=== PATIENT | male | born 1970 | race Caucasian/White ===

== ENCOUNTER 2019-03-17 09:30 | Outpatient (RCR) | payer MEDICAID, SELFPAY | END 2019-03-17 09:35 | disposition home or self-care (01) | LOC: PT 09:30 | PROVIDERS: Visit Provider Family Medicine | DX: M19.90 Unspecified osteoarthritis, unspecified site (principal) | CPT/HCPCS: 97010; 97014; 97110; 97163; G0283 ==

== ENCOUNTER 2020-04-21 10:53 | Emergency (ER) | payer MEDICAID, SELFPAY ==
--- NOTE | 2020-04-21 10:46 | ECG_ITS ---
APPROVED REPORT Exam: Resting ECG HR:58 bpm ECG Measurements Heart Rate 58 AXES SC 194 P 40 QRSd 100 QRS 61 QT 422 T 65 QTc 414 <Conclusion> Sinus bradycardia Otherwise normal ECG Electronically signed by : Ravinder Short, 04/22/2020 15:39:12
[2020-04-21 10:54] VITALS: BP 158/77; PULSE 60; RESP 17; TEMP 37.1; O2SAT 98; BMI 32.9
--- NOTE | 2020-04-21 10:59 | HMH.EDGENADL ---
ED Disposition Clinical Impression: Atypical chest pain Disposition: Home, Self-Care Condition on Discharge: Good Instructions: DI for Atypical Chest Pain Additional Instructions: Additional instructions for CHEST PAIN: See your physician as soon as possible for further evaluation. Return immediately if worsening chest pain, vomiting, shortness of breath, fever, coughing of blood. Referrals: PCP,No [Primary Care Provider] - - Critical Care Critical Care Time: No Attestation: On , the high probability of a clinically significant, sudden or life threatening deterioration of the following system(s) required my full and direct attention, intervention and personal management. The time I documented below is in addition to time spent performing reported procedures but includes the following listed in this critical care notation. Medical Decision Making - Medical Records Medical records reviewed: Yes: I reviewed the patient's medical records. - Leno Inquiry Pt receiving controlled substance: No Vital Signs: 04/21/20 10:54 04/21/20 11:04 04/21/20 11:52 Temperature 98.7 F Temperature Source Oral Pulse Rate Pulse Rate [Right Radial] 60 57 L 55 L Respiratory Rate 17 18 18 Blood Pressure Blood Pressure [Right Arm] 158/77 H 132/78 137/84 Blood Pressure Mean [Right Arm] 104 96 101 Blood Pressure Source [Right Arm] Automatic Cuff Blood Pressure Position [Right Arm] Sitting 02 Sat by Pulse Oximetry 98 98 94 L Oxygen Delivery Method Room Air Room Air 04/21/20 12:30 04/21/20 13:31 04/21/20 15:00 Temperature 98.2 F Temperature Source Oral Pulse Rate 51 L Pulse Rate [Right Radial] 54 L 54 L Respiratory Rate 20 18 18 Blood Pressure 128/75 Blood Pressure [Right Arm] 127/79 128/75 Blood Pressure Mean [Right Arm] 95 92 Blood Pressure Source [Right Arm] Automatic Cuff Blood Pressure Position [Right Arm] Supine 02 Sat by Pulse Oximetry 98 98 Oxygen Delivery Method Room Air Room Air Room Air - Lab Data Lab results reviewed: Yes: I reviewed the patient's lab results. Lab Results 04/21/20 10:50: Troponin I < 0.01 04/21/20 10:50: WBC 7.0, RBC 5.09, Hgb 16.9, Hct 47.0, MCV 92.3, MCH 33.1 H, MCHC 35.9 H, RDW 12.9, Plt Count 172, MPV 7.9, Neut % (Auto) 60.7, Lymph % (Auto) 22.9, Platte % (Auto) 8.0, Eos % (Auto) 8.0, Baso % (Auto) 0.4, Neut # (Auto) 4.3, Lymph # (Auto) 1.6, Platte # (Auto) 0.6, Eos # (Auto) 0.6 H, Baso # (Auto) 0.0 04/21/20 10:50: Sodium 138, Potassium 3.8, Chloride 101, Carbon Dioxide 29, Anion Gap 11.8, BUN 13, Creatinine 1.30 H, Estimated Creat Clear 102, Estimated GFR 58 L, Est GFR ( Amer) 70, Glucose 133 H, Calcium 9.6 04/21/20 10:50: Total Bilirubin 0.9, Direct Bilirubin 0.0, Conjugated Bilirubin 0.0, Indirect Bilirubin 0.9, Unconjugated Bilirubin 0.9, AST 28, ALT 20, Alkaline Phosphatase 47, Total Protein 7.2, Albumin 3.9 04/21/20 13:50: Troponin I < 0.01 Result diagrams: 04/21/20 10:50 04/21/20 10:50 Orders (Tests/Meds): ED MEDICATIONS Discontinued Medications Generic Name Dose Route Start Last Admin Trade Name Freq PRN Reason Stop Dose Admin Aspirin 324 mg 04/21/20 11:01 04/21/20 11:09 Aspirin 81mg Chewable Tablet PO 04/21/20 11:02 324 mg ONCE ONE Administration - Radiology Data #1 Image(s): Chest Image Reviewed: Yes I reviewed the patient's radiology image Preliminary Findings: Normal/NAD - ECG Data Tracing #1 EKG interpreted by Chris Villa MD: Rhythm: sinus bradycardia Rate: 58 [place]: normal Ectopy: none Conduction: normal ST Segment Changes: Minimal elevation inferiorly and laterally suggestive of early repolarization. No associated T wave changes. T Wave Changes: none Q Waves: none No prior EKGs available for comparison. Tracing #2 EKG interpreted by Chris Villa MD: Rhythm: sinus bradycardia Rate: 51 [place]: normal Ectopy: none Conduction: normal ST Segment Changes: none T Wave Ch
--- NOTE | 2020-04-21 11:00 | PC.NURSE ---
ekg given directly to dr can upon obtaining. awaiting further orders.
--- NOTE | 2020-04-21 11:01 | XR_ITS ---
PROCEDURE: XR CHEST PORTABLE CLINICAL HISTORY: cp Chest pain COMPARISON: No exams were available for comparison FINDINGS: The cardiomediastinal silhouette and pulmonary vascularity are within normal limits. The lungs are clear without infiltrates, suspicious nodules, or pleural effusions. No acute bony abnormalities. IMPRESSION: No acute findings. Dictated by: Juaquin Meehan MD 04/21/2020 11:58 Juaquin Meehan MD in [facility] 04/21/2020 11:58
--- NOTE | 2020-04-21 11:03 | PC.NURSE ---
dr can states that he wants to interview patient and decide if assessment matches ekg for stemi. at this time dr can states that he doesnt feel complaint is cardiac.
[2020-04-21 11:04] VITALS: BP 132/78; PULSE 57; RESP 18; O2SAT 98
[2020-04-21 11:13] LABS: Basophils % 0.4 % (0.1-2.0); Eosinophils # 0.6 K/mm3 (0.0-0.4); Hemoglobin 16.9 g/dL (14.1-18.0); Lymphocytes # 1.6 K/mm3 (0.7-4.5); Lymphocytes % 22.9 % (10-50); Mean Corpuscular HGB Conc 35.9 g/dL (31.8-35.4); Mean Corpuscular Hemoglobin 33.1 pg (27.0-31.2); Mean Corpuscular Volume 92.3 fl (80-94); Mean Platelet Volume 7.9 fl (7.4-10.4); Monocytes # 0.6 K/mm3 (0.1-1.0); Neutrophils # 4.3 K/mm3 (1.8-7.8); Neutrophils % 60.7 % (37.0-80.0); Platelet Count 172 K/mm3 (142-424); Red Blood Count 5.09 M/mm3 (4.60-6.20); Red Cell Distribution Width 12.9 % (11.5-17.5)
[2020-04-21 11:21] LABS: Chloride 101 mmol/L (98-107); Potassium 3.8 mmoL/L (3.5-5.1); Sodium 138 mmol/L (136-145)
[2020-04-21 11:24] LABS: Alanine Aminotransferase 20 U/L (12-78); Alkaline Phosphatase 47 U/L (38-126); Anion Gap 11.8 mEq/L (5-15); Aspartate Amino Transferase 28 U/L (17-59); Bilirubin,Indirect 0.9 mg/dL (0.0-0.9); Bilirubin,Total 0.9 mg/dl (0.2-1.3); Bilirubin,Unconjugated 0.9 mg/dL (0.0-1.1); Blood Urea Nitrogen 13 mg/dl (9-20); Calcium 9.6 mg/dl (8.4-10.2); Carbon Dioxide 29 mmol/L (22.0-30.0); Creatinine Clearance Estimated 102 mL/min (50-200); Estimated Glomerular Filt Rate 58 ml/min (>60); GFR (African American) 70 ML/MIN (>60); Glucose 133 mg/dl (74-100)
[2020-04-21 11:25] LABS: Albumin Level 3.9 g/dl (3.5-5.0); Total Protein,Serum 7.2 g/dl (6.3-8.2)
[2020-04-21 11:43] LABS: Troponin I < 0.01 ng/ml (0.00-0.034)
[2020-04-21 11:52] VITALS: BP 137/84; PULSE 55; RESP 18; O2SAT 94
[2020-04-21 12:30] VITALS: BP 127/79; PULSE 54; RESP 20; O2SAT 98
--- NOTE | 2020-04-21 13:01 | PC.NURSE ---
PT AMBULATING TO BATHROOM
[2020-04-21 13:31] VITALS: BP 128/75; PULSE 54; RESP 18; O2SAT 98
[2020-04-21 14:28] LABS: Troponin I < 0.01 ng/ml (0.00-0.034)
--- NOTE | 2020-04-21 14:54 | ECG_ITS ---
APPROVED REPORT Exam: Resting ECG HR:51 bpm ECG Measurements Heart Rate 51 AXES AZ 188 P 23 QRSd 88 QRS 41 QT 454 T 61 QTc 418 <Conclusion> Sinus bradycardia Otherwise normal ECG Electronically signed by : Ravinder Short, 04/22/2020 15:39:05
[2020-04-21 15:00] VITALS: BP 128/75; PULSE 51; RESP 18; TEMP 36.8; O2SAT 100
== END 2020-04-21 15:12 | disposition home or self-care (01) ==
PROVIDERS: Emergency Provider Emergency Medicine
DX: R07.9 Chest pain, unspecified (principal); F17.290 Nicotine dependence, other tobacco product, uncomplicated
CPT/HCPCS: 71045; 80048; 80076; 84484; 85025; 93005; 99284

== ENCOUNTER 2020-08-25 09:35 | Emergency (ER) | payer MEDICAID, SELFPAY ==
[2020-08-25 09:40] VITALS: BP 118/75; PULSE 58; RESP 20; TEMP 36.8; O2SAT 97; BMI 18.1
--- NOTE | 2020-08-25 09:59 | HMH.EDUTC ---
[facility] [place] Impression: Otitis media Qualifiers: Otitis media type: suppurative Chronicity: acute Laterality: bilateral Recurrence: non-recurrent Spontaneous tympanic membrane rupture: without spontaneous rupture Qualified Code(s): H66.003 - Acute suppurative otitis media without spontaneous rupture of ear drum, bilateral BPPV (benign paroxysmal positional vertigo) Qualifiers: Laterality: right Qualified Code(s): H81.11 - Benign paroxysmal vertigo, right ear Disposition: Home, Self-Care Condition on Discharge: Good Instructions: Middle Ear Infection, Benign Paroxysmal Positional Vertigo Additional Instructions: Drink plenty of fluids. Take tylenol or ibuprofen for pain or fever. Take the medications as directed. Follow up with your regular doctor. GO TO THE ER FOR ANY WORSENING SYMPTOMS Prescriptions: Amoxicillin [Amoxicillin 500mg Tab] 500 mg PO TID 10 Days #30 tab Transmission Status: Received by [facility] #[id number] predniSONE [Prednisone 20mg Tab] 20 mg PO BID 4 Days #8 tab Transmission Status: Received by [facility] #[id number] Referrals: Nitza Ring [Primary Care Provider] - Time of Disposition: 10:03 Medical Decision Making - Medical Records Medical records reviewed: No: I reviewed the patient's medical records. - Leno Inquiry Pt receiving controlled substance: No Vital Signs: 08/25/20 09:40 08/25/20 10:04 Temperature 98.3 F 98.3 F Temperature Source Oral Pulse Rate 58 L Pulse Rate [Left Brachial] 58 L Respiratory Rate 20 20 Blood Pressure 118/75 Blood Pressure [Left Arm] 118/75 Blood Pressure Mean [Left Arm] 89 Blood Pressure Source [Left Arm] Automatic Cuff Blood Pressure Position [Left Arm] Sitting 02 Sat by Pulse Oximetry 97 Oxygen Delivery Method Room Air [facility] [place] - General Stated complaint: dizzy Time Seen by Provider: 08/25/20 09:59 Mode of Arrival: Ambulatory Source of Information: Patient Limitations: No Limitations Description of Symptoms (Recalled from Triage Doc. by RN): PATIENT C/O DIZZINESS THIS MORNING AND DRAINAGE FROM EARS HEENT Symptoms (Recalled from RN notes): Yes Resp Symptoms (Recalled from RN notes): No Skin Symptoms (Recalled from RN notes): No MS Symptoms (Recalled from RN notes): No Functional Status (Recalled from RN notes): WNL - History of Present Illness Provider Complaint: He states that he has had bilateral ear pain for the past 2 days. He has also had dizziness at times. He states that when he looks down and then looks back up fast he gets dizzy. - Related Data Home Medications Medication Instructions Recorded Confirmed Bromocriptine Mesylate [Parlodel 2.5 mg PO DAILY 01/18/18 08/25/20 2.5mg tablet] atenoloL [Atenolol 25mg Tab] 25 mg PO DAILY 01/18/18 08/25/20 Testosterone [Androgel] 1.25 gm TD BID 08/25/20 08/25/20 Previous Rx's Medication Instructions Recorded Amoxicillin [Amoxicillin 500mg Tab] 500 mg PO TID 10 Days #30 tab 08/25/20 predniSONE [Prednisone 20mg 20 mg PO BID 4 Days #8 tab 08/25/20 Tab] Allergies Allergy/AdvReac Type Severity Reaction Status Date / Time No Known Allergies Allergy Unverified 07/13/17 15:08 - Worker's Comp Is this a Worker's Comp case?: No [facility] History - Hepatitis A Screen Drug use history?: No High risk sexual behaviors?: No History of sexually transmitted infection?: No Currently employed?: No Childcare worker?: No Do you have indoor plumbing?: Yes Do you have electricity?: Yes Attestation statement:: This patient has been screened for Hepatitis A risk factors. I have reviewed the patient's past medical history: Yes Medical History: Reports:: Cancer Denies:: Diabetes Mellitus Type 1, Diabetes Mellitus Type 2 - Social History Smoking Status: Never smoker Tobacco Type: smokeless tobacco # Packs/Day (cigarettes): 0 Alcohol Intake: never Occupational Status: other ROS Obtained: Yes All systems re
[2020-08-25 10:04] VITALS: BP 118/75; PULSE 58; RESP 20; TEMP 36.8; O2SAT 97
== END 2020-08-25 10:07 | disposition home or self-care (01) ==
PROVIDERS: Emergency Provider Nurse Practitioner Family; PCP Family Medicine
DX: H66.003 Acute suppurative otitis media without spontaneous rupture of ear drum, bilateral (principal); H81.11 Benign paroxysmal vertigo, right ear
CPT/HCPCS: 99202; G0463

== ENCOUNTER 2020-11-21 13:20 | Emergency (ER) | payer MEDICAID, SELFPAY ==
[2020-11-21 13:35] VITALS: BP 132/86; PULSE 99; RESP 16; TEMP 36.6; O2SAT 98; BMI 31.5
--- NOTE | 2020-11-21 13:48 | HMH.EDUTC ---
[facility] [place] Clinical Impression: Sinusitis Qualifiers: Sinusitis location: unspecified location Chronicity: acute Recurrence: non-recurrent Qualified Code(s): J01.90 - Acute sinusitis, unspecified Otitis media Qualifiers: Otitis media type: suppurative Chronicity: acute Laterality: bilateral Recurrence: non-recurrent Spontaneous tympanic membrane rupture: without spontaneous rupture Qualified Code(s): H66.003 - Acute suppurative otitis media without spontaneous rupture of ear drum, bilateral Disposition: Home, Self-Care Condition on Discharge: Good Instructions: DI for Sinusitis Additional Instructions: Drink plenty of fluids. Take tylenol or ibuprofen for pain or fever. Take the medications as directed. Follow up with your regular doctor. GO TO THE ER FOR ANY WORSENING SYMPTOMS Prescriptions: predniSONE [Prednisone 20mg Tab] 20 mg PO BID 4 Days #8 tab Transmission Status: Received by [facility] #[id number] Benzonatate [Tessalon Perle 100mg Cap] 100 mg PO TIDP PRN #30 cap PRN Reason: Cough Transmission Status: Received by [facility] #[id number] Azithromycin [Z-Troy 250mg Tab*] 250 mg PO UD DOSE PK #6 tab Transmission Status: Received by [facility] #[id number] Referrals: Nitza Ring [Primary Care Provider] - Forms: Work/School Release Time of Disposition: 13:52 Medical Decision Making - Medical Records Medical records reviewed: No: I reviewed the patient's medical records. - Leno Inquiry Pt receiving controlled substance: No Vital Signs: 11/21/20 13:35 11/21/20 13:54 Temperature 97.9 F 98 F Temperature Source Tympanic Pulse Rate 100 H Pulse Rate [Right] 99 H Respiratory Rate 16 18 Blood Pressure 129/82 Blood Pressure [Right Arm] 132/86 Blood Pressure Mean [Right Arm] 101 Blood Pressure Source [Right Arm] Automatic Cuff Blood Pressure Position [Right Arm] Sitting 02 Sat by Pulse Oximetry 98 [facility] [place] HPI - General Stated complaint: cough, runny nose Time Seen by Provider: 11/21/20 13:48 Mode of Arrival: Ambulatory Source of Information: Patient Limitations: No Limitations Description of Symptoms (Recalled from Triage Doc. by RN): PT C/O AN ALLERGY COLD WITH SINUS PRESSURE, RUNNY NOSE AND [place] FOR TWO DAYS. HEENT Symptoms (Recalled from RN notes): Yes (NASAL DRAINAGE, SINUS PRESSURE AND [place]) Resp Symptoms (Recalled from RN notes): No Skin Symptoms (Recalled from RN notes): No MS Symptoms (Recalled from RN notes): No Functional Status (Recalled from RN notes): NA - History of Present Illness Provider Complaint: He states that he has had sinus congestion, nasal drainage and a cough for the past 2 days. He has been vaccinated against covid. He denies any fever/chills/body aches. - Related Data Home Medications Medication Instructions Recorded Confirmed Bromocriptine Mesylate [Parlodel 2.5 mg PO DAILY 01/18/18 08/25/20 2.5mg tablet] atenoloL [Atenolol 25mg Tab] 25 mg PO DAILY 01/18/18 08/25/20 Testosterone [Androgel] 1.25 gm TD BID 08/25/20 08/25/20 Previous Rx's Medication Instructions Recorded Amoxicillin [Amoxicillin 500mg Tab] 500 mg PO TID 10 Days #30 tab 08/25/20 predniSONE [Prednisone 20mg 20 mg PO BID 4 Days #8 tab 08/25/20 Tab] Azithromycin [Z-Troy 250mg Tab*] 250 mg PO UD DOSE PK #6 tab 11/21/20 Benzonatate [Tessalon Perle 100mg 100 mg PO TIDP PRN #30 cap 11/21/20 Cap] predniSONE [Prednisone 20mg 20 mg PO BID 4 Days #8 tab 11/21/20 Tab] Allergies Allergy/AdvReac Type Severity Reaction Status Date / Time No Known Allergies Allergy Verified 11/21/20 13:41 - Worker's Comp Is this a Worker's Comp case?: No [facility] History - Hepatitis A Screen Drug use history?: No High risk sexual behaviors?: No History of sexually transmitted infection?: No Currently employed?: No Childcare worker?: No Do you have indoor plumbing?: Yes Do you have electricity?: Yes Attestation statement:: This
[2020-11-21 13:54] VITALS: BP 129/82; PULSE 100; RESP 18; TEMP 36.6
== END 2020-11-21 13:58 | disposition home or self-care (01) ==
PROVIDERS: Emergency Provider Nurse Practitioner Family; PCP Family Medicine
DX: J01.90 Acute sinusitis, unspecified (principal); H66.003 Acute suppurative otitis media without spontaneous rupture of ear drum, bilateral
CPT/HCPCS: 99202; G0463

== ENCOUNTER 2021-03-20 19:39 | Emergency (ER) | payer MEDICAID, SELFPAY ==
[2021-03-20 22:00] VITALS: BP 00/00; PULSE 0; RESP 0; TEMP -17.7; TEMP 0; O2SAT 0
--- NOTE | 2021-03-20 22:45 | PC.NURSE ---
Called for patient without answer
== END 2021-03-20 22:46 | disposition left against medical advice (07) ==
LOC: UTC 19:42
PROVIDERS: Emergency Provider Nurse Practitioner; PCP Family Medicine
DX: Z53.21 Procedure and treatment not carried out due to patient leaving prior to being seen by health care provider (principal)

== ENCOUNTER 2021-06-09 14:33 | Emergency (ER) | payer MEDICAID, SELFPAY ==
[2021-06-09 16:02] VITALS: BP 134/81; PULSE 71; RESP 16; TEMP 37.4; O2SAT 96; BMI 32.2
--- NOTE | 2021-06-09 16:07 | HMH.EDUTC ---
[facility] [place] Disposition Clinical Impression: Gastroenteritis Disposition: Home, Self-Care Condition on Discharge: Good Instructions: Viral Gastroenteritis, DI for Viral Gastroenteritis -- Adult Additional Instructions: Drink extra fluids with and between meals. If you have difficulty drinking, try very small amounts of water or suck on ice chips. ? Avoid fruit juices, as these do not replace minerals and can actually increase diarrhea. ? Children and adults can use sports drinks to replenish electrolytes. Younger children and infants should use products formulated for children, like oral rehydration solutions. ? Eat food in small amounts and let your stomach recover. ? Get lots of rest. You may feel tired or weak. ? No greasy or fried foods for the next 24-48 hours BRAT diet Bananas Rice Apples and [place] ? Make sure to drink plenty of liquids ? Return if needed ? Straight to ER if any life threatening symptoms ? Zofran as prescribed ? You was given an outpatient order for diarrhea panel, please collect specimen and bring back to outpatient lab then call back to the [facility] or follow up with family doctor for results ? Follow up with family doctor in the next 48-72 hours if no improvement or any worsening of symptoms Prescriptions: Dicyclomine HCl [Bentyl 10mg capsule] 10 mg PO TID PRN #15 cap PRN Reason: Cramping Transmission Status: Pending to [facility] # Ondansetron [Zofran 4mg ODT] 4 mg PO TIDP PRN #10 tab PRN Reason: Nausea Transmission Status: Pending to [facility] # Referrals: Nitza Ring [Primary Care Provider] - As needed Forms: Work/School Release Time of Disposition: 16:37 Medical Decision Making - Leno Inquiry Pt receiving controlled substance: No Leno was queried for this patient: No Vital Signs: 06/09/21 16:02 06/09/21 16:30 Temperature 99.4 F 99.4 F Temperature Source Oral Pulse Rate 71 Pulse Rate [Left] 71 Respiratory Rate 16 16 Blood Pressure 134/81 Blood Pressure [Right Arm] 134/81 Blood Pressure Mean [Right Arm] 98 02 Sat by Pulse Oximetry 96 Orders (Tests/Meds): ED MEDICATIONS Discontinued Medications Generic Name Dose Route Start Last Admin Trade Name Freq PRN Reason Stop Dose Admin Dicyclomine HCl 10 mg 06/09/21 16:14 06/09/21 16:24 Dicyclomine 10mg Capsule PO 06/09/21 16:15 10 mg ONCE ONE Administration Ondansetron HCl 4 mg 06/09/21 16:14 06/09/21 16:24 Ondansetron 4mg Odt SL 06/09/21 16:15 4 mg ONCE ONE Administration Medical Decision Narrative: Patient state that he is feeling much better and no longer having nausea and cramping no diarrhea since arrival [facility] [place] HPI - General Stated complaint: headache,SOA Time Seen by Provider: 06/09/21 16:08 Mode of Arrival: Ambulatory Source of Information: Patient Limitations: No Limitations Description of Symptoms (Recalled from Triage Doc. by RN): pt c/o having diarrhea and lethargy. HEENT Symptoms (Recalled from RN notes): No Resp Symptoms (Recalled from RN notes): No Skin Symptoms (Recalled from RN notes): No MS Symptoms (Recalled from RN notes): No Functional Status (Recalled from RN notes): na - History of Present Illness Provider Complaint: Patient states that his family has had a stomach bug and he thinks he may have it now too States that yesterday he started with cramping and diarrhea and had diarhea all day yesterday and last night States that today he has not had any diarrhea but has had some cramping and nausea but hasnt had any vomiting States that this evening he was still having some cramping so he came in to get medication for the nausea - Related Data Home Medications Medication Instructions Recorded Confirmed Bromocriptine Mesylate [Parlodel 2.5 mg PO DAILY 01/18/18 08/25/20 2.5mg tablet] atenoloL [Atenolol 25mg Tab] 25 mg PO DAILY 01/18/18 08/25/20 Testosterone [Androgel] 1.25 gm TD BID 08/25/20 08/25/20 Previous Rx's
[2021-06-09 16:30] VITALS: BP 134/81; PULSE 71; RESP 16; TEMP 37.4
== END 2021-06-09 16:56 | disposition home or self-care (01) ==
PROVIDERS: Emergency Provider Nurse Practitioner; PCP Family Medicine
DX: K52.9 Noninfective gastroenteritis and colitis, unspecified (principal)
CPT/HCPCS: 99202; G0463

== ENCOUNTER → 2021-06-12 04:55 | Outpatient (CLI) | payer MEDICAID, SELFPAY ==
[2021-06-12 05:34] LABS: Coronavirus 19, PCR Not Detected (NotDetected); Influenza A, PCR Not Detected (NotDetected); Influenza B, PCR Not Detected (NotDetected)
== END ==
PROVIDERS: PCP Family Medicine; Visit Provider Emergency Medicine
DX: Z20.822 Contact with and (suspected) exposure to COVID-19 (principal)
CPT/HCPCS: C9803; U0003; U0005

== ENCOUNTER → 2021-07-02 10:07 | Outpatient (CLI) | payer MEDICAID, SELFPAY | PROVIDERS: Visit Provider Nurse Practitioner | DX: Z20.822 Contact with and (suspected) exposure to COVID-19 (principal) | CPT/HCPCS: C9803; U0003; U0005 ==

== ENCOUNTER → 2021-07-11 13:46 | Outpatient (CLI) | payer MEDICAID, SELFPAY | PROVIDERS: Visit Provider Nurse Practitioner | DX: Z20.822 Contact with and (suspected) exposure to COVID-19 (principal) | CPT/HCPCS: C9803; U0003; U0005 ==

== ENCOUNTER 2021-09-07 09:54 | Emergency (ER) | payer MEDICAID, SELFPAY ==
[2021-09-07 09:55] VITALS: BP 123/77; PULSE 63; RESP 16; TEMP 37; O2SAT 98; BMI 33.5
--- NOTE | 2021-09-07 10:17 | XR_ITS ---
PROCEDURE INFORMATION: Exam: XR Chest Exam date and time: 09/07/2021 10:17 AM Age: 51 years old Clinical indication: Dyspnea; Additional info: Dyspnea, rhinorrhe a TECHNIQUE: Imaging protocol: XR of the chest. Views: 1 view. COMPARISON: CR XR CHEST PORTABLE 04/21/2020 11:46 AM FINDINGS: Lungs: Hyperinflation and mild prominence, without focal infiltrate. Pleural spaces: No pleural effusion. Heart/Mediastinum: Cardiac silhouette accentuated by epicardial fat. Bones/joints: Degenerative change. IMPRESSION: No acute airspace or pleural disease.
--- NOTE | 2021-09-07 10:33 | HMH.EDGENADL ---
ED Disposition Clinical Impression: Viral respiratory illness Disposition: Home, Self-Care Condition on Discharge: Good Instructions: DI for Viral Upper Respiratory Infection -- Adult Additional Instructions: Please follow up with your primary care physician in 2-3 days for further management. Please continue to eat 3 balanced meals and drink plenty of water. Please return for any concerning symptoms such as difficulty breathing, chest pain, symptoms that don't improve. Please follow up with COVID results tomorrow, if positive please self quarantine for 5 days or until asymptomatic. Referrals: Nitza Ring [Primary Care Provider] - Time of Disposition: 11:55 - Critical Care Critical Care Time: No Attestation: On 09/07/21, the high probability of a clinically significant, sudden or life threatening deterioration of the following system(s) required my full and direct attention, intervention and personal management. The time I documented below is in addition to time spent performing reported procedures but includes the following listed in this critical care notation. Medical Decision Making - Medical Records Medical records reviewed: Yes: I reviewed the patient's medical records. - Leno Inquiry Pt receiving controlled substance: No Vital Signs: 09/07/21 09:55 09/07/21 11:54 Temperature 98.6 F 98 F Temperature Source Oral Oral Pulse Rate 78 Pulse Rate [Radial] 63 Respiratory Rate 16 16 Blood Pressure 135/74 Blood Pressure [Right Arm] 123/77 Blood Pressure Mean [Right Arm] 92 Blood Pressure Position Sitting Blood Pressure Position [Right Arm] Sitting 02 Sat by Pulse Oximetry 98 Oxygen Delivery Method Room Air Room Air - Lab Data Lab results reviewed: Yes: I reviewed the patient's lab results. Orders (Tests/Meds): ORDERS Category Date Time Status Covid-19 Nasal PCR ([facility]) Routine Lab 09/07/21 09:58 Received Medical Decision Narrative: Mr. Cerrato is a 51 yo male diagnosed w/ COVID 19 07/2021 who presents to the ED for cough, congestion, dyspnea and fever 5d. Fully vaccinated. Patient is afebrile and hemodynamically stable,non toxic appearing. Physical exam patient has equal breath sounds bilterally w/ no wheezing, rhales or rhonchi. Patient breathing comfortably satting 98% on RA. Differentials to consider include: viral mediated illness including covid 19, pneumonia given duration of symptoms. Low suspicoin for pe given current clinical picture. CXR shows no evidence of pneumonia no consolidations. Patient is swabbed for covid 19 and instructed to fu w/ results in 24 hours. Patient is discharged in stable condition and informed to return if difficulty breathing, chest pain, symptoms that don't improve or any other ocncerns. Will fu w/ pcp in 2-3 d. General Adult HPI - General Chief complaint: Fever Stated complaint: fever Time Seen by Provider: 09/07/21 09:55 Mode of Arrival: Ambulatory Source of Information: Patient Limitations: No Limitations Description of Symptoms (Recalled from ER Triage Doc. by RN): TO ED PER PVT CAR WITH C/O FEVER X 2 DAYS, YEE EAR PAIN STATES HE HAD COVID 1 1/2 MONTHS AGO. [employer]Y DIRECTOR - History of Present Illness HPI narrative: Mr. gomez is a 51 yo male w/ COVID 07/2021 who presents to the ED for sore throat, congestion, dyspnea and cough for the last week. Patient is vaccinated. He reports a non productive cough, congestion and dyspnea. He also endorses fever and 2-3 episodes of non bloody diarrhea for the last 24 hours. He denies any LE swelling/hemoptysis or chest pain. No recent trauma to the chest. No abdominal pain, N/V, urinary or bowel changes. No sick contacts. No oropharyngeal changes. No ear pain (recently diagnosed w/ auricular infection since resolved). MD complaint: fever, congestion/cough - Related Data Home Medications Medication Instructions Recorded Confirmed Bromocriptine Mesylate [Parlodel 2.5 mg PO DAILY 01/18/18 08/25/20 2.5mg t
[2021-09-07 11:54] VITALS: BP 135/74; PULSE 78; RESP 16; TEMP 36.6; O2SAT 98
== END 2021-09-07 11:55 | disposition home or self-care (01) ==
PROVIDERS: Emergency Provider Student in an Organized Health Care Education/Training Program; PCP Family Medicine
DX: J98.8 Other specified respiratory disorders (principal); Z20.822 Contact with and (suspected) exposure to COVID-19; Z86.16 Personal history of COVID-19
CPT/HCPCS: 71045; 99282; C9803; U0003; U0005

== ENCOUNTER → 2021-09-19 14:03 | Outpatient (CLI) | payer MEDICAID, SELFPAY | PROVIDERS: Visit Provider Nurse Practitioner | DX: Z20.822 Contact with and (suspected) exposure to COVID-19 (principal) | CPT/HCPCS: C9803; U0003; U0005 ==

== ENCOUNTER 2021-10-08 10:39 | Emergency (ER) | payer MEDICAID, SELFPAY ==
[2021-10-08 11:19] VITALS: BP 159/99; PULSE 64; RESP 16; TEMP 37; O2SAT 97; BMI 34.1
--- NOTE | 2021-10-08 11:28 | HMH.EDUTC ---
[facility] [place] Clinical Impression: Vertigo Otitis media Qualifiers: Otitis media type: unspecified Laterality: right Qualified Code(s): H66.91 - Otitis media, unspecified, right ear Disposition: Home, Self-Care Condition on Discharge: Good Instructions: Vertigo (Alternative Therapy), Vertigo, Middle Ear Infection Additional Instructions: *Monitor Temp, Over the counter Motrin or Tylenol as directed/as needed Tylenol every 4 hours and Motrin every 6 hours (as long as your family doctor has told you that you can take it) for fever or pain. and straight to ER if unable to lower temp less than 101.0 after medication given *Warm salt water gargles may help to soothe the throat *Throat Lozenges *Warm fluids like tea with honey may help to soothe the throat *Sleep elevated *Humidifier/Vaporizer Take medications as prescribed Follow up with your Family Doctor if no improvement and immediately if any worsening of symptoms Follow up IMMEDIATELY for new or worsening symptoms or no Noticeable improvement over the next 48-72 hours. 911 for difficulty breathing or swallowing Prescriptions: Meclizine HCl [Meclizine 25mg Tab] 25 mg PO Q8HP PRN #15 tab PRN Reason: Vertigo Transmission Status: Received by [facility] # Amoxicillin [Amoxicillin 500mg Cap] 500 mg PO TID #30 cap Transmission Status: Received by [facility] # predniSONE [Deltasone 10mg tablet] 10 mg PO BID #10 tab Transmission Status: Received by [facility] # Referrals: Nitza Ring [Primary Care Provider] - As needed Forms: Work/School Release Time of Disposition: 11:59 Medical Decision Making - Leno Inquiry Pt receiving controlled substance: No Leno was queried for this patient: No Vital Signs: 10/08/21 11:19 Temperature 98.6 F Temperature Source Oral Pulse Rate [Left] 64 Respiratory Rate 16 Blood Pressure [Right Arm] 159/99 H Blood Pressure Mean [Right Arm] 119 02 Sat by Pulse Oximetry 97 Orders (Tests/Meds): ED MEDICATIONS Discontinued Medications Generic Name Dose Route Start Last Admin Trade Name Freq PRN Reason Stop Dose Admin Meclizine HCl 25 mg 10/08/21 11:34 10/08/21 11:36 Meclizine 25mg Tablet PO 10/08/21 11:35 25 mg ONCE ONE Administration Medical Decision Narrative: Patient states that vertigo is much better after medication [facility] [place] - General Stated complaint: dizzy Time Seen by Provider: 10/08/21 11:28 Mode of Arrival: Ambulatory Source of Information: Patient Limitations: No Limitations Description of Symptoms (Recalled from Triage Doc. by RN): pt c/o dizziness since this am. pt believes he has an ear infection. 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 and he started feeling dizzy like the world was spinning States that he went home tried to lay down and the spinning was worse so he came in to get checked out States that dizziness is worse with movement - Related Data Home Medications Medication Instructions Recorded Confirmed Bromocriptine Mesylate [Parlodel 2.5 mg PO DAILY 01/18/18 08/25/20 2.5mg tablet] atenoloL [Atenolol 25mg Tab] 25 mg PO DAILY 01/18/18 08/25/20 Testosterone [Androgel] 1.25 gm TD BID 08/25/20 08/25/20 Previous Rx's Medication Instructions Recorded Amoxicillin [Amoxicillin 500mg Tab] 500 mg PO TID 10 Days #30 tab 08/25/20 predniSONE [Prednisone 20mg 20 mg PO BID 4 Days #8 tab 08/25/20 Tab] Azithromycin [Z-Troy 250mg Tab*] 250 mg PO UD DOSE PK #6 tab 11/21/20 Benzonatate [T
[2021-10-08 12:11] VITALS: BP 159/99; PULSE 64; RESP 16; TEMP 37
== END 2021-10-08 12:11 | disposition home or self-care (01) ==
PROVIDERS: Emergency Provider Nurse Practitioner; PCP Family Medicine
DX: R42 Dizziness and giddiness (principal); H66.91 Otitis media, unspecified, right ear
CPT/HCPCS: 99212; G0463

== ENCOUNTER 2022-01-20 10:15 | Emergency (ER) | payer MEDICAID, SELFPAY ==
[2022-01-20 10:27] VITALS: BP 150/82; PULSE 50; RESP 17; TEMP 36.5; O2SAT 98; BMI 32.1
--- NOTE | 2022-01-20 11:06 | HMH.EDUTC ---
[facility] [place] Clinical Impression: Gastroenteritis Diarrhea Qualifiers: Diarrhea type: unspecified type Qualified Code(s): R19.7 - Diarrhea, unspecified Disposition: Home, Self-Care Condition on Discharge: Good Instructions: Diarrhea, Viral Gastroenteritis, Gastroenteritis Diet Additional Instructions: Drink plenty of fluids. Take tylenol or ibuprofen for pain or fever. Take the medications as directed if you have nausea/vomiting. Follow up with your regular doctor. GO TO THE ER FOR ANY WORSENING SYMPTOMS Prescriptions: Ondansetron [Zofran 4mg ODT] 4 mg PO Q8HP PRN #20 tab PRN Reason: Nausea Transmission Status: Received by [facility] #[id number] Referrals: Nitza Ring [Primary Care Provider] - Time of Disposition: 11:11 Medical Decision Making - Medical Records Medical records reviewed: No: I reviewed the patient's medical records. - Leno Inquiry Pt receiving controlled substance: No Vital Signs: 01/20/22 10:27 01/20/22 11:21 Temperature 97.7 F 97.7 F Temperature Source Oral Pulse Rate 50 L Pulse Rate [Left] 50 L Respiratory Rate 17 17 Blood Pressure 150/82 H Blood Pressure [Right Arm] 150/82 H Blood Pressure Mean [Right Arm] 104 02 Sat by Pulse Oximetry 98 Orders (Tests/Meds): ORDERS Category Date Time Status Diarrhea 23 Panel, PCR Routine Lab 01/20/22 12:50 Received [facility] [place] H[place] - General Stated complaint: diarrhea Time Seen by Provider: 01/20/22 10:30 Description of Symptoms (Recalled from Triage Doc. by RN): patient comes in today with complaints of diarrhea that began wednesday. patient states he is having abdominal cramping. HEENT Symptoms (Recalled from RN notes): No Resp Symptoms (Recalled from RN notes): No Skin Symptoms (Recalled from RN notes): No MS Symptoms (Recalled from RN notes): No Functional Status (Recalled from RN notes): wnl - Related Data Home Medications Medication Instructions Recorded Confirmed Bromocriptine Mesylate [Parlodel 2.5 mg PO DAILY 01/18/18 08/25/20 2.5mg tablet] atenoloL [Atenolol 25mg Tab] 25 mg PO DAILY 01/18/18 08/25/20 Testosterone [Androgel] 1.25 gm TD BID 08/25/20 08/25/20 Previous Rx's Medication Instructions Recorded Amoxicillin [Amoxicillin 500mg Tab] 500 mg PO TID 10 Days #30 tab 08/25/20 predniSONE [Prednisone 20mg 20 mg PO BID 4 Days #8 tab 08/25/20 Tab] Azithromycin [Z-Troy 250mg Tab*] 250 mg PO UD DOSE PK #6 tab 11/21/20 Benzonatate [Tessalon Perle 100mg 100 mg PO TIDP PRN #30 cap 11/21/20 Cap] predniSONE [Prednisone 20mg 20 mg PO BID 4 Days #8 tab 11/21/20 Tab] Dicyclomine HCl [Bentyl 10mg 10 mg PO TID PRN #15 cap 06/09/21 capsule] Ondansetron [Zofran 4mg ODT] 4 mg PO TIDP PRN #10 tab 06/09/21 Amoxicillin [Amoxicillin 500mg 500 mg PO TID #30 cap 10/08/21 Cap] Meclizine HCl [Meclizine 25mg Tab] 25 mg PO Q8HP PRN #15 tab 10/08/21 predniSONE [Deltasone 10mg tablet] 10 mg PO BID #10 tab 10/08/21 Ondansetron [Zofran 4mg ODT] 4 mg PO Q8HP PRN #20 tab 01/20/22 Allergies Allergy/AdvReac Type Severity Reaction Status Date / Time No Known Allergies Allergy Verified 01/20/22 10:32 - Worker's Comp Is this a Worker's Comp case?: No [facility] History - Hepatitis A Screen Attestation statement:: This patient has been screened for Hepatitis A risk factors. I have reviewed the patient's past medical history: Yes Medical History: Reports:: Cancer Denies:: Diabetes Mellitus Type 1, Diabetes Mellitus Type 2 - Social History Smoking Status: Never smoker Tobacco Type: smokeless tobacco # Packs/Day (cigarettes): 0 Alcohol Intake: never Occupational Status: employed ROS Obtained: Yes All systems reviewed & no additional complaints - Constitutional Constitutional: Reports as per HPI - Eyes Eyes: Denies eye discharge - ENT Ears, Nose, Mouth, and Throat: Reports as per HPI - Cardiovascular Cardiovascular: Denies ches
[2022-01-20 11:21] VITALS: BP 150/82; PULSE 50; RESP 17; TEMP 36.5
[2022-01-20 13:13] LABS: Adenovirus F 40/41, stool Not Detected (NotDetected); Astrovirus Not Detected (NotDetected); Campylobacter Not Detected (NotDetected); Clostridium Difficile A/B, PCR Not Detected (NotDetected); Cryptosporidium Not Detected (NotDetected); Cyclospora Cayetanesis Not Detected (NotDetected); Entamoeba histolytica Not Detected (NotDetected); Enteroaggregative E coli Not Detected (NotDetected); Enterotoxigenic E coli Not Detected (NotDetected); Giardia lamblia Not Detected (NotDetected); Norovirus Not Detected (NotDetected); Plesimonas Shigalloides, PCR Not Detected (NotDetected); Rotavirus A Not Detected (NotDetected); Salmonella, PCR Not Detected (NotDetected); Sapovirus Not Detected (NotDetected); Shiga-like toxin E coli Not Detected (NotDetected); Shigella Enterovasive E coli Not Detected (NotDetected); Vibrio Cholerae Not Detected (NotDetected); Vibrio, PCR Not Detected (NotDetected); Yersinia Entercolitica, PCR Not Detected (NotDetected)
[2022-01-20 20:36] LABS: Enteropathogenic E coli Detected (NotDetected)
== END 2022-01-20 11:21 | disposition home or self-care (01) ==
PROVIDERS: Emergency Provider Nurse Practitioner Family; PCP Family Medicine
DX: K52.9 Noninfective gastroenteritis and colitis, unspecified (principal)
CPT/HCPCS: 87507; 96374; 99212; G0463

== ENCOUNTER → 2022-02-19 12:25 | Outpatient (CLI) | payer MEDICAID, SELFPAY ==
[2022-02-19 13:29] LABS: Chloride 103 mmol/L (98-107)
[2022-02-19 13:30] LABS: Potassium 4.3 mmoL/L (3.5-5.1); Sodium 138 mmol/L (136-145)
[2022-02-19 13:32] LABS: Blood Urea Nitrogen 13 mg/dl (9-20); Estimated Glomerular Filt Rate 58 ml/min (>60); GFR (African American) 70 ML/MIN (>60)
[2022-02-19 13:33] LABS: Anion Gap 11.3 mEq/L (5-15); Calcium 9.6 mg/dl (8.4-10.2); Carbon Dioxide 28 mmol/L (22.0-30.0); Glucose 143 mg/dl (74-100)
== END ==
PROVIDERS: Visit Provider Dietitian, Registered
DX: R93.5 Abnormal findings on diagnostic imaging of other abdominal regions, including retroperitoneum (principal); R19.7 Diarrhea, unspecified
CPT/HCPCS: 36415; 80048

== ENCOUNTER → 2022-02-20 11:12 | Outpatient (CLI) | payer MEDICAID, SELFPAY ==
[2022-02-20 11:30] LABS: Adenovirus F 40/41, stool Not Detected (NotDetected); Astrovirus Not Detected (NotDetected); Campylobacter Not Detected (NotDetected); Clostridium Difficile A/B, PCR Not Detected (NotDetected); Cryptosporidium Not Detected (NotDetected); Cyclospora Cayetanesis Not Detected (NotDetected); Entamoeba histolytica Not Detected (NotDetected); Enteroaggregative E coli Not Detected (NotDetected); Enteropathogenic E coli Not Detected (NotDetected); Enterotoxigenic E coli Not Detected (NotDetected); Giardia lamblia Not Detected (NotDetected); Norovirus Not Detected (NotDetected); Plesimonas Shigalloides, PCR Not Detected (NotDetected); Rotavirus A Not Detected (NotDetected); Salmonella, PCR Not Detected (NotDetected); Sapovirus Not Detected (NotDetected); Shiga-like toxin E coli Not Detected (NotDetected); Shigella Enterovasive E coli Not Detected (NotDetected); Vibrio Cholerae Not Detected (NotDetected); Vibrio, PCR Not Detected (NotDetected); Yersinia Entercolitica, PCR Not Detected (NotDetected)
[2022-02-23 22:07] LABS: Calprotectin, Fecal 79 ug/g (0-120)
== END ==
PROVIDERS: Visit Provider Dietitian, Registered
DX: R19.7 Diarrhea, unspecified (principal); R93.5 Abnormal findings on diagnostic imaging of other abdominal regions, including retroperitoneum
CPT/HCPCS: 83993; 87507

== ENCOUNTER → 2022-02-27 09:43 | Outpatient (CLI) | payer MEDICAID, SELFPAY | PROVIDERS: Visit Provider Dietitian, Registered | DX: R19.7 Diarrhea, unspecified (principal); R93.5 Abnormal findings on diagnostic imaging of other abdominal regions, including retroperitoneum | CPT/HCPCS: 87177 ==

== ENCOUNTER → 2022-07-02 07:42 | Outpatient (CLI) | payer MEDICAID, SELFPAY ==
[2022-07-02 08:32] LABS: Chloride 102 mmol/L (98-107); Potassium 4.2 mmoL/L (3.5-5.1); Sodium 139 mmol/L (136-145)
[2022-07-02 08:35] LABS: Anion Gap 10.2 mEq/L (5-15); Blood Urea Nitrogen 14 mg/dl (9-20); Calcium 9.6 mg/dl (8.4-10.2); Carbon Dioxide 31 mmol/L (22.0-30.0); Estimated Glomerular Filt Rate 53 ml/min (>60); GFR (African American) 64 ML/MIN (>60); Glucose 127 mg/dl (74-100)
[2022-07-03 12:03] LABS: Immunoglobulin A, Qn 261 mg/dL (90-386)
[2022-07-03 15:03] LABS: Tissue Transglutaminase IgA Ab <2 U/mL (0-3)
[2022-07-04 18:08] LABS: Strongyloides IgG Antibody Negative (Negative)
== END ==
PROVIDERS: PCP Family Medicine; Visit Provider Dietitian, Registered
DX: R19.7 Diarrhea, unspecified (principal)
CPT/HCPCS: 36415; 80048; 82784; 83516; 86682; 87177

== ENCOUNTER 2023-04-21 08:00 | Outpatient (RCR) | payer MEDICAID, SELFPAY | END 2023-04-21 09:10 | disposition home or self-care (01) | LOC: PT 08:00 | PROVIDERS: PCP Family Medicine; Visit Provider Family Medicine | DX: S76.319D Strain of muscle, fascia and tendon of the posterior muscle group at thigh level, unspecified thigh, subsequent encounter (principal) | CPT/HCPCS: 20560; 97010; 97014; 97035; 97110; 97140; 97163; 97164; G0283 ==

== ENCOUNTER 2023-07-03 09:40 | Emergency (ER) | payer MEDICAID, SELFPAY ==
[2023-07-03 09:45] VITALS: BP 140/88; PULSE 73; RESP 18; TEMP 36.8; O2SAT 98; BMI 36.0
--- NOTE | 2023-07-03 10:12 | EXP.UTC ---
Discharge Plan Disposition Patient Disposition: Home, Self-Care Condition: Good Prescriptions Prescriptions: New cyclobenzaprine 7.5 mg tablet 7.5 mg PO TID PRN (Reason: muscle spasm) Qty: 30 0RF No Action atenolol 25 MG tablet 25 mg PO DAILY bromocriptine 2.5 MG tablet 2.5 mg PO DAILY cetirizine 10 mg tablet 10 mg PO DAILY Patient Comments: TAKE 1 TABLET BY MOUTH EVERY NIGHT dicyclomine 10 mg capsule 10 mg PO Q8HP PRN (Reason: Diarrhea) Patient Comments: TAKE 1 CAPSULE BY MOUTH EVERY 8 HOURS NEEDED FOR DIARRHEA/FECAL URGENCY cholecalciferol (vitamin D3) 25 mcg (1,000 unit) capsule 25 mcg PO DAILY testosterone 20.25 mg/1.25 gram (1.62 %) gel in metered-dose pump 6 pump topical DAILY Patient Comments: PLACE 6 PUMPS ONTO THE SKIN EVERY DAY Referrals Follow up/Referrals: Nitza Ring [Primary Care Provider] - See instructions Clinical Impressions Clinical Impression: Muscle spasms of neck Instructions Patient Instructions: DI for Muscle Spasm, DI for Neck Pain Discharge ED Provider: Claudia Villeda [facility] General Stated complaint: neck pain, no accident Mode of Arrival: Ambulatory Source of Information: Patient Limitations: No Limitations Time Seen by Provider: 07/03/23 10:11 Description of Symptoms (Recalled from Triage Doc. by RN): PATIENT C/O PAIN IN NECK AFTER SLEEPING ON IT WRONG X 2 DAYS HEENT Symptoms (Recalled from RN notes): No Resp Symptoms (Recalled from RN notes): No Skin Symptoms (Recalled from RN notes): No MS Symptoms (Recalled from RN notes): Yes Functional Status (Recalled from RN notes): WNL History of Present Illness Provider Complaint: Pt relates that he slept wrong a couple nights ago and now has a lot of pain on the left side of his neck. Related Data Home Medications Medication Instructions Recorded Confirmed atenolol 25 mg tablet 25 mg PO DAILY Hypertension 01/18/18 07/03/23 bromocriptine 2.5 mg tablet 2.5 mg PO DAILY brain tumor 01/18/18 07/03/23 cetirizine 10 mg tablet 10 mg PO DAILY 07/03/23 07/03/23 cholecalciferol (vitamin D3) 25 25 mcg PO DAILY 07/03/23 07/03/23 mcg (1,000 unit) capsule dicyclomine 10 mg capsule 10 mg PO Q8HP PRN Diarrhea 07/03/23 07/03/23 testosterone 6 pump topical DAILY 07/03/23 07/03/23 Previous Rx's Medication Instructions Recorded cyclobenzaprine 7.5 mg tablet 7.5 mg PO TID PRN muscle spasm #30 07/03/23 tabs Allergies Allergy/AdvReac Type Severity Reaction Status Date / Time No Known Allergies Allergy Verified 01/20/22 10:32 Worker's Comp Is this a Worker's Comp case?: No [facility] Disclaimer: The information contained in this section may have been updated after the patient was seen, as this information can be updated by other users. Medical History (Updated 07/03/23 @ 10:28 by Claudia Villeda APRN) Cancer Hypertension Social History Smoking Status: Never smoker alcohol intake: never current occupational status: employed Travel in the last 8 weeks: None ROS Obtained: Yes All systems reviewed & no additional complaints except as documented Constitutional Constitutional: Reports system reviewed and no additional complaints, except as documented Eyes Eyes: Reports system reviewed and no additional complaints, except as documented ENT Ears, Nose, Mouth, and Throat: Reports system reviewed and no additional complaints, except as documented and Reports neck pain Cardiovascular Cardiovascular: Reports system reviewed and no additional complaints, except as documented Respiratory Respiratory: Reports system reviewed and no additional complaints, except as documented Gastrointestinal Gastrointestingal: Reports system reviewed and no additional complaints, except as documented Genitourinary Male Genitourinary: Reports system reviewed and no additional complaints, except as documented Musculoskeletal Musculoskeletal: Reports system r
[2023-07-03 10:31] VITALS: BP 140/88; PULSE 73; RESP 18; TEMP 36.8; O2SAT 98
== END 2023-07-03 10:38 | disposition home or self-care (01) ==
PROVIDERS: Emergency Provider Nurse Practitioner Family; PCP Family Medicine
DX: M54.2 Cervicalgia (principal); M62.838 Other muscle spasm; I10 Essential (primary) hypertension
CPT/HCPCS: 96372; 99212; 99214; G0463

== ENCOUNTER 2023-08-02 08:00 | Outpatient (RCR) | payer MEDICAID, SELFPAY | END 2023-08-02 09:00 | disposition home or self-care (01) | LOC: OT 08:00 | PROVIDERS: PCP Family Medicine; Visit Provider Nurse Practitioner Family | DX: M25.512 Pain in left shoulder (principal); S46.812D Strain of other muscles, fascia and tendons at shoulder and upper arm level, left arm, subsequent encounter | CPT/HCPCS: 97010; 97014; 97110; 97140; 97165; G0283 ==

== ENCOUNTER 2023-12-08 10:00 | Outpatient (RCR) | payer MEDICAID, SELFPAY | END 2023-12-08 10:05 | disposition home or self-care (01) | LOC: OT 10:00 | PROVIDERS: Visit Provider Orthopaedic Surgery Adult Reconstructive Orthopaedic Surgery | DX: M25.512 Pain in left shoulder (principal); M75.42 Impingement syndrome of left shoulder | CPT/HCPCS: 97010; 97014; 97110; 97140; 97164; 97165; 97530; G0283 ==

== ENCOUNTER 2023-12-09 12:49 | Emergency (ER) | payer MEDICAID, SELFPAY ==
[2023-12-09 13:00] VITALS: BP 120/73; PULSE 65; RESP 19; TEMP 36.6; O2SAT 97; BMI 32.5
--- NOTE | 2023-12-09 13:16 | EXP.UTC ---
Discharge Plan Disposition Patient Disposition: Home, Self-Care Condition: Good Prescriptions Prescriptions: No Action atenolol 25 MG tablet 50 mg PO DAILY bromocriptine 2.5 MG tablet 2.5 mg PO DAILY metformin 500 mg tablet extended release 24 hr 500 mg PO DAILY rosuvastatin 20 mg tablet 20 mg PO DAILY cetirizine 10 mg tablet 10 mg PO DAILY Patient Comments: TAKE 1 TABLET BY MOUTH EVERY NIGHT testosterone 20.25 mg/1.25 gram (1.62 %) gel in metered-dose pump 6 pump topical DAILY Patient Comments: PLACE 6 PUMPS ONTO THE SKIN EVERY DAY Referrals Follow up/Referrals: Nitza Ring [Primary Care Provider] - See instructions Activity Restrictions/Add. Instructions Additional Instructions/Restrictions: Watch area for worsening of redness and bulls eye rash as discussed if seen follow up with your Family Doctor immediately You was given a Prophylactic does of Doxycycline in the [facility] Do not scratch or pick at area Straight to ER if any life threatening symptoms Clinical Impressions Clinical Impression: Tick bite Qualifiers: Encounter type: initial encounter Site of tick bite: unspecified site Qualified Code(s): W57.XXXA - Bitten or stung by nonvenomous insect and other nonvenomous arthropods, initial encounter Instructions Patient Instructions: How to Remove a Tick, Protect Yourself from Tickborne Illnesses Discharge ED Provider: Bella Rose [facility] [place] General Stated complaint: tick bit upper L groin area Mode of Arrival: Ambulatory Source of Information: Patient Limitations: No Limitations Time Seen by Provider: 12/09/23 13:24 Description of Symptoms (Recalled from Triage Doc. by RN): PATIENT C/O TICK BITE TO GROIN AREA YESTERDAY MORNING HEENT Symptoms (Recalled from RN notes): No Resp Symptoms (Recalled from RN notes): No Skin Symptoms (Recalled from RN notes): Yes MS Symptoms (Recalled from RN notes): No Functional Status (Recalled from RN notes): WNL History of Present Illness Provider Complaint: Patient states that he had a tick attached in his groin area not sure how long it had been there and he removed it last night and is sure the head was still attached States this morning he noticed it looked red and puffy around it and has continued throughout the day so he came in to get it looked at Related Data Home Medications Medication Instructions Recorded Confirmed atenolol 25 mg tablet 50 mg PO DAILY Hypertension 01/18/18 12/09/23 bromocriptine 2.5 mg tablet 2.5 mg PO DAILY brain tumor 01/18/18 12/09/23 cetirizine 10 mg tablet 10 mg PO DAILY 07/03/23 12/09/23 testosterone 6 pump topical DAILY 07/03/23 12/09/23 metformin 500 mg tablet,extended 500 mg PO DAILY 12/09/23 12/09/23 release 24 hr rosuvastatin 20 mg tablet 20 mg PO DAILY 12/09/23 12/09/23 Allergies Allergy/AdvReac Type Severity Reaction Status Date / Time No Known Allergies Allergy Verified 01/20/22 10:32 Worker's Comp Is this a Worker's Comp case?: [facility] Disclaimer: The information contained in this section may have been updated after the patient was seen, as this information can be updated by other users. Medical History (Updated 12/09/23 @ 13:32 by Bella Rose APRN) Asthma Cancer Hypertension Social History Smoking Status: Never smoker alcohol intake: never current occupational status: employed Travel in the last 8 weeks: None ROS Obtained: Yes All systems reviewed & no additional complaints except as documented and Yes Systems reviewed as appropriate & no additional complaints except as documented Constitutional Constitutional: Reports system reviewed and no additional complaints, except as documented and Reports as per HPI ENT Ears, Nose, Mouth, and Throat: Reports system reviewed and no additional complaints, except as documented and Reports as per HPI Cardiovascular Cardiovascular: Reports system reviewed and no additional complaints, except as documented and Reports as per HPI Respiratory Respiratory: Reports system reviewed and no additional complaints, except as documented and Reports as per HPI Integumentary/Breasts Skin/Breast: Reports system reviewed and no additional complaints, except as documented, Reports as per HPI and Reports other (redness and irritation around tick bite on groin) Physical Exam General General appearance: alert and in no apparent distress Respiratory Respiratory exam: Present normal lung sounds bilaterally; Absent respiratory distress or wheezes Cardiovascular Cardiovascular exam: Present regular rate, normal rhythm and normal heart sounds Neurological Exam Neurological exam: Present alert, oriented X3 and normal gait Skin Skin exam: Present other (red area noted in groin area where patient removed tick ) Medical Decision Making Leno Inquiry Pt receiving controlled substance: No Leno was queried for this patient: No Vital Signs: 12/09/23 13:00 Temperature 97.9 F Temperature Source Oral Pulse Rate [Left Brachial] 65 Respiratory Rate 19 Blood Pressure [Left Arm] 120/73 Blood Pressure Mean [Left Arm] 88 Blood Pressure Source [Left Arm] Automatic Cuff Blood Pressure Position [Left Arm] Sitting 02 Sat by Pulse Oximetry 97 Oxygen Delivery Method Room Air Medical Decision Narrative: Patient has red area noted where he removed tick concerned with tick born illness will treat prophalacticly with doxy 200mg po x 1 where tick was attached unknown time and removed less than 72hrs ago
[2023-12-09 13:37] VITALS: BP 120/73; PULSE 65; RESP 19; TEMP 36.6; O2SAT 97
[2023-12-09] MEDS: DOXYCYCLINE HYCL 100 MG TABLET 200 MG PO (13:41)
== END 2023-12-09 13:43 | disposition home or self-care (01) ==
PROVIDERS: Emergency Provider Nurse Practitioner; PCP Family Medicine
DX: S30.865A Insect bite (nonvenomous) of unspecified external genital organs, male, initial encounter (principal); W57.XXXA Bitten or stung by nonvenomous insect and other nonvenomous arthropods, initial encounter
CPT/HCPCS: 99212; 99214; G0463

== ENCOUNTER 2024-12-10 18:45 | Emergency (ER) | payer MEDICAID, SELFPAY ==
[2024-12-10 19:12] VITALS: BP 138/87; PULSE 64; RESP 18; TEMP 37.2; O2SAT 97; BMI 30.9
--- NOTE | 2024-12-10 19:27 | ED_ITS ---
Discharge Plan Disposition Patient Disposition: Home, Self-Care Prescriptions Prescriptions: New amoxicillin-pot clavulanate 875-125 mg tablet 1 tab PO BID 5 Days Qty: 10 0RF No Action atenolol 25 MG tablet 50 mg PO DAILY bromocriptine 2.5 MG tablet 2.5 mg PO DAILY metformin 500 mg tablet extended release 24 hr 500 mg PO DAILY rosuvastatin 20 mg tablet 20 mg PO DAILY cetirizine 10 mg tablet 10 mg PO DAILY Patient Comments: TAKE 1 TABLET BY MOUTH EVERY NIGHT testosterone 20.25 mg/1.25 gram (1.62 %) gel in metered-dose pump 6 pump topical DAILY Patient Comments: PLACE 6 PUMPS ONTO THE SKIN EVERY DAY Referrals Follow up/Referrals: Nitza Ivory MD [Primary Care Provider] - See instructions Activity Restrictions/Add. Instructions Additional Instructions/Restrictions: Antibiotic twice daily for 5 days. Call your family doctor to establish care for this visit to the emergency department and schedule follow-up within 48 hours to ensure improvement. If you have any worsening of your condition or any other concerning signs or symptoms, return to the emergency department or your primary care doctor for further evaluation. Clinical Impressions Clinical Impression: Dog bite of left hand Instructions Patient Instructions: Animal Bites Print Language Print Language: Citizen Of [place] Discharge ED Provider: Rene Austin General Adult HPI General Chief complaint: Animal Bite Stated complaint: dog bite on left palm Time Seen by Provider: 12/10/24 18:50 Mode of Arrival: Ambulatory Source of Information: Patient Description of Symptoms (Recalled from ER Triage Doc. by RN): pt to ED with c/o dog bite to left hand 1.5 hr ago. dog is utd on vaccines. History of Present Illness HPI narrative: Please note that above description of symptoms, in this electronic medical record under categorization of recalled from ER triage doctor by RN are reflective of an initial nursing assessment, however, is not reflective of my full history and physical exam that was personally taken and clarified. Consequentially, this preceding description of symptoms, which may include the patient's categorized chief complaint in the EMR, do not reflect my personal clinical impression, and the ultimate description of history of present illness and patient stated complaints should be deferred to this section of the note. Unless stated otherwise or congruent with this section of the note, additional signs, symptoms, or incongruence should be interpreted as inaccurate with my clinical impression. Related Data Home Medications ?Medication ?Instructions ?Recorded ?Confirmed atenolol 25 mg tablet 50 mg PO DAILY Hypertension 01/18/18 12/09/23 bromocriptine 2.5 mg tablet 2.5 mg PO DAILY brain tumor 01/18/18 12/09/23 cetirizine 10 mg tablet 10 mg PO DAILY 07/03/23 12/09/23 testosterone 6 pump topical DAILY 07/03/23 12/09/23 metformin 500 mg tablet,extended 500 mg PO DAILY 12/09/23 12/09/23 release 24 hr rosuvastatin 20 mg tablet 20 mg PO DAILY 12/09/23 12/09/23 Previous Rx's ?Medication ?Instructions ?Recorded amoxicillin 875 mg-potassium 1 tab PO BID 5 days #10 tabs 12/10/24 clavulanate 125 mg tablet Allergies Allergy/AdvReac Type Severity Reaction Status Date / Time No Known Allergies Allergy Verified 01/20/22 10:32 [facility] Disclaimer: The information contained in this section may have been updated after the patient was seen, as this information can be updated by other users. Medical History (Updated 12/10/24 @ 19:30 by Rene Austin MD) Asthma Cancer Hypertension Social History Smoking Status: Never smoker alcohol intake: never current occupational status: employed Travel in the last 8 weeks?: None Have you lived/traveled outside [place] in past 30 days?: No Contact w/someone who lives/traveled outside [place] past 30 days?: No Exposure to someone with infectious disease in past 14 days?: No Do you have a fever (greater than 100.4 F or 38 C)?: No Have you tested positive for COVID-19?: No Exposed to someone with COVID-19 in past 14 days?: No Do you have a sore throat?: No Do you have a cough?: No Do you have any weakness?: No Do you have any diarrhea?: No Are you experiencing any unusual bleeding?: Yes Do you have any muscle aches/pain?: No Do you have any abdominal pain?: No Are you experiencing loss of taste or smell?: No Other Medical History Have you received the Flu Vaccine for this season: Yes Have you received the Pneumonia Vaccine: Yes ROS Obtained: Yes All systems reviewed & no additional complaints except as documented Physical Exam General General appearance: alert Head Head exam: atraumatic and normocephalic Eye Eye exam: Present normal appearance, PERRL and EOMI Neck Neck exam: Present normal inspection, full ROM and trachea midline Respiratory Respiratory exam: Absent respiratory distress, wheezes, stridor, accessory muscle use or prolonged expiratory phase Cardiovascular Cardiovascular exam: Present other (Pulses equal symmetric in upper and lower extremities) Abdominal Exam Abdominal exam: Present soft; Absent distention, tenderness or pulsatile mass Extremities Exam Extremities exam: Present edema (With associated dog bite thenar eminence and dorsal soft tissues between 1st and 2nd metacarpal left hand) Neurological Exam Neurological exam: Present alert, oriented X3 and CN II-XII intact; Absent motor sensory deficit Skin Skin exam: Present warm and dry; Absent diaphoresis or erythema Medical Decision Making Medical Records Medical records reviewed: Yes I reviewed the patient's medical records. Screening: Per USPSTF and CDC recommendations, given the prevalence of disease in our region, it is our hospital?s policy to screen for HIV and viral Hepatitis for all patients aged 18 and over and those with ongoing risk factors. Leno Inquiry Pt receiving controlled substance: No Leno was queried for this patient: No Vital Signs: 12/10/24 19:12 Temperature 98.9 F Temperature Source Oral Pulse Rate [Left Radial] 64 Respiratory Rate 18 Blood Pressure [Right Arm] 138/87 Blood Pressure Mean [Right Arm] 104 Blood Pressure Source [Right Arm] Automatic Cuff Blood Pressure Position [Right Arm] Sitting 02 Sat by Pulse Oximetry 97 Oxygen Delivery Method Room Air Orders (Tests/Meds): ED MEDICATIONS Discontinued Medications Generic Name Dose Route Start Last Admin Trade Name Freq PRN Reason Stop Dose Admin Amoxicillin/Clavulanate Potassium 1 each 12/10/24 19:05 Amoxicillin/Clavulanate Potassium 875/125mg Tablet PO 12/10/24 19:06 ONCE ONE Tetanus/Reduced Diphtheria/Acell Pertussis 0.5 ml 12/10/24 19:05 Tet/Diphth/Pert-Adult 0.5ml Syringe IM 12/10/24 19:06 .ONCE ONE Medical Decision Narrative: 54-year-old male presenting with dog bite. It was his dog, dog is up-to-date on vaccinations. He states that he was trying to break up dogs and a fight and his dog bit him on the hand. Patient sustained no other trauma. Does not room when his last tetanus was. Does not have any antibiotic allergies. History obtained the patient. On arrival, very clinically well. He has dog bite to the thenar eminence and the dorsal aspect of the left hand in the soft tissues between the 1st and 2nd metacarpal. Neurovascular intact, range of motion intact, well- appearing overall. Small puncture wounds, not amenable to drainage. Patient was irrigated extensively for 3 to 5 minutes under direct pressure. Patient was given Augmentin, Tdap, wound was dressed with petroleum impregnated gauze. Because patient at baseline without signs or symptoms of clinical decompensation, deemed appropriate for discharge. Results were relayed to patient who voiced understanding and were agreeable to outpatient management and follow up. I discussed my clinical impression with patient and answered all questions. At this time, the evidence for any other entities in the differential is insufficient to warrant any further testing or ED observation. This was explained as well. Advisory was given that persistent or worsening symptoms require further evaluation. I confirmed the understanding of this discussion. [employer] H[employer]amer disclaimer Much of this encounter note is an electronic two way radio technician spoken language to printed text. Electronic two way radio technician of the spoken language may permit errors. Although I have reviewed the note, some errors may still exist. Critical Care Critical Care Time Critical Care Time: No
[2024-12-10 19:31] VITALS: BP 132/87; PULSE 87; RESP 20; TEMP 36.8; O2SAT 98
[2024-12-10] MEDS: AMOXICILLIN/CLAVULANATE POTASSIUM 875/125MG TABLET 1 EACH PO (19:33)
[2024-12-10] MEDS: TET/DIPHTH/PERT-ADULT 0.5ML SYRINGE 0.5 ML IM (19:33)
== END 2024-12-10 19:37 | disposition home or self-care (01) ==
PROVIDERS: Emergency Provider Emergency Medicine; PCP Family Medicine
DX: S61.452A Open bite of left hand, initial encounter (principal); W54.0XXA Bitten by dog, initial encounter; Z23 Encounter for immunization
CPT/HCPCS: 90471; 90715; 99283

== ENCOUNTER 2025-02-16 11:24 | Emergency (ER) | payer MEDICAID, SELFPAY ==
[2025-02-16] VITALS (10 sets, daily range): BP systolic 126–159; BP diastolic 76–89; PULSE 54–63; RESP 10–19; TEMP 36.9–37.4; O2SAT 96–99; BMI 31.4
--- OUTSIDE RECORDS SUMMARY | 2025-02-16 08:40 | XMS_ITS | Encounter Summary ---
Author Organization [facility] Address [address] [place] [address] Care Team Providers Care Harvester Operator Name Role Phone Nitza Ivory MD Primary Care Provider [phone] Encounter Details Date Type Department Care Team (Late st Contact Info) Description 02/16/2025 8:40 AM EDT Office Visit [facility] [address] [place] [address] Nitza Ivory MD [address] [place] [address] Type 2 diabetes mellitus with [...] place to sleep or slept in a snf (including now)? No 08/25/2023 PHQ-9 Answer Date [...] any time in the past 12 m [facility], were you homeless or living in a snf (including now)? No 10/17/2024 Humiliation, Afraid, Rape, [...] any time in the past 12 m [facility], were you homeless or living in a snf (including now)? No 02/16/2025 Safety and Environment [...] Month) No 025 8:39 AM EDT Katarzyna Reyna 2. Non-Specific Active Suici mario Thoughts (Past 1 Month) No 02/16/2025 8:39 AM EDT Katarzyna eRyna 6. Suicidal Behavior (Lifetime) No 8:39 AM [...] hyperglycemia, without long-term current use of insulin ([facility]) - Basic Metabolic Panel, Plasma - Hemoglobin A1c - Lipid Profile, Plasma - metFORMIN XR (Glucophage-XR) 500 MG 24 hr tablet; Take 1 tablet by mouth 2 times a day. Other hyperlipidemia - Lipid Profile, Plasma CKD (chronic kidney disease) stage 2, GFR 60-89 ml/min - Basic Metabolic Panel, Plasma Benign essential hypertension - Basic Metabolic Panel, Plasma Hypogonadism in male Pituitary macroadenoma ([facility]) - bromocriptine (Parlodel) 2.5 MG tablet; Take [...] Description 04/13/2025 11:00 AM EDT Office Visit [facility] [address] [place] [address] Myranda Rain, PA [address] [place] [address] 06/19/2025 8:20 AM EST Office Visit [facility] [address] [place] [address] Nitza Ivory MD [address] [place] [address] 10/23/2025 8:00 AM EDT Office [facility] [address] [facility] [place] [address] Annie Myers S, OD [address] [facility] [address] [place] [address] Pending Results Name Type Priority Associated Diagnoses Date /Time Basic Metabolic Panel, Plasma Lab Routine Type 2 diabetes mellitus with hyperglycemia, without long-term current use of insulin ([facility]) CKD (chronic kidney disease) stage 2, GFR 60-89 ml/min Benign essential hypertension 02/16/2025 9:12 AM EDT Hemoglobin A1c Lab Routine Type 2 diabetes mellitus with hyperglycemia, without long-term current use of insulin ([facility]) 02/16/2025 9:12 AM EDT Lipid Profile, Plasma Lab Routine Type 2 diabetes mellitus with hyperglycemia, without long-term current use of insulin ([facility]) Other hyperlipidemia 02/16/2025 9:12 AM EDT documented as of this encounter Visit Diagnoses Diagnosis Type 2 diabetes mellitus with hyperglycemia, without long-term current use of insulin (CMS/HCC)- Primary Other hyperlipidemia CKD (chronic kidney disease) [...] Time PHQ-9 Depression Total Score: 0 10/12/19 25 11:15 AM EDT A fall risk assessment has been complete d for the patient 10/11/2024 11:16 AM EDT A Body Mass Index follow-up plan has been documented for the patient 11/29/2024 10:12 AM EDT documented as of this encounter Care Teams Harvester Operator Relationship Specialty Start Date End Date Nitza Ivory MD [address] [place] [address] PCP - General 12/06/20 documented as of this encounter
--- NOTE | 2025-02-16 11:26 | ECG_ITS ---
APPROVED REPORT Exam: Resting ECG HR:64 bpm ECG Measurements Heart Rate 64 AXES AR 193 P 53 QRSd 92 QRS 73 QT 392 T 74 QTc [address] ELEVATION, PROBABLY EARLY REPOLARIZATION [ST ELEVATION WITH NORMALLY INFLECTED T-WAVE] BORDERLINE ECG UNCONFIRMED REPORT Electronically signed by : Kendall Summers, 02/16/2025 16:46:25
--- NOTE | 2025-02-16 11:45 | ED_ITS ---
Discharge Plan Disposition Patient Disposition: Home, Self-Care Prescriptions Prescriptions: No Action atenolol 25 MG tablet 50 mg PO DAILY bromocriptine 2.5 MG tablet 2.5 mg PO DAILY metformin 500 mg tablet extended release 24 hr 500 mg PO DAILY rosuvastatin 20 mg tablet 20 mg PO DAILY amoxicillin-pot clavulanate 875-125 mg tablet 1 tab PO BID 5 Days Qty: 10 0RF cetirizine 10 mg tablet 10 mg PO DAILY Patient Comments: TAKE 1 TABLET BY MOUTH EVERY NIGHT testosterone 20.25 mg/1.25 gram (1.62 %) gel in metered-dose pump 6 pump topical DAILY Patient Comments: PLACE 6 PUMPS ONTO THE SKIN EVERY DAY Referrals Follow up/Referrals: Provider,Referral, MD [Referring, Medical] - See instructions Activity Restrictions/Add. Instructions Additional Instructions/Restrictions: You were found to have a small aneurysm in the beginning part of your aorta. I encourage you to follow-up with your primary care physician as this will need to be monitored over time to ensure that it does not grow or need surgery in the future. If you develop any new or worsening symptoms, such as worsening chest pain, tearing pain down your back, shortness of breath, or if you become concerned for your health for any reason, return to the emergency department for evaluation. Clinical Impressions Clinical Impression: Chest pain, Aneurysm of ascending aorta Print Language Print Language: Vietnamese Discharge ED Provider: Kendall Summers Adult [facility] General Chief complaint: Chest Pain Stated complaint: chest pain Time Seen by Provider: 02/16/25 11:45 Mode of Arrival: Ambulatory Source of Information: Patient Description of Symptoms (Recalled from ER Triage Doc. by RN): Patient states he was outside working when approx 15 minutes prior to arrival in the ED he had a sharp pain in the center of his chest. Patient state pain subsided, then came back, and has since subsided, not currently hurting. History of Present Illness HPI narrative: Patient is a 55-year-old male with history of pituitary adenoma, testicular cancer, hypertension hyperlipidemia, diabetes. Patient presents today for chest pain, at his left anterior in nature, was rating to the left shoulder. 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 It lasted for about 15 minutes, and then began to subside. Then he came back for another 10 minutes and then subsided. On arrival here, he reports his chest pain has resolved. He denies any shortness of breath. He denies any fevers cough congestion runny nose vomiting or diarrhea. Denies any trauma to the area. Denies any lower extremity edema denies any history of blood clots. Related Data Home Medications ?Medication ?Instructions ?Recorded ?Confirmed atenolol 25 mg tablet 50 mg PO DAILY Hypertension 01/18/18 12/09/23 bromocriptine 2.5 mg tablet 2.5 mg PO DAILY brain tumo r 01/18/18 12/09/23 cetirizine 10 mg tablet 10 mg PO DAILY 07/03/2311/23 testosterone 6 pump topical DAILY 3 12/09/23 metformin 500 mg tablet,extended 500 mg PO DAILY 12/0812/09/23 release 24 hr rosuvastatin 20 mg tablet 20 mg PO DAILY 12/09/2311/23 Previous Rx's ?Medication ?Instructions ?Recorded amoxicillin 875 mg-potassium 1 tab PO BID 5 days #10 t abs 12/10/24 clavulanate 125 mg tablet Allergies Allergy/AdvReac Type Severity Reaction Status Date / Time No Known Allergies Allergy Verified 02/16/25 11:33 [facility] Disclaimer: The information contained in this section may have been updated after the patient was seen, as this information can be updated by other users. Medical History (Updated 02/16/25 @ 15:51 by Tong Alvarado MD) Asthma Cancer Hypertension Social History Smoking Status: Never smoker alcohol intake: never current occupational status: employed Travel in the last 8 weeks?: None Have you lived/traveled outside US in past 30 days?: No Contact w/someone who lives/traveled outside US past 30 days?: No Exposure to someone with infectious disease in past 14 days?: No Do you have a fever (greater than 100.4 F or 38 C)?: No Have you tested positive for COVID-19?: No Exposed to someone with COVID-19 in past 14 days?: No Do you have a sore throat?: No Do you have a cough?: No Do you have any weakness?: No Do you have any diarrhea?: No Are you experiencing any unusual bleeding?: No Do you have any muscle aches/pain?: No Do you have any abdominal pain?: No Are you experiencing loss of taste or smell?: No Other Medical History Have you received the Flu Vaccine for this season: Yes Have you received the Pneumonia Vaccine: Yes ROS Obtained: Yes All systems reviewed & no additional complaints except as documented Physical Exam General General appearance: alert and in no apparent distress Head Head exam: atraumatic and normocephalic Eye Eye exam: Present PERRL and EOMI ENT ENT exam: Present normal oropharynx Neck Neck exam: Present full ROM and trachea midline Chest Chest inspection: Present symmetric chest wall rise Respiratory Respiratory exam: Present normal lung sounds bilaterally; Absent stridor Cardiovascular Cardiovascular exam: Present regular rate and normal rhythm Abdominal Exam Abdominal exam: Present soft; Absent distention or tenderness Extremities Exam Extremities exam: Present full ROM Neurological Exam Neurological exam: Present alert and oriented X3 Psychiatric Psychiatric exam: Present normal mood Skin Skin exam: Present warm and dry Medical Decision Making Medical Records Screening: Per USPSTF and CDC recommendations, given the prevalence of disease in our region, it is our hospital?s policy to screen for HIV and viral Hepatitis for all patients aged 18 and over and those with ongoing risk factors. [place]eno Inquiry Pt receiving controlled substance: No Vital Signs: 02/16/25 11:30 02/16/25 11:30 02/16/25 11:39 Temperature 99.3 F Temperature Source Oral Pulse Rate 62 63 Pulse Rate [Right Brachial] 61 Respiratory Rate 16 19 Blood Pressure 159/89 H Blood Pressure [Right Arm] 152/84 H Blood Pressure Mean 106 Blood Pressure Mean [Right Arm] 106 Blood Pressure Source Blood Pressure Source [Right Arm] Automatic Cuff Blood Pressure Position Blood Pressure Position [Right Arm] Supine 02 Sat by Pulse Oximetry 98 98 Oxygen Delivery Method Room Air Room Air 02/16/25 12:00 02/16/25 12:30 02/16/25 13:00 Temperature Temperature Source Pulse Rate 59 L 59 L 55 L Pulse Rate [Right Brachial] Respiratory Rate 15 14 14 Blood Pressure 139/84 134/78 126/83 Blood Pressure [Right Arm] Blood Pressure Mean Blood Pressure Mean [Right Arm] Blood Pressure Source Blood Pressure Source [Right Arm] Blood Pressure Position Blood Pressure Position [Right Arm] 02 Sat by Pulse Oximetry 96 97 98 Oxygen Delivery Method Room Air 02/16/25 13:30 02/16/25 14:00 02/16/25 14:30 Temperature Temperature Source Pulse Rate 59 L 58 L 54 L Pulse Rate [Right Brachial] Respiratory Rate 15 16 10 L Blood Pressure 129/76 147/84 H 144/89 H Blood Pressure [Right Arm] Blood Pressure Mean Blood Pressure Mean [Right Arm] Blood Pressure Source Blood Pressure Source [Right Arm] Blood Pressure Position Blood Pressure Position [Right Arm] 02 Sat by Pulse Oximetry 98 98 99 Oxygen Delivery Method Room Air 02/16/25 15:00 02/16/25 16:07 Temperature 98.4 F Temperature Source Oral Pulse Rate 62 62 Pulse Rate [Right Brachial] Respiratory Rate 13 16 Blood Pressure 150/85 H 150/85 H Blood Pressure [Right Arm] Blood Pressure Mean Blood Pressure Mean [Right Arm] Blood Pressure Source Automatic Cuff Blood Pressure Source [Right Arm] Blood Pressure Position Sitting Blood Pressure Position [Right Arm] 02 Sat by Pulse Oximetry 99 Oxygen Delivery Method Room Air Room Air Lab Data Lab Results 02/16/25 11:30: WBC 7.5, RBC 4.58 L, Hgb 14.2, Hct 43.0, MCV 93.9, MCH 31.0, MCHC 33.0, RDW 11.9, Plt Count 171, MPV 10.6 H, Neut % (Auto) 56.8, Lymph % (Auto) 27.1, [place] % (Auto) 8.6, Eos % (Auto) 6.6, Baso % (Auto) 0.5, Neut # (Auto) 4.3, Lymph # (Auto) 2.0, [place] # (Auto) 0.7, Eos # (Auto) 0.5 H, Baso # (Auto) 0.0, Sodium 133 L, Potassium 3.9, Chloride 100, Carbon Dioxide 29, Anion Gap 7.9, BUN 15, Creatinine 1.10, Estimated Creat Clear 108, Estimated GFR 69, Est GFR ( Amer) 84, Glucose 127 H, Calcium 9.1, Magnesium 1.8, Total Bilirubin 0.6, AST 29, ALT 23, Alkaline Phosphatase 51, Troponin I < 0.01, NT-Pro-B Natriuret Pep 22.7, Total Protein 7.2, Albumin 3.5, Globulin 3.7 H, A lbumin/Globulin Ratio 0.9 L, HCV Ab AASHISH w/Rflx PCR Qn Negative, HIV Ag/Ab Combo Qual Negative 02/16/25 12:29: Urine Color Yellow, Urine Appearance Clear, Urine pH 6.0, Ur Specific [place] <= 1.005, Urine Protein Negative, Urine Glucose (UA) Negative, Urine Ketones Negative, Urine Blood Negative, Urine Nitrate Negative, Urine Bilirubin Negative, Urine Urobilinogen 0.2, Ur Leukocyte Esterase Negative, Urine RBC None, Urine WBC None, Ur Squamous Epith Cells Occasional, Urine Bacteria Trace 02/16/25 15:10: Troponin I < 0.01 02/16/25 11:30 02/16/25 11:30 Orders (Tests/Meds): ED MEDICATIONS Discontinued Medications Generic Name Dose Route Start Last Admin Trade Name Miltonq PRN Reason Stop Dose Admin Aspirin 324 mg 02/16/25 11:56 02/16/25 12:06 Aspirin 81mg Chewable Tablet PO 02/16/25 11:57 324 mg ONCE ONE Administration Iopamidol 85 ml 02/16/25 12:31 02/16/25 12:32 Iopamidol-370 (76%);100ml Bottle IV 02/16/25 12:32 85 ml ONCE ONE Administration Sodium Chloride 50 ml 02/16/25 12:31 02/16/25 12:31 0.9 % Sodium Chloride 50 Ml Vial IV 02/16/25 12:32 50 ml ONCE ONE Administration Sodium Chloride 10 ml 02/16/25 12:31 02/16/25 12:32 Sodium Chloride 0.9% 10ml Syr (Rad Only) IV 02/16/25 12:32 10 ml ONCE ONE Administration ORDERS Category Date Time Status CTA Chest [CT angio chest PE protocol] Stat Cat Scan 02/16/25 11:57 Completed XR chest portable Stat Exams 02/16/25 11:56 Completed BNP [NT Pro Brain Natriuretic Pep.] Stat Lab 02/16/25 11:30 Completed CBC w/Auto Diff [Complete Blood Count Auto Diff] Stat Lab 02/16/25 11:30 Completed CMP [Comprehensive Metabolic Panel] Stat Lab 02/16/25 11:30 Completed HIV Combo Stat Lab 02/16/25 11:30 Completed Hepatitis C Ab Qual. W/ RFX Stat Lab 02/16/25 11:30 Completed MAG [Magnesium] Stat Lab 02/16/25 11:30 Completed Trop I [Troponin I] Stat Lab 02/16/25 11:30 Completed Troponin I Q3H Lab 02/16/25 15:10 Completed Urinalysis and Microscopic Stat Lab 02/16/25 12:29 Completed ECG Data Tracing #1: Independently interpreted by myself demonstrate normal sinus rhythm with no obvious acute ischemic ST change. There are ST elevations in 2 3 aVF with inversion aVR and aVL, but there is also borderline elevations in the lateral precordial leads. This is most likely benign early repolarization. Second EKG tracing independently interpreted by myself demonstrate no significant dynamic changes. Again, suspicion for benign early repolarization with some J-point elevation, no STEMI HEART Score History (anamnesis): Moderately suspicious ECG: Significant ST-deviation Age: 45-65 years Risk factors: 3 or more risk factors Medical Decision Narrative: Patient is a 55-year-old male with a history of pituitary adenoma, testicular cancer s/p resection, hypertension hyperlipidemia. He is not a smoker. He presents today for chest pain left anterior in nature. However, his chest pain has completely resolved. On exam, afebrile hemodynamically stable and in no acute distress. On exam, heart is regular and lung sounds are clear/bilaterally with no reproducible chest wall tenderness. He feels completely at baseline. He does have some risk factors including hypertension hyperlipidemia and diabetes, in addition was brought on by exertion, will screen for ACS, and also PE study for CT PE given high risk given history of cancer. It is also possible that this was just a musculoskeletal strain. I dependently interpreted the PE study demonstrate no evidence of pulmonary embolism ask for mother at his final read. Troponins flat, low suspicion for ACS. Patient has been chest pain-free completely while here. Regarding his a ascending aortic thoracic aneurysm, he is made aware of the CT finding and he will follow-up with his PCP and a vascular surgeon at . He has been ambulatory by the emergency department tolerating oral intake. Strict return precautions discussed all questions answered amenable to plan and discharge Critical Care Critical Care Time Critical Care Time: No
--- OUTSIDE RECORDS SUMMARY | 2025-02-16 11:50 | XMS_ITS | Data Portability ---
Author Organization [place] - [place] [facility] ADMIN Address [address] [place] [id number] Care Team Providers Care Medicaid Analyst Name Role Phone RAMAKRISHNA HINKLE Primary Care Provider [phone] Assessment Encounter Date Assessment Date Assessment LastModified by Organization Details LastModified Time 08/19/2024 08/19/2024 I ordered an oral antibiotic, oral steroid and cough medication based on patient's symptoms and physical assessment indicating a possible lower respiratory infections secondary to an upper respiratory infection with persistent cough and purulent sputum production. Instructed patient to use medications as directed and to follow up with primary care if symptoms worsen or not improved in 1 week. Instructed patient to follow up with ER immediately for any severe shortness of breath, severe chest pains or persistent fevers. Patient verbalized understanding and agreement with plan of care. [email or web address] Not available 08/19/2024 12:10:12 Plan of Treatment Reminders Order Date Submit Date Provider Last Modified By Organization Details Last Modified Time Details Appointments FOLLOW UP 15 2024 09:45A Marybeth José MD Not available Not available Not available Lab CBC w/ auto diff 2024 025 [facility], [address] [facility], [place], [address], 02/15/2025 12:14:57 CMP, serum or plasma 2024 025 [facility], [address] [facility], [place], [address], 02/15/2025 12:33:35 iron + TIBC + ferritin, serum [email or web address] [facility], [address] [place], [address], 02/15/2025 09:27:49 iron saturatio n, serum [address] [facility], [address] [place], [address], 02/15/2025 09:27:49 CBC w/ auto diff 2023 025 [facility], [address] [place], [address], 08/08/2024 13:09:07 CMP, serum or plasma 2023 025 [facility], [address] [place], [address], 08/08/2024 13:30:00 iron + TIBC + ferritin, serum [address] [facility], [address] [place], [address], 08/15/2024 08:42:17 iron saturatio n, serum [address] [facility], [address] [place], [address], 08/15/2024 08:42:17 CBC w/ auto diff 2023 024 [facility], [address] [place], [address], 04/04/2024 09:26:55 CMP, serum or plasma 2023 024 [facility], [address] [place], [address], 04/04/2024 10:07:14 iron + TIBC + ferritin, serum [address] [facility], [address] [facility], [place], [address], 04/11/2024 09:02:00 CBC w/ auto diff 2023 024 [facility], [address] [facility], [place], [address], 12/07/2023 10:04:19 CMP, serum or plasma 2023 024 [facility], [address] [facility], [place], [address], 12/07/2023 11:02:51 iron + TIBC + ferritin, serum 2023 024 [email or web address], [address] [facility], [place], [address], 12/14/2023 08:28:36 Referral None recorded. Procedures None recorded. Surgeries None recorded. Imaging None recorded. Medication Orders doxycycli ne hyclate 100 mg tablet 2024 025 [facility] [id number], [address] [place], [address], 02/15/2025 08:35:35 prednison e 10 mg tablets in a dose pack 2024 025 [facility] [id number], [address] [place], [address], 02/15/2025 08:35:43 promethaz ine-DM 6.25 mg-15 mg/5 mL oral syrup 2024 025 [facility] [id number], [address] [place], [address], 02/15/2025 08:35:48 benzonata te 200 mg capsule 2024 025 [facility] [id number], [address] [place], [address], 08/19/2024 11:08:31 Patient TargetsNo targets recorded. Patient InstructionsNo instructions recorded. Reason for Referral None Reported. Results Created Date Observation Date Name Description Value Unit Range Abnormal Flag Note LastModifiedBy Organization Detail LastModifiedTime 12/07/19 24 12/07/2023 CBC AUTO W DIFF WBC 6.7 K/uL 4.0-10 .5 Not Available [facility] ([facility]) [address] , [place], [address], 12/07/2023 10:04:19 12/07/19 24 12/07/2023 CBC AUTO W DIFF RBC 4.3 M/mm3 4.7-6. 1 low Not Available [facility] ([facility]) [address], [place], [address], 12/07/2023 10:04:19 12/07/19 24 12/07/2023 CBC AUTO W DIFF HGB 14.4 gm/dL 13.5-1 8.0 Not Available [facility] ([facility]) [address] , [place], [address], 12/07/2023 10:04:19 12/07/19 24 12/07/2023 CBC AUTO W DIFF HCT 41.9 % 42.0-5 2.0 low Not Available [facility] ([facility]) [address] , [place], [address], 12/07/2023 10:04:19 12/07/19 24 12/07/2023 CBC AUTO W DIFF MCV 96.8 fL 78-100 Not Available [facility] ([facility]) [address] [place], [address], 12/07/2023 10:04:19 12/07/19 24 12/07/2023 CBC AUTO W DIFF MCH 33.3 pg 27-31 high Not Available [facility] ([facility]) [address] [place], [address], 12/07/2023 10:04:19 12/07/19 24 12/07/2023 CBC AUTO W DIFF MCHC 34.4 g/dL 32-36 Not Available [facility] ([facility]) [address] , [place], [address], 12/07/2023 10:04:19 12/07/19 24 12/07/2023 CBC AUTO W DIFF RDW 11.9 % 11.5-1 4.0 Not Available [facility] ([facility]) [address], [place], [address], 12/07/2023 10:04:19 12/07/19 24 12/07/2023 CBC AUTO W DIFF platelet count 158 K/uL 150-45 0 Not Available [facility] ([facility]) [address], [place], [address], 12/07/2023 10:04:19 12/07/19 24 12/07/2023 CBC AUTO W DIFF MPV 10.6 fL 6-9.5 high Not Available [facility] ([facility]) [address] [facility], [place], [address], 12/07/2023 10:04:19 12/07/19 24 12/07/2023 CBC AUTO W DIFF neutrophil% 55.0 % 43-65 Not Available [facility] ([facility]) [address] [place], [address], 12/07/2023 10:04:19 12/07/19 24 12/07/2023 CBC AUTO W DIFF lymphocyte% 28.7 % 20.5-4 5.5 Not Available [facility] ([facility]) [address] [place], [address], 12/07/2023 10:04:19 12/07/19 24 12/07/2023 CBC AUTO W DIFF monocyte% 9.6 % 5.5-11 .7 Not Available [facility] ([facility]) [address] [facility] [place], [address], 12/07/2023 10:04:19 12/07/19 24 12/07/2023 CBC AUTO W DIFF eosinophil% 6.3 % 0.9-2. 9 high Not Available [facility] ([facility]) [address] [facility], [place], [address], 12/07/2023 10:04:19 12/07/19 24 12/07/2023 CBC AUTO W DIFF basophil% 0.3 % 0.2-1. 0 Not Available [facility] ([facility]) [address] [facility], [place], [address], 12/07/2023 10:04:19 12/07/19 24 12/07/2023 CBC AUTO W DIFF immature granulocytes % 0.1 % 0.0-0. 8 Not Available [facility] ([facility]) [address] [place], [address], 12/07/2023 10:04:19 12/07/19 24 12/07/2023 CBC AUTO W DIFF nucleated red blood cells % 0.0 % Not Available [facility] ([facility]) [address] [facility], [place], [address], 12/07/2023 10:04:19 12/07/19 24 12/07/2023 CBC AUTO W DIFF neutrophil# 3.7 K/uL 2.2-4. 8 Not Available [facility] ([facility]) [address] [place], [address], 12/07/2023 10:04:19 12/07/19 24 12/07/2023 CBC AUTO W DIFF lymphocyte# 1.9 cell/ mcL 1.3-2. 9 Not Available [facility] ([facility]) [address] [place], [address], 12/07/2023 10:04:19 12/07/19 24 12/07/2023 CBC AUTO W DIFF monocyte# 0.6 cell/ mcL 0.3-0. 8 Not Available [facility] ([facility]) [address], [place], [address], 12/07/2023 10:04:19 12/07/19 24 12/07/2023 CBC AUTO W DIFF eosinophil# 0.4 cell/ mcL 0-0.2 high Not Available [facility] ([facility]) [address], [place], [address], 12/07/2023 10:04:19 12/07/19 24 12/07/2023 CBC AUTO W DIFF basophil# 0.0 cell/ mcL 0.0-1. 0 Not Available [facility] ([facility]) [address], [place], [address], 12/07/2023 10:04:19 12/07/19 24 12/07/2023 CBC AUTO W DIFF immature gramulocytes # 0.01 K/uL Not Available [facility] ([facility]) [address] [facility], [place], [address], 12/07/2023 10:04:19 12/07/19 24 12/07/2023 CBC AUTO W DIFF nucleated red blood cells # 0.00 K/uL Not Available [facility] ([facility]) [address] [facility], [place], [address], 12/07/2023 10:04:19 12/07/19 24 12/07/2023 CBC AUTO W DIFF manual differential NO Not Available [facility] ([facility]) [address] [place], [address], 12/07/2023 10:04:19 12/07/19 24 12/07/2023 COMP METAB OLIC PANEL sodium 137 mmol/ L 136-14 5 Not Available [facility] ([facility]) [address] [place], [address], 12/07/2023 11:02:51 05/14/20 24 12/07/2023 COMP METAB OLIC PANEL potassium 3.8 mmol/ L 3.6-5. 0 Not Available [facility] ([facility]) [address] , [place], [address], 12/07/2023 11:02:51 12/07/19 24 12/07/2023 COMP METAB OLIC PANEL chloride 101 mmol/ L 98-107 Not Available [facility] ([facility]) [address] , [place], [address], 12/07/2023 11:02:51 12/07/19 24 12/07/2023 COMP METAB OLIC PANEL carbon dioxide 26.6 mmol/ L 21.0-3 2.0 Not Available [facility] ([facility]) [address] , [place], [address], 12/07/2023 11:02:51 12/07/19 24 12/07/2023 COMP METAB OLIC PANEL anion gap 13.2 Not Available [facility] ([facility]) [address], [place], [address], 12/07/2023 11:02:51 12/07/19 24 12/07/2023 COMP METAB OLIC PANEL glucose 119 mg/dL 70-120 Not Available [facility] ([facility]) [address] , [place], [address], 12/07/2023 11:02:51 12/07/19 24 12/07/2023 COMP METAB OLIC PANEL BUN 10 mg/dL 7-18 Not Available [facility] ([facility]) [address] [place], [address], 12/07/2023 11:02:51 12/07/19 24 12/07/2023 COMP METAB OLIC PANEL creatinine 1.3 mg/dL 0.6-1. 3 Not Available [facility] ([facility]) [address] [place], [address], 12/07/2023 11:02:51 12/07/19 24 12/07/2023 COMP METAB OLIC PANEL glomerular filtration rate >60 mlper min 60- Not Available [facility] ([facility]) [address] , [place], [address], 12/07/2023 11:02:51 12/07/19 24 12/07/2023 COMP METAB OLIC PANEL total protein 6.7 g/dL 6.4-8. 2 Not Available [facility] ([facility]) [address] , [place], [address], 12/07/2023 11:02:51 12/07/19 24 12/07/2023 COMP METAB OLIC PANEL albumin 3.6 g/dL 3.4-5. 0 Not Available [facility] ([facility]) [address] , [place], [address], 12/07/2023 11:02:51 12/07/19 24 12/07/2023 COMP METAB OLIC PANEL globulin 3.1 Not Available [facility] ([facility]) [address] , [place], [address], 12/07/2023 11:02:51 12/07/19 24 12/07/2023 COMP METAB OLIC PANEL alb/glob ratio 1.2 0.7-2 Not Available [facility] ([facility]) [address] , [place], [address], 12/07/2023 11:02:51 12/07/19 24 12/07/2023 COMP METAB OLIC PANEL calcium 9.0 mg/dL 8.5-10 .5 Not Available [facility] ([facility]) [address] , [place], [address], 12/07/2023 11:02:51 12/07/19 24 12/07/2023 COMP METAB OLIC PANEL bilirubin total 0.60 mg/dL 0.10-1 .00 Not Available [facility] ([facility]) [address] , [place], [address], 12/07/2023 11:02:51 12/07/19 24 12/07/2023 COMP METAB OLIC PANEL AST (SGOT) 21 U/L 0-37 Not Available [facility] ([facility]) [address], [place], [address], 12/07/2023 11:02:51 12/07/19 24 12/07/2023 COMP METAB OLIC PANEL ALT (SGPT) 35 U/L 0-65 Not Available [facility] ([facility]) [address], [place], [address], 12/07/2023 11:02:51 12/07/19 24 12/07/2023 COMP METAB OLIC PANEL alk phosphatase 45 U/L 46-116 low Not Available [facility] ([facility]) [address], [place], [address], 12/07/2023 11:02:51 12/07/19 24 12/07/2023 AIME TIN ferritin, serum 67 NG/mL 3-244 Not Available [facility] ([facility]) [address], [place], [address], 12/07/2023 11:02:54 12/07/19 24 12/07/2023 IRON STUDY (IRON /TIBC /%SAT ) iron 180 mcg/m L 40-180 Not Available [facility] ([facility]) [address] [place], [address], 12/07/2023 11:03:58 12/07/19 24 12/07/2023 IRON STUDY (IRON /TIBC /%SAT ) TIBC 210 mcg/d L 250-45 0 low Not Available [facility] ([facility]) [address] [place], [address], 12/07/2023 11:03:58 12/07/19 24 12/07/2023 IRON STUDY (IRON /TIBC /%SAT ) %sat 86 15-55 high Not Available [facility] ([facility]) [address] , [place], [address], 12/07/2023 11:03:58 04/04/20 24 04/04/2024 CBC AUTO W DIFF WBC 6.8 K/uL 4.0-10 .5 Not Available [facility] ([facility]) [address], [place], [address], 04/04/2024 09:26:55 04/04/20 24 04/04/2024 CBC AUTO W DIFF RBC 4.7 M/mm3 4.7-6. 1 Not Available [facility] ([facility]) [address], [place], [address], 04/04/2024 09:26:55 04/04/20 24 04/04/2024 CBC AUTO W DIFF HGB 14.9 gm/dL 13.5-1 8.0 Not Available [facility] ([facility]) [address], [place], [address], 04/04/2024 09:26:55 04/04/20 24 04/04/2024 CBC AUTO W DIFF HCT 44.5 % 42.0-5 2.0 Not Available [facility] ([facility]) [address] [place], [address], 04/04/2024 09:26:55 04/04/20 24 04/04/2024 CBC AUTO W DIFF MCV 95.5 fL 78-100 Not Available [facility] ([facility]) [address] [place], [address], 04/04/2024 09:26:55 04/04/20 24 04/04/2024 CBC AUTO W DIFF MCH 32.0 pg 27-31 high Not Available [facility] ([facility]) [address] , [place], [address], 04/04/2024 09:26:55 04/04/20 24 04/04/2024 CBC AUTO W DIFF MCHC 33.5 g/dL 32-36 Not Available [facility] ([facility]) [address], [place], [address], 04/04/2024 09:26:55 04/04/20 24 04/04/2024 CBC AUTO W DIFF RDW 11.6 % 11.5-1 4.0 Not Available [facility] ([facility]) [address], [place], [address], 04/04/2024 09:26:55 04/04/20 24 04/04/2024 CBC AUTO W DIFF platelet count 166 K/uL 150-45 0 Not Available [facility] ([facility]) [address], [place], [address], 04/04/2024 09:26:55 04/04/20 24 04/04/2024 CBC AUTO W DIFF MPV 10.3 fL 6-9.5 high Not Available [facility] ([facility]) [address], [place], [address], 04/04/2024 09:26:55 04/04/20 24 04/04/2024 CBC AUTO W DIFF neutrophil% 59.8 % 43-65 Not Available [facility] ([facility]) [address] [place], [address], 04/04/2024 09:26:55 04/04/20 24 04/04/2024 CBC AUTO W DIFF lymphocyte% 23.2 % 20.5-4 5.5 Not Available [facility] ([facility]) [address] [place], [address], 04/04/2024 09:26:55 04/04/20 24 04/04/2024 CBC AUTO W DIFF monocyte% 9.4 % 5.5-11 .7 Not Available [facility] ([facility]) [address] [place], [address], 04/04/2024 09:26:55 04/04/20 24 04/04/2024 CBC AUTO W DIFF eosinophil% 6.9 % 0.9-2. 9 high Not Available [facility] ([facility]) [address] [place], [address], 04/04/2024 09:26:55 04/04/20 24 04/04/2024 CBC AUTO W DIFF basophil% 0.4 % 0.2-1. 0 Not Available [facility] ([facility]) [address], [place], [address], 04/04/2024 09:26:55 04/04/20 24 04/04/2024 CBC AUTO W DIFF immature granulocytes % 0.3 % 0.0-0. 8 Not Available [facility] ([facility]) [address] [place], [address], 04/04/2024 09:26:55 04/04/20 24 04/04/2024 CBC AUTO W DIFF nucleated red blood cells % 0.0 % Not Available [facility] ([facility]) [address] [place], [address], 04/04/2024 09:26:55 04/04/20 24 04/04/2024 CBC AUTO W DIFF neutrophil# 4.1 K/uL 2.2-4. 8 Not Available [facility] ([facility]) [address] [place], [address], 04/04/2024 09:26:55 04/04/20 24 04/04/2024 CBC AUTO W DIFF lymphocyte# 1.6 cell/ mcL 1.3-2. 9 Not Available [facility] ([facility]) [address] [place], [address], 04/04/2024 09:26:55 04/04/20 24 04/04/2024 CBC AUTO W DIFF monocyte# 0.6 cell/ mcL 0.3-0. 8 Not Available [facility] ([facility]) [address] , [place], [address], 04/04/2024 09:26:55 04/04/20 24 04/04/2024 CBC AUTO W DIFF eosinophil# 0.5 cell/ mcL 0-0.2 high Not Available [facility] ([facility]) [address], [place], [address], 04/04/2024 09:26:55 04/04/2004/04/2024 CBC AUTO W DIFF basophil# 0.0 cell/ mcL 0.0-1. 0 Not Available [facility] ([facility]) [address], [place], [address], 04/04/2024 09:26:55 04/04/20 24 04/04/2024 CBC AUTO W DIFF immature gramulocytes # 0.02 K/uL Not Available [facility] ([facility]) [address] [facility], [place], [address], 04/04/2024 09:26:55 04/04/20 24 04/04/2024 CBC AUTO W DIFF nucleated red blood cells # 0.00 K/uL Not Available [facility] ([facility]) [address] [place], [address], 04/04/2024 09:26:55 04/04/2004/04/2024 CBC AUTO W DIFF manual differential NO Not Available [facility] ([facility]) [address], [place], [address], 04/04/2024 09:26:55 04/04/2004/04/2024 IRON STUDY (IRON /TIBC /%SAT ) iron 91 mcg/m L 40-180 Not Available [facility] ([facility]) [address] , [place], [address], 04/04/2024 09:58:36 04/04/20 24 04/04/2024 IRON STUDY (IRON /TIBC /%SAT ) TIBC 222 mcg/d L 250-45 0 low Not Available [facility] ([facility]) [address], [place], [address], 04/04/2024 09:58:36 04/04/20 24 04/04/2024 IRON STUDY (IRON /TIBC /%SAT ) %sat 41 15-55 Not Available [facility] ([facility]) [address], [place], [address], 04/04/2024 09:58:36 04/04/20 24 04/04/2024 COMP METAB OLIC PANEL sodium 137 mmol/ L 136-14 5 Not Available [facility] ([facility]) [address] [place], [address], 04/04/2024 10:07:13 04/04/2004/04/2024 COMP METAB OLIC PANEL potassium 4.4 mmol/ L 3.6-5. 0 Not Available [facility] ([facility]) [address] [place], [address], 04/04/2024 10:07:13 04/04/2004/04/2024 COMP METAB OLIC PANEL chloride 101 mmol/ L 98-107 Not Available [facility] ([facility]) [address] [place], [address], 04/04/2024 10:07:13 04/04/20 24 04/04/2024 COMP METAB OLIC PANEL carbon dioxide 31.1 mmol/ L 21.0-3 2.0 Not Available [facility] ([facility]) [address] [place], [address], 04/04/2024 10:07:13 04/04/20 24 04/04/2024 COMP METAB OLIC PANEL anion gap 9.3 Not Available [facility] ([facility]) [address], [place], [address], 04/04/2024 10:07:13 04/04/20 24 04/04/2024 COMP METAB OLIC PANEL glucose 126 mg/dL 70-120 high Not Available [facility] ([facility]) [address], [place], [address], 04/04/2024 10:07:13 04/04/20 24 04/04/2024 COMP METAB OLIC PANEL BUN 13 mg/dL 7-18 Not Available [facility] ([facility]) [address] , [place], [address], 04/04/2024 10:07:13 04/04/20 24 04/04/2024 COMP METAB OLIC PANEL creatinine 1.3 mg/dL 0.6-1. 3 Not Available [facility] ([facility]) [address] , [place], [address], 04/04/2024 10:07:13 04/04/20 24 04/04/2024 COMP METAB OLIC PANEL glomerular filtration rate >60 mlper min 60- Not Available [facility] ([facility]) [address] , [place], [address], 04/04/2024 10:07:13 04/04/20 24 04/04/2024 COMP METAB OLIC PANEL total protein 7.1 g/dL 6.4-8. 2 Not Available [facility] ([facility]) [address] , [place], [address], 04/04/2024 10:07:13 04/04/20 24 04/04/2024 COMP METAB OLIC PANEL albumin 3.4 g/dL 3.4-5. 0 Not Available [facility] ([facility]) [address], [place], [address], 04/04/2024 10:07:13 04/04/20 24 04/04/2024 COMP METAB OLIC PANEL globulin 3.7 Not Available [facility] ([facility]) [address], [place], [address], 04/04/2024 10:07:13 04/04/20 24 04/04/2024 COMP METAB OLIC PANEL alb/glob ratio 0.9 0.7-2 Not Available [facility] ([facility]) [address], [place], [address], 04/04/2024 10:07:13 04/04/20 24 04/04/2024 COMP METAB OLIC PANEL calcium 9.4 mg/dL 8.5-10 .5 Not Available [facility] ([facility]) [address] , [place], [address], 04/04/2024 10:07:13 04/04/20 24 04/04/2024 COMP METAB OLIC PANEL bilirubin total 0.50 mg/dL 0.10-1 .00 Not Available [facility] ([facility]) [address], [place], [address], 04/04/2024 10:07:13 04/04/20 24 04/04/2024 COMP METAB OLIC PANEL AST (SGOT) 18 U/L 0-37 Not Available [facility] ([facility]) [address] , [place], [address], 04/04/2024 10:07:13 04/04/20 24 04/04/2024 COMP METAB OLIC PANEL ALT (SGPT) 24 U/L 0-65 Not Available [facility] ([facility]) [address] , [place], [address], 04/04/2024 10:07:13 04/04/20 24 04/04/2024 COMP METAB OLIC PANEL alk phosphatase 44 U/L 46-116 low Not Available [facility] ([facility]) [address] , [place], [address], 04/04/2024 10:07:13 04/04/20 24 04/04/2024 AIME TIN ferritin, serum 46 NG/mL 3-244 Not Available [facility] ([facility]) [address] , [place], [address], 04/04/2024 10:08:20 08/08/19 25 08/08/2024 CBC AUTO W DIFF WBC 7.4 K/uL 4.0-10 .5 Not Available [facility] ([facility]) [address] , [place], [address], 08/08/2024 13:09:07 08/08/19 25 08/08/2024 CBC AUTO W DIFF RBC 4.6 M/mm3 4.7-6. 1 low Not Available [facility] ([facility]) [address] , [place], [address], 08/08/2024 13:09:07 08/08/19 25 08/08/2024 CBC AUTO W DIFF HGB 14.9 gm/dL 13.5-1 8.0 Not Available [facility] ([facility]) [address] , [place], [address], 08/08/2024 13:09:07 08/08/19 25 08/08/2024 CBC AUTO W DIFF HCT 44.6 % 42.0-5 2.0 Not Available [facility] ([facility]) [address] , [place], [address], 08/08/2024 13:09:07 08/08/19 25 08/08/2024 CBC AUTO W DIFF MCV 96.1 fL 78-100 Not Available [facility] ([facility]) [address] , [place], [address], 08/08/2024 13:09:07 08/08/19 25 08/08/2024 CBC AUTO W DIFF MCH 32.1 pg 27-31 high Not Available [facility] ([facility]) [address] , [place], [address], 08/08/2024 13:09:07 08/08/19 25 08/08/2024 CBC AUTO W DIFF MCHC 33.4 g/dL 32-36 Not Available [facility] ([facility]) [address] , [place], [address], 08/08/2024 13:09:07 08/08/19 25 08/08/2024 CBC AUTO W DIFF RDW 11.8 % 11.5-1 4.0 Not Available [facility] [facility]) [address] , [place], [address], 08/08/2024 13:09:07 08/08/19 25 08/08/2024 CBC AUTO W DIFF platelet count 195 K/uL 150-45 0 Not Available [facility] ([facility]) [address] , [place], [address], 08/08/2024 13:09:07 08/08/19 25 08/08/2024 CBC AUTO W DIFF MPV 10.9 fL 6-9.5 high Not Available [facility] ([facility]) [address] [place], [address], 08/08/2024 13:09:07 08/08/19 25 08/08/2024 CBC AUTO W DIFF neutrophil% 59.0 % 43-65 Not Available [facility] ([facility]) [address] , [place], [address], 08/08/2024 13:09:07 08/08/19 25 08/08/2024 CBC AUTO W DIFF lymphocyte% 23.1 % 20.5-4 5.5 Not Available [facility] ([facility]) [address] , [place], [address], 08/08/2024 13:09:07 08/08/19 25 08/08/2024 CBC AUTO W DIFF monocyte% 9.0 % 5.5-11 .7 Not Available [facility] ([facility]) [address] , [place], [address], 08/08/2024 13:09:07 08/08/19 25 08/08/2024 CBC AUTO W DIFF eosinophil% 8.1 % 0.9-2. 9 high Not Available [facility] ([facility]) [address] , [place], [address], 08/08/2024 13:09:07 08/08/19 25 08/08/2024 CBC AUTO W DIFF basophil% 0.4 % 0.2-1. 0 Not Available [facility] ([facility]) [address], [place], [address], 08/08/2024 13:09:07 08/08/19 25 08/08/2024 CBC AUTO W DIFF immature granulocytes % 0.4 % 0.0-0. 8 Not Available [facility] ([facility]) [address] , [place], [address], 08/08/2024 13:09:07 08/08/19 25 08/08/2024 CBC AUTO W DIFF nucleated red blood cells % 0.0 % Not Available [facility] ([facility]) [address] , [place], [address], 08/08/2024 13:09:07 08/08/19 25 08/08/2024 CBC AUTO W DIFF neutrophil# 4.4 K/uL 2.2-4. 8 Not Available [facility] ([facility]) [address], [place], [address], 08/08/2024 13:09:07 08/08/19 25 08/08/2024 CBC AUTO W DIFF lymphocyte# 1.7 cell/ mcL 1.3-2. 9 Not Available [facility] ([facility]) [address], [place], [address], 08/08/2024 13:09:07 08/08/19 25 08/08/2024 CBC AUTO W DIFF monocyte# 0.7 cell/ mcL 0.3-0. 8 Not Available [facility] ([facility]) [address] [facility], [place], [address], 08/08/2024 13:09:07 08/08/19 25 08/08/2024 CBC AUTO W DIFF eosinophil# 0.6 cell/ mcL 0-0.2 high Not Available [facility] ([facility]) [address] [facility], [place], [address], 08/08/2024 13:09:07 08/08/19 25 08/08/2024 CBC AUTO W DIFF basophil# 0.0 cell/ mcL 0.0-1. 0 Not Available [facility] ([facility]) [address] [facility], [place], [address], 08/08/2024 13:09:07 08/08/19 25 08/08/2024 CBC AUTO W DIFF immature gramulocytes # 0.03 K/uL Not Available [facility] ([facility]) [address] [facility], [place], [address], 08/08/2024 13:09:07 08/08/19 25 08/08/2024 CBC AUTO W DIFF nucleated red blood cells # 0.00 K/uL Not Available [facility] ([facility]) [address] [place], [address], 08/08/2024 13:09:07 08/08/19 25 08/08/2024 CBC AUTO W DIFF manual differential NO Not Available [facility] ([facility]) [address], [place], [address], 08/08/2024 13:09:07 08/08/19 25 08/08/2024 IRON STUDY (IRON /TIBC /%SAT ) iron 152 mcg/m L 40-180 Not Available [facility] ([facility]) [address], [place], [address], 08/08/2024 13:21:21 08/08/19 25 08/08/2024 IRON STUDY (IRON /TIBC /%SAT ) TIBC 229 mcg/d L 250-45 0 low Not Available [facility] ([facility]) [address] , [place], [address], 08/08/2024 13:21:21 08/08/19 25 08/08/2024 IRON STUDY (IRON /TIBC /%SAT ) %sat 66 15-55 high Not Available [facility] ([facility]) [address] , [place], [address], 08/08/2024 13:21:21 08/08/19 25 08/08/2024 COMP METAB OLIC PANEL sodium 138 mmol/ L 136-14 5 Not Available [facility] ([facility]) [address] , [place], [address], 08/08/2024 13:30:00 08/08/19 25 08/08/2024 COMP METAB OLIC PANEL potassium 4.2 mmol/ L 3.6-5. 0 Not Available [facility] ([facility]) [address] , [place], [address], 08/08/2024 13:30:00 08/08/19 25 08/08/2024 COMP METAB OLIC PANEL chloride 102 mmol/ L 98-107 Not Available [facility] ([facility]) [address], [place], [address], 08/08/2024 13:30:00 08/08/19 25 08/08/2024 COMP METAB OLIC PANEL carbon dioxide 29.2 mmol/ L 21.0-3 2.0 Not Available [facility] ([facility]) [address], [place], [address], 08/08/2024 13:30:00 08/08/19 25 08/08/2024 COMP METAB OLIC PANEL anion gap 11.0 Not Available [facility] ([facility]) [address], [place], [address], 08/08/2024 13:30:00 08/08/19 25 08/08/2024 COMP METAB OLIC PANEL glucose 109 mg/dL 70-120 Not Available [facility] ([facility]) [address], [place], [address], 08/08/2024 13:30:00 08/08/19 25 08/08/2024 COMP METAB OLIC PANEL BUN 16 mg/dL 7-18 Not Available [facility] ([facility]) [address] [facility], [place], [address], 08/08/2024 13:30:00 08/08/19 25 08/08/2024 COMP METAB OLIC PANEL creatinine 1.3 mg/dL 0.6-1. 3 Not Available [facility] ([facility]) [address] [facility], [place], [address], 08/08/2024 13:30:00 08/08/19 25 08/08/2024 COMP METAB OLIC PANEL glomerular filtration rate 65 mlper min 60- GFR LIMIT ATION : The eGFR equat ion CKD-E PI 2020 is not appli cable for pedia tric patie nts or great er than 90 years of age. The follo wing condi tions may alter the GFR resul t: extre mes in body size, malnu triti on or obesi ty, skele samantha muscl e disea se, parap legia or quadr ipleg ia, veget jose diet or rapid ly rowe ing kiney funct ion. Not Available [facility] ([facility]) [address] , [place], [address], 08/08/2024 13:30:00 08/08/19 25 08/08/2024 COMP METAB OLIC PANEL total protein 7.8 g/dL 6.4-8. 2 Not Available [facility] ([facility]) [address] , [place], [address], 08/08/2024 13:30:00 08/08/19 25 08/08/2024 COMP METAB OLIC PANEL albumin 3.7 g/dL 3.4-5. 0 Not Available [facility] ([facility]) [address] , [place], [address], 08/08/2024 13:30:00 08/08/19 25 08/08/2024 COMP METAB OLIC PANEL globulin 4.1 Not Available [facility] ([facility]) [address] , [place], [address], 08/08/2024 13:30:00 08/08/19 25 08/08/2024 COMP METAB OLIC PANEL alb/glob ratio 0.9 0.7-2 Not Available [facility] ([facility]) [address], [place], [address], 08/08/2024 13:30:00 08/08/19 25 08/08/2024 COMP METAB OLIC PANEL calcium 9.4 mg/dL 8.5-10 .5 Not Available [facility] ([facility]) [address] , [place], [address], 08/08/2024 13:30:00 08/08/19 25 08/08/2024 COMP METAB OLIC PANEL bilirubin total 0.50 mg/dL 0.10-1 .00 Not Available [facility] ([facility]) [address], [place], [address], 08/08/2024 13:30:00 08/08/19 25 08/08/2024 COMP METAB OLIC PANEL AST (SGOT) 16 U/L 0-37 Not Available [facility] ([facility]) [address], [place], [address], 08/08/2024 13:30:00 08/08/19 25 08/08/2024 COMP METAB OLIC PANEL ALT (SGPT) 22 U/L 0-65 Not Available [facility] ([facility]) [address], [place], [address], 08/08/2024 13:30:00 08/08/19 25 08/08/2024 COMP METAB OLIC PANEL alk phosphatase 41 U/L 46-116 low Not Available [facility] ([facility]) [address], [place], [address], 08/08/2024 13:30:00 08/08/19 25 08/08/2024 AIME TIN ferritin, serum 65 NG/mL 3-244 Not Available [facility] ([facility]) [address] , [place], [address], 08/08/2024 15:08:04 02/16/20 25 02/15/2025 CBC AUTO W DIFF WBC 6.5 K/uL 4.0-10 .5 Not Available [facility] ([facility]) [address] , [place], [address], 02/15/2025 12:14:57 02/16/20 25 02/15/2025 CBC AUTO W DIFF RBC 4.7 M/mm3 4.7-6. 1 Not Available [facility] ([facility]) [address] , [place], [address], 02/15/2025 12:14:57 02/16/20 25 02/15/2025 CBC AUTO W DIFF HGB 15.0 gm/dL 13.5-1 8.0 Not Available [facility] ([facility]) [address] , [place], [address], 02/15/2025 12:14:57 02/16/20 25 02/15/2025 CBC AUTO W DIFF HCT 44.8 % 42.0-5 2.0 Not Available [facility] ([facility]) [address] , [place], [address], 02/15/2025 12:14:57 02/16/20 25 02/15/2025 CBC AUTO W DIFF MCV 95.1 fL 78-100 Not Available [facility] ([facility]) [address], [place], [address], 02/15/2025 12:14:57 02/16/20 25 02/15/2025 CBC AUTO W DIFF MCH 31.8 pg 27-31 high Not Available [facility] ([facility]) [address], [place], [address], 02/15/2025 12:14:57 02/16/20 25 02/15/2025 CBC AUTO W DIFF MCHC 33.5 g/dL 32-36 Not Available [facility] ([facility]) [address], [place], [address], 02/15/2025 12:14:57 02/16/20 25 02/15/2025 CBC AUTO W DIFF RDW 11.8 % 11.5-1 4.0 Not Available [facility] ([facility]) [address] , [place], [address], 02/15/2025 12:14:57 02/16/20 25 02/15/2025 CBC AUTO W DIFF platelet count 168 K/uL 150-45 0 Not Available [facility] ([facility]) [address] [place], [address], 02/15/2025 12:14:57 02/16/20 25 02/15/2025 CBC AUTO W DIFF MPV 10.8 fL 6-9.5 high Not Available [facility] ([facility]) [address] [place], [address], 02/15/2025 12:14:57 02/16/20 25 02/15/2025 CBC AUTO W DIFF neutrophil% 58.1 % 43-65 Not Available [facility] ([facility]) [address] [place], [address], 02/15/2025 12:14:57 02/16/20 25 02/15/2025 CBC AUTO W DIFF lymphocyte% 24.4 % 20.5-4 5.5 Not Available [facility] ([facility]) [address] [place], [address], 02/15/2025 12:14:57 02/16/20 25 02/15/2025 CBC AUTO W DIFF monocyte% 8.8 % 5.5-11 .7 Not Available [facility] ([facility]) [address] [place], [address], 02/15/2025 12:14:57 02/16/20 25 02/15/2025 CBC AUTO W DIFF eosinophil% 7.9 % 0.9-2. 9 high Not Available [facility] ([facility]) [address] [place], [address], 02/15/2025 12:14:57 02/16/20 25 02/15/2025 CBC AUTO W DIFF basophil% 0.5 % 0.2-1. 0 Not Available [facility] ([facility]) [address] [place], [address], 02/15/2025 12:14:57 02/16/20 25 02/15/2025 CBC AUTO W DIFF immature granulocytes % 0.3 % 0.0-0. 8 Not Available [facility] ([facility]) [address] [place], [address], 02/15/2025 12:14:57 02/16/20 25 02/15/2025 CBC AUTO W DIFF nucleated red blood cells % 0.0 % Not Available [facility] ([facility]) [address], [place], [address], 02/15/2025 12:14:57 02/16/20 25 02/15/2025 CBC AUTO W DIFF neutrophil# 3.8 K/uL 2.2-4. 8 Not Available [facility] ([facility]) [address], [place], [address], 02/15/2025 12:14:57 02/16/20 25 02/15/2025 CBC AUTO W DIFF lymphocyte# 1.6 cell/ mcL 1.3-2. 9 Not Available [facility] ([facility]) [address], [place], [address], 02/15/2025 12:14:57 02/16/20 25 02/15/2025 CBC AUTO W DIFF monocyte# 0.6 cell/ mcL 0.3-0. 8 Not Available [facility] ([facility]) [address] [facility], [place], [address], 02/15/2025 12:14:57 02/16/20 25 02/15/2025 CBC AUTO W DIFF eosinophil# 0.5 cell/ mcL 0-0.2 high Not Available [facility] ([facility]) [address] [place], [address], 02/15/2025 12:14:57 02/16/20 25 02/15/2025 CBC AUTO W DIFF basophil# 0.0 cell/ mcL 0.0-1. 0 Not Available [facility] ([facility]) [address] [place], [address], 02/15/2025 12:14:57 02/16/20 25 02/15/2025 CBC AUTO W DIFF immature gramulocytes # 0.02 K/uL Not Available [facility] ([facility]) [address], [place], [address], 02/15/2025 12:14:57 02/16/20 25 02/15/2025 CBC AUTO W DIFF nucleated red blood cells # 0.00 K/uL Not Available [facility] ([facility]) [address], [place], [address], 02/15/2025 12:14:57 02/16/20 25 02/15/2025 CBC AUTO W DIFF manual differential NO Not Available [facility] ([facility]) [address], [place], [address], 02/15/2025 12:14:57 02/16/20 25 02/15/2025 COMP METAB OLIC PANEL sodium 138 mmol/ L 136-14 5 Not Available [facility] ([facility]) [address], [place], [address], 02/15/2025 12:33:35 02/16/20 25 02/15/2025 COMP METAB OLIC PANEL potassium 4.2 mmol/ L 3.6-5. 0 Not Available [facility] ([facility]) [address], [place], [address], 02/15/2025 12:33:35 02/16/20 25 02/15/2025 COMP METAB OLIC PANEL chloride 102 mmol/ L 98-107 Not Available [facility] ([facility]) [address], [place], [address], 02/15/2025 12:33:35 02/16/20 25 02/15/2025 COMP METAB OLIC PANEL carbon dioxide 30.6 mmol/ L 21.0-3 2.0 Not Available [facility] ([facility]) [address], [place], [address], 02/15/2025 12:33:35 02/16/20 25 02/15/2025 COMP METAB OLIC PANEL anion gap 9.6 Not Available [facility] ([facility]) [address], [place], [address], 02/15/2025 12:33:35 02/16/20 25 02/15/2025 COMP METAB OLIC PANEL glucose 124 mg/dL 70-120 high Not Available [facility] ([facility]) [address], [place], [address], 02/15/2025 12:33:35 02/16/20 25 02/15/2025 COMP METAB OLIC PANEL BUN 15 mg/dL 7-18 Not Available [facility] ([facility]) [address], [place], [address], 02/15/2025 12:33:35 02/16/20 25 02/15/2025 COMP METAB OLIC PANEL creatinine 1.3 mg/dL 0.6-1. 3 Not Available [facility] ([facility]) [address], [place], [address], 02/15/2025 12:33:35 02/16/20 25 02/15/2025 COMP METAB OLIC PANEL glomerular filtration rate 64 mlper min 60- GFR LIMIT ATION : The eGFR equat ion CKD-E PI 2020 is not appli cable for pedia tric patie nts or great er than 90 years of age. The follo wing condi tions may alter the GFR resul t: extre mes in body size, malnu triti on or obesi ty, skele samantha muscl e disea se, parap legia or quadr ipleg ia, veget jose diet or rapid ly rowe ing kiney funct ion. Not Available [facility] ([facility]) [address], [place], [address], 02/15/2025 12:33:35 02/16/20 25 02/15/2025 COMP METAB OLIC PANEL osmolality (calculated) 289 mOsm/ kg 275-30 1 OSMOL ALITY IS A CALCU LATIO N UTILI ZING THE SERUM /PLAS MA SODIU M, GLUCO SE AND UREA NITRO GEN (BUN) LEVEL S. FOR THE MOST ACCUR ATE RESUL T A MEASU RED SERUM OSMOL ALITY IS NALLELY LEED. Not Available [facility] ([facility]) [address] [facility], [place], [address], 02/15/2025 12:33:35 02/16/20 25 02/15/2025 COMP METAB OLIC PANEL total protein 7.5 g/dL 6.4-8. 2 Not Available [facility] ([facility]) [address] [facility], [place], [address], 02/15/2025 12:33:35 02/16/20 25 02/15/2025 COMP METAB OLIC PANEL albumin 3.5 g/dL 3.4-5. 0 Not Available [facility] ([facility]) [address] [facility], [place], [address], 02/15/2025 12:33:35 02/16/20 25 02/15/2025 COMP METAB OLIC PANEL globulin 4.0 Not Available [facility] ([facility]) [address] [facility], [place], [address], 02/15/2025 12:33:35 02/16/20 25 02/15/2025 COMP METAB OLIC PANEL alb/glob ratio 0.9 0.7-2 Not Available [facility] ([facility]) [address] [facility], [place], [address], 02/15/2025 12:33:35 02/16/20 25 02/15/2025 COMP METAB OLIC PANEL calcium 9.5 mg/dL 8.5-10 .5 Not Available [facility] ([facility]) [address] [facility], [place], [address], 02/15/2025 12:33:35 02/16/20 25 02/15/2025 COMP METAB OLIC PANEL bilirubin total 0.40 mg/dL 0.10-1 .00 Not Available [facility] ([facility]) [address], [place], [address], 02/15/2025 12:33:35 02/16/20 25 02/15/2025 COMP METAB OLIC PANEL AST (SGOT) 17 U/L 0-37 Not Available [facility] ([facility]) [address], [place], [address], 02/15/2025 12:33:35 02/16/20 25 02/15/2025 COMP METAB OLIC PANEL ALT (SGPT) 28 U/L 0-65 Not Available [facility] ([facility]) [address], [place], [address], 02/15/2025 12:33:35 02/16/20 25 02/15/2025 COMP METAB OLIC PANEL alk phosphatase 46 U/L 46-116 Not Available [facility] ([facility]) [address], [place], [address], 02/15/2025 12:33:35 Result Notes None recorded. 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 Procedures Surgical History Date Name Laterality Status Provider Name and Address Organization Details Recorded Time 5 Venipuncture completed Lucía Cotton PA-C [address] [facility], [place], [address], [facility] - [facility] & [place] 02/05/2025 12:45:05 5 [facility] [place] 08/08/2024 09:28:59 Imaging Results None recorded. Procedure Notes None recorded. Medical Equipment None Reported. Allergies No known drug allergies Medications Name Sig Start Date Stop Date Status Note LastModified by Organization Details LastModified Time amoxicillin 500 mg capsule TAKE 1 CAPSULE BY MOUTH THREE TIMES DAILY 04/15 completed Not Available Not Available Not Available Anti-Diarrh eal (loperamide ) 2 mg tablet TAKE 1 TABLET BY MOUTH ON DAYS OF DIARRHEA active Not Available Not Available No t Available promethazin e-DM 6.25 mg-15 mg/5 mL oral syrup Take 5 mL every 4 hours by oral route for 10 days. 02/15 completed Not Available Not Available Not Available prednisone 10 mg tablet TAKE 1 TABLET BY MOUTH TWICE DAILY 04/15 completed Not Available Not Available Not Available famotidine 10 mg tablet 1 tablet as needed Orally Twice a day active Not Available Not Available No t Available loperamide 2 mg capsule TAKE 1 CAPSULE BY MOUTH ON DAYS THAT YOU HAVE DIARRHEA active Not Available Not Available No t Available cetirizine 10 mg tablet TAKE 1 TABLET BY MOUTH EVERY NIGHT active Not Available Not Available No t Available benzonatate 200 mg capsule Take 1 capsule 3 times a day by oral route for 10 days. active Not Available Not Available No t Available prednisone 20 mg tablet TAKE 2 TABLETS BY MOUTH ONCE DAILY IN THE MORNING WITH FOOD FOR 5 DAYS 08/10 completed Not Available Not Available Not Available prednisone 5 mg tablet FOLLOW ATTACHED DIRECTION S 04/15 completed Not Available Not Available Not Available ciprofloxac in 500 mg tablet TAKE 1 TABLET BY MOUTH TWICE DAILY FOR 7 DAYS 04/15 completed Not Available Not Available Not Available triamcinolo ne acetonide 0.1 % topical cream APPLY TOPICALLY TO THE AFFECTED AREA 1 TO 2 TIMES DAILY NEEDED. AVOID FACE AND GROIN active Not Available Not Available No t Available pantoprazol e 20 mg tablet,prince yed release 1 tablet Orally Once a day for 30 day(s) 04/16 completed Not Available Not Available Not Available prednisone 10 mg tablets in a dose pack Use as directed 02/15 completed Not Available Not Available Not Available famotidine 20 mg tablet 04/15 completed Not Available Not Available Not Available pantoprazol e 40 mg tablet,prince yed release TAKE 1 TABLET BY MOUTH DAILY active Not Available Not Available No t Available lidocaine 5 % topical patch APPLY 1 PATCH TOPICALLY TO MOST PAINFUL AREA ONCE EVERY 12 HOURS. REMOVE FOR 12 HOURS active Not Available Not Available No t Available montelukast 10 mg tablet TAKE 1 TABLET BY MOUTH DAILY 04/15 completed Not Available Not Available Not Available bromocripti ne 2.5 mg tablet 1 tablet at bedtime Orally Once a day active Not Available Not Available No t Available ondansetron 4 mg disintegrat ing tablet DISSOLVE 1 TABLET ON THE TONGUE EVERY 8 HOURS NEEDED FOR NAUSEA 04/15 completed Not Available Not Available Not Available fluticasone propionate 50 mcg/actuati on nasal spray,suspe nsion ADMINISTE R 2 SPRAYS INTO EACH NOSTRIL ONE TIME EACH DAY. SHAKE GENTLY. BEFORE FIRST USE PRIME PUMP active Not Available Not Available No t Available metformin ER 500 mg tablet,exte nded release 24 hr TAKE 1 TABLET BY MOUTH IN THE MORNING AND 1 TABLET BEFORE BEDIME active Not Available Not Available No t Available colestipol 1 gram tablet TAKE 1 TABLET BY MOUTH 2 TIMES DAILY AFTER A MEAL. TAKE AT LEAST 1 HOUR AFTER OR 4 HOURS BEFORE OTHER MEDICATIO NS active Not Available Not Available No t Available doxycycline hyclate 100 mg tablet Take 1 tablet twice a day by oral route for 10 days. 02/15 completed Not Available Not Available Not Available dicyclomine 10 mg capsule TAKE 1 CAPSULE BY MOUTH EVERY 8 HOURS NEEDED FOR DIARRHEA OR FECAL URGENCY active Not Available Not Available No t Available atenolol 50 mg tablet 1 tablet Orally Once a day active Not Available Not Available No t Available amoxicillin 875 mg-karlou m clavulanate 125 mg tablet TAKE 1 TABLET BY MOUTH TWICE DAILY FOR 10 DAYS 02/03 completed Not Available Not Available Not Available meclizine 25 mg chewable tablet CHEW AND SWALLOW 1 TABLET BY MOUTH EVERY 8 HOURS NEEDED FOR VERTIGO 04/15 completed Not Available Not Available Not Available cholecalcif sulaiman (vitamin D3) 25 mcg (1,000 unit) capsule active Not Available Not Available Not Available rosuvastati n 20 mg tablet active Not Available Not Available Not Available testosteron e 12.5 mg/1.25 gram per pump actuation (1%) transdermal gel APPLY 6 PUMPS TOTAL TRANSDERM ALLY ONCE A DAY DIRECTED active Not Available Not Available No t Available cyclobenzap rine 7.5 mg tablet TAKE 1 TABLET BY MOUTH THREE TIMES DAILY NEEDED FOR MUSCLE SPASM 12/06 completed Not Available Not Available Not Available Fiber (dextrin) 3 gram/3.5 gram oral powder active Not Available Not Available Not Available testosteron e 20.25 mg/1.25 gram per pump act.(1.62 %) transdermal gel PLACE 6 PUMPS ONTO THE SKIN DAILY active Not Available Not Available No t Available AndroGel 1.62 % (20.25 mg/1.25 gram) transdermal gel packet Apply 1 packet every day by transderm al route. active Not Available Not Available No t Available dicyclomine 10 mg tablet Take 1 tablet 3 times a day by oral route as needed. 04/04 completed Not Available Not Available Not Available Flowflex COVID-19 Antigen Home Test kit TEST DIRECTED TODAY 07/29 completed Not Available Not Available Not Available Vitals Date Recorded Body height Body mass index (BMI) Body weight Body temperature Heart rate Oxygen saturation Oxygen saturation in Arterial blood by Pulse oximetry Systolic And Diastolic Provider Name and Address Organization Details Last Updated DateTime 5 180.34 cm 31.8 kg/m2 070514. 78 g 97.8 [degF] 57 /min 98 % 98 % 147/81 mm[Hg] Shamika Mac [place] - [facility] - [place] & [place] 5 09:06:26 Date Recorded Body height Body mass index (BMI) Body weight Body temperature Oxygen saturation Oxygen saturation in Arterial blood by Pulse oximetry Heart rate Systolic And Diastolic Provider Name and Address Organization Details Last Updated DateTime 5 180.34 cm 32.4 kg/m2 797807. 43 g 97.7 [degF] 97 % 97 % 59 /min 134/86 mm[Hg] [facility] [place] 5 10:26:44 Date Recorded Body height Body mass index (BMI) Body weight Body temperature Heart rate Oxygen saturation Oxygen saturation in Arterial blood by Pulse oximetry Systolic And Diastolic Provider Name and Address Organization Details Last Updated DateTime 4 180.34 cm 32.6 kg/m2 135796. 26 g 97.8 [degF] 55 /min 96 % 96 % 142/85 mm[Hg] [facility] [place] 4 08:10:27 Date Recorded Body height Body mass index (BMI) Body weight Body temperature Oxygen saturation Oxygen saturation in Arterial blood by Pulse oximetry Heart rate Respiratory rate Systolic And Diastolic Provider Name and Address Organization Details Last Updated DateTime 5 180.34 cm 31.4 kg/m2 519205 g 96.9 [degF] 96 % 96 % 55 /min 18 /min 138/81 mm[Hg] Shamika Melendrez [facility] & [place] 5 08:35:04 Date Recorded Body height Body mass index (BMI) Body weight Body temperature Oxygen saturation Oxygen saturation in Arterial blood by Pulse oximetry Heart rate Systolic And Diastolic Provider Name and Address Organization Details Last Updated DateTime 4 180.34 cm 32.4 kg/m2 608798. 23 g 97.6 [degF] 96 % 96 % 57 /min 142/79 mm[Hg] Shamika TREVINO [facility] & [place] 4 08:56:58 Social History Question Answer Notes LastModified by Organizat ion Details LastModified Time Tobacco Smoking Status Never Smoker Gerry lira JOHANA TREVINO [facility] & [place] 04/15/2022 17:52:21 Do You Have An Advance Directive? No [email or web address] Information not available 12/03/2022 Are You Blind Or Do You Have Difficulty Seeing? No Information not available 12/03/2022 Are You Passively Exposed To Smoke? Yes [email or web address] Information not available 12/03/2022 Sex: Unknown Functional Status Question Answer Note LastModified by Organizat ion Details LastModified Time Do you use any illicit or recreational drugs? No Information not available 04/15/2022 What is your level of alcohol consumption? None Information not available 04/15/2022 Mental Status None recorded. Family History Nothing Reported Notes:Identical twin brother -hemachromatosis Mother-COPD Father -CVA, hypertension Medical History Condition Response Eczema Y Reflux/GERD Y Hypertension Y Immunizations Vaccine Type Date Status Note Provider Nam e and Address Organization Details Recorded Time zoster recombinant 2 completed Shamika Workman null, [place] [facility] - [place] & [place] 04/13/2023 08:09:01 zoster recombinant 2 completed Shamika Workman null, [place] [facility] [place] & [place] 04/13/2023 08:09:02 COVID-19, mRNA, LNP-S, PF, 100 mcg/0.5mL dose or 50 mcg/0.25mL dose 1 completed Shamika Pjman null, [place] [facility] [place] 04/13/2023 08:09:02 COVID-19, mRNA, LNP-S, PF, 100 mcg/0.5mL dose or 50 mcg/0.25mL dose 1 completed Shamika Pjman null, [place] [facility] [place] 04/13/2023 08:09:02 pneumococcal polysaccharide PPV23 7 completed Shamika Pjman null, [place] [facility] [place] 04/13/2023 08:09:02 Influenza, split virus, trivalent, PF 6 completed Shamika Pjman null, [place] [facility] [place] [facility] [place] 04/13/2023 08:09:02 Td (adult), 2 Lf tetanus toxoid, preservative free, adsorbed 0 completed Shamikabassem Mac null, [place] [facility] [place] 04/13/2023 08:09:02 Influenza, split virus, quadrivalent, PF 0 completed Shamika Workman null, [place] - [facility] [place] 04/13/2023 08:09:02 Influenza, split virus, quadrivalent, PF 2 completed Shamika Workman null, [place] - [facility] [place] 04/13/2023 08:09:02 Influenza, split virus, quadrivalent, PF 7 completed Shamika Workman null, [place] - [facility] [place] 04/13/2023 08:09:02 Influenza, split virus, quadrivalent, PF 8 completed Shamika Workman null, [place]OH[place] - [facility] [place] 04/13/2023 08:09:02 Influenza, split virus, quadrivalent, PF 1 completed Shamika Workman null, JOHANA Melendrez [facility] [place] 04/13/2023 08:09:02 Influenza, split virus, quadrivalent, PF 3 completed Not Available [facility] 02/15/2025 08:21:43 Tdap 5 completed Not Available [facility] 02/15[facility]2025 08:21:43 Past Encounters Encounter ID Performer Location Encounter Start Date Encounter Closed Date Diagnosis/Indication Diagnosis SNOMED-CT Code Diagnosis ICD10 Code Diagnosis Note [id number] Lucía Cotton PA-C [facility] [address] [place] [address] 04/16/2022 08:40:31 04/16/2022 09:22:03 Hereditary hemochromatosis 02619291 E83.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 Initial labs on 09-28-17 with demonstrat ed a serum ferritin of 656.Target ferritin is below 100 and by strict criteria below 50.Labs from 01-25-18 with ferritin of 126.Labs from 02-08-18 with ferritin of 97.Last Phlebotomy was in May 2018.Labs from November 07, 2018 with ferritin 92.Last phlebotomy on February 06, 2019.Serum ferritin at 63 on May 02, 2019.Labs on August 08, 2019 with ferritin at 127. Patient had phlebotomy following these labs.Labs on December 06, 2019 with serum ferritin at 99.Labs from March 04, 2020 with ferritin level at 61.Labs on June 03, 2020 with serum ferritin at 115.Labs on September 02, 2020 with ferritin 92.Labs on December 02, 2020 with ferritin 156.Felicitas desai returned for labs on June 16, 2021. Serum ferritin at 173 and was treated with phlebotomy .Patient returns on September 15, 2021. Will repeat labs today. Will follow up labs and assess for need for phlebotomy . Goal ferritin is below 100 at this point.Labs on September 15, 2021 with hemoglobin 13.8 hematocrit 41.7. Normal serum iron, high iron saturation 84, ferritin 144.Felicitas desai returns to clinic on April 16, 2022. Patient has recently started on Bentyl with improvemen t for irritable bowel syndrome. He is following with [facility]. Will repeat labs and assess for phlebotomy . 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 Patient was previously followed with MRIs of the head and has not been seen since 2017. He is currently asymptomat ic and repeat MRIs head demonstrat es stable finding is and no signs of changes to the pituitary area. Imaging of head abnormal [id number] R93.0 Patient presented to [facility] with blurry vision had a CT scan of his head the demonstrat ed concerning finding in the cerebellum . 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 no changes to the major vessel vascular flow.Currree ntdania the patient is asymptomat ic will repeat MRI as needed. Suspect volume depletion at time of phlebotomy on a weekly basis. [id number] Lucía Cotton PA-C [facility] [address] [place] [address] 08/06/2022 10:17:14 08/06/2022 10:43:59 Hereditary hemochromatosis [id number] E83.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 Initial labs on 09-28-17 with demonstrat ed a serum ferritin of 656.Target ferritin is below 100 and by strict criteria below 50.Labs from 01-25-18 with ferritin of 126.Labs from 02-08-18 with ferritin of 97.Last Phlebotomy was in May 2018.Labs from November 07, 2018 with ferritin 92.Last phlebotomy on February 06, 2019.Serum ferritin at 63 on May 02, 2019.Labs on August 08, 2019 with ferritin at 127. Patient had phlebotomy following these labs.Labs on December 06, 2019 with serum ferritin at 99.Labs from March 04, 2020 with ferritin level at 61.Labs on June 03, 2020 with serum ferritin at 115.Labs on September 02, 2020 with ferritin 92.Labs on December 02, 2020 with ferritin 156.Felicitas desai returned for labs on June 16, 2021. Serum ferritin at 173 and was treated with phlebotomy .Patient returns on September 15, 2021. Will repeat labs today. Will follow up labs and assess for need for phlebotomy . Goal ferritin is below 100 at this point.Labs on September 15, 2021 with hemoglobin 13.8 hematocrit 41.7. Normal serum iron, high iron saturation 84, ferritin 144. Labs on April 16 is stable CBC and CMP. Normal serum iron and ferritin is 56. Ferritin is below 100. Continue with observatio n at this time. Patient returns to clinic on August 06, 2022. Patient is doing well with no acute changes since previous visit. Will repeat labs and assess for phlebotomy . Prolactinoma [id number] D 35.2 History of prolactino ma and prior incomplete resection at the [facility]. Patient was previously followed with MRIs of the head and has not been seen since 2017. He is currently asymptomat ic and repeat MRIs head demonstrat es stable finding is and no signs of changes to the pituitary area. Imaging of head abnormal [id number] R93.0 Patient presented to [facility] with blurry vision had a CT scan of his head the [facility] ed concerning finding in the cerebellum . 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 no changes to the major vessel vascular flow.Walter carrasco the patient is asymptomat ic will repeat MRI as needed. Suspect volume depletion at time of phlebotomy on a weekly basis. 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 Initial labs on 09-28-17 with demonstrat ed a serum ferritin of 656.Target ferritin is below 100 and by strict criteria below 50.Labs from 01-25-18 with ferritin of 126.Labs from 02-08-18 with ferritin of 97.Last Phlebotomy was in May 2018.Labs from November 07, 2018 with ferritin 92.Last phlebotomy on February 06, 2019.Serum ferritin at 63 on May 02, 2019.Labs on August 08, 2019 with ferritin at 127. Patient had phlebotomy following these labs.Labs on December 06, 2019 with serum ferritin at 99.Labs from March 04, 2020 with ferritin level at 61.Labs on June 03, 2020 with serum ferritin at 115.Labs on September 02, 2020 with ferritin 92.Labs on December 02, 2020 with ferritin 156.Felicitas desai returned for labs on June 16, 2021. Serum ferritin at 173 and was treated with phlebotomy .Patient returns on September 15, 2021. Will repeat labs today. Will follow up labs and assess for need for phlebotomy . Goal ferritin is below 100 at this point.Labs on September 15, 2021 with hemoglobin 13.8 hematocrit 41.7. Normal serum iron, high iron saturation 84, ferritin 144. Labs on April 16 is stable CBC and CMP. Normal serum iron and ferritin is 56. Ferritin is below 100. Continue with observatio n at this time. Labs on August 06, 2022 with stable CBC and CMP. Ferritin stable at 61. Patient does not require phlebotomy at this time.Pamela ribeiro returns for follow-up on December 03, 2022. No acute changes since previous visit. Will follow-up labs today. Prolactinoma [id number] D 35.2 History of prolactino ma and prior incomplete resection at the [facility]. Patient was previously followed with MRIs of the head and has not been seen since 2017. He is currently asymptomat ic and repeat MRIs head demonstrat es stable finding is and no signs of changes to the pituitary area. Imaging of head abnormal [id number] R93.0 Patient presented to [facility] with blurry vision [facility] . 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 no changes to the major vessel vascular flow.Curre ntly the patient is asymptomat ic will repeat MRI as needed. Suspect volume depletion at time of phlebotomy on a weekly basis. 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 Initial labs on 09-28-17 with demonstrat ed a serum ferritin of 656.Target ferritin is below 100 and by strict criteria below 50.Labs from 01-25-18 with ferritin of 126.Labs from 02-08-18 with ferritin of 97.Last Phlebotomy was in May 2018.Labs from November 07, 2018 with ferritin 92.Last phlebotomy on February 06, 2019.Serum ferritin at 63 on May 02, 2019.Labs on August 08, 2019 with ferritin at 127. Patient had phlebotomy following these labs.Labs on December 06, 2019 with serum ferritin at 99.Labs from March 04, 2020 with ferritin level at 61.Labs on June 03, 2020 with serum ferritin at 115.Labs on September 02, 2020 with ferritin 92.Labs on December 02, 2020 with ferritin 156.Felicitas desai returned for labs on June 16, 2021. Serum ferritin at 173 and was treated with phlebotomy .Patient returns on September 15, 2021. Will repeat labs today. Will follow up labs and assess for need for phlebotomy . Goal ferritin is below 100 at this point.Labs on September 15, 2021 with hemoglobin 13.8 hematocrit 41.7. Normal serum iron, high iron saturation 84, ferritin 144. Labs on April 16 is stable CBC and CMP. Normal serum iron and ferritin is 56. Ferritin is below 100. Continue with observatio n at this time. Labs on August 06, 2022 with stable CBC and CMP. Ferritin stable at 61. Patient does not require phlebotomy at this time.Labs on December 03, 2022 with stable CBC and CMP. Ferritin 42.Patient returns for follow-up on April 13, 2023. No acute changes since previous visit. Will follow-up labs today. Prolactinoma [id number] D 35.2 History of prolactino ma and prior incomplete resection at the [facility]. Patient was previously followed with MRIs of the head and has not been seen since 2017. He is currently asymptomat ic and repeat MRIs head demonstrat es stable finding is and no signs of changes to the pituitary area. Imaging of head abnormal [id number] R93.0 Patient presented to [facility] with blurry vision had a CT scan of his head the [facility] ed concerning finding in the cerebellum . 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 no changes to the major vessel vascular flow. Currently the patient is asymptomat ic will repeat MRI as needed. Suspect volume depletion at time of phlebotomy on a weekly basis. 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 [facility].Target ferritin is below 100 and by strict criteria below 50.Labs from 01-25-18 with ferritin of 126.Labs from 02-08-18 with ferritin of 97.Last Phlebotomy was in May 2018.Labs from November 07, 2018 with ferritin 92.Last phlebotomy on February 06, 2019.Serum ferritin at 63 on May 02, 2019.Labs on August 08, 2019 with ferritin at 127. Patient had phlebotomy following these labs.Labs on December 06, 2019 with serum ferritin at 99.Labs from March 04, 2020 with ferritin level at 61.Labs on June 03, 2020 with serum ferritin at 115.Labs on September 02, 2020 with ferritin 92.Labs on December 02, 2020 with ferritin 156.Felicitas t returned for labs on June 16, 2021. Serum ferritin at 173 and was treated with phlebotomy .Patient returns on September 15, 2021. Will repeat labs today. Will follow up labs and assess for need for phlebotomy . Goal ferritin is below 100 at this point.Labs on September 15, 2021 with hemoglobin 13.8 hematocrit 41.7. Normal serum iron, high iron saturation 84, ferritin 144. Labs on Lashaun 22 22 is stable CBC and CMP. Normal serum iron and ferritin is 56. Ferritin is below 100. Continue with observatio n at this time. Labs on August 06, 2022 with stable CBC and CMP. Ferritin stable at 61. Patient does not require phlebotomy at this time.Labs on December 03, 2022 with stable CBC and CMP. Ferritin 42.Labs on April 13, 2023 with stable ferritin of 50.Labs on April 13, 2023 with stable ferritin of 50.Labs on April 13, 2023 with stable ferritin of 50.Patient returns for follow-up on August 10, 2023. Patient states he has a torn rotator cuff and is following with orthopedic s for this. No other changes since previous visit. Will follow-up labs today. Prolactinoma [id number] D 35.2 History of prolactino ma and prior incomplete resection at the [facility]. Patient was previously followed with MRIs of the head and has not been seen since 2017. He is currently asymptomat ic and repeat MRIs head demonstrat es stable finding is and no signs of changes to the pituitary area. Imaging of head abnormal [id number] R93.0 Patient presented to [facility] with blurry vision had a CT scan of his head the demonstrat ed concerning finding in the cerebellum . 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 no changes to the major vessel vascular flow. Currently the patient is asymptomat ic will repeat MRI as needed. Suspect volume depletion at time of phlebotomy on a weekly basis. 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 Initial labs on 09-28-17 with demonstrat ed a serum ferritin of 656.Target ferritin is below 100 and by strict criteria below 50.Labs from 01-25-18 with ferritin of 126.Labs from 02-08-18 with ferritin of 97.Last Phlebotomy was in May 2018.Labs from November 07, 2018 with ferritin 92.Last phlebotomy on February 06, 2019.Serum ferritin at 63 on May 02, 2019.Labs on August 08, 2019 with ferritin at 127. Patient had phlebotomy following these labs.Labs on December 06, 2019 with serum ferritin at 99.Labs from March 04, 2020 with ferritin level at 61.Labs on June 03, 2020 with serum ferritin at 115.Labs on September 02, 2020 with ferritin 92.Labs on December 02, 2020 with ferritin 156.Felicitas desai returned for labs on June 16, 2021. Serum ferritin at 173 and was treated with phlebotomy .Patient returns on September 15, 2021. Will repeat labs today. Will follow up labs and assess for need for phlebotomy . Goal ferritin is below 100 at this point.Labs on September 15, 2021 with hemoglobin 13.8 hematocrit 41.7. Normal serum iron, high iron saturation 84, ferritin 144. Labs on April 16 is stable CBC and CMP. Normal serum iron and ferritin is 56. Ferritin is below 100. Continue with observatio n at this time. Labs on August 06, 2022 with stable CBC and CMP. Ferritin stable at 61. Patient does not require phlebotomy at this time.Labs on December 03, 2022 with stable CBC and CMP. Ferritin 42.Labs on April 13, 2023 with stable ferritin of 50.Labs on April 13, 2023 with stable ferritin of 50.Labs on April 13, 2023 with stable ferritin of 50.Labs on August 10, 2023 with ferritin 98. Patient received a phlebotomy .Patient returns for follow-up on December 07, 2023. Patient is doing well. No acute changes since previous visit. Will follow-up labs today. Prolactinoma [id number] D 35.2 History of prolactino ma and prior incomplete resection at the [facility]. Patient was previously followed with MRIs of the head and has not been seen since 2017. He is currently asymptomat ic and repeat MRIs head demonstrat es stable finding is and no signs of changes to the pituitary area. Imaging of head abnormal [id number] R93.0 Patient presented to [facility] with blurry vision had a CT scan of his head the [facility] ed concerning finding in the cerebellum . 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 no changes to the major vessel vascular flow. Currently the patient is asymptomat ic will repeat MRI as needed. Suspect volume depletion at time of phlebotomy on a weekly basis. 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 Initial labs on 09-28-17 with demonstrat ed a serum ferritin of 656.Target ferritin is below 100 and by strict criteria below 50.Labs from 01-25-18 with ferritin of 126.Labs from 02-08-18 with ferritin of 97.Last Phlebotomy was in May 2018.Labs from November 07, 2018 with ferritin 92.Last phlebotomy on February 06, 2019.Serum ferritin at 63 on May 02, 2019.Labs on August 08, 2019 with ferritin at 127. Patient had phlebotomy following these labs.Labs on December 06, 2019 with serum ferritin at 99.Labs from March 04, 2020 with ferritin level at 61.Labs on June 03, 2020 with serum ferritin at 115.Labs on September 02, 2020 with ferritin 92.Labs on December 02, 2020 with ferritin 156.Felicitas desai returned for labs on June 16, 2021. Serum ferritin at 173 and was treated with phlebotomy .Patient returns on September 15, 2021. Will repeat labs today. Will follow up labs and assess for need for phlebotomy . Goal ferritin is below 100 at this point.Labs on September 15, 2021 with hemoglobin 13.8 hematocrit 41.7. Normal serum iron, high iron saturation 84, ferritin 144. Labs on April 16 is stable CBC and CMP. Normal serum iron and ferritin is 56. Ferritin is below 100. Continue with observatio n at this time. Labs on August 06, 2022 with stable CBC and CMP. Ferritin stable at 61. Patient does not require phlebotomy at this time.Labs on December 03, 2022 with stable CBC and CMP. Ferritin 42.Labs on April 13, 2023 with stable ferritin of 50.Labs on April 13, 2023 with stable ferritin of 50.Labs on April 13, 2023 with stable ferritin of 50.Labs on August 10, 2023 with ferritin 98. Patient received a phlebotomy .Labs on December 07, 2023 with ferritin 67.Patient returns for follow-up on April 04, 2024. Patient is doing well. No acute changes since previous visit. Will follow-up labs today. Prolactinoma [id number] D 35.2 History of prolactino ma and prior incomplete resection at the [facility]. Patient was previously followed with MRIs of the head and has not been seen since 2017. He is currently asymptomat ic and repeat MRIs head demonstrat es stable finding is and no signs of changes to the pituitary area. Imaging of head abnormal [id number] R93.0 Patient presented to [facility] with blurry vision had [facility] finding in the [facility] . 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 no changes to the major vessel vascular flow. Currently the patient is asymptomat ic will repeat MRI as needed. Suspect volume depletion at time of phlebotomy on a weekly basis. 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 [facility] serum ferritin of 656.Target ferritin is below 100 and by strict criteria below 50.Labs from 01-25-18 with ferritin of 126.Labs from 02-08-18 with ferritin of 97.Last Phlebotomy was in May 2018.Labs from November 07, 2018 with ferritin 92.Last phlebotomy on February 06, 2019.Serum ferritin at 63 on May 02, 2019.Labs on August 08, 2019 with ferritin at 127. Patient had phlebotomy following these labs.Labs on December 06, 2019 with serum ferritin at 99.Labs from March 04, 2020 with ferritin level at 61.Labs on June 03, 2020 with serum ferritin at 115.Labs on September 02, 2020 with ferritin 92.Labs on December 02, 2020 with ferritin 156.Felicitas desai returned for labs on June 16, 2021. Serum ferritin at 173 and was treated with phlebotomy .Patient returns on September 15, 2021. Will repeat labs today. Will follow up labs and assess for need for phlebotomy . Goal ferritin is below 100 at this point.Labs on September 15, 2021 with hemoglobin 13.8 hematocrit 41.7. Normal serum iron, high iron saturation 84, ferritin 144. Labs on April 16 is stable CBC and CMP. Normal serum iron and ferritin is 56. Ferritin is below 100. Continue with observatio n at this time. Labs on August 06, 2022 with stable CBC and CMP. Ferritin stable at 61. Patient does not require phlebotomy at this time.Labs on December 03, 2022 with stable CBC and CMP. Ferritin 42.Labs on April 13, 2023 with stable ferritin of 50.Labs on April 13, 2023 with stable ferritin of 50.Labs on April 13, 2023 with stable ferritin of 50.Labs on August 10, 2023 with ferritin 98. Patient received a phlebotomy .Labs on December 07, 2023 with ferritin 67.Labs on April 04, 2024 with ferritin 46. Patient returns for follow-up on August 08, 2024. Patient is doing well. No acute changes since previous visit. Will follow-up labs today. Will notify patient if phlebotomy is required at this time. Prolactinoma [id number] D 35.2 History of prolactino ma and prior incomplete resection at the [facility]. Patient was previously followed with MRIs of the head and has not been seen since 2017. He is currently asymptomat ic and repeat MRIs head demonstrat es stable finding is and no signs of changes to the pituitary area. Imaging of head abnormal [id number] R93.0 Patient presented to [facility] with blurry vision had a CT scan of his head the [facility] concerning finding in the cerebellum . 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 no changes to the major vessel vascular flow. Currently the patient is asymptomat ic will repeat MRI as needed. Suspect volume depletion at time of phlebotomy on a weekly basis. 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 Initial labs on 09-28-17 with demonstrat ed a serum ferritin of 656.Target ferritin is below 100 and by strict criteria below 50.Labs from 01-25-18 with ferritin of 126.Labs from 02-08-18 with ferritin of 97.Last Phlebotomy was in May 2018.Labs from November 07, 2018 with ferritin 92.Last phlebotomy on February 06, 2019.Serum ferritin at 63 on May 02, 2019.Labs on August 08, 2019 with ferritin at 127. Patient had phlebotomy following these labs.Labs on December 06, 2019 with serum ferritin at 99.Labs from March 04, 2020 with ferritin level at 61.Labs on June 03, 2020 with serum ferritin at 115.Labs on September 02, 2020 with ferritin 92.Labs on December 02, 2020 with ferritin 156.Felicitas desai returned for labs on June 16, 2021. Serum ferritin at 173 and was treated with phlebotomy .Patient returns on September 15, 2021. Will repeat labs today. Will follow up labs and assess for need for phlebotomy . Goal ferritin is below 100 at this point.Labs on September 15, 2021 with hemoglobin 13.8 hematocrit 41.7. Normal serum iron, high iron saturation 84, ferritin 144. Labs on April 16 is stable CBC and CMP. Normal serum iron and ferritin is 56. Ferritin is below 100. Continue with observatio n at this time. Labs on August 06, 2022 with stable CBC and CMP. Ferritin stable at 61. Patient does not require phlebotomy at this time.Labs on December 03, 2022 with stable CBC and CMP. Ferritin 42.Labs on April 13, 2023 with stable ferritin of 50.Labs on April 13, 2023 with stable ferritin of 50.Labs on April 13, 2023 with stable ferritin of 50.Labs on August 10, 2023 with ferritin 98. Patient received a phlebotomy .Labs on December 07, 2023 with ferritin 67.Labs on April 04, 2024 with ferritin 46. Patient returns for follow-up on February 15, 2025. Labs on August 08, 2024 with ferritin 65. Patient is doing well. No acute changes since previous visit. Will follow-up labs today. Will notify patient if phlebotomy is required at this time. Prolactinoma [id number] D 35.2 History of prolactino ma and prior incomplete resection at the [facility]. Patient was previously followed with MRIs of the head and has not been seen since 2017. He is currently asymptomat ic and repeat MRIs head demonstrat es stable findings and no signs of changes to the pituitary area. Imaging of head abnormal [id number] R93.0 Patient presented to [facility] with blurry vision had a CT scan of his head the [facility] concerning finding in the cerebellum . 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 No changes to the major vessel vascular flow. Currently the patient is asymptomat ic. Can repeat MRI as needed. Suspect volume depletion at time of phlebotomy on a weekly basis. Health Concerns Section Related Observation LastModified by Organization Detai ls LastModified Time None Recorded Concern Status LastModified by Organization Details LastModified Time None Recorded Advance Directives Directive N: Payers Insurance Date Sequence Insurance Name Policy Number Policy Muñoz Covered Member ID Muñoz Member ID Guarantor Name 02/12/2025 1 [employer] (MEDICAID REPLACEMENT - HMO) [id number] Rodriguez Cerrato [id number] Rodriguez Cerrato Notes Date Note Type Note Provider Name and Address Organization Details Recorded Time 12/07/2023 text/html 53 yo M returns to clinic for evaluation of hereditary hemochromatosis.Of note his twin brother also has this diagnosis.Initiall y had labs on 09-28-17 with demonstrated a serum ferritin of 656, and on HFE gene mutation analysis 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 His last MRI there was January 15, 2017. 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 He was treated with surgery and had a incomplete resection of his pituitary gland. He has been doing quite well and not have any other difficulties as been observation since that time. Will follow up and possibly repeat an MRI in the next year to 2 years.Labs from November 07, 2018 with ferritin 92.Last phlebotomy on February 06, 2019.Serum ferritin at 63 on May 02, 2019.Labs on August 08, 2019 with ferritin at 127. Patient had phlebotomy following these labs.Labs on December 06, 2019 with serum ferritin at 99.Labs on June 03, 2020 with serum ferritin at 115.Labs on September 02, 2020 with ferritin 92.Labs on November 25, 2020 with ferritin 156.Patient returned for labs on March 24, 2021. Serum ferritin at 127 and was treated with phlebotomy.Labs on June 16, 2021 with ferritin 173.Patient returns on September 15, 2021. Patient states he went to the ED last week and was diagnosed with gastritis. He is feeling much better. He is scheduled for EGD and colonoscopy next week. Will repeat labs today. Will follow up labs and assess for need for phlebotomy. Goal ferritin is below 100 at this point.Labs on September 15, 2021 with hemoglobin 13.8 hematocrit 41.7. Normal serum iron, high iron saturation 84, ferritin 144.Labs on August 06, 2022 with stable CBC and CMP. Ferritin stable at 61. Patient does not require phlebotomy at this time.Labs on December 03, 2022 with stable CBC and CMP. Ferritin 42.Labs on April 13, 2023 with stable ferritin of 50.Labs on August 10, 2023 with ferritin 98. Patient received a phlebotomy.Patient returns for follow-up on December 07, 2023. Patient is doing well. No acute changes since previous visit. Will follow-up labs today. 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 His last MRI there was January 15, 2017. 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 He was treated with surgery and had a incomplete resection of his pituitary gland. He has been doing quite well and not have any other difficulties as been observation since that time. Will follow up and possibly repeat an MRI in the next year to 2 years.Labs from November 07, 2018 with ferritin 92.Last phlebotomy on February 06, 2019.Serum ferritin at 63 on May 02, 2019.Labs on August 08, 2019 with ferritin at 127. Patient had phlebotomy following these labs.Labs on December 06, 2019 with serum ferritin at 99.Labs on June 03, 2020 with serum ferritin at 115.Labs on September 02, 2020 with ferritin 92.Labs on November 25, 2020 with ferritin 156.Patient returned for labs on March 24, 2021. Serum ferritin at 127 and was treated with phlebotomy.Labs on June 16, 2021 with ferritin 173.Patient returns on September 15, 2021. Patient states he went to the ED last week and was diagnosed with gastritis. He is feeling much better. He is scheduled for EGD and colonoscopy next week. Will repeat labs today. Will follow up labs and assess for need for phlebotomy. Goal ferritin is below 100 at this point.Labs on September 15, 2021 with hemoglobin 13.8 hematocrit 41.7. Normal serum iron, high iron saturation 84, ferritin 144.Labs on August 06, 2022 with stable CBC and CMP. Ferritin stable at 61. Patient does not require phlebotomy at this time.Labs on December 03, 2022 with stable CBC and CMP. Ferritin 42.Labs on April 13, 2023 with stable ferritin of 50.Labs on August 10, 2023 with ferritin 98. Patient received a phlebotomy.Labs on December 07, 2023 with ferritin 67.Patient returns for follow-up on April 04, 2024. Patient is doing well. No acute changes since previous visit. Will follow-up labs today. 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 His last MRI there was January 15, 2017. 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 He was treated with surgery and had a incomplete resection of his pituitary gland. He has been doing quite well and not have any other difficulties as been observation since that time. Will follow up and possibly repeat an MRI in the next year to 2 years.Labs from November 07, 2018 with ferritin 92.Last phlebotomy on February 06, 2019.Serum ferritin at 63 on May 02, 2019.Labs on August 08, 2019 with ferritin at 127. Patient had phlebotomy following these labs.Labs on December 06, 2019 with serum ferritin at 99.Labs on June 03, 2020 with serum ferritin at 115.Labs on September 02, 2020 with ferritin 92.Labs on November 25, 2020 with ferritin 156.Patient returned for labs on March 24, 2021. Serum ferritin at 127 and was treated with phlebotomy.Labs on June 16, 2021 with ferritin 173.Patient returns on September 15, 2021. Patient states he went to the ED last week and was diagnosed with gastritis. He is feeling much better. He is scheduled for EGD and colonoscopy next week. Will repeat labs today. Will follow up labs and assess for need for phlebotomy. Goal ferritin is below 100 at this point.Labs on September 15, 2021 with hemoglobin 13.8 hematocrit 41.7. Normal serum iron, high iron saturation 84, ferritin 144.Labs on August 06, 2022 with stable CBC and CMP. Ferritin stable at 61. Patient does not require phlebotomy at this time.Labs on December 03, 2022 with stable CBC and CMP. Ferritin 42.Labs on April 13, 2023 with stable ferritin of 50.Labs on August 10, 2023 with ferritin 98. Patient received a phlebotomy.Labs on December 07, 2023 with ferritin 67.Labs on April 04, 2024 with ferritin 46. Patient returns for follow-up on August 08, 2024. Patient is doing well. No acute changes since previous visit. Will follow-up labs today. Will notify patient if phlebotomy is required at this time. Lucía Cotton PA-C [address], [place], [address], [facility] & [place] 08/08/2024 09:42:57 08/19/2024 text/html ROS as noted in the HPI 54-year-old male patient presents to clinic with complaint of persistent cough and chest congestion over the past 2 weeks. Reports that cough is worse at night with purulent sputum production. Patient reports a history of lower respiratory infections and bronchitis. Denies fever, shortness of breath or GI symptoms. Reports normal appetite and good fluid intake. Has taken [id number] cough and cold medications with little relief. 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 His last MRI there was January 15, 2017. 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 He was treated with surgery and had a incomplete resection of his pituitary gland. He has been doing quite well and not have any other difficulties as been observation since that time. Will follow up and possibly repeat an MRI in the next year to 2 years.Labs from November 07, 2018 with ferritin 92.Last phlebotomy on February 06, 2019.Serum ferritin at 63 on May 02, 2019.Labs on August 08, 2019 with ferritin at 127. Patient had phlebotomy following these labs.Labs on December 06, 2019 with serum ferritin at 99.Labs on June 03, 2020 with serum ferritin at 115.Labs on September 02, 2020 with ferritin 92.Labs on November 25, 2020 with ferritin 156.Patient returned for labs on March 24, 2021. Serum ferritin at 127 and was treated with phlebotomy.Labs on June 16, 2021 with ferritin 173.Patient returns on September 15, 2021. Patient states he went to the ED last week and was diagnosed with gastritis. He is feeling much better. He is scheduled for EGD and colonoscopy next week. Will repeat labs today. Will follow up labs and assess for need for phlebotomy. Goal ferritin is below 100 at this point.Labs on September 15, 2021 with hemoglobin 13.8 hematocrit 41.7. Normal serum iron, high iron saturation 84, ferritin 144.Labs on August 06, 2022 with stable CBC and CMP. Ferritin stable at 61. Patient does not require phlebotomy at this time.Labs on December 03, 2022 with stable CBC and CMP. Ferritin 42.Labs on April 13, 2023 with stable ferritin of 50.Labs on August 10, 2023 with ferritin 98. Patient received a phlebotomy.Labs on December 07, 2023 with ferritin 67.Labs on April 04, 2024 with ferritin 46. Patient returns for follow-up on February 15, 2025. Labs on August 08, 2024 with ferritin 65. Patient is doing well. No acute changes since previous visit. Will follow-up labs today. Will notify patient if phlebotomy is required at this time. Lucía Cotton PA-C [address], [place], [address], [facility] - [facility] - [place] & [place] 02/15/2025 09:24:24
--- OUTSIDE RECORDS SUMMARY | 2025-02-16 11:50 | XMS_ITS | Encounter Summary ---
Author Organization Healthcare Address [address] [place] [address] Care Team Providers Care Coin Purse Assembler Name Role Phone Nitza Ivory MD Primary Care Provider [phone] Reason for Visit * Reason Comments Med Refill Encounter Details Date Type Department Care Team (Late st Contact Info) Description 04/05/2023 [facility]ill [facility] [address] [place] [address] Myranda Rain, PA [address] [place] [address] Low vitamin D level Social History Tobacco Use Types Packs/Day Years Used Date Smoking Tobacco: Never Smokeless Tobacco: Current Chew Alcohol Use Standard Drinks/Week Comments No 0 (1 standard drink = 0.6 oz pur e alcohol) Alcoholic Drinks/day: Alcohol PHQ-2 Answer Date Recorded Patient Health Questionnaire-2 Score 0 02/16/2023 Sex and Gender Information Value Date Recorded Sex Assigned at Male 08/07/2021 2:28 PM EST Legal Sex Male 7:36 PM EDT Gender Identity Male 08/07/2021 2:28 PM EST Sexual Orientation Straight 08/07/2021 2: 28 PM EST documented as of this encounter Miscellaneous Notes * Telephone Encounter - Alli Abarca, PharmD - 04/05/2023 8:02 AM EDT Per protocol, 1 medication(s), vitamin D, has been approved for 90 day supply with 1 refill[facility]s) to [facility]. documented in this encounter Plan of Treatment Upcoming Encounters Date Type Department Care Team (Late st Contact Info) Description 04/13/2025 11:00 AM EDT Office Visit [facility] Medicine Specialties [address] [place] [address] Myranda Rain, PA [address] [place] [address] 06/19/2025 8:20 AM EST Office Visit [facility] [address] [place] [address] Nitza Ivory MD [address] [place] [address] 10/23/2025 8:00 AM EDT Office Visit [facility] [address] [place] [address] Annie Myers, OD [address] [place] [address] documented as of this encounter Visit Diagnoses Diagnosis Low vitamin D level documented in this encounter Additional Health Concerns Assessment Noted Time A fall risk assessment has been complete d for the patient 10/13/2022 1:46 PM EDT A Body Mass Index follow-up plan has been documented for the patient 02/16/2023 9:37 AM EDT documented as of this encounter Care Teams Coin Purse Assembler Relationship Specialty Start Date End Date Nitza Ivory MD [address] [place] [address] PCP - General 12/06/20 documented as of this encounter
--- OUTSIDE RECORDS SUMMARY | 2025-02-16 11:50 | XMS_ITS | Encounter Summary ---
Author Organization Healthcare Address [address] [place] [address] Care Team Providers Care School Treasurer Name Role Phone Nitza Ivory MD Primary Care Provider [phone] Reason for Visit * Reason Comments Med Refill Encounter Details Date Type Department Care Team (Late st Contact Info) Description 03/14/2023 Refill [facility] [address] [place] [address] Myranda Rain, PA [address] [place] [address] Intermittent diarrhea Social History Tobacco Use Types Packs/Day Years [...] Telephone Encounter - Alli Abarca, PharmD - 03/15/2023 9:01 AM EDT Per protocol, 1 medication(s), dicyclomine, has been approved for 30 day supply with 5 refill(s) [facility]. documented in this encounter Plan of Treatment Upcoming Encounters Date Type Department Care Team (Late st Contact Info) Description 04/13/2025 11:00 AM EDT Office Visit [facility] Medicine Specialties [address] [place] [address] Myranda Rain, PA [address] [place] [address] 06/19/2025 8:20 AM EST Office Visit [facility] [address] [place] [address] Nitza Ivory MD [address] [place] [address] 10/23/2025 8:00 AM EDT Office Visit [facility] [address] [place] [address] Annie Myers S, OD [address] [place] [address] documented as of this encounter Visit Diagnoses Diagnosis Intermittent diarrhea documented in this encounter Additional Health Concerns Assessment Noted Time A fall risk assessment has been complete d for the patient 10/13/2022 1:46 PM EDT A Body Mass Index follow-up plan has been documented for the patient 02/16/2023 9:37 AM EDT documented as of this encounter Care Teams School Treasurer Relationship Specialty Start Date End Date Nitza Ivory MD [address] [place] [address] PCP - General 12/06/20 documented as of this encounter
--- OUTSIDE RECORDS SUMMARY | 2025-02-16 11:50 | XMS_ITS | Encounter Summary ---
Author Organization [facility] Address [address] [place] [address] Care Team Providers Care Telegraphic Typewriter Repairer Name Role Phone Nitza Ivory MD Primary Care Provider [phone] Encounter Details Date Type Department Care Team ([facility] st Contact Info) Description 07/05/2023 Outside Procedure External Location [address] [place] [address] Katie South, CLINICAL SYSTEMS ANALYST, DNP [address] [place] [address] Social History Tobacco Use Types Packs/Day Years Used Date Smoking Tobacco: Never Passive Smoke Exposure: Never Smokeless Tobacco: Current Chew Alcohol Use Standard Drinks/Week Comments No 0 (1 standard drink = 0.6 oz pur e alcohol) Alcoholic Drinks/day: Alcohol PHQ-2 Answer Date Recorded Patient Health Questionnaire-2 Score 0 07/05/2023 PHQ-2A Answer Date Recorded Patient Health Questionnaire-2 Score 0 07/05/2023 Sex and Gender Information Value Date Recorded Sex Assigned at Male 08/07/2021 2:28 PM EST Legal Sex Male 7:36 PM EDT Gender Identity Male 08/07/2021 2:28 PM EST Sexual Orientation Straight 08/07/2021 2: 28 PM EST documented as of this encounter Functional Status * Over the past 2 weeks, how often have you been bothered by any of the following problems? Question Answer Date of Assessment Author Little interest or pleasure in doing things Not at all 07/05/2023 11:08 AM Jennifer Rosales Feeling down, depressed, or hopeless Not at all 07/05/2023 11:08 AM Jennifer Rosales Patient Health Questionnaire -2 Score 0 07/05/2023 11:08 AM Jennifer Rosales documented as of this encounter Plan of Treatment Upcoming Encounters Date Type Department Care Team (Late st Contact Info) Description 04/13/2025 11:00 AM EDT Office Visit [facility] Medicine Specialties [address] [place] [address] Myranda Rain PA [address] [place] [address] 06/19/2025 8:20 AM EST Office Visit [facility] [address] [place] [address] Nitza Ivory MD [address] [place] [address] 10/23/2025 8:00 AM EDT Office Visit [facility] [address] [place] [address] Annie Myers S, OD [address] [place] [address] documented as of this encounter Procedures Procedure Name Priority Date/Time Associated Diagnosis Comments XR SHOULDER LEFT 2+ VIEWS 07/05/2023 11:59 AM EST documented in this encounter Results * XR Shoulder Left 2+ Views (07/05/2023 11:59 AM EST) Anatomical Region Laterality Modality Upper Extremities, Shoulder Left Digi samantha Radiography 07/05/2023 11:5 9 AM EST Narrative 07/05/2023 1:26 PM EST [facility] [address] [place] [address] Name: RODRIGUEZ HSU Date: 07/05/2023 : 1970 Age 53 Gender: M Physician: Katie South Facility: [facility] Facility HSV: Outpatient Exam: SHOULDER COMP MIN 2 VWS LT LEFT SHOULDER SERIES HISTORY: Acute left shoulder pain. COMPARISON: None. FINDINGS: 3 views of the left shoulder were performed. There is no acute, displaced fracture or dislocation of the visualized bony structures. There are mild degenerative changes. No soft tissue abnormality is identified. IMPRESSION: Mild degenerative change without evidence of acute process. The films were reviewed, interpreted, and dictated by Dr. Claude Mcelroy Transcribed by Dian Corrales PA-C Dictated By: Claude Majano Transcribed By: Claude Mcelroy Transcribed On: 07/05/2023 1:10 PM Electronically signed by: Claude Majano 07/05/2023 Thank you for referring RODRIGUEZ HSU to [facility]. Legally authenticated by TAI MOE 2023-07-05 13:10:40 Procedure Note Provider, Generic [place] - 07/05/2023 [place] [address] Name: RODRIGUEZ HSU Exam Date: 07/05/2023 : 1970 Age 53 Gender: M Physician: Katie South Facility: [facility] Facility HSV: Outpatient Exam: SHOULDER COMP MIN 2 VWS LT LEFT SHOULDER SERIES HISTORY: Acute left shoulder pain. COMPARISON: None. FINDINGS: 3 views of the left shoulder were performed. There is noacute, displaced fracture or dislocation of the visualized bony structures. Thereare mild degenerative changes. No soft tissue abnormality is identified. IMPRESSION: Mild degenerative change without evidence of acute process. The films were reviewed, interpreted, and dictated by Dr. Claude Graham Transcribed by Dian Corrales PA-C Dictated By: Claude Majano Transcribed By: Claude Mcelroy Transcribed On: 07/05/2023 1:10 PM Electronically signed by: Claude Majano 07/05/2023 Thank you for referring RODRIGUEZ HSU to [facility]. Legally authenticated by TAI MOE 2023-07-05 13:10:40 us Katie South CLINICAL SYSTEMS ANALYST, DNP IMG XR PROCEDURES Fin al Result documented in this encounter Visit Diagnoses Not on filedocumented in this encounter Additional Health Concerns Assessment Noted Time A fall risk assessment has been complete d for the patient 10/13/2022 1:46 PM EDT A Body Mass Index follow-up plan has been documented for the patient 07/05/2023 11:52 AM EST documented as of this encounter Care Teams Telegraphic Typewriter Repairer Relationship Specialty Start Date End Date Nitza Ivory MD [address] [place] [address] PCP - General 12/06/20 documented as of this encounter
--- OUTSIDE RECORDS SUMMARY | 2025-02-16 11:50 | XMS_ITS | Clinical Summary ---
Author Organization [facility] Address [address] [place] [address] Care Team Providers Care Turnaround Engineer Name Role Phone Nitza Ivory MD Primary Care Provider [phone] Allergies No known active allergies Medications sildenafil (VIAGRA) 100 MG tablet Take 1 tablet by mouth. 3 Active fluticasone (FLONASE) 50 MCG/ACT nasal spray 2 sprays into the nostril(s) as directed by provider Daily. 3 Active cetirizine (zyrTEC) 10 MG tablet Take 1 tablet by mouth Every Night. 3 Active bromocriptine (PARLODEL) 2.5 MG tablet 3 Active atenolol (TENORMIN) 50 MG tablet Take 1 tablet by mouth Daily. 3 Active testosterone (ANDROGEL) 25 MG/2.5GM (1%) gel gel Place 25 mg on the skin as directed by provider Daily. Active Cholecalciferol (Vitamin D3) 25 MCG (1000 UT) capsule TAKE 1 CAPSULE BY MOUTH ONCE DAILY, SEPARATE FROM HEARTBURN MEDS 3 Active dicyclomine (BENTYL) 10 MG capsule TAKE 1 CAPSULE BY MOUTH EVERY 8 HOURS NEEDED FOR DIARRHEA/FECAL URGENCY Active lidocaine (LIDODERM) 5 % Activ e triamcinolone (KENALOG) 0.1 % cream APPLY TOPICALLY TO THE AFFECTED AREA 1 TO 2 TIMES DAILY NEEDED. AVOID FACE AND GROIN Active loperamide (IMODIUM A-D) 2 MG tablet Take 1 tablet on days has diarrhea. 4 Active metFORMIN ER (GLUCOPHAGE-XR) 500 MG 24 hr tablet Do not crush, chew, or split. Take 1 tab with dinner daily for 7 days, then 1 tab BID with food x 7 days, then 1 tab in AM and 2 tab with dinner for 7 days, then 2 tabs BID. 4 Active rosuvastatin (CRESTOR) 20 MG tablet Take 1 tablet by mouth Daily. 4 Active Active Problems Problem Noted Date Diagnosed Date Pain in left shoulder 08/25/2023 Rash and other nonspecific skin eruption 024 Impingement syndrome of left shoulder 08/17/2023 Migraines 08/12/2023 Acid reflux 08/12/2023 Abnormal findings on diagnos tic imaging of skull and head, not elsewhere classified 08/10/2023 Benign neoplasm of pituitary gland 08/10/2023 Strain of muscle, fascia and tendon at neck level, initial encounter 07/04/2023 Neck pain 07/03/2023 Other muscle spasm 07/03/2023 Mild intermittent asthma, uncomplicated 05/25/20 23 Abnormal computerized tomography of brain 2022 Pituitary abnormality 05/18/2023 Renal insufficiency 05/18/2023 ZULY (obstructive sleep apnea) 05/18/2023 Abnormal EKG 05/18/2023 Adverse effect of unspecifie d drugs, medicaments and biological substances, initial encounter 05/13/2023 Cardiomegaly 05/02/2023 Chest pain, unspecified 05/02/2023 Other hypersomnia 04/26/2023 Dyspnea, unspecified 04/08/2023 Disorder of the skin and subcutaneous tissue, un specified 02/16/2023 Exposure to other specified factors, subsequent encounter 02/16/2023 Other fatigue 02/16/2023 Strain of muscle, fascia and tendon of the posterior muscle group at thigh level, unspecified thigh, subsequent encounter 02/16/2023 Diverticulosis of large inte kristian without perforation or abscess without bleeding 01/27/2023 Erectile dysfunction due to diseases classified elsewhere 07/14/2022 Severe obesity (BMI 35.0-39.9) with comorbidity 07/14/2022 CKD (chronic kidney disease) stage 2, GFR 60-89 ml/min 04/14/2022 Rice's esophagus without dysplasia 03/13/2022 Overview (03/25/2023): -continue pantoprazole 40mg daily indefinitely. Repeat EGD in 3yr. due 11/2024 Last Assessment & Plan: -continue pantoprazole 40mg daily indefinitely. Repeat EGD in 3yr. 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 Bradycardia, drug induced 12/14/2017 High serum ferritin 09/28/2017 Overview (11/11/2023): Serum ferritin high Serum ferritin high Serum ferritin high Hereditary hemochromatosis 09/08/2017 Overview (08/12/2023): Hereditary hemochromatosis Colon polyp 06/04/2017 Overview (03/25/2023): Comments: 09/22/21 on cscope rec repeat in 7yr Last Assessment & Plan: 09/22/21 on c-scope, repeat in 7yr Psoriasis 11/21/2016 Asthma 01/17/2013 Essential hypertension 01/17/2013 Resolved Problems Problem Noted Date Diagnosed Date Resolved Date COVID 05/18/2023 08/12/2023 Immunizations Immunization Administration Dates Next Due Fluzone >6mos 06/25/2016 Fluzone (or Fluarix & Flulav al for VFC) >6mos 05/25/2023,03/10/2022,06/16/2021,06/19,08/08/2019,06/13/2018,05/12/2017 Pneumococcal Polysaccharide (PPSV23) 05/12/2017 Shingrix 03/10/2022,08/21/2021 Td (TDVAX) 11/06/2019 Family History Medical History Relation Name Comments Hypertension Father Stroke Father Relation Name Status Comments Father Social History Tobacco Use Types Packs/Day Years Used Date Smoking Tobacco: Never Passive Smoke Exposure: Never Smokeless Tobacco: Never Tobacco Cessation:Counseling Given: Yes Alcohol Use Standard Drinks/Week Comments Not Currently 0 (1 standard drink = 0.6 oz pur e alcohol) Abuse Screen Answer Date Recorded Unsafe at Home or Work/School Not on file Feels Threatened by Someone? Not on file 03/2023 Does Anyone Keep You from Co ntacting Others or Doint Things Outside the Home? Not on file 05/03/2023 Physical Sign of Abuse Present Not on file 1 Housing Stability Answer Date Recorded Current Living Arrangements Not on file 03/2023 Potentially Unsafe Housing Conditions Not on brayden e 05/03/2023 Family and Community Support Answer Morales e Recorded Help with Day-to-Day Activities Not on file 05/03/2023 Lonely or Isolated Not on file 05/03/2023 Employment Answer Date Recorded Do you want help finding or keeping work or a rey b? Not on file 05/03/2023 Disabilities Answer Date Recorded Concentrating, Remembering, or Making Decisions Difficulty Not on file 05/03/2023 Doing Errands Independently Difficulty Not on fi le 05/03/2023 Education Answer Date Recorded Help with school or training? Not on file Preferred Language Not on file 05/03/2023 Sex and Gender Information Value Date Recorded Sex Assigned at Not on file Legal Sex Male 1:05 PM EDT Gender Identity Not on file Sexual Orientation Not on file Last Filed Vital Signs Vital Sign Reading Time Taken Comments Blood Pressure 138/86 11/11/2023 9:31 AM EDT Pulse 60 11/11/2023 9:31 AM EDT Temperature - - Respiratory Rate - - Oxygen Saturation 94% 11/11/2023 9:31 AM EDT Inhaled Oxygen Concentration - - Weight 106 kg (234 lb) 11/11/2023 9:31 AM EDT Height 180.3 cm (5' 11 ) 11/11/2023 9:31 AM EDT Body Mass Index 32.64 11/11/2023 9:31 AM EDT Plan of Treatment Health Maintenance Due Date Last Done Comments COLOGUARD 2014 COLON CANCER SCREENING 5 YEA R SIGMOIDOSCOPY 2014 COLONOSCOPY 2014 [address] CANCER SCREENING 2014 CT COLONOGRAPHY 2014 FECAL OCCULT BLOOD TEST 2014 FIT Testing (1 year) 2014 Pneumococcal Vaccine 50+ (2 of 2 - PCV) 05/12/2018 05/12/2017 ANNUAL PHYSICAL 03/25/2023 HEPATITIS C SCREENING 03/25/2023 COVID-19 Vaccine (3 - 2023-2 5 season) 2024 11/06/2020, 10/09/2020 INFLUENZA VACCINE 04/25/2025 05/25/2023, , 06/16/2021, Additional history exists TDAP/TD VACCINES (2 - Tdap) 11/05/2029 11/06/2019 ZOSTER VACCINE Completed 03/10/2022, 08/21/2021 HEMOGLOBIN A1C Discontinued 10/14/2023, 09/24, 05/25/2023, Additional history exists [place] [address] Care Teams Turnaround Engineer Relationship Specialty Start Date End Date Nitza Ivory MD [address] [place] [address] PCP - General Family Medicine 02/22/23
--- OUTSIDE RECORDS SUMMARY | 2025-02-16 11:50 | XMS_ITS | Encounter Summary ---
Author Organization [facility] Address [address] [place] [address] Care Team Providers Care Weigher And Charger Name Role Phone Nitza Ivory MD Primary Care Provider [phone] Reason for Visit * Reason Comments Med Refill Encounter Details Date Type Department Care Team (Late st Contact Info) Description 07/17/2022 Refill [facility] [address] [place] [address] Nitza Ivory MD [address] [place] [address] Social History Tobacco Use Types Packs/Day Years Used Date Smoking Tobacco: Never Smokeless Tobacco: Current Chew Alcohol Use Standard Drinks/Week Comments No 0 (1 standard drink = 0.6 oz pur e alcohol) Alcoholic Drinks/day: Alcohol PHQ-2 Answer Date Recorded Patient Health Questionnaire-2 Score 0 06/24/2022 Sex and Gender Information Value Date Recorded Sex Assigned at Male 08/07/2021 2:28 PM EST Legal Sex Male 7:36 PM EDT Gender Identity Male 08/07/2021 2:28 PM EST Sexual Orientation Straight 08/07/2021 2: 28 PM EST COVID-19 Exposure Response Date Recorded In the last 10 days, have yo u been in contact with someone who was confirmed or suspected to have Coronavirus/COVID-19? No / Unsure 07/14/2022 7:41 AM EST documented as of this encounter Plan of Treatment Upcoming Encounters Date Type Department Care Team (Late st Contact Info) Description 04/13/2025 11:00 AM EDT Office Visit [facility] Medicine Specialties [address] [place] [address] Myranda Rain PA [address] [place] [address] 06/19/2025 8:20 AM EST Office Visit [facility] [address] [place] [address] Nitza Ivory MD [address] [place] [address] 10/23/2025 8:00 AM EDT Office Visit [facility] [address] [place] [address] Annie Myers S, OD [address] [place] [address] documented as of this encounter Visit Diagnoses Not on filedocumented in this encounter Additional Health Concerns Assessment Noted Time A fall risk assessment has been complete d for the patient 07/07/2022 3:10 PM EST documented as of this encounter Care Teams Weigher And Charger Relationship Specialty Start Date End Date Nitza Ivory MD [address] [place] [address] PCP - General 12/06/20 documented as of this encounter
--- OUTSIDE RECORDS SUMMARY | 2025-02-16 11:51 | XMS_ITS | Encounter Summary ---
Author Organization [facility] Address [address] [place] [address] Care Team Providers Care Solar Tech Name Role Phone Nitza Ivory MD Primary Care Provider [phone] Encounter Details Date Type Department Care Team (Late Contact Info) Description 09/23/2021 Lab Requisition [facility] [address] [place] [address] Yodit Tavarez MD [address] [facility] [address] [place] [address] Unspecified abdominal pain Social History Tobacco Use Types Packs/Day Years Used Date Smoking Tobacco: Never Smokeless Tobacco: Current Chew Alcohol Use Standard Drinks/Week Comments No 0 (1 standard drink = 0.6 oz pur e alcohol) Alcoholic Drinks/day: Alcohol PHQ-2 Answer Date Recorded Patient Health Questionnaire-2 Score 0 09/11/2021 Sex and Gender Information Value Date Recorded Sex Assigned at Male 08/07/2021 2:28 PM EST Legal Sex Male 7:36 PM EDT Gender Identity Male 08/07/2021 2:28 PM EST Sexual Orientation Straight 08/07/2021 2: 28 PM EST COVID-19 Exposure Response Date Recorded In the last month, have you been in contact with someone who was confirmed or suspected to have Coronavirus / COVID-19? No / Unsure 09/22/2021 8:12 AM EST documented as of this encounter Plan of Treatment Upcoming Encounters Date Type Department Care Team (Late Contact Info) Description 04/13/2025 11:00 AM EDT Office Visit [facility] Medicine Specialties [address] [place] [address] Myranda Rain PA [address] [place] [address] 06/19/2025 8:20 AM EST [facility] [address] [place] [address] Nitza Ivory MD [address] [place] [address] 10/23/2025 8:00 AM EDT Office Visit [facility] [address] [place] [address] Annie Myers S, OD [address] [place] [address] documented as of this encounter Procedures Procedure Name Priority Date/Time Associated Diagnosis Comments SURGICAL PATHOLOGY EXAM Routine 09/22/2021 Unspecified abdominal pain documented in this encounter Results * Surgical Pathology Exam (09/22/2021) Case Report Surgical Pathology Case: [id number] Authorizing Provider: Yodit Tavarez MD Collected: 09/22/2021 Ordering Location: [facility] Lab Received: 09/23/2021 1244 Pathologist: Joce Mathews MD Specimens: A) - Stomach, Gastric Bx B) - Esophagus, Distal Esophagus Bx C) - Transverse Colon, Transverse Colon polyp x2 D) - Descending Colon, Descending colon polyp E) - Rectum, Rectal polyp 09/24/2021 12:15 PM EST [facility] Final Diagnosis A. STOMACH, BIOPSY: - NO PATHOLOGIC ABNORMALITY B. 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 TRANSVERSE COLON, POLYP, BIOPSY: - HYPERPLASTIC POLYP D. DESCENDING COLON, POLYP, BIOPSY: - BENIGN POLYPOID MUCOSA E. RECTUM, POLYP, BIOPSY: - HYPERPLASTIC POLYP 09/24/2021 12:15 PM EST [facility] at 1215 EST Clinical Information Abdominal pain, Abnormal Imaging of GI tract 09/24/2021 12:15 PM EST [facility] Gross Description A. GASTRIC BX Received in formalin labeled gastric biopsy , consists of four bingham/brown soft tissue fragments ranging from 0.2-0.4 cm in greatest dimension. Entirely submitted in cassette A1. Martina B Rodriguez B. DISTAL ESOPHAGUS BX Received in formalin labeled distal esophagus biopsy , consists of three bingham/white soft tissue fragments ranging from 0.1-0.3 cm in greatest dimension. Entirely submitted in cassette B1. Martina B Rodriguez C. TRANSVERSE COLON POLYP X2 Received in formalin labeled transverse colon polyp x2 , consists of two bingham/brown soft tissue fragments (1.0 and 1.4 cm) entirely submitted in cassette C1. Martina B Rodriguez D. DESCENDING COLON POLYP Received in formalin labeled descending colon polyp , consists of a bingham/brown soft tissue fragment (0.3 cm) entirely submitted in cassette D1. Martina B Rodriguez E. RECTAL POLYP Received in formalin labeled rectal polyp , consists of two bingham/brown soft tissue fragments (0.4 cm each) entirely submitted in cassette E1. Martina B Rodriguez 09/24/2021 12:15 PM EST [facility] Note: A resident was involved in the service. I attest I examined the relevant preparations for the specimens and confirmed the diagnosis or interpretation. 09/24/2021 12:15 PM EST [facility] Tissue Stomach structure / Unknown 09/22/2021 09/23/2021 12:44 PM EST Tissue specimen (specimen) Esophageal structure / Unknown 09/22/2021 09/23/2021 12:44 PM EST Tissue specimen (specimen) Transverse colon structure / Unknown 09/22/2021 09/23/2021 12:44 PM EST Tissue specimen (specimen) Descending colon structure / Unknown 09/22/2021 09/23/2021 12:44 PM EST Tissue specimen (specimen) Rectum structure / Unknown 09/22/2021 09/23/2021 12:44 PM EST us Yodit Tavarez MD LAB PATHOLOGY ORDERABLES Final Result [facility] [address] [place] [address] documented in this encounter Visit Diagnoses Diagnosis Unspecified abdominal pain documented in this encounter Additional Health Concerns Infection Onset Date Last Indicated Resolved Time Gastrointestinal Rule-Out 02/18/2022 02/18/2022 5:23 AM EDT C. difficile Rule-Out 02/18/2022 02/18/20222021 5:23 AM EDT Assessment Noted Time A fall risk assessment has been complete d for the patient 09/11/2021 8:51 AM EST documented as of this encounter Care Teams Solar Tech Relationship Specialty Start Date End Date Nitza Ivory MD [address] [place] [address] PCP - General 12/06/20 documented as of this encounter
--- OUTSIDE RECORDS SUMMARY | 2025-02-16 11:51 | XMS_ITS | Encounter Summary ---
Author Organization [facility] Address [address] [place] [address] Care Team Providers Care Pharmacy Technologist Name Role Phone Nitza Ivory MD Primary Care Provider [phone] Encounter Details Date Type Department Care Team (Late st Contact Info) Description 07/29/2023 Outside Procedure External Location [address] [place] [address] Katie South, TYING MACHINE OPERATOR, DNP [address] [place] [address] Social History Tobacco Use Types [...] PM EST documented as of this encounter Plan of Treatment Upcoming Encounters Date Type Department Care Team (Late st Contact Info) Description 04/13/2025 11:00 AM EDT [facility] [address] [place] [address] Myranda Rain, CITLALI [address] [place] [address] 06/19/2025 8:20 AM EST Office Visit [facility] [address] [place] [address] Nitza Ivory MD [address] [place] [address] 10/23/2025 8:00 AM EDT Office Visit [facility] [address] [place] [address] Annie Myers S, OD [address] [facility] [address] [place] [address] documented as of this encounter Procedures Procedure Name Priority Date/Time Associated Diagnosis Comments MR SHOULDER LEFT WO IV CONTRAST 07/29/2023 2:09 PM EST documented in this encounter Results * MR Shoulder Left wo IV Contrast (07/29/2023 2:09 PM EST) Anatomical Region Laterality Modality Upper Extremities Left Magnetic Reson ance 07/29/2023 2:09 PM EST Narrative 07/29/2023 4:40 PM EST [address] [address] Name: RODRIGUEZ HSU Exam Date: 07/29/2023 : 1970 Age 53 Gender: M Physician: Katie South Facility: [facility] Facility HSV: Outpatient Exam: MRI SHOULDER W/O LEFT FINAL REPORT CLINICAL HISTORY: PATIENT HAS PAIN IN LEFT SHOULDER WITH REDUCED ROM. PRIOR XRAY SENT COMPARISON: None FINDINGS: Multiplanar MR imaging of the left shoulder was performed without contrast. There is tendinosis of the supraspinatus and infraspinatus tendons without a discrete tear. Mild acromioclavicular degenerative changes present. A small amount of fluid is seen in the subacromial/subdeltoid bursa. There is a focus of signal in the posterior superior labrum best seen in images #14 and 15 of series 4, suggestive of a history of superior labral tear. The long head of the biceps tendon is intact. No significant glenohumeral joint effusion is seen. There is no evidence of fracture or dislocation. The musculature is intact. There is no evidence of soft tissue mass. IMPRESSION: Tendinosis of the supraspinatus and infraspinatus tendons without a discrete tear. Focus of abnormal signal in the posterior superior labrum as described, worrisome for a labral tear. Reviewed, Interpreted and Dictated by René Isbell III, MD Transcribed by Molly Mack Authenticated and EASTERN Dictated By: René Isbell III Transcribed By: Transcribed On: 07/29/2023 4:24 PM Electronically signed by: René Isbell III 07/29/2023 Thank you for referring RODRIGUEZ HSU to [facility]. Legally authenticated by PREETI Rueda III 2023-07-29 16:24:14 Procedure Note Provider, Generic [place] - 07/29/2023 [place] [address] Name: RODRIGUEZ HSU Exam Date: 07/29/2023 : 1970 Age 53 Gender: M Physician: Katie South Facility: [facility] Facility HSV: Outpatient Exam: MRI SHOULDER W/O LEFT FINAL REPORT CLINICAL HISTORY: PATIENT HAS PAIN IN LEFT SHOULDER WITH REDUCED ROM. PRIOR XRAY SENT COMPARISON: None FINDINGS: Multiplanar MR imaging of the left shoulder was performed without contrast. There is tendinosis of the supraspinatus and infraspinatus tendons without a discrete tear. Mild acromioclavicular degenerative changes present. A small amount of fluid is seen in the subacromial/subdeltoid bursa. There is a focus of signal in the posterior superior labrum best seen in images #14 and 15 of series 4, suggestive of a history of superior labral tear. The long head of the biceps tendon is intact. No significant glenohumeral joint effusion is seen. There is no evidence of fracture or dislocation. The musculature is intact. There is no evidence of soft tissue mass. IMPRESSION: Tendinosis of the supraspinatus and infraspinatus tendons without a discrete tear. Focus of abnormal signal in the posterior superior labrum as described, worrisome for a labral tear. Reviewed, Interpreted and Dictated by René Isbell III, MD Transcribed by Molly Mack Authenticated and EASTERN Dictated By: René Isbell III Transcribed By: Transcribed On: 07/29/2023 4:24 PM Electronically signed by: René Isbell III 07/29/2023 Thank you for referring RODRIGUEZ HSU to [facility]. Legally authenticated by PREETI Rueda III 2023-07-29 16:24:14 Katie South APRN, DNP IMG MRI PROCEDURES Fi nal Result documented in this encounter Visit Diagnoses Not on filedocumented in this encounter Additional Health Concerns Assessment Noted Time A fall risk assessment has been complete d for the patient 10/13/2022 1:46 PM EDT A Body Mass Index follow-up plan has been documented for the patient 07/05/2023 11:52 AM EST documented as of this encounter Care Teams Pharmacy Technologist Relationship Specialty Start Date End Date Nitza Ivory MD [address] [place] [address] PCP - General 12/06/20 documented as of this encounter
--- OUTSIDE RECORDS SUMMARY | 2025-02-16 11:51 | XMS_ITS | Encounter Summary ---
Author Organization [facility] Address [address] [place] [address] Care Team Providers Care Hair Or Beauty Salon Manager Name Role Phone Nitza Ivory MD Primary Care Provider [phone] Encounter Details Date Type Department Care Team (Latest Contact Info) Description 02/16/2025 Travel Social History Tobacco Use Types Packs/Day Years [...] place to sleep or slept in a correction (including now)? No 08/25/2023 PHQ-9 Answer Date [...] any time in the past 12 m [place] [place], were you homeless or living in a correction (including now)? No 10/17/2024 Humiliation, Afraid, Rape, [...] any time in the past 12 m [place], were you homeless or living in a correction (including now)? No 02/16/2025 Safety and Environment [...] Recorded In the past 12 months has th e electric, gas, oil, or water company [...] as of this encounter Functional Status * Calculated C-SSRS [...] Katarzyna Reyna documented as of this encounter Plan of Treatment Upcoming Encounters Date Type Department Care Team (Late st Contact Info) Description 04/13/2025 11:00 AM EDT Office Visit [facility] [address] [place] [address] Myranda Rain PA [address] [place] [address] 06/19/2025 8:20 AM EST Office Visit [facility] [address] [place] [address] Nitza Ivory MD [address] [place] [address] 10/23/2025 8:00 AM EDT Office Visit [facility] [address] [place] [address] Myers, Annie S, OD [address] [place] [address] documented as of this encounter [...] documented as of this encounter Care Teams Hair Or Beauty Salon Manager Relationship Specialty Start Date End Date Nitza Ivory MD [address] [place] [address] PCP - General 12/06/20 documented as of this encounter
--- OUTSIDE RECORDS SUMMARY | 2025-02-16 11:51 | XMS_ITS | Encounter Summary ---
Author Organization [facility] Address [address] [place] [address] Care Team Providers Care Flake Drier Name Role Phone Nitza Ivory MD Primary Care Provider [phone] Reason for Visit * Reason Comments Med Refill Encounter Details Date Type Department Care Team (Late st Contact Info) Description 08/23/2024 Refill [facility] [address] [place] [address] Nitza Ivory MD [address] [place] [address] Hypogonadism in male; Erectile dysfunction due to diseases classified elsewhere Social History Tobacco Use Types Packs/Day Years Used Date Smoking Tobacco: Never Passive Smoke Exposure: Never Smokeless Tobacco: Current Chew Alcohol Use Standard Drinks/Week Comments No 0 (1 standard drink = 0.6 oz pur e alcohol) Alcoholic Drinks/day: Alcohol Humiliation, Afraid, Rape, and Kick questionnair e Answer Date Recorded Within the last year, have y ou been afraid of your partner or ex-partner? No 08/25/2023 Within the last year, have y ou been humiliated or emotionally abused in other ways by your partner or ex-partner? No Within the last year, have y ou been kicked, hit, slapped, or otherwise physically hurt by your partner or ex-partner? No 08/25/2023 Within the last year, have y ou been raped or forced to have any kind of sexual activity by your partner or ex-partner? No 08/25/2023 PHQ-2 Answer Date Recorded Patient Health Questionnaire-2 Score 0 06/14/2024 Hunger Vital Sign Answer Date Recorded Within the past 12 months, y ou worried that your food would run out before you got the money to buy more. Never true 08/25/19 24 Within the past 12 months, t he food you bought just didn't last and you didn't have money to get more. Never true 08/25/2023 PRAPARE - Transportation Answer Date Re corded In the past 12 months, has l ack of transportation kept you from medical appointments or from getting medications? No 07/28 In the past 12 months, has l ack of transportation kept you from meetings, work, or from getting things needed for daily living? No 08/25/2023 Housing Stability Vital Sign Answer Morales e [...] place to sleep or slept in a prison (including now)? No 08/25/2023 PHQ-9 Answer Date Recorded Patient Health Questionnaire-9 Score 0 06/14/2024 Utilities Answer Date Recorded In the past 12 months has th e electric, gas, oil, or water company threatened to shut off services in your home? No 08/25/2023 PHQ-2A Answer Date Recorded Patient Health Questionnaire-2 Score 0 07/05/2023 Sex and Gender Information Value Date Recorded Sex Assigned at Male 08/07/2021 2:28 PM EST Legal Sex Male 7:36 PM EDT Gender Identity Male 08/07/2021 2:28 PM EST Sexual Orientation Straight 08/07/2021 2: 28 PM EST documented as of this encounter Miscellaneous Notes * Telephone Encounter - Leticia Youssef - 08/24/2024 10:58 AM EST Pt aware documented in this encounter Plan of Treatment Upcoming Encounters Date Type Department Care Team (Late st Contact Info) Description 04/13/2025 11:00 AM EDT Office Visit [facility] [address] [place] [address] Myranda Rain PA [address] [place] [address] 06/19/2025 8:20 AM EST Office Visit [facility] [address] [place] [address] Nitza Ivory MD [address] [place] [address] 10/23/2025 8:00 AM EDT Office Visit [facility] [address] [place] [address] Annie Myers, OD [address] [place] [address] documented as of this encounter Visit Diagnoses Diagnosis Hypogonadism in male Erectile dysfunction due to diseases classified elsewhere documented in this encounter Additional Health Concerns Assessment Noted Time PHQ-9 Depression Total Score: 0 06/14/20 9:21 AM EST A fall risk assessment has been complete d for the patient 04/06/2024 7:15 AM EDT A Body Mass Index follow-up plan has been documented for the patient 06/14/2024 9:43 AM EST documented as of this encounter Care Teams Flake Drier Relationship Specialty Start Date End Date Nitza Ivory MD [address] [place] [address] PCP - General 12/06/20 documented as of this encounter
--- OUTSIDE RECORDS SUMMARY | 2025-02-16 11:51 | XMS_ITS | Encounter Summary ---
Author Organization [facility] Address [address] [place] [address] Care Team Providers Care Rn Post Partum Name Role Phone Nitza Ivory MD Primary Care Provider [phone] Encounter Details Date Type Department Care Team (Late st Contact Info) Description 07/03/2024 Outside Procedure [facility] [address] [address] Provider, External Social History Tobacco Use Types Packs/Day Years [...] place to sleep or slept in a assisted (including now)? No 08/25/2023 PHQ-9 Answer Date [...] Description 04/13/2025 11:00 AM EDT Office Visit [facility] [address] [place] [address] Myranda Rain PA [address] [place] [address] 06/19/2025 8:20 AM EST Office Visit [facility] [address] [address] Nitza Ivory MD [address] [address] 10/23/2025 8:00 AM EDT Office Visit [facility] [address] [place] [address] Annie Myers S, OD [address] [place] [address] documented as of this encounter Procedures Procedure Name Priority Date/Time Associated Diagnosis Comments COLONOSCOPY 07/03/2024 9:05 AM EST documented in this encounter Results * Colonoscopy (07/03/2024 9:05 AM EST) Anatomical Region Laterality Modality Endoscopy 07/03/2024 8:34 AM EST Impressions 07/03/2024 9:05 AM EST Please see media tab for the result. Information added by interface. Narrative Procedure Note Timothy Maldonado MD - 07/03/2024 IMPRESSION: Please see media tab for the result. Information added by interface. us External Provider GI PROCEDURE ORDERABLES Final Result documented in this encounter Visit Diagnoses Not on filedocumented in this encounter Additional Health Concerns Assessment Noted Time PHQ-9 Depression Total Score: 0 06/14/20 24 9:21 AM EST A fall risk assessment has been complete d for the patient 04/06/2024 7:15 AM EDT A Body Mass Index follow-up plan has been documented for the patient 06/14/2024 9:43 AM EST documented as of this encounter Care Teams Rn Post Partum Relationship Specialty Start Date End Date Nitza Ivory MD [address] [address] PCP - General 12/06/20 documented as of this encounter
--- OUTSIDE RECORDS SUMMARY | 2025-02-16 11:51 | XMS_ITS | Encounter Summary ---
Author Organization Healthcare Address [address] [place] [address] Care Team Providers Care Health Promotion Coordinator Name Role Phone Nitza Ivory MD Primary Care Provider [phone] Encounter Details Date Type Department Care Team (Late st Contact Info) Description 07/03/2024 Lab Requisition [facility] [address] [place] [address] Timothy Maldonado MD [address] [place] [address] Encounter for screening for malignant neoplasm of colon Social History Tobacco Use Types Packs/Day Years [...] place to sleep or slept in a fci (including now)? No 08/25/2023 PHQ-9 Answer Date [...] Description 04/13/2025 11:00 AM EDT Office Visit [facility] [address] [place] [address] Myranda Rain PA [address] [place] [address] 06/19/2025 8:20 AM EST Office Visit [facility] [address] [place] [address] Nitza Ivory MD [address] [place] [address] 10/23/2025 8:00 AM EDT Office Visit [facility] [address] [place] [address] Annie Myers S, OD [address] [facility] [address] [place] [address] documented as of this encounter Procedures Procedure Name Priority Date/Time Associated Diagnosis Comments SURGICAL PATHOLOGY EXAM Routine 07/03/2024 Encounter for screening for malignant neoplasm of colon documented in this encounter Results * Surgical Pathology Exam (07/03/2024) Case Report Surgical Pathology Case: [id number] Authorizing Provider: Timothy Maldonado, Collected: 07/03/2024 Ordering Location: [facility] Lab Received: 07/03/2024 1119 Pathologist: Lindsey Jean MD Specimens: A) - Gastric, gastic biopsy B) - Gastric, GE Junction biopsy C) - Colon, random colon biopsy D) - Colon, transverse colon polyp 07/05/2024 9:40 AM [facility] Final Diagnosis A. STOMACH, BIOPSY: - REACTIVE GASTROPATHY. - NO H. PYLORI ORGANISMS IDENTIFIED ON H&E SLIDE. B. GASTROESOPHAGEAL JUNCTION, BIOPSY: - GE JUNCTION MUCOSA WITH MILD CHRONIC INFLAMMATION. - NEGATIVE FOR INTESTINAL METAPLASIA. C. LARGE INTESTINE, RANDOM COLON, BIOPSY: - NO PATHOLOGIC ABNORMALITIES. D. LARGE INTESTINE, TRANSVERSE COLON, POLYP, BIOPSY: - TUBULAR ADENOMA. 07/05/2024 9:40 AM [facility] at 0940 EST Clinical Information Encounter for screening for malignant neoplasm of colon Colon surveillance Hx of Rice's Diarrhea with incontinence Normal esophagus Diffuse mildly erythematous mucosa in the gastric antrum Normal duodenum 4 mm sessile polyp in the transverse colon 07/05/2024 9:40 AM EST [facility] Gross Description A. GASTIC BIOPSY Received in formalin labeled g astric biopsy are 3 bingham-brown soft tissues measuring 0.3-0.4 cm. Entirely submitted in cassette A1. Cold Time: 0 Manisha T Richy B. GE JUNCTION BIOPSY Received in formalin labeled G E junction biopsy is one bingham-brown soft tissue measuring 0.3 cm. Entirely submitted in cassette B1. Cold Time: 0 Manisha T Lockhart C. RANDOM COLON BIOPSY Received in formalin labeled r andom colon biopsy are 11 bingham-brown soft tissues measuring 0.2-0.3 cm. Entirely submitted in cassettes C1-C2. Cold Time: 0 Manisha T Lockhart D. TRANSVERSE COLON POLYP Received in formalin labeled t ransverse colon polyp are 5 bingham-brown soft tissues measuring 0.2-0.6 cm. Entirely submitted in cassettes D1-D2. Cold Time: 0 Manisha T Lockhart 07/05/2024 9:40 AM EST [facility] Note: A resident was involved in the service. I attest I examined the relevant preparations for the specimens and confirmed the diagnosis or interpretation. 07/05/2024 9:40 AM EST [facility] Tissue Colon structure / Unknown 07/03/2024 07/03/2024 11:19 AM EST Tissue specimen (specimen) Stomach structure / Unknown 07/03/2024 07/03/2024 11:19 AM EST Tissue specimen (specimen) Colon structure / Unknown 07/03/2024 07/03/2024 11:19 AM EST Tissue specimen (specimen) Colon structure / Unknown 07/03/2024 07/03/2024 11:19 AM EST Timothy Maldonado MD LAB PATHOLOGY ORDERABL ES Final Result [facility] [address] [place] [address] documented in this encounter Visit Diagnoses Diagnosis Encounter for screening for malignant neoplasm of colon documented in this encounter Additional Health Concerns Assessment Noted Time PHQ-9 Depression Total Score: 0 06/14/20 9:21 AM EST A fall risk assessment has been complete d for the patient 04/06/2024 7:15 AM EDT A Body Mass Index follow-up plan has been documented for the patient 06/14/2024 9:43 AM EST documented as of this encounter Care Teams Health Promotion Coordinator Relationship Specialty Start Date End Date Nitza Ivory MD [address] [place] [address] PCP - General 12/06/20 documented as of this encounter
--- OUTSIDE RECORDS SUMMARY | 2025-02-16 11:51 | XMS_ITS | Clinical Summary ---
Author Organization [facility] Address [address] [place] [address] Care Team Providers Care Corporate Sales Trainer Name Role Phone Nitza Ivory MD Primary Care Provider [phone] Allergies No known active allergies Medications cholecalciferol (Vitamin D3) 25 MCG (1000 UT) capsuleIndications :Low vitamin D level TAKE 1 CAPSULE BY MOUTH ONCE DAILY, SEPARATE FROM HEARTBURN MEDS 90 capsule 1 10/01/19 24 Active atenolol (Tenormin) 50 MG tabletIndications: Benign essential hypertension Take 1 tablet (50 mg) by mouth 1 (one) time each day. 90 tablet 3 06/14/20 24 Active colestipol (Colestid) 1 g tabletIndications: Intermittent diarrhea Take 1 tablet (1 g) by mouth in the morning and 1 tablet (1 g) in the evening. Take after meals. Take at least 1 hour after or 4 hours before other medications. 60 tablet 4 10/12/19 25 Active dicyclomine (Bentyl) 10 MG capsuleIndications :Lower abdominal pain Take 1 capsule (10 mg) by mouth 2 (two) times a day as needed (abd pain). 120 capsule 2 10/12/19 25 Active pantoprazole (Protonix) 40 MG EC tabletIndications: Rice's esophagus without dysplasia Take 1 tablet (40 mg) by mouth daily before breakfast. Do not crush, chew, or split. 90 tablet 3 10/12/19 25 026 Active loperamide (Imodium A-D) 2 MG tabletIndications: Intermittent diarrhea Take 1 tablet on days has diarrhea. 30 tablet 11 10/18/19 25 Active rosuvastatin (Crestor) 20 MG tabletIndications: Other hyperlipidemia Take 1 tablet (20 mg) by mouth daily. 90 tablet 3 10/18/19 25 Active triamcinolone (Kenalog) 0.1 % creamIndications:P soriasis Apply to affected area 1-2 times daily as needed. Avoid face and groin. 80 g 3 10/18/19 25 025 Active sildenafil (Viagra) 100 MG tabletIndications: Hypogonadism in male,Erectile dysfunction due to diseases classified elsewhere Take 1 tablet (100 mg) by mouth daily as needed for erectile dysfunction. 30 tablet 10/18/19 25 026 Active Testosterone (AndroGel Pump) 20.25 MG/ACT (1.62%) gelIndications:Hyp ogonadism in male,Erectile dysfunction due to diseases classified elsewhere Place 6 Pump on the skin daily. 225 g 5 01/11/20 25 Active metFORMIN XR (Glucophage-XR) 500 MG 24 hr tabletIndications: Type 2 diabetes mellitus with hyperglycemia, without long-term current use of insulin (CMS/HCC) Take 1 tablet by mouth 2 times a day. 180 tablet 1 02/17/20 25 Active fluticasone (Flonase) 50 MCG/ACT nasal sprayIndications:A llergic rhinitis, unspecified seasonality, unspecified trigger Administer 2 sprays into each nostril daily. Shake gently. Before first use, prime pump. After use, clean tip and replace cap. 48 g 02/17/20 25 Active bromocriptine (Parlodel) 2.5 MG tabletIndications: Pituitary macroadenoma (CMS/HCC) Take 1 tablet by mouth daily. 90 tablet 3 02/17/20 25 Active cetirizine (ZyrTEC) 10 MG tabletIndications: Allergic rhinitis, unspecified seasonality, unspecified trigger,Mild intermittent asthma without complication Take 1 tablet by mouth nightly. 90 tablet 3 02/17/20 25 Active fluticasone (Flonase) 50 MCG/ACT nasal sprayIndications:A llergic rhinitis, unspecified seasonality, unspecified trigger Administer 2 sprays into each nostril 1 (one) time each day. Shake gently. Before first use, prime pump. After use, clean tip and replace cap. 48 g 3 06/14/20 24 025 Discontin ued(Reord er) bromocriptine (Parlodel) 2.5 MG tabletIndications: Pituitary macroadenoma (CMS/HCC) Take 1 tablet (2.5 mg) by mouth 1 (one) time each day. 90 tablet 3 06/14/20 24 025 Discontin ued(Reord er) cetirizine (ZyrTEC) 10 MG tabletIndications: Allergic rhinitis, unspecified seasonality, unspecified trigger,Mild intermittent asthma without complication Take 1 tablet (10 mg) by mouth every night. 90 tablet 3 06/14/20 24 025 Discontin ued(Reord er) metFORMIN XR (Glucophage-XR) 500 MG 24 hr tabletIndications: Type 2 diabetes mellitus with hyperglycemia, without long-term current use of insulin (CMS/HCC) Take 1 tablet (500 mg) by mouth in the morning and 1 tablet (500 mg) before bedtime. 180 tablet 1 10/18/19 25 025 Discontin ued(Reord er) Active Problems Problem Noted Date Diagnosed Date Benign neoplasm of transverse colon 07/03/2024 Other hyperlipidemia 02/22/2024 Type 2 diabetes mellitus wit h hyperglycemia, without long-term current use of insulin 12/22/2023 Pain in left shoulder 08/25/2023 Rash and other nonspecific skin eruption 024 Impingement syndrome of left shoulder 08/17/2023 Migraines 08/12/2023 Abnormal findings on diagnos tic imaging of skull and head, not elsewhere classified 08/10/2023 Benign neoplasm of pituitary gland 08/10/2023 Strain of other muscles, fas hannah and tendons at shoulder and upper arm level, left arm, subsequent encounter 07/05/2023 Strain of muscle, fascia and tendon at neck level, initial encounter 07/04/2023 Cervicalgia 07/03/2023 Other muscle spasm 07/03/2023 Mild intermittent asthma, uncomplicated 05/25/20 23 Abnormal computerized tomography of brain 202205/25/2023 ZULY (obstructive sleep apnea) 05/18/2023 Abnormal EKG 05/18/2023 05/25/2023 Pituitary abnormality 05/18/2023 05/25/2023 Adverse effect of unspecifie d drugs, medicaments [...] without perforation or abscess without bleeding 01/27/2023 Severe obesity (BMI 35.0-39.9) with comorbidity 07/14/2022 Viral URI with cough 07/14/2022 Erectile dysfunction due to diseases classified elsewhere 07/14/2022 CKD (chronic kidney disease) stage 2, GFR 60-89 ml/min 04/14/2022 Rice's esophagus without dysplasia 03/13/2022 Overview (03/13/2022): -continue pantoprazole 40mg daily indefinitely. Repeat EGD in 3yr. due 11/2024 Assessment & Plan (03/13/2022 10:34 AM EDT): -continue pantoprazole 40mg daily indefinitely. Repeat EGD in 3yr. 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 Bradycardia, drug induced 12/14/2017 High serum ferritin 09/28/2017 Overview (10/19/2023): Serum ferritin high Serum ferritin high Hemochromatosis 09/08/2017 Colon polyp 06/04/2017 Overview (03/13/2022): Comments: 09/22/21 on cscope rec repeat in 7yr Assessment & Plan (03/13/2022 10:34 AM EDT): 09/22/21 on c-scope, repeat in 7yr Psoriasis 11/21/2016 Asthma 01/17/2013 Benign essential hypertension 01/17/2013 Macroprolactinoma 11/03/2012 Encounters Date Type Department Care Team Description 02/16/2025 8:40 AM EDT Office Visit [facility] [address] [place] [address] Nitza Ivory MD Type 2 diabetes mellitus with hyperglycemia, without long-term current use of insulin (CMS/[facility]) (Primary Dx); Other hyperlipidemia; CKD (chronic kidney disease) stage 2, GFR 60-89 ml/min; Benign essential hypertension; Hypogonadism in male; Pituitary macroadenoma (CMS/HCC); Allergic rhinitis, unspecified seasonality, unspecified trigger; Mild intermittent asthma without complication 02/16/2025 Travel 01/03/2025 Refill [facility] [address] [place] [address] Nitza Ivory MD Hypogonadism in male; Erectile dysfunction due to diseases classified elsewhere 11/29/2024 10:00 AM EDT Office Visit [facility] [address] [place] [address] Nitza Ivory MD Chest congestion (Primary Dx); Conductive hearing loss, bilateral; Subacute maxillary sinusitis; Toe pain, left 11/29/2024 Travel from Last 3 Months Immunizations Immunization Administration Dates Next Due Influenza, injectable, quadr ivalent, preservative free 05/25/2023,03/10/2022,06/16/2021,06/19,08/08/2019,08/08/2019,06/13/2018 ,06/13/2018,05/12/2017,05/12/2017 Influenza, seasonal, injecta ble, preservative free 06/25/2016 Pneumococcal Polysaccharide PPV23 05/12/2017, TD (adult), 2 Lf tetanus tox oid, preservative free, adsorbed 11/06/2019,11/06/2019 Tdap 12/10/2024 Zoster, Recombinant 03/10/2022,08/21/2021 Family History Medical History Relation Name Comments Hemochromatosis Brother 1 Alec Hypertension Brother 1 Alec Hypertension Brother 2 Rodriguez Cerrato Cataracts Father Jose cerrato Conversions - Other Father Jose cerrato Cerebrov ascular disease, ill-defined, acute Hypertension Father Jose cerrato Cataracts Mother Relation Name Status Comments Brother 1 Alec Brother 2 Rodriguez Cerrato Father Jose cerrato Mother Social History Tobacco Use Types Packs/Day Years [...] any time in the past 12 m [facility], were you homeless or living in a [...] any time in the past 12 m [facility], were you homeless or living in a [...] Orientation Straight 08/07/2021 2: 28 PM EST Last Filed Vital Signs Vital Sign Reading [...] Mass Index 31.55 02/16/2025 8:35 AM EDT Plan of Treatment Upcoming Encounters Date Type Department Care Team (Late st Contact Info) Description 04/13/2025 11:00 AM EDT Office Visit [facility] [address], [address] [place] [address] Myranda Rain PA [address] [place] [address] 06/19/2025 8:20 AM EST Office Visit [facility] [address] [place] [address] Nitza Ivory MD [address] [place] [address] 10/23/2025 8:00 AM EDT Office Visit [facility] [address] [place] [address] Annie Myers S, OD [address] [place] [phone] Health Maintenance Due Date Last Done Comments Diabetes: Dental Exam 1979 [facility]-Hepatitis B Vaccines (1 of 3 - 19+ 3-dose series) 01/22/1988 CT Colonography 2014 FIT-DNA 2014 FIT 2014 FOBT 2014 Sigmoidoscopy 2014 [facility]-Pneumococcal Vaccine: 50+ Years (3 of 3 - PCV) 05/12/2018 05/12/2017, 05/12/2017 [id number] Vaccine (3 - Moderna risk series) 12/04/2020 11/06/2020, 10/09/2020 [facility]-Influenza Vaccine (#1) 03/26/202505/25, 03/10/2022, 06/16/2021, Additional history exists [facility]-Diabetes: Hemoglobin A1C 04/16/2025, 06/14/2024, 02/22/2024, Additional history exists [facility]- SDOH Screenings 08/19/2025 [facility]-Adult SDOH Screenings 08/19/2025 02/16/2025 [facility]-Infant/Child/Adol SDOH Screenings 08/19/2025 02/16/2025 [facility]-Depression Screening 10/11/2025 10/11/2024, 03/03/2025 Colonoscopy 07/03/2034 07/03/2024, 12/0 03/2024, 09/22/2021 [facility]-Colorectal Cancer Screening 07/03/2034 [facility]-DTaP,Tdap,and Td Vaccines (2 - Td or Tdap) 12/10/2034 12/10/2024, 11/06/2019, 11/06/2019 [facility]-HIV Screening Completed 09/08/2021 [facility]-Hepatitis C Screening Completed 09/08/2021 [facility]-Zoster Vaccines Completed 03/10/2022, [facility]-Obesity Intervention Completed 025, 10/17/2024, 10/11/2024, Additional history exists HPV Vaccines Aged Out No longer eligi ble based on patient's age to complete this topic [facility]-HIB Vaccines Aged Out No longer e ligible based on patient's age to complete this topic [facility]-Hepatitis A Vaccines Aged Out No longer eligible based on patient's age to complete this topic [facility]-IPV Vaccines Aged Out No longer e ligible based on patient's age to complete this topic [facility]-Rotavirus Vaccines Aged Out No lo nger eligible based on patient's age to complete this topic Procedures Procedure Name Priority Date/Time Associated Diagnosis Comments HEMOGLOBIN A1C Routine 10/17/2024 8:50 AM EDT Type 2 diabetes mellitus with hyperglycemia, without long-term current use of insulin (CMS/HCC) COLONOSCOPY 07/03/2024 9:05 AM EST HEPATITIS C ANTIBODY - ED W/REFLEX TO HCV QUANT PCR STAT 09/08/2021 8:09 PM EST HIV 1/2 ANTIBODY/ANTIGEN SCREEN WITH REFLEX TO HIV I/II DIFFERENTIATION STAT 09/08/2021 8:09 PM EST from Last 3 Months or Most Recently Relevant to Health Maintenance Results * (ABNORMAL) Hemoglobin A1c (10/17/2024 8:50 AM EDT) Hemoglobin A1c 6.1(H) <5.7 % 10/17/2024 1:[address] [facility] Blood Venous blood specimen / Unknown Venipuncture / Unknown 10/17/2024 8:50 AM EDT 10/17/2024 8:[address] [facility] - 10/17/2024 1:33 PM EDT HA1C Interpretive Data: Diagnosis of Diabetes: Diabetic > or = 6.5% Pre-diabetic 5.7 to 6.4% Non-diabetic < or = 5.6% Glycemic Targets for Type I and Type II Diabetics: Non- Adults <7.0% Adults <6.0% Children and Adolescents <7.5% Source: [place] [employer]. Standards of medical care in diabetes,2017. Diabetes Care.2017:40 (suppl 1):S1-S135. HbA1c assay performed by an ion-exchange chromatography method that is certified traceable to the DCCT. us Nitza Ivory MD LAB BLOOD ORDERABLES Final Res ult Performing Organization Address City/[facility]/ZIP Co de Phone Number [facility] [address] [place] [address] * Colonoscopy (07/03/2024 9:05 AM EST) Anatomical Region Laterality Modality Endoscopy 07/03/2024 8:34 AM EST Impressions 07/03/2024 9:05 AM EST Please see media tab for the result. Information added by interface. Narrative Procedure Note Timothy Maldonado MD - 07/03/2024 IMPRESSION: Please see media tab for the result. Information added by interface. us External Provider GI PROCEDURE ORDERABLES Final Result * HIV 1 & 2 Antibody/Antigen Screen (09/08/2021 8:09 PM EST) HIV 1 & 2 Antibody/Anti gen Screen Nonreactive Nonreactive 09/08/2021 9:35 PM EST [facility] Blood Venous blood specimen / Unknown Venipuncture / Unknown 09/08/2021 8:09 PM EST 09/08/2021 8:27 PM EST us Michael Joiner MD LAB BLOOD ORDERABLES Final Result Performing Organization Address City/[facility] Co de Phone Number [facility] [address] [place] [address] * [place] Hepatitis C Antibody (09/08/2021 8:09 PM EST) Hepatitis C Antibody Negative Negative 09/08/2021 9:35 PM EST [facility] Blood Venous blood specimen / Unknown Venipuncture / Unknown 09/08/2021 8:09 PM EST 09/08/2021 8:27 PM EST Michael Joiner MD LAB BLOOD ORDERABLES Final Result Performing Organization Address City/[facility] Co de Phone Number [facility] [address] [place] [address] from Last 3 Months or Most Recently Relevant to Health Maintenance Insurance [id number] LIANG [id number] [employer] [place] [employer] [facility] MED[facility] REPLACEMENT Care Teams Corporate Sales Trainer Relationship Specialty Start Date End Date Nitza Ivory MD [address] [place] [address] PCP - General 12/06/20
--- OUTSIDE RECORDS SUMMARY | 2025-02-16 11:51 | XMS_ITS | Encounter Summary ---
Author Organization [facility] Address [address] [place] [address] Care Team Providers Care Public Stenographer Name Role Phone Nitza Ivory MD Primary Care Provider [phone] Encounter Details Date Type Department Care Team (Late st Contact Info) Description 12/16/2021 Outside Procedure [address] [address] Provider, External Social History Tobacco Use Types Packs/Day Years Used Date Smoking Tobacco: Never Smokeless Tobacco: Current Chew Alcohol Use Standard Drinks/Week Comments No 0 (1 standard drink = 0.6 oz pur e alcohol) Alcoholic Drinks/day: Alcohol PHQ-2 Answer Date Recorded Patient Health Questionnaire-2 Score 0 10/24/2021 Sex and Gender Information Value Date Recorded Sex Assigned at Male 08/07/2021 2:28 PM EST Legal Sex Male 7:36 PM EDT Gender Identity Male 08/07/2021 2:28 PM EST Sexual Orientation Straight 08/07/2021 2: 28 PM EST COVID-19 Exposure Response Date Recorded In the last 10 days, have yo u been in contact with someone who was confirmed or suspected to have Coronavirus/COVID-19? Unable to assess 12/09/2021 7:28 AM EDT documented as of this encounter Plan of Treatment Upcoming Encounters Date Type Department Care Team (Late st Contact Info) Description 04/13/2025 11:00 AM EDT Office Visit [place] [facility] [address] [place] [address] Myranda Rain PA [address] [place] [address] 06/19/2025 8:20 AM EST Office Visit [facility] [address] [place] [address] Nitza Ivory MD [address] [place] [address] 10/23/2025 8:00 AM EDT Office Visit [facility] [address] [place] [address] Annie Myers S, OD [address] [place] [address] documented as of this encounter Procedures Procedure Name Priority Date/Time Associated Diagnosis Comments EGD 12/16/2021 8:24 AM EDT documented in this encounter Results * EGD (12/16/2021 8:24 AM EDT) Anatomical Region Laterality Modality Endoscopy 12/16/2021 8:12 AM EDT Impressions 12/16/2021 8:24 AM EDT Please see media tab for the result. Information added by interface. Narrative Procedure Note Yodit Tavarez MD - 03/11/2022 IMPRESSION: Please see media tab for the result. Information added by interface. us External Provider GI PROCEDURE ORDERABLES Final Result documented in this encounter Visit Diagnoses Not on filedocumented in this encounter Additional Health Concerns Infection Onset Date Last Indicated Resolved Time Gastrointestinal Rule-Out 02/18/2022 02/18/2022 5:23 AM EDT C. difficile Rule-Out 02/18/2022 02/18/20222021 5:23 AM EDT Assessment Noted Time A fall risk assessment has been complete d for the patient 10/24/2021 2:07 PM EDT documented as of this encounter Care Teams Public Stenographer Relationship Specialty Start Date End Date Nitza Ivory MD [address] [place] [address] PCP - General 12/06/20 documented as of this encounter
--- OUTSIDE RECORDS SUMMARY | 2025-02-16 11:51 | XMS_ITS | Encounter Summary ---
Author Organization [facility] Address [address] [place] [address] Care Team Providers Care Rn Interventional Name Role Phone Nitza Ivory MD Primary Care Provider Encounter Details Date Type Department Care Team (Late st Contact Info) Description 10/17/2024 Results Follow-Up [facility] [address] [place] [address] Nitza Ivory MD [address] [place] [address] Social History Tobacco Use Types [...] afraid of your partner or ex-partner? No 10/17/2024 Within the last year, have y ou been humiliated or emotionally abused in other ways by your partner or ex-partner? No Within the last year, have y ou been kicked, hit, slapped, or otherwise physically hurt by your partner or ex-partner? No 10/17/2024 Within the last year, have y ou been raped or forced to have any kind of sexual activity by your partner or ex-partner? No 10/17/2024 PHQ-2 Answer Date Recorded Patient Health Questionnaire-2 Score 0 10/11/2024 Hunger Vital Sign Answer Date Recorded Within the past 12 months, y ou worried that your food would run out before you got the money to buy more. Never true 10/18/19 Within the past 12 months, t he food you bought just didn't last and you didn't have money to get more. Never true 10/17/2024 PRAPARE - Transportation Answer Date Re corded In the past 12 months, has l ack of transportation kept you from medical appointments or from getting medications? No 09/24 In the past 12 months, has l ack of transportation kept you from meetings, work, or from getting things needed for daily living? No 10/17/2024 Housing Stability Vital Sign Answer Morales e [...] any time in the past 12 m [facility], were you homeless or living in a custodial (including now)? No 10/17/2024 Utilities Answer Date Recorded In the past 12 months has th e electric, gas, oil, or water company threatened to shut off services in your home? No 10/17/2024 PHQ-2A Answer Date Recorded Patient Health Questionnaire-2 [...] Date of Assessment Author No Risk Indicated 11/29/2024 9:55 AM EDT Katarzyna Reyna * Question Answer Date of Assessment Author 1. Wish to be (Past 1 Month) No 025 9:55 AM EDT Katarzyna Reyna 2. Non-Specific Active Suici mario Thoughts (Past 1 Month) No 11/29/2024 9:55 AM EDT Katarzyna Reyna 6. Suicidal Behavior (Lifetime) No 9:55 AM EDT Katarzyna Reyna documented as of this encounter Plan of Treatment Upcoming Encounters Date Type Department Care Team (Late st Contact Info) Description 04/13/2025 11:00 AM EDT Office Visit [facility] [address] [place] [address] Myranda Rain PA [address] [place] [address] 06/19/2025 8:20 AM EST Office Visit [facility] [address] [place] [address] Nitza Ivory MD [address] [place] [address] 10/23/2025 8:00 AM EDT Office Visit [facility] [address] [place] [address] Annie Myers S, OD [address] [place] [address] documented as of this encounter Visit Diagnoses Not on filedocumented in this encounter Additional Health Concerns Assessment Noted Time PHQ-9 Depression Total Score: 0 10/12/19 11:15 AM EDT A fall risk assessment has been complete d for the patient 10/11/2024 11:16 AM EDT A Body Mass Index follow-up plan has been documented for the patient 10/17/2024 8:54 AM EDT documented as of this encounter Care Teams Rn Interventional Relationship Specialty Start Date End Date Nitza Ivory MD [address] [place] [address] PCP - General 12/06/20 documented as of this encounter
--- OUTSIDE RECORDS SUMMARY | 2025-02-16 11:51 | XMS_ITS | Encounter Summary ---
Author Organization [facility] Address [address] [place] [address] Care Team Providers Care Fiber Artist Name Role Phone Nitza Ivory MD Primary Care Provider [phone] Reason for Visit * Reason Comments Med Refill Encounter Details Date Type Department Care Team (Late st Contact Info) Description 08/02/2021 Refill [facility] [address] [place] [address] Nitza Ivory MD [address] [place] [address] Erectile dysfunction due to diseases classified elsewhere; Hypogonadism in male Social History Tobacco Use Types Packs/Day Years Used Date Smoking Tobacco: Never Smokeless Tobacco: Current Chew Alcohol Use Standard Drinks/Week Comments No 0 (1 standard drink = 0.6 oz pur e alcohol) Alcoholic Drinks/day: Alcohol PHQ-2 Answer Date Recorded Patient Health Questionnaire-2 Score 0 04/18/2021 Sex and Gender Information Value Date Recorded Sex Assigned at Male 08/07/2021 2:28 PM EST Legal Sex Male 7:36 PM EDT Gender Identity Male 08/07/2021 2:28 PM EST Sexual Orientation Straight 08/07/2021 2: 28 PM EST documented as of this encounter Miscellaneous Notes * Telephone Encounter - Nitza Ring MD - 08/05/2021 10:25 AM EST Needs appt documented in this encounter Plan of Treatment Upcoming Encounters Date Type Department Care Team (Late st Contact Info) Description 04/13/2025 11:00 AM EDT Office Visit [facility] [address] [place] [address] Myranda Rain, PA [address] [place] [address] 06/19/2025 8:20 AM EST Office Visit [facility] [address] [place] [address] Nitza Ivory MD [address] [place] [address] 10/23/2025 8:00 AM EDT Office Visit [facility] [address] [place] [address] Annie Myers S, OD [address] [place] [address] documented as of this encounter Visit Diagnoses Diagnosis Erectile dysfunction due to diseases classified elsewhere Hypogonadism in male documented in this encounter Additional Health Concerns Infection Onset Date Last Indicated Resolved Time Gastrointestinal Rule-Out 02/18/2022 02/18/2022 5:23 AM EDT C. difficile Rule-Out 02/18/2022 02/18/20222021 5:23 AM EDT documented as of this encounter Care Teams Fiber Artist Relationship Specialty Start Date End Date Nitza Ivory MD [address] [place] [address] PCP - General 12/06/20 documented as of this encounter
--- OUTSIDE RECORDS SUMMARY | 2025-02-16 11:51 | XMS_ITS | Encounter Summary ---
Author Organization Healthcare Address [address] [place] [address] Care Team Providers Care Farmworker Dairy Name Role Phone Nitza Ivory MD Primary Care Provider [phone] Reason for Visit * Reason Comments Med Refill Encounter Details Date Type Department Care Team (Late st Contact Info) Description 09/29/2023 [facility] [address] [place] [address] Myranda Rain PA [address] [place] [address] Intermittent diarrhea Social History Tobacco [...] Date Recorded Patient Health Questionnaire-2 Score 0 10/01/2023 Hunger Vital Sign Answer Date Recorded Within [...] place to sleep or slept in a [place] care facility (including now)? No 08/25/2023 Utilities Answer Date Recorded In the past [...] pleasure in doing things Not at all 10/01/2023 7:21 AM Susan Smith CNA Feeling down, depressed, or hopeless Not at all 10/01/2023 7:21 AM Susan Smith CNA Patient Health Questionnaire-2 Score 0 10/01/2023 7:21 AM EST Karen Mina CNA documented as of this encounter Miscellaneous Notes * Telephone Encounter - Alli Abarca, PharmD - 09/29/2023 9:48 AM EST Per protocol, 1 medication(s), dicyclomine, has been refused due to: Duplicate request documented in this encounter Plan of Treatment Upcoming Encounters Date Type Department Care Team (Late st Contact Info) Description 04/13/2025 11:00 AM EDT Office Visit [facility]ties [address] [place] [address] Myranda Rain, PA [address] [place] [address] 06/19/2025 8:20 AM EST Office Visit [facility] [address] [place] [address] Nitza Ivory MD [address] [place] [address] 10/23/2025 8:00 AM EDT Office Visit [facility] [address] [facility] [place] [address] Annie Myers S, OD [address] [facility] [address] [place] [address] documented as of this encounter Visit Diagnoses Diagnosis Intermittent diarrhea documented in this encounter Additional Health Concerns Assessment Noted Time A fall risk assessment has been complete d for the patient 10/13/2022 1:46 PM EDT A Body Mass Index follow-up plan has been documented for the patient 08/25/2023 9:42 AM EST documented as of this encounter Care Teams Farmworker Dairy Relationship Specialty Start Date End Date Nitza Ivory MD [address] [place] [address] PCP - General 12/06/20 documented as of this encounter
--- OUTSIDE RECORDS SUMMARY | 2025-02-16 11:51 | XMS_ITS | Encounter Summary ---
Author Organization [facility] Address [address] [place] [address] Care Team Providers Care Photoengraver Name Role Phone Nitza Ivory MD Primary Care Provider [phone] Reason for Visit * Reason Comments Med Refill Encounter Details Date Type Department Care Team (Late st Contact Info) Description 01/03/2025 Refill [facility] [address] [place] [address] Nitza Ivory MD [address] [place] [address] Hypogonadism in male; Erectile dysfunction [...] money to buy more. Never true 10/18/19 25 Within the past 12 months, t he [...] place to sleep or slept in a care home (including now)? No 08/25/2023 PHQ-9 Answer Date [...] any time in the past 12 [facility], were you homeless or living in a care home (including now)? No 10/17/2024 Utilities Answer Date [...] Description 04/13/2025 11:00 AM EDT Office Visit [facility] [address] [place] [address] Myranda Rain PA [address] [place] [address] 06/19/2025 8:20 AM EST Office Visit [facility] [address] [place] [address] Nitza Ivory MD [address] [place] [address] 10/23/2025 8:00 AM EDT Office Visit [facility] [address] [place] [address] Annie Myers S, OD [address] [place] [address] documented as of this encounter [...] documented as of this encounter Care Teams Photoengraver Relationship Specialty Start Date End Date Nitza Ivory MD [address] [place] [address] PCP - General 12/06/20 documented as of this encounter
--- OUTSIDE RECORDS SUMMARY | 2025-02-16 11:51 | XMS_ITS | Continuity of Care Document ---
Author Organization [facility] Address [address] [facility] [facility] [address] [place] [address] Care Team Providers Care Air Boatswain Name Role Phone OTTOLOLISRONALD ENGELISSA Primary Care Provider Assessment No assessment recorded. Plan of Treatment Reminders Order Date Submit Date Provider Last Modified By Organization Details Last Modified Time Details Appointments FOLLOW UP 15 2024 09:45A Marybeth José MD Not available Not available Not available Lab CBC w/ auto diff 2024 025 [facility], [address] [facility], [place], [address], 02/15/2025 12:14:57 CMP, serum or plasma 2024 025 [facility], [address] [facility], [place], [address], 02/15/2025 12:33:35 iron + TIBC + ferritin , serum [address] [facility], [address] [facility], [place], [address], 02/15/2025 09:27:49 iron saturati on, serum [address] [facility], [address] [facility], [place], [address], 02/15/2025 09:27:49 Referral None recorded . Procedures None recorded . Surgeries None recorded . Imaging None recorded . Medication Orders None recorded . Patient TargetsNo targets recorded. Patient InstructionsNo instructions recorded. Reason for Referral None Reported. Results Created Date Observation Date Name Description Value Unit Range Abnormal Flag Note LastModifiedBy Organization Detail LastModifiedTime 02/16/2002/15/2025 CBC AUTO W DIFF WBC 6.5 K/uL 4.0-10 .5 Not Available [facility] [address] , [place], [address], 02/15/2025 12:14:57 02/16/20 25 02/15/2025 CBC AUTO W DIFF RBC 4.7 M/mm3 4.7-6. 1 Not Available [facility] ([facility]) [address], [place], [address], 02/15/2025 12:14:57 02/16/20 25 02/15/2025 CBC AUTO W DIFF HGB 15.0 gm/dL 13.5-1 8.0 Not Available [facility] ([facility]) [address], [place], [address], 02/15/2025 12:14:57 02/16/20 25 02/15/2025 CBC AUTO W DIFF HCT 44.8 % 42.0-5 2.0 Not Available [facility] ([facility]) [address], [place], [address], 02/15/2025 12:14:57 02/16/20 25 02/15/2025 CBC AUTO W DIFF MCV 95.1 fL 78-100 Not Available [facility] ([facility]) [address] [place], [address], 02/15/2025 12:14:57 02/16/20 25 02/15/2025 CBC AUTO W DIFF MCH 31.8 pg 27-31 high Not Available [facility] ([facility]) [address] [place], [address], 02/15/2025 12:14:57 02/16/20 25 02/15/2025 CBC AUTO W DIFF MCHC 33.5 g/dL 32-36 Not Available [facility] ([facility]) [address] , [place], [address], 02/15/2025 12:14:57 02/16/20 25 02/15/2025 CBC AUTO W DIFF RDW 11.8 % 11.5-1 4.0 Not Available [facility] ([facility]) [address] , [place], [address], 02/15/2025 12:14:57 02/16/20 25 02/15/2025 CBC AUTO W DIFF platelet count 168 K/uL 150-45 0 Not Available [facility] ([facility]) [address], [place], [address], 02/15/2025 12:14:57 02/16/20 25 02/15/2025 CBC AUTO W DIFF MPV 10.8 fL 6-9.5 high Not Available [facility] ([facility]) [address], [place], [address], 02/15/2025 12:14:57 02/16/20 25 02/15/2025 CBC AUTO W DIFF neutrophil% 58.1 % 43-65 Not Available [facility] ([facility]) [address], [place], [address], 02/15/2025 12:14:57 02/16/20 25 02/15/2025 CBC AUTO W DIFF lymphocyte% 24.4 % 20.5-4 5.5 Not Available [facility] ([facility]) [address] [place], [address], 02/15/2025 12:14:57 02/16/20 25 02/15/2025 CBC AUTO W DIFF monocyte% 8.8 % 5.5-11 .7 Not Available [facility]) [address] [place], [address], 02/15/2025 12:14:57 02/16/20 25 02/15/2025 CBC AUTO W DIFF eosinophil% 7.9 % 0.9-2. 9 high Not Available [facility] ([facility]) [address] [facility], [place], [address], 02/15/2025 12:14:57 02/16/20 25 02/15/2025 CBC AUTO W DIFF basophil% 0.5 % 0.2-1. 0 Not Available [facility] ([facility]) [address] [facility], [place], [address], 02/15/2025 12:14:57 02/16/20 25 02/15/2025 CBC AUTO W DIFF immature granulocytes % 0.3 % 0.0-0. 8 Not Available [facility] ([facility]) [address] [place], [address], 02/15/2025 12:14:57 02/16/20 25 02/15/2025 CBC AUTO W DIFF nucleated red blood cells % 0.0 % Not Available [facility] ([facility]) [address] [place], [address], 02/15/2025 12:14:57 02/16/20 25 02/15/2025 CBC AUTO W DIFF neutrophil# 3.8 K/uL 2.2-4. 8 Not Available [facility] ([facility]) [address] [place], [address], 02/15/2025 12:14:57 02/16/20 25 02/15/2025 CBC AUTO W DIFF lymphocyte# 1.6 cell/ mcL 1.3-2. 9 Not Available [facility] ([facility]) [address] [place], [address], 02/15/2025 12:14:57 02/16/20 25 02/15/2025 CBC AUTO W DIFF monocyte# 0.6 cell/ mcL 0.3-0. 8 Not Available [facility] ([facility]) [address] , [place], [address], 02/15/2025 12:14:57 02/16/20 25 02/15/2025 CBC AUTO W DIFF eosinophil# 0.5 cell/ mcL 0-0.2 high Not Available [facility] ([facility]) [address], [place], [address], 02/15/2025 12:14:57 02/16/20 25 02/15/2025 CBC AUTO W DIFF basophil# 0.0 cell/ mcL 0.0-1. 0 Not Available [facility] ([facility]) [address], [place], [address], 02/15/2025 12:14:57 02/16/20 25 02/15/2025 CBC AUTO W DIFF immature gramulocytes # 0.02 K/uL Not Available [facility] ([facility]) [address], [place], [address], 02/15/2025 12:14:57 02/16/20 25 02/15/2025 CBC AUTO W DIFF nucleated red blood cells # 0.00 K/uL Not Available [facility] ([facility]) [address], [place], [address], 02/15/2025 12:14:57 02/16/20 25 02/15/2025 CBC AUTO W DIFF manual differential NO Not Available [facility] ([facility]) [address], [place], [address], 02/15/2025 12:14:57 02/16/20 25 02/15/2025 COMP METAB OLIC PANEL sodium 138 mmol/ L 136-14 5 Not Available [facility] ([facility]) [address], [place], [address], 02/15/2025 12:33:35 02/16/20 25 02/15/2025 COMP METAB OLIC PANEL potassium 4.2 mmol/ L 3.6-5. 0 Not Available [facility] ([facility]) [address] , [place], [address], 02/15/2025 12:33:35 02/16/20 25 02/15/2025 COMP METAB OLIC PANEL chloride 102 mmol/ L 98-107 Not Available [facility] ([facility]) [address] , [place], [address], 02/15/2025 12:33:35 02/16/20 25 02/15/2025 COMP METAB OLIC PANEL carbon dioxide 30.6 mmol/ L 21.0-3 2.0 Not Available [facility] ([facility]) [address] , [place], [address], 02/15/2025 12:33:35 02/16/20 25 02/15/2025 COMP METAB OLIC PANEL anion gap 9.6 Not Available [facility] ([facility]) [address], [place], [address], 02/15/2025 12:33:35 02/16/20 25 02/15/2025 COMP METAB OLIC PANEL glucose 124 mg/dL 70-120 high Not Available [facility] ([facility]) [address] , [place], [address], 02/15/2025 12:33:35 02/16/20 25 02/15/2025 COMP METAB OLIC PANEL BUN 15 mg/dL 7-18 Not Available [facility] ([facility]) [address] , [place], [address], 02/15/2025 12:33:35 02/16/20 25 02/15/2025 COMP METAB OLIC PANEL creatinine 1.3 mg/dL 0.6-1. 3 Not Available [facility] ([facility]) [address], [place], [address], 02/15/2025 12:33:35 02/16/20 25 02/15/2025 COMP METAB [...] rowe ing kiney funct ion. Not Available [facility] ([facility]) [address], [place], [address], 02/15/2025 12:33:35 02/16/20 25 02/15/2025 COMP METAB OLIC PANEL osmolality (calculated) 289 mOsm/ kg 275-30 1 OSMOL ALITY IS A CALCU LATIO N UTILI ZING THE SERUM /PLAS MA SODIU M, GLUCO SE AND UREA NITRO GEN (BUN) LEVEL S. FOR THE MOST ACCUR ATE RESUL T A MEASU RED SERUM OSMOL ALITY IS SUGGE STED. Not Available [facility] ([facility]) [address], [place], [address], 02/15/2025 12:33:35 02/16/20 25 02/15/2025 COMP METAB OLIC PANEL total protein 7.5 g/dL 6.4-8. 2 Not Available [facility] ([facility]) [address] , [place], [address], 02/15/2025 12:33:35 02/16/20 25 02/15/2025 COMP METAB OLIC PANEL albumin 3.5 g/dL 3.4-5. 0 Not Available [facility] ([facility]) [address], [place], [address], 02/15/2025 12:33:35 02/16/20 25 02/15/2025 COMP METAB OLIC PANEL globulin 4.0 Not Available [facility] ([facility]) [address] , [place], [address], 02/15/2025 12:33:35 02/16/20 25 02/15/2025 COMP METAB OLIC PANEL alb/glob ratio 0.9 0.7-2 Not Available [facility] ([facility]) [address] , [place], [address], 02/15/2025 12:33:35 02/16/20 25 02/15/2025 COMP METAB OLIC PANEL calcium 9.5 mg/dL 8.5-10 .5 Not Available [facility] ([facility]) [address], [place], [address], 02/15/2025 12:33:35 02/16/20 25 02/15/2025 COMP METAB OLIC PANEL bilirubin total 0.40 mg/dL 0.10-1 .00 Not Available [facility] ([facility]) [address], [place], [address], 02/15/2025 12:33:35 02/16/20 25 02/15/2025 COMP METAB OLIC PANEL AST (SGOT) 17 U/L 0-37 Not Available [facility] ([facility]) [address] , [place], [address], 02/15/2025 12:33:35 02/16/20 25 02/15/2025 COMP METAB OLIC PANEL ALT (SGPT) 28 U/L 0-65 Not Available [facility] ([facility]) [address], [place], [address], 02/15/2025 12:33:35 02/16/20 25 02/15/2025 COMP METAB OLIC PANEL alk phosphatase 46 U/L 46-116 Not Available [facility] [address] [facility], [place], [address], 02/15/2025 12:33:35 Result Notes None recorded. 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 Procedures Surgical History Date Name Laterality Status Provider Name and Address Organization Details Recorded Time 5 Venipuncture completed Lucía Cotton PA-C [address] , [place], [address], [facility] [place] [facility] [place] 02/05/2025 12:45:05 5 Venipuncture completed Shamika Mac [place] - [facility] [place] 08/08/2024 09:28:59 Imaging Results [...] Not Available No t Available amoxicillin 875 mg-potassiu m clavulanate 125 mg tablet TAKE 1 [...] Updated DateTime 5 180.34 cm 31.4 kg/m2 584935 g 96.9 [degF] 96 % 96 % 55 /min 18 /min 138/81 mm[Hg] Shamika Mac JOHANA Aneesh TREVINO [facility] [place] 5 08:35:04 Social History Question Answer Notes LastModified by Jooce Details LastModified Time Tobacco Smoking Status Never Smoker Gerry lira JOHANA Aneesh VINR [facility] & [place] 04/15/2022 17:52:21 Do You Have An Advance Directive? No [email or web address] Information not available 12/03/2022 Are You Blind Or Do You Have Difficulty Seeing? No [email or web address] Information not available 12/03/2022 Are You Passively Exposed To Smoke? Yes [email or web address] Information not available 12/03/2022 Sex: Unknown Functional Status Question Answer Note LastModified by Jooce Details LastModified Time Do you use any illicit or recreational drugs? No [email or web address] Information not available 04/15/2022 What is your level of alcohol consumption? None [email or web address] Information not available 04/15/2022 Mental Status None recorded. Family History Nothing Reported Notes:Identical twin brother -hemachromatosis Mother-COPD Father -CVA, hypertension Medical History Condition Response Eczema Y Reflux/GERD Y Hypertension Y Immunizations Vaccine Type Date Status Note Provider Nam e and Address Organization Details Recorded Time zoster recombinant 2 completed Shamika Mac soraya JOHANA Aneesh VINMJ [facility] [place] 04/13/2023 08:09:01 zoster recombinant 2 completed Shamika Workman null, [place] - [facility] [place] [facility] [place] 04/13/2023 08:09:02 COVID-19, mRNA, LNP-S, PF, 100 mcg/0.5mL dose or 50 mcg/0.25mL dose 1 completed Shamika Workman null, [place] - [facility] [place] [facility] [place] 04/13/2023 08:09:02 COVID-19, mRNA, LNP-S, PF, 100 mcg/0.5mL dose or 50 mcg/0.25mL dose 1 completed Shamika Workman null, [place] - [facility] [place] [facility] [place] 04/13/2023 08:09:02 pneumococcal polysaccharide PPV23 7 completed Shamika Workman null, [place] - [facility] [place] [facility] [place] 04/13/2023 08:09:02 Influenza, split virus, trivalent, PF 6 completed Shamika Workman null, [place] - [facility] [place] [facility] [place] 04/13/2023 08:09:02 Td (adult), 2 Lf tetanus toxoid, preservative free, adsorbed 0 completed Shamika Workman null, [place] - [facility] [place] [facility] [place] 04/13/2023 08:09:02 Influenza, split virus, quadrivalent, PF 0 completed Shamika Workman null, [place] - [facility] [place] [facility] [place] 04/13/2023 08:09:02 Influenza, split virus, quadrivalent, PF 2 completed Shamika Workman null, [place] - [facility] [place] [facility] [place] 04/13/2023 08:09:02 Influenza, split virus, quadrivalent, PF 7 completed Shamika Workman null, [place] - [facility] [place] [facility] [place] 04/13/2023 08:09:02 Influenza, split virus, quadrivalent, PF 8 completed Shamika Workman null, [place] - [facility] [place] [facility] [place] 04/13/2023 08:09:02 Influenza, split virus, quadrivalent, PF 1 completed Shamika Workman null, [place] - [facility] [place] [facility] [place] 04/13/2023 08:09:02 Influenza, split virus, quadrivalent, PF 3 completed Not Available [facility] 02/15/2025 08:21:43 Tdap 5 completed Not Available [facility] 02/15/2025 08:21:43 Past Encounters Encounter ID Performer Location Encounter Start Date Encounter Closed Date Diagnosis/Indication Diagnosis SNOMED-CT Code Diagnosis ICD10 Code Diagnosis Note [id number] Lucía Cotton PA-C [facility] [address] [place] [address] 02/15/2025 08:21:19 02/15/2025 09:01:11 Hereditary hemochromatosis 76176045 E83.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 Initial labs [...] phlebotomy is required at this time. 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 Patient was previously followed with MRIs of the head and has not been seen since 2017. He is currently asymptomat ic and repeat MRIs head demonstrat es stable findings and no signs of changes to the pituitary area. Imaging of head abnormal 138606695 R93.0 Patient presented to [facility] with blurry vision had a CT [facility] finding in the cerebellum [...] by Organization Details LastModified Time None Recorded Payers Encounter Date Sequence Insurance Name Policy Number Policy Muñoz Covered Member ID Muñoz Member ID Guarantor Name 02/15/2025 1 [employer] (MEDICAID REPLACEMENT - HMO) [id number] Rodriguez Cerrato [id number] Rodriguez Cerrato Notes Date Note Type Note Provider Name and Address Organization Details Recorded Time 02/15/2025 text/html 54 yo M returns to [...] ferritin of 97.Previous MRIs performed at the [facility]. His last MRI there was January 15, [...] if phlebotomy is required at this time. uLcía Cotton PA-C [address], [place], [address], [facility] [place] [facility] [place] 02/15/2025 09:24:24
--- OUTSIDE RECORDS SUMMARY | 2025-02-16 11:51 | XMS_ITS | Encounter Summary ---
Author Organization [facility] Address [address] [place] [address] Care Team Providers Care Airbrush Artist Technical Name Role Phone Nitza Ivory MD Primary Care Provider [phone] Encounter Details Date Type Department Care Team (Late st Contact Info) Description 07/03/2024 Outside Procedure [facility] [address] [address] Provider, External Social History Tobacco [...] place to sleep or slept in a long term (including now)? No 08/25/2023 PHQ-9 Answer Date [...] Description 04/13/2025 11:00 AM EDT [facility] [address] [place] [address] Myranda Rain PA [address] [place] [address] 06/19/2025 8:20 AM EST Office Visit [facility] [address] [address] Nitza Ivory MD [address] [address] 10/23/2025 8:00 AM EDT Office Visit [facility] [address] [place] [address] Annie Myers S, OD [address] [place] [address] documented as of this encounter Procedures Procedure Name Priority Date/Time Associated Diagnosis Comments EGD 07/03/2024 9:07 AM EST documented in this encounter Results * EGD (07/03/2024 9:07 AM EST) Anatomical Region Laterality Modality Endoscopy 07/03/2024 8:21 AM EST Impressions 07/03/2024 9:07 AM EST Please see media tab for [...] documented as of this encounter Care Teams Airbrush Artist Technical Relationship Specialty Start Date End Date Nitza Ivory MD [address] [address] PCP - General 12/06/20 documented as of this encounter
--- OUTSIDE RECORDS SUMMARY | 2025-02-16 11:51 | XMS_ITS | Encounter Summary ---
Author Organization [facility] Address [address] [place] [address] Care Team Providers Care Continuous Improvement Coach Name Role Phone Nitza Ivory MD Primary Care Provider [phone] Encounter Details Date Type Department Care Team (Late st Contact Info) Description 12/16/2021 Lab Requisition [facility] [address] [place] [address] Yodit Tavarez MD [address] [facility] [address] [place] [address] Gómez's esophagus without dysplasia Social History Tobacco Use Types Packs/Day Years [...] Description 04/13/2025 11:00 AM EDT Office Visit [facility] [address] [place] [address] Myranda Rain PA [address] [place] [address] 06/19/2025 8:20 AM EST Office Visit [facility] [address] [place] [address] Nitza Ivory MD [address] [place] [address] 10/23/2025 8:00 AM EDT Office Visit [facility] [address] [place] [address] Annie Myers S, OD [address] [place] [address] documented as of this encounter Procedures Procedure Name Priority Date/Time Associated Diagnosis Comments SURGICAL PATHOLOGY EXAM Routine 12/16/2021 Gómez's esophagus without dysplasia documented in this encounter Results * Surgical Pathology Exam (12/16/2021) Case Report Surgical Pathology Case: [id number] Authorizing Provider: Yodit Tavarez MD Collected: 12/16/2021 Ordering Location: [facility] Lab Received: 12/16/2021 1250 Pathologist: Lindsey Jean MD Specimen: Esophagus, GE junction Bx 12/17/2021 10:36 AM EDT [facility] Final Diagnosis GASTROESOPHAGEAL JUNCTION, BIOPSY: - GÓMEZ'S ESOPHAGUS. - NO EVIDENCE OF DYPLASIA. 12/17/2021 10:36 AM EDT [facility] at 1036 EDT Clinical Information K22.70 - Gómez's esophagus without dysplasia [ICD-10-CM] Esophageal mucosal changes consistent with short-segment Gómez's esophagus 12/17/2021 10:36 AM EDT [facility] Gross Description A. GE JUNCTION BX The specimen is received in formalin labeled GE junction BX , and consists of five white-bingham soft tissue fragments ranging from 0.2-0.3 cm in greatest dimension. Entirely submitted in cassette A1. Eveline Strong 12/17/2021 10:36 AM EDT [facility] Note: A resident was involved in the service. I attest I examined the relevant preparations for the specimens and confirmed the diagnosis or interpretation. 12/17/2021 10:36 AM EDT [facility] Tissue Esophageal structure / Unknown 12/16/2021 12/16/2021 12:50 PM EDT us Yodit Tavarez MD LAB PATHOLOGY ORDERABLES Final Result [facility] [address] [place] [address] documented in this encounter Visit Diagnoses Diagnosis Gómez's esophagus without dysplasia documented in this encounter Additional Health Concerns Infection Onset Date Last Indicated Resolved Time Gastrointestinal Rule-Out 02/18/2022 02/18/2022 5:23 AM EDT C. difficile Rule-Out 02/18/2022 02/18/20222021 5:23 AM EDT Assessment Noted Time A fall risk assessment has been complete d for the patient 10/24/2021 2:07 PM EDT documented as of this encounter Care Teams Continuous Improvement Coach Relationship Specialty Start Date End Date Nitza Ivory MD [address] [place] [address] PCP - General 12/06/20 documented as of this encounter
--- NOTE | 2025-02-16 11:56 | XR_ITS ---
FINAL REPORT CLINICAL HISTORY: Chest pain, shortness of breath COMPARISON: 09/07/2021 FINDINGS: CHEST 1 VIEW No acute pulmonary opacity is present. There is no evidence of effusion or pneumothorax. Mediastinum is unremarkable. Heart size is normal. IMPRESSION: No acute abnormality. Reviewed, Interpreted and Dictated by Liv Bell MD Transcribed by Chelsey Mina Authenticated and [facility]
--- NOTE | 2025-02-16 11:57 | CT_ITS ---
FINAL REPORT TECHNIQUE: Thin section axial CT with contrast with multiplanar reconstruction This study was performed with techniques to keep radiation doses as low as reasonably achievable, (ALARA). Individualized dose reduction techniques using automated exposure control or adjustment of mA and/or kV according to the patient''s size were employed. CLINICAL HISTORY: cp ,sob FINDINGS: Pulmonary vessels enhance in normal fashion without evidence of embolism. There is mild fusiform aneurysm of the mid ascending aorta measuring 40 mm. There is no evidence of dissection. There is mild gynecomastia. No pulmonary mass or infiltrate is present. There is no significant pleural effusion. There is no significant pericardial effusion. No mediastinal or hilar adenopathy is present. IMPRESSION: No evidence of pulmonary embolism. Mild diffuse aneurysm ascending aorta. No acute lung disease. Reviewed, Interpreted and Dictated by Liv Bell MD Transcribed by Judy Carlisle Authenticated and [facility]
--- NOTE | 2025-02-16 12:01 | ECG_ITS ---
APPROVED REPORT Exam: Resting ECG HR:58 bpm ECG Measurements Heart Rate 58 AXES OH 206 P 44 QRSd 94 QRS 69 QT 411 T 73 QTc 408 [address] ELEVATION, PROBABLY EARLY REPOLARIZATION [ST ELEVATION WITH NORMALLY INFLECTED T-WAVE] BORDERLINE ECG UNCONFIRMED REPORT Electronically signed by : Kendall Summers, 02/16/2025 16:46:09
[2025-02-16 12:03] LABS: Hematocrit 43.0 % (42.0-52.0); Hemoglobin 14.2 g/dL (14.1-18.0); Immature Granulocytes % 0.4 %; Mean Corpuscular HGB Conc 33.0 g/dL (31.8-35.4); Mean Corpuscular Hemoglobin 31.0 pg (27.0-31.2); Mean Corpuscular Volume 93.9 fl (80-94); Nucleated Red Blood Cells % 0 %; Platelet Count 171 K/mm3 (142-424); Red Blood Count 4.58 M/mm3 (4.60-6.20); Red Cell Distribution Width-SD 40.7 fL; White Blood Count 7.5 K/mm3 (4.8-10.8)
[2025-02-16 12:05] LABS: Albumin Level 3.5 g/dl (3.5-5.0); Chloride 100 mmol/L (98-107); Potassium 3.9 mmoL/L (3.5-5.1); Sodium 133 mmol/L (136-145)
[2025-02-16] MEDS: ASPIRIN 81MG CHEWABLE TABLET 324 MG PO (12:06)
[2025-02-16 12:07] LABS: Blood Urea Nitrogen 15 mg/dl (9-20); Creatinine Clearance Estimated 108 mL/min (50-200); Creatinine,Serum 1.10 mg/dl (0.66-1.25); Estimated Glomerular Filt Rate 69 ml/min (>60); GFR (African American) 84 ML/MIN (>60); Magnesium 1.8 mg/dl (1.6-2.3)
[2025-02-16 12:08] LABS: Alanine Aminotransferase 23 U/L (12-78); Albumin/Globulin Ratio 0.9 (1.1-1.8); Alkaline Phosphatase 51 U/L (38-126); Anion Gap 7.9 mEq/L (5-15); Aspartate Amino Transferase 29 U/L (17-59); Bilirubin,Total 0.6 mg/dl (0.2-1.3); Calcium 9.1 mg/dl (8.4-10.2); Carbon Dioxide 29 mmol/L (22.0-30.0); Globulin 3.7 g/dL (1.3-3.2); Glucose 127 mg/dl (74-100); Total Protein,Serum 7.2 g/dl (6.3-8.2)
[2025-02-16 12:16] LABS: NT Pro Brain Natriuretic Pep. 22.7 pg/mL (0-125)
[2025-02-16 12:31] LABS: Troponin I < 0.01 ng/ml (0.00-0.034)
[2025-02-16] MEDS: 0.9 % SODIUM CHLORIDE 50 ML VIAL IV (12:31)
[2025-02-16] MEDS: IOPAMIDOL-370 (76%);100ML BOTTLE 85 ML IV (12:32)
[2025-02-16] MEDS: SODIUM CHLORIDE 0.9% 10ML SYR (RAD ONLY) 10 ML IV (12:32)
[2025-02-16 12:36] LABS: Microscopic, Urine URINE MICROSCOPIC (MICROSCOPIC)
[2025-02-16 12:37] LABS: Bilirubin,Urine Negative (Negative); Color,Urine YELLOW (Yellow); Glucose,Urine (UA) Negative (Negative); Ketones,Urine Negative (Negative); Leukocyte Esterase,Urine Negative (Negative); PH,Urine 6.0 (5.0-8.5); Protein,Urine Negative (Negative); Specific Gravity, Urine <= 1.005 (1.005-1.030); Urobilinogen,Urine 0.2 EU/dl (0.2)
[2025-02-16 12:59] LABS: Hepatitis C Ab Qual. W/ RFX NEGATIVE (Negative)
[2025-02-16 13:13] LABS: Bacteria,Urine Trace /lpf; Squamous Epithelial Cell,Urine Occasional #/hpf (0-5)
[2025-02-16 15:43] LABS: Troponin I < 0.01 ng/ml (0.00-0.034)
== END 2025-02-16 16:09 | disposition home or self-care (01) ==
PROVIDERS: Emergency Provider Emergency Medicine; PCP Dental Laboratory Technician
DX: R07.89 Other chest pain (principal); I71.21 Aneurysm of the ascending aorta, without rupture; I10 Essential (primary) hypertension; E78.5 Hyperlipidemia, unspecified; E11.9 Type 2 diabetes mellitus without complications
CPT/HCPCS: 71045; 71275; 80053; 81001; 83735; 83880; 84484; 85025; 86803; 87389; 93005; 99285; Q9967

== ENCOUNTER 2025-03-07 10:28 | Emergency (ER) | payer MEDICAID, SELFPAY ==
--- OUTSIDE RECORDS SUMMARY | 2025-02-16 08:40 | XMS_ITS | Encounter Summary ---
Author Organization [facility] Address [address] [place] [address] Care Team Providers Care Vocational Coordinator Name Role Phone Nitza Ivory MD Primary Care Provider [phone] Encounter Details Date Type Department Care Team (Late st Contact Info) Description 02/16/2025 8:40 AM EDT Office Visit [facility] [address] [place] [address] Nitza Ivory MD [address] [place] [address] Type 2 diabetes mellitus with [...] place to sleep or slept in a custodial (including now)? No 08/25/2023 PHQ-9 Answer Date [...] any time in the past 12 m [facility], were you homeless or living in a custodial (including now)? No 10/17/2024 Humiliation, Afraid, Rape, [...] any time in the past 12 m [facility], were you homeless or living in a custodial (including now)? No 02/16/2025 Safety and Environment [...] hyperglycemia, without long-term current use of insulin ([facility]) - Basic Metabolic Panel, Plasma - Hemoglobin A1c - Lipid Profile, Plasma - metFORMIN XR (Glucophage-XR) 500 MG 24 hr tablet; Take 1 tablet by mouth 2 times a day. Other hyperlipidemia - Lipid Profile, Plasma CKD (chronic kidney disease) stage 2, GFR 60-89 ml/min - Basic Metabolic Panel, Plasma Benign essential hypertension - Basic Metabolic Panel, Plasma Hypogonadism in male Pituitary macroadenoma ([facility]) - bromocriptine (Parlodel) 2.5 MG tablet; Take [...] Description 04/13/2025 11:00 AM EDT Office Visit [facility] [address] [place] [address] Myranda Rain PA [address] [place] [address] 06/19/2025 8:20 AM EST Office Visit [facility] [address] [place] [address] Nitza Ivory MD [address] [place] [address] 10/23/2025 8:00 AM EDT Office Visit [facility] [address] [place] [address] Annie Myers S, OD [address] [place] [address] documented as of this encounter Procedures Procedure Name Priority Date/Time Associated Diagnosis Comments HEMOGLOBIN A1C Routine 02/16/2025 9:12 AM EDT Type 2 diabetes mellitus with hyperglycemia, without long-term current use of insulin ([facility]) LIPID PROFILE, PLASMA Routine 02/16/2025 9:12 AM EDT Type 2 diabetes mellitus with hyperglycemia, without long-term current use of insulin ([facility]) Other hyperlipidemia BASIC METABOLIC PANEL, PLASMA Routine 02/16/2025 9:12 AM EDT Type 2 diabetes mellitus with hyperglycemia, without long-term current use of insulin (CMS/HCC) CKD (chronic kidney disease) stage 2, GFR 60-89 ml/min Benign essential hypertension documented in this encounter Results * (ABNORMAL) Lipid Profile, Plasma (02/16/2025 9:12 AM EDT) Cholesterol, Plasma 225(H) <200 mg/dL 02/16/2025 1:38 PM EDT [facility] Comment: Cholesterol Reference Range (age >17 years): Desirable <200 mg/dL Borderline 200 to 239 mg/dL Undesirable >239 mg/dL HDL 46 >=40 mg/dL 02/16/2025 1:38 PM EDT [facility] Comment: HDL Cholesterol Reference Ranges (age >17 years): Female, acceptable > or = 50 mg/dL Male, acceptable > or = 40 mg/dL Triglycerides, Plasma 118 <150 mg/dL 02/16/2025 1:38 PM EDT [facility] Comment: Triglyceride Reference Range (age >17 years): Desirable: <150 mg/dL Borderline high: 150 to 199 mg/dL High: 200 to 499 mg/dL Very high: >499 mg/dL Increased risk of pancreatitis: >1000 mg/dL Cholesterol/HDL Ratio 5 02/16/2025 1:38 PM EDT [facility] LDL, Calculated 158(H) <100 mg/dL 1:38 PM EDT [facility] Comment: LDL Cholesterol Reference Range [...] 12 hours? Yes 02/16/2025 1:38 PM EDT [facility] Blood Venous blood specimen / Unknown Venipuncture / Unknown 02/16/2025 9:12 AM EDT 02/16/2025 9:12 AM EDT us Nitza Ivory MD LAB BLOOD ORDERABLES Final Res ult [facility] [address] [place] [address] * (ABNORMAL) Hemoglobin A1c (02/16/2025 9:12 AM EDT) Hemoglobin A1c 6.0(H) <5.7 % 02/16/2025 4:15 PM EDT [facility] Blood Venous blood specimen / Unknown Venipuncture / Unknown 02/16/2025 9:12 AM EDT 02/16/2025 9:12 AM EDT Narrative [facility] - 02/16/2025 4:15 PM EDT HA1C Interpretive Data: Diagnosis of Diabetes: Diabetic > or = 6.5% Pre-diabetic 5.7 to 6.4% Non-diabetic < or = 5.6% Glycemic Targets for Type I and Type II Diabetics: Non- Adults <7.0% Adults <6.0% Children and Adolescents <7.5% Source: [employer]. Standards of medical care in diabetes,2017. Diabetes Care.2017:40 (suppl 1):S1-S135. Nitza Ivory MD LAB BLOOD ORDERABLES Final Res ult Performing Organization Address [facility] Co de Phone Number [facility] [address] [place] [address] * (ABNORMAL) Basic Metabolic Panel, Plasma (02/16/2025 9:12 AM EDT) Glucose, Plasma 105(H) 74 - 99 mg/dL 02/16/2025 1:38 PM EDT [facility] BUN, Plasma 14 7 - 21 mg/dL 02/16/2025 1:38 PM EDT [facility] Creatinine, Plasma 1.27(H) 0.70 - 1.20 mg/dL 02/16/2025 1:38 PM EDT [facility] BUN/Creatinine Ratio 11 02/16/2025 1:38 PM EDT [facility] Sodium, Plasma 138 136 - 145 mmol/L 02/16/2025 1:38 PM EDT [facility] Potassium, Plasma 4.3 3.6 - 4.9 mmol/L 02/16/2025 1:38 PM EDT [facility] Chloride, Plasma 103 97 - 107 mmol/L 02/16/2025 1:38 PM EDT [facility] CO2, Plasma 26 22 - 29 mmol/L 02/16/2025 1:38 PM EDT [facility] Anion Gap 9 6 - 16 mmol/L 02/16/2025 1:38 PM EDT [facility] Total Calcium, Plasma 9.3 8.9 - 10.2 mg/dL 02/16/2025 1:38 PM EDT [facility] eGFRcr 66.3 mL/min/1.7 3m*2 02/16/2025 1:38 PM EDT [facility] Comment:Reported eGFRcr in m L/min/1.73m2 is based the CKD-EPI 2020 equation that does not use a race coefficient. Blood Venous blood specimen / Unknown Venipuncture / Unknown 02/16/2025 9:12 AM EDT 02/16/2025 9:12 AM EDT us Nitza Ivory MD LAB BLOOD ORDERABLES Final Res ult [facility] [address] [place] [address] documented in this encounter Visit Diagnoses Diagnosis Type 2 diabetes mellitus with hyperglycemia, without long-term current use of insulin (CMS/[facility])- Primary Other hyperlipidemia CKD (chronic kidney disease) [...] documented as of this encounter Care Teams Vocational Coordinator Relationship Specialty Start Date End Date Nitza Ivory MD [address] [place] [address] PCP - General 12/06/20 documented as of this encounter
--- OUTSIDE RECORDS SUMMARY | 2025-02-20 14:40 | XMS_ITS | Encounter Summary ---
Author Organization [facility] Address [address] [place] [address] Care Team Providers Care Fiscal Economist Name Role Phone Nitza Ivory MD Primary Care Provider [phone] Reason for Referral * Consultation (Routine) - Authorized Specialty Diagnoses / Procedures Referred By Contac t Referred To Contact Cardiology Diagnoses Aneurysm of ascending aorta without rupture (CMS/HCC) Other chest pain [place] [address] Phone: tel: fax: Referral ID Status Reason Start Date Expiration Date Visits Requested Visits Authorized [id number] Authorized Specialty Services Required 02/20/2025 08/22/2026 1 1 Reason for Visit * Reason Comments Follow-up Pt went to [facility] ER for chest pain Wednesday and they stated pt has a small aortic aneurysm Encounter Details Date Type Department Care Team (Late st Contact Info) Description 02/20/2025 2:40 PM EDT Office Visit [facility] [place] [address] [place] [address] Aneurysm of ascending aorta without rupture (CMS/HCC) (Primary Dx); Other chest pain Social History Tobacco Use Types Packs/Day Years Used Date Smoking Tobacco: Never Passive Smoke Exposure: Never Smokeless Tobacco: Current Chew Tobacco Cessation:Ready to Q uit: No; Counseling Given: Yes Alcohol Use Standard Drinks/Week Comments No 0 [...] place to sleep or slept in a penitentiary (including now)? No 08/25/2023 PHQ-9 Answer Date [...] any time in the past 12 m [facility], were you homeless or living in a penitentiary (including now)? No 10/17/2024 Humiliation, Afraid, Rape, [...] any time in the past 12 m [facility], were you homeless or living in a penitentiary (including now)? No 02/16/2025 Safety and Environment [...] Sign Reading Time Taken Comments Blood Pressure 126/78 02/20/2025 2:00 PM EDT Pulse 63 02/20/2025 2:00 PM EDT Temperature 36.8 C (98.3 F) 02/20/2025 2:00 PM EDT Respiratory Rate 18 02/20/2025 2:00 PM EDT Oxygen Saturation 94% 02/20/2025 2:00 PM EDT Inhaled Oxygen Concentration - - Weight 226 kg (498 lb 0.3 oz) 02/20/2025 2:00 PM EDT Height 180.3 cm (5' 11 ) 02/20/2025 2:00 PM EDT Body Mass Index 69.46 02/20/2025 2:00 PM EDT documented in this encounter Functional Status * Calculated C-SSRS Risk Score (Lifetime/Recent) Answer Date of Assessment Author No Risk Indicated 02/20/2025 2:04 PM EDT Selene Escobar * Question Answer Date of Assessment Author 1. Wish to be (Past 1 Month) No 025 2:04 PM EDT Selene Toure 2. Non-Specific Active Suici mario Thoughts (Past 1 Month) No 02/20/2025 2:04 PM EDT Cata Toure 6. Suicidal Behavior (Lifetime) No 2:04 PM EDT Selene Toure documented as of this encounter Miscellaneous Notes * Progress Notes - Shena Youssef, RUBBER COMPOUNDER FORMULATOR - 02/20/2025 2:40 PM EDT Subjective Patient ID: Rodriguez Cerrato is a 55 y.o. male. Chief Complaint Patient presents with Follow-up Pt went to [facility] ER for chest pain Wednesday and they stated pt has a small aortic aneurysm Here for f/u on recent ER visit at [facility] last week for chest pain. Was doing some heavy work and felt chest pain so went to ER. Had felt fine earlier in the day. They chin blood and , CXR, CT scan, EKG. Told no heart attack based on labs. Told him he had an aortic aneurysm 40mm in ascending aorta. He has seen a spice cleaner in the past but not recently. Taking his htn and statin meds with no problems. No chest pain today. The following portions of the chart were reviewed this encounter and updated as appropriate: Tobacco Allergies Meds Problems Med Hx Surg Hx Fam Hx Current Medications[1] Objective Blood pressure 126/78, pulse 63, temperature 36.8 ??C (98.3 ??F), temperature source Oral, resp. rate 18, height 1.803 m (5' 11 ), weight 226 kg (498 lb 0.3 oz), SpO2 94%. Body mass index is 69.46 kg/m??. Physical Exam Vitals reviewed. Constitutional: General: He is not in acute distress. Appearance: Normal appearance. Neck: Vascular: No carotid bruit. Cardiovascular: Rate and Rhythm: Normal rate and regular rhythm. Pulmonary: Effort: Pulmonary effort is normal. Breath sounds: Normal breath sounds. Musculoskeletal: Right lower leg: Edema present. Left lower leg: Edema present. Neurological: Mental Status: He is alert and oriented to person, place, and time. Psychiatric: Mood and Affect: Mood normal. Behavior: Behavior normal. Thought Content: Thought content normal. Judgment: Judgment normal. Assessment/Plan Diagnoses and all orders for this visit: Aneurysm of ascending aorta without rupture (CMS/HCC) - Ambulatory referral to Cardiology; Future Other chest pain - Ambulatory referral to Cardiology; Future He was able to show me on his phone his results from [facility] and we called for results to scan into chart He is agreeable to see cardiology and he would like to go to one where he lives in [place] Note to patient: The Century Cures Act [...] Description 04/13/2025 11:00 AM EDT Office Visit [facility] [address] [place] [address] Koffi, Myranda M, PA [address] [place] [address] 06/19/2025 8:20 AM EST Office Visit [facility] [address] [place] [address] Nitza Ivory MD [address] [place] [address] 10/23/2025 8:00 AM EDT Office Visit [facility] [address] [place] [address] Annie Myers, OD [address] [place] [address] Scheduled Referrals Name Type Priority Associated Diagnoses Order Schedule Ambulatory referral to Cardiology Outpatient Referral Routine Aneurysm of ascending aorta without rupture (CMS/HCC) Other chest pain 1 Occurrences starting 02/20/2025 until 08/24/2026 documented as of this encounter Visit Diagnoses Diagnosis Aneurysm of ascending aorta without rupture (CMS/HCC)- Primary Other chest pain documented in this encounter Additional Health Concerns Assessment Noted Time PHQ-9 Depression Total Score: 0 10/12/19 11:15 AM EDT A fall risk assessment has been complete d for the patient 10/11/2024 11:16 AM EDT A Body Mass Index follow-up plan has been documented for the patient 11/29/2024 10:12 AM EDT documented as of this encounter Care Teams Fiscal Economist Relationship Specialty Start Date End Date Nitza Ivory MD [address] [place] [address] PCP - General 12/06/20 documented as of this encounter
[2025-03-07] VITALS (8 sets, daily range): BP systolic 102–158; BP diastolic 66–94; PULSE 52–60; RESP 13–18; TEMP 36.8–36.9; O2SAT 89–99; BMI 31.4
--- NOTE | 2025-03-07 10:31 | ECG_ITS ---
APPROVED REPORT Exam: Resting ECG HR:57 bpm ECG Measurements Heart Rate 57 AXES DE 184 P 42 QRSd 100 QRS 68 QT 421 T 72 QTc 416 Conclusion SINUS BRADYCARDIA ACUTE ID UNCONFIRMED REPORT Electronically signed by : Giuseppe Vasquez, 03/07/2025 15:49:06
--- OUTSIDE RECORDS SUMMARY | 2025-03-07 10:31 | XMS_ITS | Encounter Summary ---
Author Organization [facility] Address [address] [place] [address] Care Team Providers Care Glove Turner Name Role Phone Nitza Ivory MD Primary Care Provider [phone] Encounter Details Date Type Department Care Team ([facility] st Contact Info) Description 07/05/2023 Outside Procedure External Location [address] [place] [address] Katie South, VEHICLE DAMAGE APPRAISER, DNP [address] [place] [address] Social History Tobacco Use Types [...] Description 04/13/2025 11:00 AM EDT Office Visit [facility] [address] [place] [address] Myranda Rain PA [address] [place] [address] 06/19/2025 8:20 AM EST Office Visit [facility] [address] [place] [address] Nitza Ivory MD [address] [place] [address] 10/23/2025 8:00 AM EDT Office Visit [facility] [address] [place] [address] Annie Myers S, OD [address] [place] [address] documented as of this encounter Procedures Procedure Name Priority Date/Time Associated Diagnosis Comments XR SHOULDER LEFT 2+ VIEWS 07/05/2023 11:59 AM EST documented in this encounter Results * XR Shoulder Left 2+ Views (07/05/2023 11:59 AM EST) Anatomical Region Laterality Modality Upper Extremities, Shoulder Left Digi samantha Radiography 07/05/2023 11:5 9 AM EST Narrative 07/05/2023 1:26 PM EST [facility] [address] [place] [address] Name: RODRIGUEZ HSU Date: 07/05/2023 : 1970 Age 53 Gender: M Physician: Katie South Facility: [facility] Facility HSV: Outpatient Exam: SHOULDER COMP [...] Thank you for referring RODRIGUEZ HSU to [facility]. Legally authenticated by TAI MOE 2023-07-05 13:10:40 Procedure Note Provider, Generic Thorp - 07/05/2023 [place] [address] Name: RODRIGUEZ HSU Exam Date: 07/05/2023 : 1970 Age 53 Gender: M Physician: Katie South Facility: [facility] Facility HSV: Outpatient Exam: SHOULDER COMP [...] Claude Majano 07/05/2023 Thank you for referring RODRIUGEZ HSU to [facility]. Legally authenticated by TAI MOE 2023-07-05 13:10:40 us Katie South VEHICLE DAMAGE APPRAISER, DNP IMG XR PROCEDURES Fin al Result documented in this encounter Visit Diagnoses Not on filedocumented in this encounter Additional Health Concerns Assessment Noted Time A fall risk assessment has been complete d for the patient 10/13/2022 1:46 PM EDT A Body Mass Index follow-up plan has been documented for the patient 07/05/2023 11:52 AM EST documented as of this encounter Care Teams Glove Turner Relationship Specialty Start Date End Date Nitza Ivory MD [address] [place] [address] PCP - General 12/06/20 documented as of this encounter
--- OUTSIDE RECORDS SUMMARY | 2025-03-07 10:31 | XMS_ITS | Encounter Summary ---
Author Organization [facility] Address [address] [place] [address] Care Team Providers Care Sole Skiver Name Role Phone Nitza Ivory MD Primary Care Provider [phone] Reason for Visit * Reason Comments Med Refill Encounter Details Date Type Department Care Team (Late st Contact Info) Description 03/14/2023 Refill [facility] [address] [place] [address] Myranda Rain, PA [address] [place] [address] Intermittent diarrhea Social History Tobacco [...] for 30 day supply with 5 refill(s) [facility]. documented in this encounter Plan of Treatment Upcoming Encounters Date Type Department Care Team (Late st Contact Info) Description 04/13/2025 11:00 AM EDT Office Visit [facility] Specialties [address] [place] [address] Myranda Rain, PA [address] [place] [address] 06/19/2025 8:20 AM EST Office Visit [place] [facility] [address] [place] [address] Nitza Ivory MD [address] [place] [address] 10/23/2025 8:00 AM EDT Office Visit [facility] [address] [place] [address] Annie Myers S, OD [address] [place] [address] documented as of this encounter Visit Diagnoses Diagnosis Intermittent diarrhea documented in this encounter Additional Health Concerns Assessment Noted Time A fall risk assessment has been complete d for the patient 10/13/2022 1:46 PM EDT A Body Mass Index follow-up plan has been documented for the patient 02/16/2023 9:37 AM EDT documented as of this encounter Care Teams Sole Skiver Relationship Specialty Start Date End Date Nitza Ivory MD [address] [place] [address] PCP - General 12/06/20 documented as of this encounter
--- OUTSIDE RECORDS SUMMARY | 2025-03-07 10:31 | XMS_ITS | Clinical Summary ---
Author Organization [facility] Address [address] [place] [address] Care Team Providers Care Stone Setter Apprentice Name Role Phone Nitza Ivory MD Primary Care Provider [phone] Allergies No known active allergies Medications sildenafil [...] Additional history exists Insurance [employer] Care Teams Stone Setter Apprentice Relationship Specialty Start Date End Date Nitza Ivory MD [address] [place] [address] PCP - General Family Medicine 02/22/23
--- OUTSIDE RECORDS SUMMARY | 2025-03-07 10:31 | XMS_ITS | Encounter Summary ---
Author Organization [facility] Address [address] [place] [address] Care Team Providers Care Track Helper Name Role Phone Nitza Ivory MD Primary Care Provider [phone] Reason for Visit * Reason Comments Med Refill Encounter Details Date Type Department Care Team (Late st Contact Info) Description 07/17/2022 Refill [facility] [address] [place] [address] Nitza Ivory MD [address] [place] [address] Social History Tobacco Use Types [...] Description 04/13/2025 11:00 AM EDT Office Visit [facility] Medicine Specialties [address] [place] [address] Myranda Rain PA [address] [place] [address] 06/19/2025 8:20 AM EST Office Visit [facility] [address] [place] [address] Nitza Ivory MD [address] [place] [address] 10/23/2025 8:00 AM EDT Office Visit [facility] [address] [place] [address] Annie Myers S, OD [address] [place] [address] documented as of this encounter Visit Diagnoses Not on filedocumented in this encounter Additional Health Concerns Assessment Noted Time A fall risk assessment has been complete d for the patient 07/07/2022 3:10 PM EST documented as of this encounter Care Teams Track Helper Relationship Specialty Start Date End Date Nitza Ivory MD [address] [place] [address] PCP - General 12/06/20 documented as of this encounter
--- OUTSIDE RECORDS SUMMARY | 2025-03-07 10:31 | XMS_ITS | Encounter Summary ---
Author Organization Healthcare Address [address] [place] [address] Care Team Providers Care Sanitation Officer Name Role Phone Nitza Ivory MD Primary Care Provider [phone] Reason for Visit * Reason Comments Med Refill Encounter Details Date Type Department Care Team (Late st Contact Info) Description 04/05/2023 Refill [facility] [address] [place] [address] Myranda Rain, PA [address] [place] [address] Low vitamin D level Social [...] 90 day supply with 1 refill(s) to day [facility]. documented in this encounter Plan of Treatment Upcoming Encounters Date Type Department Care Team (Late st Contact Info) Description 04/13/2025 11:00 AM EDT Office Visit [facility] Medicine Specialties [address] [place] [address] Myranda Rain, PA [address] [place] [address] 06/19/2025 8:20 AM EST Office Visit [facility] [address] [place] [address] Nitza Ivory MD [address] [place] [address] 10/23/2025 8:00 AM EDT Office [facility] [address] [place] [address] Annie Myers, OD [address] [place] [address] documented as of this encounter Visit Diagnoses Diagnosis Low vitamin D level documented in this encounter Additional Health Concerns Assessment Noted Time A fall risk assessment has been complete d for the patient 10/13/2022 1:46 PM EDT A Body Mass Index follow-up plan has been documented for the patient 02/16/2023 9:37 AM EDT documented as of this encounter Care Teams Sanitation Officer Relationship Specialty Start Date End Date Nitza Ivory MD [address] [place] [address] PCP - General 12/06/20 documented as of this encounter
--- OUTSIDE RECORDS SUMMARY | 2025-03-07 10:32 | XMS_ITS | Encounter Summary ---
Author Organization [facility] Address [address] [place] [address] Care Team Providers Care Athletic Field Custodian Name Role Phone Nitza Ivory MD Primary Care Provider [phone] Encounter Details Date Type Department Care Team (Late Contact Info) Description 09/23/2021 Lab Requisition [facility] [address] [place] [address] Yodit Tavarez MD [address] [facility] [address] [place] [address] Unspecified abdominal pain Social History Tobacco Use [...] Description 04/13/2025 11:00 AM EDT Office Visit [facility] Medicine Specialties [address] [place] [address] Myranda Rain PA [address] [place] [address] 06/19/2025 8:20 AM EST Office Visit [facility] [address] [place] [address] Nitza Ivory MD [address] [place] [address] 10/23/2025 8:00 AM EDT Office Visit [facility] [address] [place] [address] Annie Myers S, OD [address] [place] [address] documented as of this encounter Procedures Procedure Name Priority Date/Time Associated Diagnosis Comments SURGICAL PATHOLOGY EXAM Routine 09/22/2021 Unspecified abdominal pain documented in this encounter Results * Surgical Pathology Exam (09/22/2021) Case Report Surgical Pathology Case: [id number] Authorizing Provider: Yodit Tavarez MD Collected: 09/22/2021 Ordering Location: [facility] Lab Received: 09/23/2021 1244 Pathologist: Joce Mathews [...] - HYPERPLASTIC POLYP 09/24/2021 12:15 PM EST [facility] at 1215 EST Clinical Information Abdominal [...] Martina B Rodriguez 09/24/2021 12:15 PM EST [facility] Note: A resident was involved in the service. I attest I examined the relevant preparations for the specimens and confirmed the diagnosis or interpretation. 09/24/2021 12:15 PM EST [facility] Tissue Stomach structure / Unknown 09/22/2021 [...] PATHOLOGY ORDERABLES Final Result [facility] [address] [place] [address] documented in this encounter Visit Diagnoses Diagnosis [...] documented as of this encounter Care Teams Athletic Field Custodian Relationship Specialty Start Date End Date Nitza Ivory MD [address] [place] [address] PCP - General 12/06/20 documented as of this encounter
--- OUTSIDE RECORDS SUMMARY | 2025-03-07 10:32 | XMS_ITS | Encounter Summary ---
Author Organization Healthcare Address [address] [place] [address] Care Team Providers Care Chemical Analyst Name Role Phone Nitza Ivory MD Primary Care Provider Encounter Details Date Type Department Care Team (Late st Contact Info) Description 07/03/2024 Lab Requisition [facility] [address] [place] [address] Timothy Maldonado MD [address] [place] [address] Encounter for screening for malignant neoplasm of [...] Description 04/13/2025 11:00 AM EDT Office Visit [facility] Medicine Specialties [address] [place] [address] Myranda Rain PA [address] [place] [address] 06/19/2025 8:20 AM EST Office Visit [facility] [address] [place] [address] Nitza Ivory MD [address] [place] [address] 10/23/2025 8:00 AM EDT Office Visit [facility] [address] [place] [address] Annie Myers S, OD [address] [facility] [address] [place] [address] documented as of this encounter Procedures Procedure Name Priority Date/Time Associated Diagnosis Comments SURGICAL PATHOLOGY EXAM Routine 07/03/2024 Encounter for screening for malignant neoplasm of colon documented in this encounter Results * Surgical Pathology Exam (07/03/2024) Case Report Surgical Pathology Case: [id number] Authorizing Provider: Timothy Maldonado, Collected: 07/03/2024 Ordering Location: [facility] Lab Received: 07/03/2024 1119 Pathologist: Lindsey Jean MD Specimens: A) - Gastric, gastic biopsy B) - Gastric, GE Junction biopsy C) - Colon, random colon biopsy D) - Colon, transverse colon polyp 07/05/2024 9:40 AM [facility] Final Diagnosis A. STOMACH, BIOPSY: - REACTIVE GASTROPATHY. - NO H. PYLORI ORGANISMS IDENTIFIED ON H&E SLIDE. B. GASTROESOPHAGEAL JUNCTION, BIOPSY: - GE JUNCTION MUCOSA WITH MILD CHRONIC INFLAMMATION. - NEGATIVE FOR INTESTINAL METAPLASIA. C. LARGE INTESTINE, RANDOM COLON, BIOPSY: - NO PATHOLOGIC ABNORMALITIES. D. LARGE INTESTINE, TRANSVERSE COLON, POLYP, BIOPSY: - TUBULAR ADENOMA. 07/05/2024 9:40 AM [facility] at 0940 EST Clinical Information Encounter for screening for malignant neoplasm of colon Colon surveillance Hx of Rice's Diarrhea with incontinence Normal esophagus Diffuse mildly erythematous mucosa in the gastric antrum Normal duodenum 4 mm sessile polyp in the transverse colon 07/05/2024 9:40 AM EST [facility] Gross Description A. GASTIC BIOPSY Received in formalin labeled g astric biopsy are 3 bingham-brown soft tissues measuring 0.3-0.4 cm. Entirely submitted in cassette A1. Cold Time: 0 Manisah T Richy B. GE JUNCTION BIOPSY Received [...] Manisha T Lockhart 07/05/2024 9:40 AM EST [facility] Note: A resident was involved in the service. I attest I examined the relevant preparations for the specimens and confirmed the diagnosis or interpretation. 07/05/2024 9:40 AM EST [facility] Tissue Colon structure / Unknown 07/03/2024 07/03/2024 11:19 AM EST Tissue specimen (specimen) Stomach structure / Unknown 07/03/2024 07/03/2024 11:19 AM EST Tissue specimen (specimen) Colon structure / Unknown 07/03/2024 07/03/2024 11:19 AM EST Tissue specimen (specimen) Colon structure / Unknown 07/03/2024 07/03/2024 11:19 AM EST Timothy Maldonado MD LAB PATHOLOGY ORDERABL ES Final Result [facility] [address] [place] [address] documented in this encounter Visit Diagnoses Diagnosis [...] documented as of this encounter Care Teams Chemical Analyst Relationship Specialty Start Date End Date Nitza Ivory MD [address] [place] [address] PCP - General 12/06/20 documented as of this encounter
--- OUTSIDE RECORDS SUMMARY | 2025-03-07 10:32 | XMS_ITS | Encounter Summary ---
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 Social History Tobacco [...] Description 04/13/2025 11:00 AM EDT Office Visit [facility] [address] [place] [address] Myranda Rain PA [address] [place] [address] 06/19/2025 8:20 AM EST Office Visit [facility] [address] [place] [address] Nitza Ivory MD [address] [place] [address] 10/23/2025 8:00 AM EDT Office Visit [facility] [address] [place] [address] Annie Myers S, OD [address] [place] [address] documented as of this encounter Procedures Procedure Name Priority Date/Time Associated Diagnosis Comments SURGICAL PATHOLOGY EXAM Routine 12/16/2021 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 - NO EVIDENCE OF DYPLASIA. 12/17/2021 10:36 AM EDT [facility] at 1036 EDT Clinical Information [id number] [...] diagnosis or interpretation. 12/17/2021 10:36 AM EDT [facility] Tissue Esophageal structure / Unknown 12/16/2021 12/16/2021 12:50 PM EDT us Yodit Tavarez MD LAB PATHOLOGY ORDERABLES Final Result [facility] [address] [place] [address] documented in this encounter Visit Diagnoses Diagnosis [...] documented as of this encounter Care Teams Picture Copyist Relationship Specialty Start Date End Date Nitza Ivory MD [address] [place] [address] PCP - General 12/06/20 documented as of this encounter
--- OUTSIDE RECORDS SUMMARY | 2025-03-07 10:32 | XMS_ITS | Encounter Summary ---
Author Organization [facility] Address [address] [place] [address] Care Team Providers Care Meteorologist In Charge Name Role Phone Nitza Ivory MD Primary Care Provider [phone] Reason for Visit * Reason Comments Med Refill Encounter Details Date Type Department Care Team (Late st Contact Info) Description 08/02/2021 Refill [facility] [address] [place] [address] Nitza Ivory MD [address] [place] [address] Erectile dysfunction due to diseases [...] Description 04/13/2025 11:00 AM EDT Office Visit [facility] Medicine Specialties [address] [place] [address] Myranda Rain, PA [address] [place] [address] 06/19/2025 8:20 AM EST Office Visit [facility] [address] [place] [address] Nitza Ivory MD [address] [place] [address] 10/23/2025 8:00 AM EDT Office Visit [facility] [address] [place] [address] Annie Myers S, OD [address] [place] [address] documented as of this encounter Visit Diagnoses Diagnosis Erectile dysfunction due to diseases classified elsewhere Hypogonadism in male documented in this encounter Additional Health Concerns Infection Onset Date Last Indicated Resolved Time Gastrointestinal Rule-Out 02/18/2022 02/18/2022 5:23 AM EDT C. difficile Rule-Out 02/18/2022 02/18/20222021 5:23 AM EDT documented as of this encounter Care Teams Meteorologist In Charge Relationship Specialty Start Date End Date Nitza Ivory MD [address] [place] [place] [address] PCP - General 12/06/20 documented as of this encounter
--- OUTSIDE RECORDS SUMMARY | 2025-03-07 10:32 | XMS_ITS | Encounter Summary ---
Author Organization [facility] Address [address] [place] [address] Care Team Providers Care Hairspring Cutter Name Role Phone Nitza Ivory MD Primary Care Provider [phone] Encounter Details Date Type Department Care Team (Late st Contact Info) Description 02/19/2025 Results Follow-Up [facility] [address] [place] [address] Nitza Ivory MD [address] [place] [address] Social History Tobacco Use Types [...] any time in the past 12 m ont, were you homeless or living in a long term (including now)? No 10/17/2024 Humiliation, Afraid, Rape, [...] any time in the past 12 m onths, were you homeless or living in a long term (including now)? No 02/16/2025 Safety and Environment [...] Selene Toure documented as of this encounter Plan of Treatment Upcoming Encounters Date Type Department Care Team (Late st Contact Info) Description 04/13/2025 11:00 AM EDT Office Visit [facility] [address] [place] [address] Myranda Rain PA [address] [place] [address] 06/19/2025 8:20 AM EST Office Visit [facility] [address] [place] [address] Nitza Ivory MD [address] [place] [address] 10/23/2025 8:00 AM EDT Office Visit [facility] [address] [place] [address] Annie Myers S, OD [address] [place] [address] documented as of this encounter [...] documented as of this encounter Care Teams Hairspring Cutter Relationship Specialty Start Date End Date Nitza Ivory MD [address] [place] [address] PCP - General 12/06/20 documented as of this encounter
--- OUTSIDE RECORDS SUMMARY | 2025-03-07 10:32 | XMS_ITS | Encounter Summary ---
Author Organization Healthcare Address [address] [place] [address] Care Team Providers Care Industry Consultant Name Role Phone Nitza Ivory MD Primary Care Provider [phone] Encounter Details Date Type Department Care Team [...] place to sleep or slept in a detention (including now)? No 08/25/2023 PHQ-9 Answer Date [...] were you homeless or living in a detention (including now)? No 10/17/2024 Humiliation, Afraid, Rape, [...] were you homeless or living in a detention (including now)? No 02/16/2025 Safety and Environment [...] Visit [facility] [address] [place] [address] Myranda Rain PA [address] [place] [address] 06/19/2025 8:20 AM EST Office Visit [facility] [address] [place] [address] Nitza Ivory MD [address] [place] [address] 10/23/2025 8:00 AM EDT Office Visit [facility] [address] [place] [address] Myers, Annie S, OD [address] [place] [address] documented as of this encounter [...] documented as of this encounter Care Teams Industry Consultant Relationship Specialty Start Date End Date Nitza Ivory MD [address] [place] [address] PCP - General 12/06/20 documented as of this encounter
--- OUTSIDE RECORDS SUMMARY | 2025-03-07 10:32 | XMS_ITS | Clinical Summary ---
Author Organization [facility] Address [address] [place] [address] Care Team Providers Care Shuttle Repairer Name Role Phone Nitza Ivory MD Primary Care Provider [phone] Allergies No known active allergies Medications cholecalciferol [...] daily. 90 tablet 3 10/18/19 25 Active sildenafil (Viagra) 100 MG tabletIndications: Hypogonadism [...] tip and replace cap. 48 g 3 02/17/20 25 Active bromocriptine (Parlodel) 2.5 MG [...] cap. 48 g 3 06/14/20 24 025 Discontinu ed(Reorder ) bromocriptine (Parlodel) 2.5 MG tabletIndications: Pituitary macroadenoma (CMS/HCC) Take 1 tablet (2.5 mg) by mouth 1 (one) time each day. 90 tablet 3 06/14/20 24 025 Discontinu ed(Reorder ) cetirizine (ZyrTEC) 10 MG tabletIndications: Allergic rhinitis, unspecified seasonality, unspecified trigger,Mild intermittent asthma without complication Take 1 tablet (10 mg) by mouth every night. 90 tablet 3 06/14/20 24 025 Discontinu ed(Reorder ) metFORMIN XR (Glucophage-XR) 500 MG 24 hr tabletIndications: Type 2 diabetes mellitus with hyperglycemia, without long-term current use of insulin ([facility]) Take 1 tablet (500 mg) by mouth in the morning and 1 tablet (500 mg) before bedtime. 180 tablet 1 10/18/19 25 025 Discontinu ed(Reorder ) triamcinolone (Kenalog) 0.1 % creamIndications:P soriasis Apply to affected area 1-2 times daily as needed. Avoid face and groin. 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 Esophagitis, [place] grade A 03/13/2022 Habitual snoring 02/23/2020 Pituitary [...] Encounters Date Type Department Care Team Description 02/20/2025 2:40 PM EDT Office Visit [facility] [address] [place] [address] Shena Youssef APRN Aneurysm of ascending aorta without rupture (CMS/HCC) (Primary Dx); Other chest pain 02/20/2025 Travel 02/19/2025 Results Follow-Up [facility] [address] [place] [address] Nitza Ivory MD 02/16/2025 8:40 AM EDT Office Visit [facility] [address] [place] [address] Nitza Ivory MD Type 2 diabetes mellitus with hyperglycemia, without long-term current use of insulin (CMS/HCC) (Primary Dx); Other hyperlipidemia; CKD (chronic kidney disease) stage 2, GFR 60-89 ml/min; Benign essential hypertension; Hypogonadism in male; Pituitary macroadenoma (CMS/HCC); Allergic rhinitis, unspecified seasonality, unspecified trigger; Mild intermittent asthma without complication 02/16/2025 Travel 01/03/2025 Refill [facility] [address] [place] [address] Nitza Ivory MD Hypogonadism in male; Erectile dysfunction due to diseases classified elsewhere from Last 3 Months Immunizations Immunization Administration [...] Brother 1 Alec Hypertension Brother 2 Rodriguez eCrrato Cataracts Father Jose cerrato Conversions - Other [...] place to sleep or slept in a group home (including now)? No 08/25/2023 PHQ-9 Answer [...] [facility] or living in a group home (including now)? No 10/17/2024 Humiliation, Afraid, Rape, [...] any time in the past [facility], were you homeless or living in a group home (including now)? No 02/16/2025 Safety and Environment [...] Mass Index 69.46 02/20/2025 2:00 PM EDT Plan of Treatment Upcoming Encounters Date Type Department Care Team (Late st Contact Info) Description 04/13/2025 11:00 AM EDT Office Visit [facility] [address] [place] [address] Myranda Rain PA [address] [place] [address] 06/19/2025 8:20 AM EST Office Visit [facility] [address] [place] [address] Nitza Ivory MD [address] [place] [address] 10/23/2025 8:00 AM EDT Office Visit [facility] [address] [place] [address] Annie Myers S, OD [address] [place] [address] Health Maintenance Due Date Last Done Comments Diabetes: Dental Exam 1979 [facility]-Hepatitis B Vaccines (1 of 3 - 19+ 3-dose series) 01/22/1988 CT Colonography 2014 FIT-DNA 2014 FIT 2014 FOBT 2014 Sigmoidoscopy 2014 [facility]-Pneumococcal Vaccine: 50+ Years (3 of 3 - PCV) 05/12/2018 05/12/2017, 05/12/2017 [id number] Vaccine (3 - Moderna risk series) 12/04/2020 11/06/2020, 10/09/2020 [facility]-Influenza Vaccine (#1) 03/26/202505/25, 03/10/2022, 06/16/2021, Additional history exists [facility]-Diabetes: Hemoglobin A1C 08/16/2025, 10/17/2024, 06/14/2024, Additional history exists [facility]- SDOH Screenings 08/19/2025 [facility]-Adult SDOH Screenings 08/19/2025 02/16/2025 [facility]-Infant/Child/Adol SDOH Screenings 08/19/2025 02/16/2025 [facility]-Depression Screening 10/11/2025 10/11/2024, 03/1 03/2025 Colonoscopy 07/03/2034 07/03/2024, 12/03/2024, 09/22/2021 [facility]-Colorectal Cancer Screening 07/03/2034 [facility]-DTaP,Tdap,and Td Vaccines (2 - Td or Tdap) 12/10/2034 12/10/2024, 11/06/2019, 11/06/2019 [facility]-HIV Screening Completed 09/08/2021 [facility]-Hepatitis C Screening Completed 09/08/2021 [facility]-Zoster Vaccines Completed 03/10/2022, 01/27/202 2 [facility]-Obesity Intervention Completed 025, 10/17/2024, 10/11/2024, Additional [...] Procedure Name Priority Date/Time Associated Diagnosis Comments LIPID PROFILE, PLASMA Routine 02/16/2025 9:12 AM EDT Type 2 diabetes mellitus with hyperglycemia, without long-term current use of insulin (CMS/HCC) Other hyperlipidemia HEMOGLOBIN A1C Routine 02/16/2025 9:12 AM EDT Type 2 diabetes mellitus with hyperglycemia, without long-term current use of insulin (CMS/HCC) BASIC METABOLIC PANEL, PLASMA Routine 02/16/2025 9:12 AM EDT Type 2 diabetes mellitus with hyperglycemia, without long-term current use of insulin (CMS/HCC) CKD (chronic kidney disease) stage 2, GFR 60-89 ml/min Benign essential hypertension COLONOSCOPY 07/03/2024 9:05 AM EST HEPATITIS C ANTIBODY - ED W/REFLEX TO HCV QUANT PCR STAT 09/08/2021 8:09 PM EST HIV 1/2 ANTIBODY/ANTIGEN SCREEN WITH REFLEX TO HIV I/II DIFFERENTIATION STAT 09/08/2021 8:09 PM EST from Last 3 Months or Most Recently Relevant to Health Maintenance Results * (ABNORMAL) Hemoglobin A1c (02/16/2025 9:12 AM EDT) Hemoglobin A1c 6.0(H) <5.7 % 02/16/2025 4:15 PM EDT [facility] Blood Venous blood specimen / Unknown Venipuncture / Unknown 02/16/2025 9:12 AM EDT 02/16/2025 9:12 AM EDT Narrative [facility] - 02/16/2025 4:15 PM EDT HA1C Interpretive Data: Diagnosis of Diabetes: Diabetic > or = 6.5% Pre-diabetic 5.7 to 6.4% Non-diabetic < or = 5.6% Glycemic Targets for Type I and Type II Diabetics: Non- Adults <7.0% Adults <6.0% Children and Adolescents <7.5% Source: [place] [employer]. Standards of medical care in diabetes,2017. Diabetes Care.2017:40 (suppl 1):S1-S135. us Nitza Ivory MD LAB BLOOD ORDERABLES Final Res ult [facility] [address] [place] [address] * (ABNORMAL) Lipid Profile, Plasma (02/16/2025 9:12 AM EDT) Cholesterol, Plasma 225(H) <200 mg/dL 02/16/2025 1:38 PM EDT [facility] Comment: Cholesterol Reference Range (age >17 years): Desirable <200 mg/dL Borderline 200 to 239 mg/dL Undesirable >239 mg/dL HDL 46 >=40 mg/dL 02/16/2025 1:38 PM EDT [facility] Comment: HDL Cholesterol Reference Ranges (age >17 years): Female, acceptable > or = 50 mg/dL Male, acceptable > or = 40 mg/dL Triglycerides, Plasma 118 <150 mg/dL 02/16/2025 1:38 PM EDT [facility] Comment: Triglyceride Reference Range (age >17 years): Desirable: <150 mg/dL Borderline high: 150 to 199 mg/dL High: 200 to 499 mg/dL Very high: >499 mg/dL Increased risk of pancreatitis: >1000 mg/dL Cholesterol/HDL Ratio 5 02/16/2025 1:38 PM EDT [facility] LDL, Calculated 158(H) <100 mg/dL 1:38 PM EDT [facility] Comment: LDL Cholesterol Reference Range (age [...] 12 hours? Yes 02/16/2025 1:38 PM EDT [facility] Blood Venous blood specimen / Unknown Venipuncture / Unknown 02/16/2025 9:12 AM EDT 02/16/2025 9:12 AM EDT us Nitza Ivory MD LAB BLOOD ORDERABLES Final Res ult [facility] [address] [place] [address] * (ABNORMAL) Basic Metabolic Panel, Plasma (02/16/2025 9:12 AM EDT) Glucose, Plasma 105(H) 74 - 99 mg/dL 02/16/2025 1:38 PM EDT [facility] BUN, Plasma 14 7 - 21 mg/dL 02/16/2025 1:38 PM EDT [facility] Creatinine, Plasma 1.27(H) 0.70 - 1.20 mg/dL 02/16/2025 1:38 PM EDT [facility] BUN/Creatinine Ratio 11 02/16/2025 1:38 PM EDT [facility] Sodium, Plasma 138 136 - 145 mmol/L 02/16/2025 1:38 PM EDT [facility] Potassium, Plasma 4.3 3.6 - 4.9 mmol/L 02/16/2025 1:38 PM EDT [facility] Chloride, Plasma 103 97 - 107 mmol/L 02/16/2025 1:38 PM EDT [facility] CO2, Plasma 26 22 - 29 mmol/L 02/16/2025 1:38 PM EDT [facility] Anion Gap 9 6 - 16 mmol/L 02/16/2025 1:38 PM EDT [facility] Total Calcium, Plasma 9.3 8.9 - 10.2 mg/dL 02/16/2025 1:38 PM EDT [facility] eGFRcr 66.3 mL/min/1.7 3m*2 02/16/2025 1:38 PM EDT [facility] Comment:Reported eGFRcr in m L/min/1.73m2 is based the CKD-EPI 2020 equation that does not use a race coefficient. Blood Venous blood specimen / Unknown Venipuncture / Unknown 02/16/2025 9:12 AM EDT 02/16/2025 9:12 AM EDT us Nitza Ivory MD LAB BLOOD ORDERABLES Final Res ult Performing Organization Address City[facility] Co de Phone Number [facility] [address] [place] [address] * Colonoscopy (07/03/2024 9:05 AM EST) Anatomical [...] Screen Nonreactive Nonreactive 09/08/2021 9:35 PM EST [facility] Blood Venous blood specimen / Unknown Venipuncture / Unknown 09/08/2021 8:09 PM EST 09/08/2021 8:27 PM EST us Michael Joiner MD LAB BLOOD ORDERABLES Final Result Performing Organization Address City/[facility]/ZIP Co de Phone Number [facility] [address] [place] [address] * [place] Hepatitis C Antibody (09/08/2021 8:09 PM EST) Hepatitis C Antibody Negative Negative 09/08/2021 9:35 PM EST [facility] Blood Venous blood specimen / Unknown Venipuncture / Unknown 09/08/2021 8:09 PM EST 09/08/2021 8:27 PM EST Michael Joiner MD LAB BLOOD ORDERABLES Final Result [facility] [address] [place] [address] from Last 3 Months or Most Recently Relevant to Health Maintenance Insurance [employer] [place] [employer] [facility] MEDICAID REPLACEMENT Care Teams Shuttle Repairer Relationship Specialty Start Date End Date Nitza Ivory MD [address] [place] [address] PCP - General 12/06/20
--- OUTSIDE RECORDS SUMMARY | 2025-03-07 10:32 | XMS_ITS | Encounter Summary ---
Author Organization [facility] Address [address] [place] [address] Care Team Providers Care Transitions Rn Care Coordinator Name Role Phone Nitza Ivory MD Primary Care Provider [phone] Reason for Visit * Reason Comments Med Refill Encounter Details Date Type Department Care Team (Late st Contact Info) Description 08/23/[address] [facility] [address] [place] [address] Nitza Ivory MD [address] [place] [address] Hypogonadism in male; Erectile dysfunction [...] place to sleep or slept in a usp (including now)? No 08/25/2023 PHQ-9 Answer Date [...] Description 04/13/2025 11:00 AM EDT Office Visit [facility] [address], [address] [place] [address] Myranda Rain PA [address] [place] [address] 06/19/2025 8:20 AM EST Office Visit [facility] [address] [place] [address] Nitza Ivory MD [address] [place] [address] 10/23/2025 8:00 AM EDT Office Visit [facility] [address] [place] [address] Anine Myers, OD [address] [place] [address] documented as of this encounter [...] documented as of this encounter Care Teams Transitions Rn Care Coordinator Relationship Specialty Start Date End Date Nitza Ivory MD [address] [place] [address] PCP - General 12/06/20 documented as of this encounter
--- OUTSIDE RECORDS SUMMARY | 2025-03-07 10:32 | XMS_ITS | Encounter Summary ---
Author Organization [facility] Address [address] [place] [address] Care Team Providers Care Fire Crew Worker Name Role Phone Nitza Ivory MD Primary Care Provider [phone] Encounter Details Date Type Department Care Team (Late st Contact Info) Description 07/03/2024 Outside Procedure [facility] [address] [address] Provider, External Social History Tobacco [...] No 08/25/2023 Housing Stability Vital Sign Answer Omrales e Recorded In the last 12 months, [...] health care facility (including now)? No 08/25/2023 PHQ-9 Answer Date [...] Description 04/13/2025 11:00 AM EDT Office Visit [facility] [address], [address] [place] [address] Myranda Rain PA [address] [place] [address] 06/19/2025 8:20 AM EST Office Visit [facility] [address] [address] Nitza Ivory MD [address] [address] 10/23/2025 8:00 AM EDT Office Visit [facility] [address] [place] [address] Annie Myers S, OD [address] [place] [address] documented as of this encounter [...] documented as of this encounter Care Teams Fire Crew Worker Relationship Specialty Start Date End Date Nitza Ivory MD [address] [address] PCP - General 12/06/20 documented as of this encounter
--- OUTSIDE RECORDS SUMMARY | 2025-03-07 10:32 | XMS_ITS | Encounter Summary ---
Author Organization [facility] Address [address] [place] [address] Care Team Providers Care Exhibit Specialist Name Role Phone Nitza Ivory MD Primary Care Provider [phone] Encounter Details Date Type Department Care Team (Late st Contact Info) Description 07/29/2023 Outside Procedure External Location [address] [place] [address] Katie South, EXCELSIOR MACHINE OPERATOR, DNP [address] [place] [address] Social History Tobacco Use Types [...] Description 04/13/2025 11:00 AM EDT Office Visit [facility] [address], [address] [place] [address] Myranda Rain, CITLALI [address] [place] [address] 06/19/2025 8:20 AM EST Office Visit [facility] [address] [place] [address] Nitza Ivory MD [address] [place] [address] 10/23/2025 8:00 AM EDT Office Visit [facility] [address] [place] [address] Annie Myers S, OD [address] [facility] [address] [place] [address] documented as of this encounter Procedures Procedure Name Priority Date/Time Associated Diagnosis Comments MR SHOULDER LEFT WO IV CONTRAST 07/29/2023 2:09 PM EST documented in this encounter Results * MR Shoulder Left wo IV Contrast (07/29/2023 2:09 PM EST) Anatomical Region Laterality Modality Upper Extremities Left Magnetic Reson ance 07/29/2023 2:09 PM EST Narrative 07/29/2023 4:40 PM EST [address] [address] Name: RODRIGUEZ HSU Exam Date: 07/29/2023 : 1970 Age 53 Gender: M Physician: Katie South Facility: [facility] Facility HSV: Outpatient Exam: MRI SHOULDER W/O [...] Thank you for referring RODRIGUEZ HSU to . Legally authenticated by PREETI Rueda III 2023-07-29 16:24:14 Procedure Note Provider, Generic [place] - 07/29/2023 [place] [address] Name: RODRIGUEZ HSU Exam Date: 07/29/2023 : 1970 Age 53 Gender: M Physician: Katie South Facility: [facility] Facility HSV: Outpatient Exam: MRI SHOULDER W/O [...] Thank you for referring RODRIGUEZ HSU to . Legally authenticated by PREETI Rueda III 2023-07-29 [...] documented as of this encounter Care Teams Exhibit Specialist Relationship Specialty Start Date End Date Nitza Ivory MD [address] [place] [address] PCP - General 12/06/20 documented as of this encounter
--- OUTSIDE RECORDS SUMMARY | 2025-03-07 10:32 | XMS_ITS | Encounter Summary ---
Author Organization [facility] Address [address] [place] [address] Care Team Providers Care Robot Designer Name Role Phone Nitza Ivory MD Primary Care Provider [phone] Encounter Details Date Type Department Care Team (Late st Contact Info) Description 12/16/2021 Outside Procedure [address] [address] Provider, External Social History Tobacco [...] Description 04/13/2025 11:00 AM EDT Office Visit [place] [facility] [address] [place] [address] Myranda Rain PA [address] [place] [address] 06/19/2025 8:20 AM EST Office Visit [facility] [address] [place] [address] Nitza Ivory MD [address] [place] [address] 10/23/2025 8:00 AM EDT Office Visit [facility] [address] [place] [address] Annie Myers S, OD [address] [place] [address] documented as of this encounter [...] documented as of this encounter Care Teams Robot Designer Relationship Specialty Start Date End Date Nitza Ivory MD [address] [place] [address] PCP - General 12/06/20 documented as of this encounter
--- OUTSIDE RECORDS SUMMARY | 2025-03-07 10:32 | XMS_ITS | Encounter Summary ---
Author Organization Healthcare Address [address] [place] [address] Care Team Providers Care Medical Transport Specialist Name Role Phone Nitza Ivory MD Primary Care Provider [phone] Reason for Visit * Reason Comments Med Refill Encounter Details Date Type Department Care Team (Late st Contact Info) Description 09/29/2023 Refill [facility] [address], [address] [place] [address] Myranda Rain PA [address] [place] [address] Intermittent diarrhea Social History Tobacco [...] place to sleep or slept in a residential (including now)? No 08/25/2023 Utilities Answer Date [...] Description 04/13/2025 11:00 AM EDT Office Visit [facility] [address] [place] [address] Myranda Rain, PA [address] [place] [address] 06/19/2025 8:20 AM EST Office Visit [facility] [address] [place] [address] Nitza Ivory MD [address] [place] [address] 10/23/2025 8:00 AM EDT Office Visit [facility] [address] [facility] [place] [address] Annie Myers S, OD [address] [facility] [address] [place] [address] documented as of this encounter Visit Diagnoses Diagnosis Intermittent diarrhea documented in this encounter Additional Health Concerns Assessment Noted Time A fall risk assessment has been complete d for the patient 10/13/2022 1:46 PM EDT A Body Mass Index follow-up plan has been documented for the patient 08/25/2023 9:42 AM EST documented as of this encounter Care Teams Medical Transport Specialist Relationship Specialty Start Date End Date Nitza Ivory MD [address] [place] [address] PCP - General 12/06/20 documented as of this encounter
--- OUTSIDE RECORDS SUMMARY | 2025-03-07 10:32 | XMS_ITS | Encounter Summary ---
Author Organization [facility] Address [address] [place] [address] Care Team Providers Care Manager File Name Role Phone Nitza Ivory MD Primary Care Provider [phone] Encounter Details Date Type Department Care Team (Late st Contact Info) Description 07/03/2024 Outside Procedure [facility] [address] [address] Provider, External Social History Tobacco [...] Visit [facility] [address] [place] [address] Myranda Rain PA [address] [place] [address] 06/19/2025 8:20 AM EST Office Visit [facility] [address] [address] Nitza Ivory MD [address] [address] 10/23/2025 8:00 AM EDT Office Visit [facility] [address] [place] [address] Annie Myers S, OD [address] [place] [address] documented as of this encounter [...] documented as of this encounter Care Teams Manager File Relationship Specialty Start Date End Date Nitza Ivory MD [address] [address] PCP - General 12/06/20 documented as of this encounter
--- OUTSIDE RECORDS SUMMARY | 2025-03-07 10:32 | XMS_ITS | Encounter Summary ---
Author Organization Healthcare Address [address] [place] [address] Care Team Providers Care Name Plate Stamping Machine Operator Name Role Phone Nitza Ivory MD Primary Care Provider [phone] Encounter Details Date Type Department Care Team (Latest Contact Info) Description 02/20/2025 Travel Social History Tobacco Use Types Packs/Day [...] any time in the past 12 m [facility], were you homeless or [...] any time in the past 12 m [facility], were you homeless or [...] Description 04/13/2025 11:00 AM EDT Office Visit [place] [facility] [address] [place] [address] Myranda Rain PA [address] [place] [address] 06/19/2025 8:20 AM EST Office Visit [facility] [address] [place] [address] Nitza Ivory MD [address] [place] [address] 10/23/2025 8:00 AM EDT Office Visit [facility] [address] [place] [address] Annie Myers S, OD [address] [place] [address] documented as of this encounter [...] documented as of this encounter Care Teams Name Plate Stamping Machine Operator Relationship Specialty Start Date End Date Nitza Ivory MD [address] [place] [address] PCP - General 12/06/20 documented as of this encounter
--- OUTSIDE RECORDS SUMMARY | 2025-03-07 10:32 | XMS_ITS | Encounter Summary ---
Author Organization [facility] Address [address] [place] [address] Care Team Providers Care Shield Installer Name Role Phone Nitza Ivory MD Primary Care Provider [phone] Reason for Visit * Reason Comments Med Refill Encounter Details Date Type Department Care Team (Late st Contact Info) Description 01/03/2025 Refill [facility] [address] [place] [address] Nitza Ivory MD [address] [place] [address] Hypogonadism in male; Erectile dysfunction [...] in the past [address] [facility], were you homeless or living in a fdc (including now)? No 10/17/2024 Utilities Answer Date [...] Visit [facility] [address] [place] [address] Myranda Rain PA [address] [place] [address] 06/19/2025 8:20 AM EST Office Visit [facility] [address] [place] [address] Nitza Ivory MD [address] [place] [address] 10/23/2025 8:00 AM EDT Office Visit [facility] [address] [place] [address] Annie Myers S, OD [address] [place] [address] documented as of this encounter [...] documented as of this encounter Care Teams Shield Installer Relationship Specialty Start Date End Date Nitza Ivory MD [address] [place] [address] PCP - General 12/06/20 documented as of this encounter
--- NOTE | 2025-03-07 10:48 | XR_ITS ---
FINAL REPORT CLINICAL HISTORY: Shortness of breath COMPARISON: 02/16/2025 FINDINGS: A single view of the chest was obtained. No acute pulmonary opacity is present. There is no evidence of effusion or pneumothorax. Mediastinum is unremarkable. Heart size is normal. IMPRESSION: No acute abnormality. Reviewed, Interpreted and Dictated by Liv Bell MD Transcribed by Helga Robert Authenticated and [facility]
--- NOTE | 2025-03-07 10:52 | HMH.EDCP ---
Discharge Plan Disposition Patient Disposition: Home, Self-Care Prescriptions Prescriptions: No Action pantoprazole 40 mg tablet,delayed release (DR/EC) 40 mg PO DAILY colestipol 1 gram tablet PO atenolol 25 MG tablet 50 mg PO DAILY bromocriptine 2.5 MG tablet 2.5 mg PO DAILY metformin 500 mg tablet extended release 24 hr 500 mg PO DAILY cetirizine 10 mg tablet 10 mg PO DAILY Patient Comments: TAKE 1 TABLET BY MOUTH EVERY NIGHT testosterone 20.25 mg/1.25 gram (1.62 %) gel in metered-dose pump 6 pump topical DAILY Patient Comments: PLACE 6 PUMPS ONTO THE SKIN EVERY DAY Referrals Follow up/Referrals: Toma Roberson MD [Primary Care Provider, Medical] - See instructions Aba Albright MD [Staff Physician, Cardiology] - See instructions Activity Restrictions/Add. Instructions Additional Instructions/Restrictions: No evidence of an acute cardiopulmonary emergency today you may follow-up with your transmitter supervisor as previously instructed. Return with any significant worsening of your symptoms. Clinical Impressions Clinical Impression: Chest pain Print Language Print Language: Singaporean Discharge ED [facility]: [facility] General Chief Complaint: Chest Pain Stated Complaint: chest pain Time Seen by Provider: 03/07/25 10:35 Mode of Arrival: Ambulatory Description of Symptoms (Recalled from ER Triage Doc. by RN): Pt reports left sided chest pressure that started about an hour ago. History of Present Illness HPI narrative: Patient is a 55-year-old presenting today with chest pain. States that chest pain lasted 5 minutes was pressure about an hour ago and has been asymptomatic since that time. Was here a few weeks ago had an EKG that showed nonspecific ST elevations in the inferior lateral precordial leads but had a negative workup at that time aside from getting a CTA of the chest which showed a 4 cm thoracic ascending aneurysm. This is the patient's main concern today as he was recently told about that. He is currently without any discomfort. No exertional symptoms no pain radiating to his back no diaphoresis associated with this etc. Had a normal stress test 1 year ago and he stated that it was a stress echo in [place]. Is currently being followed by her cardiology team. Related Data Home Medications ?Medication ?Instructions ?Recorded ?Confirmed atenolol 25 mg tablet 50 mg PO DAILY Hypertension 01/18/18 03/05/25 bromocriptine 2.5 mg tablet 2.5 mg PO DAILY brain tumor 01/18/18 03/05/25 cetirizine 10 mg tablet 10 mg PO DAILY 07/03/23 03/05/25 testosterone 6 pump topical DAILY 07/03/23 03/05/25 metformin 500 mg tablet,extended 500 mg PO DAILY 12/09/23 03/05/25 release 24 hr colestipol 1 gram tablet g PO 03/05/25 03/05/25 pantoprazole 40 mg tablet,delayed 40 mg PO DAILY 03/05/25 03/05/25 release Allergies Allergy/AdvReac Type Severity Reaction Status Date / Time No Known Allergies Allergy Verified 03/05/25 09:36 [facility] Disclaimer: The information contained in this section may have been updated after the patient was seen, as this information can be updated by other users. Medical History (Updated 03/07/25 @ 10:49 by Phil Vasquez MD) Prediabetes Hyperlipidemia Chest pain Family history of ischemic heart disease Abnormal ECG Asthma Cancer Hypertension Family History (Updated 03/05/25 @ 10:06 by Smiley Rodriguez RN) Father Stroke Mother Cancer Heart attack Grandmother Heart attack Grandfather Heart attack Social History Smoking Status: Never smoker alcohol intake: never current occupational status: employed Travel in the last 8 weeks?: None Other Medical History Have you received the Flu Vaccine for this season: Yes Have you received the Pneumonia Vaccine: Yes ROS Obtained: Yes All systems reviewed & no additional complaints except as documented Physical Exam General General appearance: alert Respiratory Respiratory exam: Present normal lung sounds bilaterally Cardiovascular Cardiovascular exam: Present regular rate and normal rhythm Neurological Exam Neurological exam: Present alert and oriented X3 HEART Score HEART Score HEART Score assessment performed?: Yes History (anamnesis): Slightly suspicious ECG: Significant ST-deviation Age: 45-65 years Risk factors: 1-2 risk factors Troponin: </= normal limit HEART Score: 4 Procedures Miscellaneous Procedure Procedure Performed: Limited cardiac ultrasound Indication: Chest pain Identified structures: The heart was visualized in the parasternal long axis, parastenal short axis, apical four chamber and subxyphiod views. The IVC was visualized in the short axis and long axis at its entry into the right atrium. Findings: Normal LVEF without any evidence of regional wall motion abnormalities no evidence of any pericardial effusion or significant or severe right heart strain either Impression: Normal bedside ultrasound of the heart Images were saved to permanent archive The study was technically adequate CPT: 69023-41 This study was performed by me, and I personally interpreted all images/videos. Based on my clinical judgement, these images were [adequate/inadequate] and [did/did not] necessitate further imaging. Critical Care Critical Care Time Critical Care Time: No Medical Decision Making [place] Inquiry Pt receiving controlled substance: No Vital Signs Vital Signs: 03/07/25 10:32 03/07/25 11:01 03/07/25 11:30 Temperature 98.2 F Temperature Source Oral Pulse Rate 58 L 55 L Pulse Rate [Right Brachial] 57 L Respiratory Rate 18 15 16 Blood Pressure 148/78 H 131/82 Blood Pressure [Right Arm] 158/94 H Blood Pressure Mean [Right Arm] 115 Blood Pressure Source Blood Pressure Source [Right Arm] Automatic Cuff Blood Pressure Position Blood Pressure Position [Right Arm] Sitting 02 Sat by Pulse Oximetry 97 96 96 Oxygen Delivery Method Room Air 03/07/25 12:00 03/07/25 12:30 03/07/25 13:00 Temperature Temperature Source Pulse Rate 53 L 52 L 58 L Pulse Rate [Right Brachial] Respiratory Rate 16 17 16 Blood Pressure 102/66 L 121/74 135/81 Blood Pressure [Right Arm] Blood Pressure Mean [Right Arm] Blood Pressure Source Blood Pressure Source [Right Arm] Blood Pressure Position Blood Pressure Position [Right Arm] 02 Sat by Pulse Oximetry 96 96 96 Oxygen Delivery Method 03/07/25 14:00 03/07/25 14:48 Temperature 98.4 F Temperature Source Oral Pulse Rate 60 Pulse Rate [Right Brachial] Respiratory Rate 13 15 Blood Pressure 120/73 120/67 Blood Pressure [Right Arm] Blood Pressure Mean [Right Arm] Blood Pressure Source Automatic Cuff Blood Pressure Source [Right Arm] Blood Pressure Position Supine Blood Pressure Position [Right Arm] 02 Sat by Pulse Oximetry 89 L Oxygen Delivery Method Room Air Lab Data Lab results reviewed: Yes I reviewed the patient's lab results. Labs: Lab Results 03/07/25 10:30: WBC 7.6, RBC 4.71, Hgb 15.1, Hct 44.7, MCV 94.9 H, MCH 32.1 H, MCHC 33.8, RDW 11.8, Plt Count 171, MPV 10.2, Neut % (Auto) 58.4, Lymph % (Auto) 24.2, [place] % (Auto) 9.2, Eos % (Auto) 7.4, Baso % (Auto) 0.5, Neut # (Auto) 4.4, Lymph # (Auto) 1.8, [place] # (Auto) 0.7, Eos # (Auto) 0.6 H, Baso # (Auto) 0.0, D-Dimer 0.85 H, Sodium 136, Potassium 4.2, Chloride 102, Carbon Dioxide 29, Anion Gap 9.2, BUN 13, Creatinine 1.20, Estimated Creat Clear 99, Estimated GFR 63, Est GFR ( Amer) 76, Glucose 127 H, Calcium 9.1, Total Bilirubin 0.6, AST 33, ALT 26, Alkaline Phosphatase 50, Troponin I < 0.01, Total Protein 7.3, Albumin 4.2, Globulin 3.1, Albumin/Globulin Ratio 1.4 03/07/25 13:27: Troponin I < 0.01 03/07/25 10:30 03/07/25 10:30 Response Orders (Tests/Meds): ORDERS Category Date Time Status CXR --portable [XR chest portable] Stat Exams 03/07/25 10:48 Completed POCUS Point of Care (ER Only) Stat Exams 03/07/25 10:35 Completed CBC w/Auto Diff [Complete Blood Count Auto Diff] Stat Lab 03/07/25 10:30 Completed CMP [Comprehensive Metabolic Panel] Stat Lab 03/07/25 10:30 Completed D-Dimer Stat Lab 03/07/25 10:30 Completed Trop I [Troponin I] Stat Lab 03/07/25 10:30 Completed Troponin I Q3H Lab 03/07/25 13:27 Completed MDM Narrative Medical Decision Narrative: 55-year-old with above history and physical EKG I personally interpreted which shows a ventricular rate of 57 sinus bradycardia there are ST elevations in the inferior lateral precordial leads with what appears to be benign early repolarization some small Q waves in the inferior leads this is all consistent with EKG that was performed on 725 and unchanged there were no significant reciprocal changes. Additionally patient had similar morphology from EKGs from 2020. Again he is also asymptomatic right now this is not consistent with acute myocardial infarction. Bedside echo was also performed at the bedside has normal LV function without any regional wall motion abnormalities images were saved see procedure note. Will get serial troponins and get a D-dimer I do not believe this is an aortic dissection or worsening of his aneurysm either he just had a scan a few days ago. With him being asymptomatic will not get a CT scan at the moment less his D-dimer significantly elevated. Overall has been reassured and will follow-up closely outpatient with cardiology assuming serial troponins are negative he has been placed in ED observation status. Reassessment after several hours of observation patient remained asymptomatic the entire time that he was here. He only had a 5-minute episode of chest discomfort that preceded his presentation today again his EKG shows the above findings but without any symptoms the entirety of his stay here does not consistent with ACS. He is stable to follow-up outpatient with cardiology. D-dimer less than 1.0 clinically are not concerned about an aortic dissection or worsening aneurysm or pulmonary embolism so did not proceed this further with. He has been advised to return with any significant worsening of his symptoms and will follow-up outpatient with cardiology serial troponins were undetectably low. He was discharged in stable condition.
[2025-03-07 10:54] LABS: Hematocrit 44.7 % (42.0-52.0); Hemoglobin 15.1 g/dL (14.1-18.0); Immature Granulocytes % 0.3 %; Mean Corpuscular HGB Conc 33.8 g/dL (31.8-35.4); Mean Corpuscular Hemoglobin 32.1 pg (27.0-31.2); Mean Corpuscular Volume 94.9 fl (80-94); Nucleated Red Blood Cells % 0 %; Platelet Count 171 K/mm3 (142-424); Red Blood Count 4.71 M/mm3 (4.60-6.20); Red Cell Distribution Width-SD 40.7 fL; White Blood Count 7.6 K/mm3 (4.8-10.8)
[2025-03-07 11:13] LABS: Alanine Aminotransferase 26 U/L (12-78); Albumin Level 4.2 g/dl (3.5-5.0); Albumin/Globulin Ratio 1.4 (1.1-1.8); Alkaline Phosphatase 50 U/L (38-126); Anion Gap 9.2 mEq/L (5-15); Aspartate Amino Transferase 33 U/L (17-59); Bilirubin,Total 0.6 mg/dl (0.2-1.3); Blood Urea Nitrogen 13 mg/dl (9-20); Calcium 9.1 mg/dl (8.4-10.2); Carbon Dioxide 29 mmol/L (22.0-30.0); Chloride 102 mmol/L (98-107); Creatinine Clearance Estimated 99 mL/min (50-200); Creatinine,Serum 1.20 mg/dl (0.66-1.25); Estimated Glomerular Filt Rate 63 ml/min (>60); GFR (African American) 76 ML/MIN (>60); Globulin 3.1 g/dL (1.3-3.2); Glucose 127 mg/dl (74-100); Potassium 4.2 mmoL/L (3.5-5.1); Sodium 136 mmol/L (136-145); Total Protein,Serum 7.3 g/dl (6.3-8.2)
[2025-03-07 11:19] LABS: D-Dimer 0.85 ug/mL (0.0-0.5)
[2025-03-07 11:39] LABS: Troponin I < 0.01 ng/ml (0.00-0.034)
[2025-03-07 14:19] LABS: Troponin I < 0.01 ng/ml (0.00-0.034)
== END 2025-03-07 14:52 | disposition home or self-care (01) ==
PROVIDERS: Emergency Provider Student in an Organized Health Care Education/Training Program; PCP Surgery
DX: R07.9 Chest pain, unspecified (principal); R00.1 Bradycardia, unspecified; I10 Essential (primary) hypertension; E78.5 Hyperlipidemia, unspecified
CPT/HCPCS: 71045; 80053; 84484; 85025; 85378; 93005; 99284

== ENCOUNTER 2025-03-16 07:35 | Outpatient (CLI) | payer MEDICAID, SELFPAY ==
--- OUTSIDE RECORDS SUMMARY | 2025-02-16 08:40 | XMS_ITS | Encounter Summary ---
Author Organization [facility] Address [address] [place] [address] Care Team Providers Care Credit Negotiator Name Role Phone Nitza Ivory MD Primary Care Provider [phone] Encounter Details Date Type Department Care Team (Late st Contact Info) Description 02/16/2025 8:40 AM EDT Office Visit [facility] [address] [place] [address] Nitza Ivory MD [address] [place] [address] Type 2 diabetes mellitus with hyperglycemia, without long-term current use of insulin (CMS/HCC) (Primary Dx); Other hyperlipidemia; CKD (chronic kidney disease) stage 2, GFR 60-89 ml/min; Benign essential hypertension; Hypogonadism in male; Pituitary macroadenoma (CMS/HCC); Allergic rhinitis, unspecified seasonality, unspecified trigger; Mild intermittent asthma without complication Social History Tobacco Use Types Packs/Day Years Used Date Smoking Tobacco: Never Passive Smoke Exposure: Never Smokeless Tobacco: Current Chew Tobacco Cessation:Ready to Q uit: Not Asked; Counseling Given: Not Answered Alcohol Use Standard Drinks/Week Comments No 0 (1 standard drink = 0.6 oz pur e alcohol) Alcoholic Drinks/day: Alcohol PHQ-2 Answer Date Recorded Patient Health Questionnaire-2 Score 0 10/11/2024 Housing Stability Vital Sign Answer Morales e Recorded In the last 12 months, was t here a time when you were not able to pay the mortgage or rent on time? No 08/25/2023 In the last 12 months, how many places have you lived? 1 08/25/2023 In the last 12 months, was t here a time when you did not have a steady place to sleep or slept in a chcf (including now)? No 08/25/2023 PHQ-9 Answer Date Recorded Patient Health Questionnaire-9 Score 0 10/11/2024 Housing Stability Vital Sign Answer Morales e Recorded In the last 12 months, was t here a time when you were not able to pay the mortgage or rent on time? No 10/17/2024 Number of Times Moved in the Last Year Not on fi le 10/17/2024 At any time in the past 12 m [facility], were you homeless or living in a chcf (including now)? No 10/17/2024 Humiliation, Afraid, Rape, and Kick questionnair e Answer Date Recorded Within the last year, have y ou been afraid of your partner or ex-partner? No 02/16/2025 Within the last year, have y ou been humiliated or emotionally abused in other ways by your partner or ex-partner? No Within the last year, have y ou been kicked, hit, slapped, or otherwise physically hurt by your partner or ex-partner? No 02/16/2025 Within the last year, have y ou been raped or forced to have any kind of sexual activity by your partner or ex-partner? No 02/16/2025 Hunger Vital Sign Answer Date Recorded Within the past 12 months, y ou worried that your food would run out before you got the money to buy more. Never true 02/17/20 Within the past 12 months, t he food you bought just didn't last and you didn't have money to get more. Never true 02/16/2025 PRAPARE - Transportation Answer Date Re corded In the past 12 months, has l ack of transportation kept you from medical appointments or from getting medications? No 01/24 In the past 12 months, has l ack of transportation kept you from meetings, work, or from getting things needed for daily living? No 02/16/2025 Housing Stability Vital Sign Answer Morales e Recorded In the last 12 months, was t here a time when you were not able to pay the mortgage or rent on time? No 02/16/2025 Number of Times Moved in the Last Year Not on fi le 02/16/2025 At any time in the past 12 m [facility], were you homeless or living in a chcf (including now)? No 02/16/2025 Safety and Environment Answer Date Roger rded Do you worry that your child may have been physically abused? No 02/16/2025 Do you worry that your child may have been sexua lly abused? No 02/16/2025 Are there any guns kept in o r around your home or where your child spends time? No 02/16/2025 Guns Unloaded or Locked Away Not on file Utilities Answer Date Recorded In the past 12 months has e electric, gas, oil, or water company threatened to shut off services in your home? No 02/16/2025 PHQ-2A Answer Date Recorded Patient Health Questionnaire-2 Score 0 07/05/2023 Sex and Gender Information Value Date Recorded Sex Assigned at Male 08/07/2021 2:28 PM EST Legal Sex Male 7:36 PM EDT Gender Identity Male 08/07/2021 2:28 PM EST Sexual Orientation Straight 08/07/2021 2: 28 PM EST documented as of this encounter Last Filed Vital Signs Vital Sign Reading Time Taken Comments Blood Pressure 130/84 02/16/2025 8:35 AM EDT Pulse 57 02/16/2025 8:35 AM EDT Temperature 36.7 C (98 F) 02/16/2025 8:35 AM EDT Respiratory Rate 16 02/16/2025 8:35 AM EDT Oxygen Saturation 96% 02/16/2025 8:35 AM EDT Inhaled Oxygen Concentration - - Weight 103 kg (226 lb 3.1 oz) 02/16/2025 8:35 AM EDT Height 180.3 cm (5' 11 ) 02/16/2025 8:35 AM EDT Body Mass Index 31.55 02/16/2025 8:35 AM EDT documented in this encounter Functional Status * Calculated C-SSRS Risk Score (Lifetime/Recent) Answer Date of Assessment Author No Risk Indicated 02/16/2025 8:39 AM EDT Katarzyna Reyna * Question Answer Date of Assessment Author 1. Wish to be (Past 1 Month) No 025 8:39 AM EDT Katarzyna Renya 2. Non-Specific Active Suici mario Thoughts (Past 1 Month) No 02/16/2025 8:39 AM EDT Katarzyna Reyna 6. Suicidal Behavior (Lifetime) No 8:39 AM EDT Katarzyna Reyna documented as of this encounter Miscellaneous Notes * Progress Notes - Nitza Ivory MD - 02/16/2025 8:40 AM EDT Subjective Patient ID: Rodriguez Cerrato is a 55 y.o. male. No chief complaint on file. HPI DM: dx in september 2023 at 9.7 (had been on steroids and eating whatever I wanted. ) Last 6.1% and none over 200 recently. Has been started on metformin 500mg XR BID, and tolerating ok (but not 1000mg). Reports readings in 100s recently. -Now on crestor 20mg. -reports 117-131 in Morning Has hx of Rice's esophagus: repeat EGD due 2025?. Continue PPI. Diarrhea improved with Colestipol. HTN: Reports no CP or SOA, almost controlled today. Psoriasis: uses kenalog cream, needs refill CKD: stage 2/3a and stable on last labs. Hx of hemochromatosis: Dr. José/Lucía Cotton manages and hasn't needed intervention in a few years. 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 PSA due in May, CBC okin May. ZULY: recently dx and not good about wearing CPAP, struggle with getting used to it. HM: colonoscopy due Dec due to fair prep and one polyp. EGD then as well? Current Medications[1] Pertinent review of systems has been performed and negative except as noted in HPI. Pertinent areas of the chart reviewed include social, family, past medical and surgical history. Objective Physical Exam Vitals and nursing note reviewed. Constitutional: General: He is not in acute distress. Appearance: Normal appearance. He is well-developed. He is not toxic-appearing. HENT: Head: Normocephalic and atraumatic. Nose: Nose normal. Eyes: Conjunctiva/sclera: Conjunctivae normal. Cardiovascular: Rate and Rhythm: Normal rate. Pulmonary: Effort: Pulmonary effort is normal. Skin: General: Skin is warm and dry. Neurological: Mental Status: He is alert and oriented to person, place, and time. Gait: Gait normal. Psychiatric: Mood and Affect: Mood normal. Behavior: Behavior normal. Thought Content: Thought content normal. Assessment/Plan Diagnoses and all orders for this visit: Type 2 diabetes mellitus with hyperglycemia, without long-term current use of insulin ([facility]) - Basic Metabolic Panel, Plasma - Hemoglobin A1c - Lipid Profile, Plasma - metFORMIN XR (Glucophage-XR) 500 MG 24 hr tablet; Take 1 tablet by mouth 2 times a day. Other hyperlipidemia - Lipid Profile, Plasma CKD (chronic kidney disease) stage 2, GFR 60-89 ml/min - Basic Metabolic Panel, Plasma Benign essential hypertension - Basic Metabolic Panel, Plasma Hypogonadism in male Pituitary macroadenoma ([facility]) - bromocriptine (Parlodel) 2.5 MG tablet; Take 1 tablet by mouth daily. Allergic rhinitis, unspecified seasonality, unspecified trigger - fluticasone (Flonase) 50 MCG/ACT nasal spray; Administer 2 sprays into each nostril daily. Shake gently. Before first use, prime pump. After use, clean tip and replace cap. - cetirizine (ZyrTEC) 10 MG tablet; Take 1 tablet by mouth nightly. Mild intermittent asthma without complication - cetirizine (ZyrTEC) 10 MG tablet; Take 1 tablet by mouth nightly. DM labs today HLD check, now on statin CKD monitoring Other conditions controlled Follow up in about 4 months (around 06/19/2025). Note to patient: The Century Cures Act makes medical notes like these available to patients inthe interest of transparency. However, be advised this is a medical document. It is intended as peer to peer communication. It is written in medical language and may contain abbreviations or verbiagethat are unfamiliar. It may appear blunt or direct. Medical documents are intended to carry relevant information, facts as evident, and the clinical opinion of the practitioner. [1] Current Outpatient Medications: atenolol (Tenormin) 50 MG tablet, Take 1 tablet (50 mg) by mouth 1 (one) time each day., Disp: 90 tablet, Rfl: 3 bromocriptine (Parlodel) 2.5 MG tablet, Take 1 tablet by mouth daily., Disp: 90 tablet, Rfl: 3 cetirizine (ZyrTEC) 10 MG tablet, Take 1 tablet by mouth nightly., Disp: 90 tablet, Rfl: 3 cholecalciferol (Vitamin D3) 25 MCG (1000 UT) capsule, TAKE 1 CAPSULE BY MOUTH ONCE DAILY, SEPARATEFROM HEARTBURN MEDS, Disp: 90 capsule, Rfl: 1 colestipol (Colestid) 1 g tablet, Take 1 tablet (1 g) by mouth in the morning and 1 tablet (1 g) inthe evening. Take after meals. Take at least 1 hour after or 4 hours before other medications., Disp: 60 tablet, Rfl: 4 dicyclomine (Bentyl) 10 MG capsule, Take 1 capsule (10 mg) by mouth 2 (two) times a day as needed (abd pain)., Disp: 120 capsule, Rfl: 2 fluticasone (Flonase) 50 MCG/ACT nasal spray, Administer 2 sprays into each nostril daily. Shake gently. Before first use, prime pump. After use, clean tip and replace cap., Disp: 48 g, Rfl: 3 loperamide (Imodium A-D) 2 MG tablet, Take 1 tablet on days has diarrhea., Disp: 30 tablet, Rfl: 11 metFORMIN XR (Glucophage-XR) 500 MG 24 hr tablet, Take 1 tablet by mouth 2 times a day., Disp: 180 tablet, Rfl: 1 pantoprazole (Protonix) 40 MG EC tablet, Take 1 tablet (40 mg) by mouth daily before breakfast. Do not crush, chew, or split., Disp: 90 tablet, Rfl: 3 rosuvastatin (Crestor) 20 MG tablet, Take 1 tablet (20 mg) by mouth daily., Disp: 90 tablet, Rfl: 3 sildenafil (Viagra) 100 MG tablet, Take 1 tablet (100 mg) by mouth daily as needed for erectile dysfunction., Disp: 30 tablet, Rfl: 11 Testosterone (AndroGel Pump) 20.25 MG/ACT (1.62%) gel, Place 6 Pump on the skin daily., Disp: 225 g, Rfl: 5 triamcinolone (Kenalog) 0.1 % cream, Apply to affected area 1-2 times daily as needed. Avoid face and groin., Disp: 80 g, Rfl: 3 documented in this encounter Plan of Treatment Upcoming Encounters Date Type Department Care Team (Late st Contact Info) Description 04/13/2025 11:00 AM EDT Office Visit [facility] [address] [place] [address] Myranda Rain PA [address] [place] [address] 06/19/2025 8:20 AM EST Office Visit [facility] [address] [place] [address] Nitza Ivory MD [address] [place] [address] 10/23/2025 8:00 AM EDT Office Visit [facility] [address] [place] [address] Annie Myers S, OD [address] [facility] [address] [place] [address] documented as of this encounter Procedures Procedure Name Priority Date/Time Associated Diagnosis Comments HEMOGLOBIN A1C Routine 02/16/2025 9:12 AM EDT Type 2 diabetes mellitus with hyperglycemia, without long-term current use of insulin ([facility]) LIPID PROFILE, PLASMA Routine 02/16/2025 9:12 AM EDT Type 2 diabetes mellitus with hyperglycemia, without long-term current use of insulin ([facility]) Other hyperlipidemia BASIC METABOLIC PANEL, PLASMA Routine 02/16/2025 9:12 AM EDT Type 2 diabetes mellitus with hyperglycemia, without long-term current use of insulin (CMS/HCC) CKD (chronic kidney disease) stage 2, GFR 60-89 ml/min Benign essential hypertension documented in this encounter Results * (ABNORMAL) Lipid Profile, Plasma (02/16/2025 9:12 AM EDT) Cholesterol, Plasma 225(H) <200 mg/dL 02/16/2025 1:38 PM EDT [facility] Comment: Cholesterol Reference Range (age >17 years): Desirable <200 mg/dL Borderline 200 to 239 mg/dL Undesirable >239 mg/dL HDL 46 >=40 mg/dL 02/16/2025 1:38 PM EDT [facility] Comment: HDL Cholesterol Reference Ranges (age >17 years): Female, acceptable > or = 50 mg/dL Male, acceptable > or = 40 mg/dL Triglycerides, Plasma 118 <150 mg/dL 02/16/2025 1:38 PM EDT [facility] Comment: Triglyceride Reference Range (age >17 years): Desirable: <150 mg/dL Borderline high: 150 to 199 mg/dL High: 200 to 499 mg/dL Very high: >499 mg/dL Increased risk of pancreatitis: >1000 mg/dL Cholesterol/HDL Ratio 5 02/16/2025 1:38 PM EDT [facility] LDL, Calculated 158(H) <100 mg/dL 1:38 PM EDT [facility] Comment: LDL Cholesterol Reference Range (age >17 years): Optimal: <100 mg/dL Near or above optimal: 100 - 129 mg/dL Borderline high: 130 - 159 mg/dL High: 160 - 189 mg/dL Very high: >189 mg/dL LDL Cholesterol Reference Range (age <18 years): Desirable: <110 mg/dL Borderline: 110 - 129 mg/dL Undesirable: >130 mg/dL LDL Cholesterol is calculated using the Hunter/NIH equation. Fasting greater than or equal to 12 hours? Yes 02/16/2025 1:38 PM EDT [facility] Blood Venous blood specimen / Unknown Venipuncture / Unknown 02/16/2025 9:12 AM EDT 02/16/2025 9:12 AM EDT us Nitza Ivory MD LAB BLOOD ORDERABLES Final Res ult [facility] [address] [place] [address] * (ABNORMAL) Hemoglobin A1c (02/16/2025 9:12 AM EDT) Hemoglobin A1c 6.0(H) <5.7 % 02/16/2025 4:15 PM EDT [facility] Blood Venous blood specimen / Unknown Venipuncture / Unknown 02/16/2025 9:12 AM EDT 02/16/2025 9:12 AM EDT Narrative [facility] - 02/16/2025 4:15 PM EDT HA1C Interpretive Data: Diagnosis of Diabetes: Diabetic > or = 6.5% Pre-diabetic 5.7 to 6.4% Non-diabetic < or = 5.6% Glycemic Targets for Type I and Type II Diabetics: Non- Adults <7.0% Adults <6.0% Children and Adolescents <7.5% Source: [place] [employer]. Standards of medical care in diabetes,2017. Diabetes Care.2017:40 (suppl 1):S1-S135. Nitza Ivory MD LAB BLOOD ORDERABLES Final Res ult Performing Organization Address [facility] Co de Phone Number [facility] [address] [place] [address] * (ABNORMAL) Basic Metabolic Panel, Plasma (02/16/2025 9:12 AM EDT) Glucose, Plasma 105(H) 74 - 99 mg/dL 02/16/2025 1:38 PM EDT [facility] BUN, Plasma 14 7 - 21 mg/dL 02/16/2025 1:38 PM EDT [facility] Creatinine, Plasma 1.27(H) 0.70 - 1.20 mg/dL 02/16/2025 1:38 PM EDT [facility] BUN/Creatinine Ratio 11 02/16/2025 1:38 PM EDT [facility] Sodium, Plasma 138 136 - 145 mmol/L 02/16/2025 1:38 PM EDT [facility] Potassium, Plasma 4.3 3.6 - 4.9 mmol/L 02/16/2025 1:38 PM EDT [facility] Chloride, Plasma 103 97 - 107 mmol/L 02/16/2025 1:38 PM EDT [facility] CO2, Plasma 26 22 - 29 mmol/L 02/16/2025 1:38 PM EDT [facility] Anion Gap 9 6 - 16 mmol/L 02/16/2025 1:38 PM EDT [facility] Total Calcium, Plasma 9.3 8.9 - 10.2 mg/dL 02/16/2025 1:38 PM EDT [facility] eGFRcr 66.3 mL/min/1.7 3m*2 02/16/2025 1:38 PM EDT [facility] Comment:Reported eGFRcr in m L/min/1.73m2 is based the CKD-EPI 2020 equation that does not use a race coefficient. Blood Venous blood specimen / Unknown Venipuncture / Unknown 02/16/2025 9:12 AM EDT 02/16/2025 9:12 AM EDT us Nitza Ivory MD LAB BLOOD ORDERABLES Final Res ult [facility] [address] [place] [address] documented in this encounter Visit Diagnoses Diagnosis Type 2 diabetes mellitus with hyperglycemia, without long-term current use of insulin ([facility])- Primary Other hyperlipidemia CKD (chronic kidney disease) stage 2, GFR 60-89 ml/min Chronic kidney disease, Stage II (mild) Benign essential hypertension Essential hypertension, benign Hypogonadism in male Pituitary macroadenoma (CMS/HCC) Benign neoplasm of pituitary gland and craniopharyngeal duct (pouch) Allergic rhinitis, unspecified seasonality, unspecified trigger Mild intermittent asthma without complication documented in this encounter Additional Health Concerns Assessment Noted Time PHQ-9 Depression Total Score: 0 10/12/19 11:15 AM EDT A fall risk assessment has been complete d for the patient 10/11/2024 11:16 AM EDT A Body Mass Index follow-up plan has been documented for the patient 11/29/2024 10:12 AM EDT documented as of this encounter Care Teams Credit Negotiator Relationship Specialty Start Date End Date Nitza Ivory MD [address] [place] [address] PCP - General 12/06/20 documented as of this encounter
--- OUTSIDE RECORDS SUMMARY | 2025-02-20 14:40 | XMS_ITS | Encounter Summary ---
Author Organization [facility] Address [address] [place] [address] Care Team Providers Care Brakes Inspector Name Role Phone Nitza Ivory MD Primary Care Provider [phone] Reason for Referral * Consultation (Routine) - Authorized Specialty Diagnoses / Procedures Referred By Contac t Referred To Contact Cardiology Diagnoses Aneurysm of ascending aorta without rupture (CMS/HCC) Other chest pain [place] [address] Phone: tel: fax: Referral ID Status Reason Start Date Expiration Date Visits Requested Visits Authorized [id number] Authorized Specialty Services Required 02/20/2025 08/22/2026 1 1 Reason for Visit * Reason Comments Follow-up Pt went to [facility] ER for chest pain Wednesday and they stated pt has a small aortic aneurysm Encounter Details Date Type Department Care Team (Late st Contact Info) Description 02/20/2025 2:40 PM EDT Office Visit [facility] [place] [address] [place] [address] Aneurysm of ascending aorta without [...] place to sleep or slept in a fdc (including now)? No 08/25/2023 PHQ-9 Answer Date [...] any time in the past 12 m [facility], were you homeless or living in a fdc (including now)? No 10/17/2024 Humiliation, Afraid, Rape, [...] any time in the past 12 m [facility], were you homeless or living in a fdc (including now)? No 02/16/2025 Safety and Environment [...] Miscellaneous Notes * Progress Notes - Shena Youssfe, CLINICAL EDUCATION SPECIALIST - 02/20/2025 2:40 PM EDT Subjective Patient ID: Rodriguez Cerrato is a 55 y.o. male. Chief Complaint Patient presents with Follow-up Pt went to [facility] ER for chest pain Wednesday and they stated pt has a small aortic aneurysm Here for f/u on recent ER visit at [facility] last week for chest pain. Was doing some heavy work and felt chest pain so went to ER. Had felt fine earlier in the day. They chin blood and , CXR, CT scan, EKG. Told no heart attack based on labs. Told him he had an aortic aneurysm 40mm in ascending aorta. He has seen a financial analysis manager in the past but not recently. Taking [...] me on his phone his results from [facility] and we called for results to scan into chart He is agreeable to see cardiology and he would like to go to one where he lives in [place] Note to patient: The Century Cures Act [...] Description 04/13/2025 11:00 AM EDT Office Visit [facility] [address] [place] [address] Koffi, Myranda M, PA [address] [place] [address] 06/19/2025 8:20 AM EST Office Visit [facility] [address] [place] [address] Nitza Ivory MD [address] [place] [address] 10/23/2025 8:00 AM EDT Office Visit [facility] [address] [place] [address] Annie Myers, OD [address] [place] [address] Scheduled Referrals Name Type Priority [...] documented as of this encounter Care Teams Brakes Inspector Relationship Specialty Start Date End Date Nitza Ivory MD [address] [place] [address] PCP - General 12/06/20 documented as of this encounter
--- NOTE | 2025-03-16 07:30 | US_ITS ---
FINAL REPORT CLINICAL HISTORY: rule out AAA COMPARISON: None FINDINGS: Sonographic images were obtained of the abdominal aorta. The exam is markedly limited secondary to overlying bowel gas. The abdominal aorta measures up to 3.2 cm in greatest dimensions, however visualization of this region was extremely limited. The common iliac arteries are within normal limits. IMPRESSION: Limited exam secondary to large amount of overlying bowel gas. No definite aortic aneurysm is visualized, however if there is strong clinical concern would suggest CTA of the abdomen and pelvis for further evaluation. Reviewed, Interpreted and Dictated by Neftaly Goldman MD Transcribed by Molly Mack Authenticated and [facility]
--- OUTSIDE RECORDS SUMMARY | 2025-03-16 07:39 | XMS_ITS | Encounter Summary ---
Author Organization Healthcare Address [address] [place] [address] Care Team Providers Care Fur Repairer Name Role Phone Nitza Ivory MD Primary Care Provider [phone] Encounter Details Date Type Department Care Team [...] place to sleep or slept in a alf (including now)? No 08/25/2023 PHQ-9 Answer Date [...] any time in the past 12 m [facility], were you homeless or living in a alf (including now)? No 10/17/2024 Humiliation, Afraid, Rape, [...] any time in the past 12 m [facility], were you homeless or living in a alf (including now)? No 02/16/2025 Safety and Environment [...] Description 04/13/2025 11:00 AM EDT Office Visit [facility] [address] [place] [phone] Myranda Rain PA [address] [place] [phone] 06/19/2025 8:20 AM EST Office Visit [facility] [address] [place] [address] Nitza Ivory MD [address] [place] [address] 10/23/2025 8:00 AM EDT Office Visit [facility] [address] [place] [address] Annie Myers S, OD [address] [place] [address] documented as of this encounter [...] documented as of this encounter Care Teams Fur Repairer Relationship Specialty Start Date End Date Nitza Ivory MD [address] [place] [phone] PCP - General 12/06/20 documented as of this encounter
--- OUTSIDE RECORDS SUMMARY | 2025-03-16 07:39 | XMS_ITS | Encounter Summary ---
Author Organization Healthcare Address [address] [place] [address] Care Team Providers Care Paralegal Internship Name Role Phone Nitza Ivory MD Primary Care Provider [phone] Encounter Details Date Type Department Care Team [...] place to sleep or slept in a half-way (including now)? No 08/25/2023 PHQ-9 Answer Date [...] time in the past 12 m [facility], were you homeless or living in a half-way (including now)? No 10/17/2024 Humiliation, Afraid, Rape, [...] time in the past 12 m [facility], were you homeless or living in a half-way (including now)? No 02/16/2025 Safety and Environment [...] Visit [facility] [address] [place] [phone] Myranda Rain PA [address] [place] [address] 06/19/2025 8:20 AM EST Office Visit [facility] [address] [place] [address] Nitza Ivory MD [address] [place] [address] 10/23/2025 8:00 AM EDT Office Visit [facility] [address] [place] [address] Myers, Annie S, OD [address] [place] [address] documented as of this encounter [...] documented as of this encounter Care Teams Paralegal Internship Relationship Specialty Start Date End Date Nitza Ivory MD [address] [place] [address] PCP - General 12/06/20 documented as of this encounter
--- OUTSIDE RECORDS SUMMARY | 2025-03-16 07:39 | XMS_ITS | Encounter Summary ---
Author Organization Healthcare Address [address] [place] [address] Care Team Providers Care Tailer Out Name Role Phone Nitza Ivory MD Primary Care Provider [phone] Reason for Visit * Reason Comments Med Refill Encounter Details Date Type Department Care Team (Late st Contact Info) Description 03/14/2023 Refill [facility] [address] [place] [address] Myranda Rain, PA [address] [place] [address] Intermittent diarrhea Social History Tobacco [...] for 30 day supply with 5 refill(s) [facility]. documented in this encounter Plan of Treatment Upcoming Encounters Date Type Department Care Team (Late st Contact Info) Description 04/13/2025 11:00 AM EDT Office Visit [facility] [address] [place] [address] Myranda Rain, PA [address] [place] [address] 06/19/2025 8:20 AM EST Office Visit [facility] [address] [place] [address] Nitza Ivory MD [address] [place] [address] 10/23/2025 8:00 AM EDT Office Visit [facility] [address] [place] [address] Annie Myers S, OD [address] [place] [address] documented as of this encounter Visit Diagnoses Diagnosis Intermittent diarrhea documented in this encounter Additional Health Concerns Assessment Noted Time A fall risk assessment has been complete d for the patient 10/13/2022 1:46 PM EDT A Body Mass Index follow-up plan has been documented for the patient 02/16/2023 9:37 AM EDT documented as of this encounter Care Teams Tailer Out Relationship Specialty Start Date End Date Nitza Ivory MD [address] [place] [address] PCP - General 12/06/20 documented as of this encounter
--- OUTSIDE RECORDS SUMMARY | 2025-03-16 07:39 | XMS_ITS | Clinical Summary ---
Author Organization [facility] Address [address] 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 Esophagitis, [place] grade A 03/13/2022 Habitual snoring 02/23/2020 Pituitary [...] Description 02/20/2025 2:40 PM EDT Office Visit [facility] [address] [place] [address] Shena Youssef APRN Aneurysm of ascending aorta without rupture (CMS/HCC) (Primary Dx); Other chest pain 02/20/2025 Travel 02/19/2025 Results Follow-Up [facility] [address] [place] [address] Nitza Ivory MD 02/16/2025 8:40 AM EDT Office Visit [facility] [address] [place] [address] Nitza Ivory MD Type 2 diabetes mellitus with hyperglycemia, without long-term current use of insulin (CMS/HCC) (Primary Dx); Other hyperlipidemia; CKD (chronic kidney disease) stage 2, GFR 60-89 ml/min; Benign essential hypertension; Hypogonadism in male; Pituitary macroadenoma (CMS/HCC); Allergic rhinitis, unspecified seasonality, unspecified trigger; Mild intermittent asthma without complication 02/16/2025 Travel 01/03/2025 Refill [facility] [address] [place] [address] Nitza Ivory MD Hypogonadism in male; Erectile [...] any time in the past 12 m [facility], were you homeless or living in a fci (including now)? No 10/17/2024 Humiliation, Afraid, Rape, [...] any time in the past 12 m [facility], were you homeless or living in a fci (including now)? No 02/16/2025 Safety and Environment [...] Description 04/13/2025 11:00 AM EDT Office Visit [facility] [address] [place] [address] Myranda Rain PA [address] [place] [address] 06/19/2025 8:20 AM EST Office Visit [facility] [address] [place] [address] Nitza Ivory MD [address] [place] [address] 10/23/2025 8:00 AM EDT Office Visit [facility] [address] [place] [address] Annie Myers S, OD [address] [place] [address] Health Maintenance Due Date Last Done Comments Diabetes: Dental Exam 1979 [facility]-Hepatitis B Vaccines (1 of 3 - 19+ 3-dose series) 01/22/1988 CT Colonography 2014 FIT-DNA 2014 FIT 2014 FOBT 2014 Sigmoidoscopy 2014 [facility]-Pneumococcal Vaccine: 50+ Years (3 of 3 - PCV) 05/12/2018 05/12/2017, 05/12/2017 [id number] Vaccine (3 - Moderna risk series) 12/04/2020 [...] 6.0(H) <5.7 % 02/16/2025 4:15 PM EDT [facility] Blood Venous blood specimen / Unknown Venipuncture / Unknown 02/16/2025 9:12 AM EDT 02/16/2025 9:12 AM EDT Narrative [facility] - 02/16/2025 4:15 PM EDT HA1C Interpretive Data: Diagnosis of Diabetes: Diabetic > or = 6.5% Pre-diabetic 5.7 to 6.4% Non-diabetic < or = 5.6% Glycemic Targets for Type I and Type II Diabetics: Non- Adults <7.0% Adults <6.0% Children and Adolescents <7.5% Source: [place] [employer]. Standards of medical care in diabetes,2017. Diabetes Care.2017:40 (suppl 1):S1-S135. us Nitza Ivory MD LAB BLOOD ORDERABLES Final Res ult [facility] [address] [place] [address] * (ABNORMAL) Lipid Profile, Plasma (02/16/2025 9:12 AM EDT) Cholesterol, Plasma 225(H) <200 mg/dL 02/16/2025 1:38 PM EDT [facility] Comment: Cholesterol Reference Range (age >17 years): Desirable <200 mg/dL Borderline 200 to 239 mg/dL Undesirable >239 mg/dL HDL 46 >=40 mg/dL 02/16/2025 1:38 PM EDT [facility] Comment: HDL Cholesterol Reference Ranges (age >17 years): Female, acceptable > or = 50 mg/dL Male, acceptable > or = 40 mg/dL Triglycerides, Plasma 118 <150 mg/dL 02/16/2025 1:38 PM EDT [facility] Comment: Triglyceride Reference Range (age >17 years): Desirable: <150 mg/dL Borderline high: 150 to 199 mg/dL High: 200 to 499 mg/dL Very high: >499 mg/dL Increased risk of pancreatitis: >1000 mg/dL Cholesterol/HDL Ratio 5 02/16/2025 1:38 PM EDT [facility] LDL, Calculated 158(H) <100 mg/dL 1:38 PM EDT [facility] Comment: LDL Cholesterol Reference Range [...] 12 hours? Yes 02/16/2025 1:38 PM EDT [facility] Blood Venous blood specimen / Unknown Venipuncture / Unknown 02/16/2025 9:12 AM EDT 02/16/2025 9:12 AM EDT us Nitza Ivory MD LAB BLOOD ORDERABLES Final Res ult [facility] [address] [place] [address] * (ABNORMAL) Basic Metabolic Panel, Plasma (02/16/2025 9:12 AM EDT) Glucose, Plasma 105(H) 74 - 99 mg/dL 02/16/2025 1:38 PM EDT [facility] BUN, Plasma 14 7 - 21 mg/dL 02/16/2025 1:38 PM EDT [facility] Creatinine, Plasma 1.27(H) 0.70 - 1.20 mg/dL 02/16/2025 1:38 PM EDT [facility] BUN/Creatinine Ratio 11 02/16/2025 1:38 PM EDT [facility] Sodium, Plasma 138 136 - 145 mmol/L 02/16/2025 1:38 PM EDT [facility] Potassium, Plasma 4.3 3.6 - 4.9 mmol/L 02/16/2025 1:38 PM EDT [facility] Chloride, Plasma 103 97 - 107 mmol/L 02/16/2025 1:38 PM EDT [facility] CO2, Plasma 26 22 - 29 mmol/L 02/16/2025 1:38 PM EDT [facility] Anion Gap 9 6 - 16 mmol/L 02/16/2025 1:38 PM EDT [facility] Total Calcium, Plasma 9.3 8.9 - 10.2 mg/dL 02/16/2025 1:38 PM EDT [facility] eGFRcr 66.3 mL/min/1.7 3m*2 02/16/2025 1:38 PM EDT [facility] Comment:Reported eGFRcr in m L/min/1.73m2 is based the CKD-EPI 2020 equation that does not use a race coefficient. Blood Venous blood specimen / Unknown Venipuncture / Unknown 02/16/2025 9:12 AM EDT 02/16/2025 9:12 AM EDT us Nitza Ivory MD LAB BLOOD ORDERABLES Final Res ult Performing Organization Address City/[facility] Co de Phone Number [facility] [address] [place] [address] * Colonoscopy (07/03/2024 9:05 AM EST) Anatomical [...] Screen Nonreactive Nonreactive 09/08/2021 9:35 PM EST [facility] Blood Venous blood specimen / Unknown Venipuncture / Unknown 09/08/2021 8:09 PM EST 09/08/2021 8:27 PM EST us Michael Joiner MD LAB BLOOD ORDERABLES Final Result Performing Organization Address City/[facility]/ZIP Co de Phone Number [facility] [address] [place] [address] * [place] Hepatitis C Antibody (09/08/2021 8:09 PM EST) Hepatitis C Antibody Negative Negative 09/08/2021 9:35 PM EST [facility] Blood Venous blood specimen / Unknown Venipuncture / Unknown 09/08/2021 8:09 PM EST 09/08/2021 8:27 PM EST Michael Joiner MD LAB BLOOD ORDERABLES Final Result [facility] [address] [place] [address] from Last 3 Months or Most Recently Relevant to Health Maintenance Insurance [employer] [facility]PLACEMENT Care Teams Manager Of Enterprise Relationship Specialty Start Date End Date Nitza Ivory MD [address] [place] [address] PCP - General 12/06/20
--- OUTSIDE RECORDS SUMMARY | 2025-03-16 07:39 | XMS_ITS | Encounter Summary ---
Author Organization [facility] Address [address] [place] [address] Care Team Providers Care Lamp Decorator Name Role Phone Nitza Ivory MD Primary Care Provider [phone] Encounter Details Date Type Department Care Team ([facility] st Contact Info) Description 07/05/2023 Outside Procedure External Location [address] [place] [address] Katie South, BANDER, DNP [address] [place] [address] Social History Tobacco Use Types [...] 04/13/2025 11:00 AM EDT Office Visit [facility] Medicine Specialties [address] [place] [address] Myranda Rain PA [address] [place] [address] 06/19/2025 8:20 AM EST Office Visit [facility] [address] [place] [address] Nitza Ivory MD [address] [place] [address] 10/23/2025 8:00 AM EDT Office [facility] [address] [place] [address] Annie Myers S, OD [address] [place] [address] documented as of this encounter Procedures Procedure Name Priority Date/Time Associated Diagnosis Comments XR SHOULDER LEFT 2+ VIEWS 07/05/2023 11:59 AM EST documented in this encounter Results * XR Shoulder Left 2+ Views (07/05/2023 11:59 AM EST) Anatomical Region Laterality Modality Upper Extremities, Shoulder Left Digi samantha Radiography 07/05/2023 11:5 9 AM EST Narrative 07/05/2023 1:26 PM EST [facility] [address] [place] [address] Name: RODRIGUEZ HSU Date: 07/05/2023 : 1970 Age 53 Gender: M Physician: Katie South Facility: [facility] Facility HSV: Outpatient Exam: SHOULDER [...] you for referring RODRIGUEZ HSU to [facility]. Legally authenticated by TAI MOE 2023-07-05 13:10:40 Procedure Note Provider, Generic [place] - 07/05/2023 [place] [address] Name: RODRIGUEZ HSU Exam Date: 07/05/2023 : 1970 Age 53 Gender: M Physician: Katie South Facility: [facility] Facility HSV: Outpatient Exam: SHOULDER [...] you for referring RODRIGUEZ HSU to [facility]. Legally authenticated by TAI MOE 2023-07-05 13:10:40 us Katie South BANDER, DNP IMG XR PROCEDURES Fin al Result documented in this encounter Visit Diagnoses Not on filedocumented in this encounter Additional Health Concerns Assessment Noted Time A fall risk assessment has been complete d for the patient 10/13/2022 1:46 PM EDT A Body Mass Index follow-up plan has been documented for the patient 07/05/2023 11:52 AM EST documented as of this encounter Care Teams Lamp Decorator Relationship Specialty Start Date End Date Nitza Ivory MD [address] [place] [address] PCP - General 12/06/20 documented as of this encounter
--- OUTSIDE RECORDS SUMMARY | 2025-03-16 07:39 | XMS_ITS | Encounter Summary ---
Author Organization [facility] Address [address] [place] [address] Care Team Providers Care Glass Driller Name Role Phone Nitza Ivory MD Primary Care Provider [phone] Encounter Details Date Type Department Care Team (Late st Contact Info) Description 02/19/2025 Results Follow-Up [facility] [address] [place] [address] Nitza Ivory MD [address] [place] [address] Social History Tobacco Use Types [...] Description 04/13/2025 11:00 AM EDT Office Visit [facility] [address] [place] [address] Myranda Rain PA [address] [place] [address] 06/19/2025 8:20 AM EST Office Visit [facility] [address] [place] [address] Nitza Ivory MD [address] [place] [address] 10/23/2025 8:00 AM EDT Office Visit [facility] [address] [place] [address] Annie Myers S, OD [address] [place] [address] documented as of this encounter [...] documented as of this encounter Care Teams Glass Driller Relationship Specialty Start Date End Date Nitza Ivory MD [address] [place] [address] PCP - General 12/06/20 documented as of this encounter
--- OUTSIDE RECORDS SUMMARY | 2025-03-16 07:39 | XMS_ITS | Encounter Summary ---
Author Organization Healthcare Address [address] [place] [address] Care Team Providers Care Executive Vice President Name Role Phone Nitza Ivory MD Primary Care Provider [phone] Reason for Visit * Reason Comments Med Refill Encounter Details Date Type Department Care Team (Late st Contact Info) Description 04/05/2023 [facility]ill [facility] [address] [place] [address] Myranda Rain, PA [address] [place] [address] Low vitamin D level Social [...] 90 day supply with 1 refill(s) to [facility]. documented in this encounter Plan of Treatment Upcoming Encounters Date Type Department Care Team (Late st Contact Info) Description 04/13/2025 11:00 AM EDT Office Visit [facility] Medicine [facility]ties [address], [address] [place] [address] Myranda Rain, PA [address] [place] [address] 06/19/2025 8:20 AM EST Office Visit [facility] [address] [place] [address] Nitza Ivory MD [address] [place] [place] [address] 10/23/2025 8:00 AM EDT Office Visit [facility] [address] [place] [address] Annie Myers, OD [address] [place] [address] documented as of this encounter Visit Diagnoses Diagnosis Low vitamin D level documented in this encounter Additional Health Concerns Assessment Noted Time A fall risk assessment has been complete d for the patient 10/13/2022 1:46 PM EDT A Body Mass Index follow-up plan has been documented for the patient 02/16/2023 9:37 AM EDT documented as of this encounter Care Teams Executive Vice President Relationship Specialty Start Date End Date Nitza Ivory MD [address] [place] [address] PCP - General 12/06/20 documented as of this encounter
--- OUTSIDE RECORDS SUMMARY | 2025-03-16 07:39 | XMS_ITS | Clinical Summary ---
Author Organization [facility] Address [address] [place] [address] Care Team Providers Care Clerical Secretary Name Role Phone Nitza Ivory MD Primary Care Provider [phone] Allergies No known active allergies Medications sildenafil [...] exists Insurance [employer] Care Teams Clerical Secretary Relationship Specialty Start Date End Date Nitza Ivory MD [address] [place] [address] PCP - General Family Medicine 02/22/23
--- OUTSIDE RECORDS SUMMARY | 2025-03-16 07:39 | XMS_ITS | Encounter Summary ---
Author Organization [facility] Address [address] [place] [address] Care Team Providers Care Night Clerk Name Role Phone Nitza Ivory MD Primary Care Provider [phone] Reason for Visit * Reason Comments Med Refill Encounter Details Date Type Department Care Team (Late st Contact Info) Description 07/17/2022 Refill [facility] [address] [place] [address] Nitza Ivory MD [address] [place] [address] Social History Tobacco Use Types [...] Description 04/13/2025 11:00 AM EDT Office Visit [facility] Medicine Specialties [address] [place] [address] Myranda Rain PA [address] [place] [address] 06/19/2025 8:20 AM EST Office Visit [facility] [address] [place] [address] Nitza Ivory MD [address] [place] [address] 10/23/2025 8:00 AM EDT Office Visit [facility] [address] [place] [address] Annie Myers S, OD [address] [place] [address] documented as of this encounter Visit Diagnoses Not on filedocumented in this encounter Additional Health Concerns Assessment Noted Time A fall risk assessment has been complete d for the patient 07/07/2022 3:10 PM EST documented as of this encounter Care Teams Night Clerk Relationship Specialty Start Date End Date Nitza Ivory MD [address] [place] [address] PCP - General 12/06/20 documented as of this encounter
--- OUTSIDE RECORDS SUMMARY | 2025-03-16 07:40 | XMS_ITS | Encounter Summary ---
Author Organization [facility] Address [address] [place] [address] Care Team Providers Care Rubber Tile Floor Layer Name Role Phone Nitza Ivory MD Primary Care Provider [phone] Encounter Details Date Type Department Care Team (Late Contact Info) Description 09/23/2021 Lab Requisition [facility] [address] [place] [address] Yodit Tavarez MD [address] [facility] [address] [place] [address] Unspecified abdominal pain Social History Tobacco Use [...] [facility] Medicine Specialties [address] [place] [address] Myranda Rain PA [address] [place] [address] 06/19/2025 8:20 AM EST Office Visit [facility] [address] [place] [address] Nitza Ivory MD [address] [place] [address] 10/23/2025 8:00 AM EDT Office Visit [facility] [address] [place] [address] Annie Myers S, OD [address] [place] [address] documented as of this encounter Procedures Procedure Name Priority Date/Time Associated Diagnosis Comments SURGICAL PATHOLOGY EXAM Routine 09/22/2021 Unspecified abdominal pain documented in this encounter Results * Surgical Pathology Exam (09/22/2021) Case Report Surgical Pathology Case: [id number] Authorizing Provider: Yodit Tavarez MD Collected: 09/22/2021 Ordering Location: [facility] Lab Received: 09/23/2021 1244 Pathologist: Joce Mathews [...] - HYPERPLASTIC POLYP 09/24/2021 12:15 PM EST [facility] at 1215 EST Clinical [...] Martina B Rodriguez 09/24/2021 12:15 PM EST [facility] Note: A resident was involved in the service. I attest I examined the relevant preparations for the specimens and confirmed the diagnosis or interpretation. 09/24/2021 12:15 PM EST [facility] Tissue Stomach structure / [...] PATHOLOGY ORDERABLES Final Result [facility] [address] [place] [address] documented in this encounter Visit Diagnoses Diagnosis [...] documented as of this encounter Care Teams Rubber Tile Floor Layer Relationship Specialty Start Date End Date Nitza Ivory MD [address] [place] [address] PCP - General 12/06/20 documented as of this encounter
--- OUTSIDE RECORDS SUMMARY | 2025-03-16 07:40 | XMS_ITS | Encounter Summary ---
Author Organization Healthcare Address [address] [place] [address] Care Team Providers Care Timber Harvester Operator Name Role Phone Nitza Ivory MD Primary Care Provider [phone] Reason for Visit * Reason Comments Med Refill Encounter Details Date Type Department Care Team (Late st Contact Info) Description 09/29/2023 Refill [facility] [address] [place] [address] Myranda Rain PA [address] [place] [address] Intermittent diarrhea Social History Tobacco [...] in a fdc (including now)? No 08/25/2023 Utilities Answer Date [...] 11:00 AM EDT Office Visit [facility] Medicine Specialties [address] [place] [address] Myranda Rain, PA [address] [place] [address] 06/19/2025 8:20 AM EST Office Visit [facility] [address] [place] [address] Nitza Ivory MD [address] [place] [address] 10/23/2025 8:00 AM EDT Office Visit [facility] [address] [facility] [place] [address] Annie Myers S, OD [address] [facility] [address] [place] [address] documented as of this encounter Visit Diagnoses Diagnosis Intermittent diarrhea documented in this encounter Additional Health Concerns Assessment Noted Time A fall risk assessment has been complete d for the patient 10/13/2022 1:46 PM EDT A Body Mass Index follow-up plan has been documented for the patient 08/25/2023 9:42 AM EST documented as of this encounter Care Teams Timber Harvester Operator Relationship Specialty Start Date End Date Nitza Ivory MD [address] [place] [address] PCP - General 12/06/20 documented as of this encounter
--- OUTSIDE RECORDS SUMMARY | 2025-03-16 07:40 | XMS_ITS | Encounter Summary ---
Author Organization [facility] Address [address] [place] [address] Care Team Providers Care Automatic Print Developer Name Role Phone Nitza Ivory MD Primary Care Provider [phone] Encounter Details Date Type Department Care Team (Late st Contact Info) Description 12/16/2021 Outside Procedure [address] [address] Provider, External Social History Tobacco [...] Visit [place] [facility] [address], [address]nd [place] [address] Myranda Rain PA [address] [place] [address] 06/19/2025 8:20 AM EST Office Visit [facility] [address] [place] [address] Nitza Ivory MD [address] [place] [address] 10/23/2025 8:00 AM EDT Office Visit [facility] [address] [place] [address] Annie Myers S, OD [address] [place] [address] documented as of this encounter [...] documented as of this encounter Care Teams Automatic Print Developer Relationship Specialty Start Date End Date Nitza Ivory MD [address] [place] [address] PCP - General 12/06/20 documented as of this encounter
--- OUTSIDE RECORDS SUMMARY | 2025-03-16 07:40 | XMS_ITS | Encounter Summary ---
Author Organization [facility] Address [address] [place] [address] Care Team Providers Care Steel Fitter Name Role Phone Nitza Ivory MD Primary Care Provider [phone] Reason for Visit * Reason Comments Med Refill Encounter Details Date Type Department Care Team (Late st Contact Info) Description 08/02/2021 Refill [facility] [address] [place] [address] Nitza Ivory MD [address] [place] [address] Erectile dysfunction due to diseases [...] 04/13/2025 11:00 AM EDT Office Visit [facility] Medicine Specialties [address], [address] [place] [address] Myranda Rain, PA [address] [place] [address] 06/19/2025 8:20 AM EST Office Visit [facility] [address] [place] [address] Nitza Ivory MD [address] [place] [address] 10/23/2025 8:00 AM EDT Office Visit [facility] [address] [place] [address] Annie Myers S, OD [address] [place] [address] documented as of this encounter Visit Diagnoses Diagnosis Erectile dysfunction due to diseases classified elsewhere Hypogonadism in male documented in this encounter Additional Health Concerns Infection Onset Date Last Indicated Resolved Time Gastrointestinal Rule-Out 02/18/2022 02/18/2022 5:23 AM EDT C. difficile Rule-Out 02/18/2022 02/18/20222021 5:23 AM EDT documented as of this encounter Care Teams Steel Fitter Relationship Specialty Start Date End Date Nitza Ivory MD [address] [place] [address] PCP - General 12/06/20 documented as of this encounter
--- OUTSIDE RECORDS SUMMARY | 2025-03-16 07:40 | XMS_ITS | Encounter Summary ---
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 Social History Tobacco [...] 2:28 PM EST Sexual Orientation Straight 08/07/2021 2 :28 PM EST COVID-19 Exposure Response Date Recorded [...] Visit [facility] [address], [address] [place] [address] Myranda Rain PA [address] [place] [address] 06/19/2025 8:20 AM EST Office Visit [facility] [address] [place] [address] Nitza Ivory MD [address] [place] [address] 10/23/2025 8:00 AM EDT Office Visit [facility] [address] [place] [address] Annie Myers S, OD [address] [place] [address] documented as of this encounter Procedures Procedure Name Priority Date/Time Associated Diagnosis Comments SURGICAL PATHOLOGY EXAM Routine 12/16/2021 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 - NO EVIDENCE OF DYPLASIA. 12/17/2021 10:36 AM EDT [facility] at 1036 EDT Clinical Information [id number] [...] diagnosis or interpretation. 12/17/2021 10:36 AM EDT [facility] Tissue Esophageal structure / Unknown 12/16/2021 12/16/2021 12:50 PM EDT us Yodit Tavarez MD LAB PATHOLOGY ORDERABLES Final Result [facility] [address] [place] [address] documented in this encounter Visit Diagnoses Diagnosis [...] documented as of this encounter Care Teams Senior Office Support Assistant Sosa Relationship Specialty Start Date End Date Nitza Ivory MD [address] [place] [address] PCP - General 12/06/20 documented as of this encounter
--- OUTSIDE RECORDS SUMMARY | 2025-03-16 07:40 | XMS_ITS | Encounter Summary ---
Author Organization [facility] Address [address] [place] [address] Care Team Providers Care Facing Baster Name Role Phone Nitza Ivory MD Primary Care Provider [phone] Encounter Details Date Type Department Care Team (Late st Contact Info) Description 07/03/2024 Outside Procedure [facility] [address] [address] Provider, External Social History Tobacco [...] place to sleep or slept in a mcfp (including now)? No 08/25/2023 PHQ-9 Answer Date [...] Visit [place] [facility] [address] [place] [address] Myranda Rain PA [address] [place] [address] 06/19/2025 8:20 AM EST Office Visit [facility] [address] [address] Nitza Ivory MD [address] [address] 10/23/2025 8:00 AM EDT Office Visit [facility] [address] [place] [address] Annie Myers S, OD [address] [place] [address] documented as of this encounter [...] documented as of this encounter Care Teams Facing Baster Relationship Specialty Start Date End Date Nitza Ivory MD [address] [place] [address] PCP - General 12/06/20 documented as of this encounter
--- OUTSIDE RECORDS SUMMARY | 2025-03-16 07:40 | XMS_ITS | Encounter Summary ---
Author Organization [facility] Address [address] [place] [address] Care Team Providers Care Certified Court Interpreter Name Role Phone Nitza Ivory MD Primary Care Provider [phone] Encounter Details Date Type Department Care Team (Late st Contact Info) Description 07/03/2024 Outside Procedure [facility] [address] [address] Provider, External Social History Tobacco [...] Description 04/13/2025 11:00 AM EDT Office Visit [facility] [address] [place] [address] Myranda Rain PA [address] [place] [address] 06/19/2025 8:20 AM EST Office Visit [facility] [address] [address] Nitza Ivory MD [address] [address] 10/23/2025 8:00 AM EDT Office Visit [facility] [address] [place] [address] Annie Myers S, OD [address] [place] [address] documented as of this encounter [...] documented as of this encounter Care Teams Certified Court Interpreter Relationship Specialty Start Date End Date Nitza Ivory MD [address] [address] PCP - General 12/06/20 documented as of this encounter
--- OUTSIDE RECORDS SUMMARY | 2025-03-16 07:40 | XMS_ITS | Encounter Summary ---
Author Organization [facility] Address [address] [place] [address] Care Team Providers Care Ship'S Engineer Name Role Phone Nitza Ivory MD Primary Care Provider [phone] Reason for Visit * Reason Comments Med Refill Encounter Details Date Type Department Care Team (Late st Contact Info) Description 08/23/2024 Refill [facility] [address] [place] [address] Nitza Ivory MD [address] [place] [address] Hypogonadism in male; Erectile dysfunction [...] Description 04/13/2025 11:00 AM EDT Office Visit [facility] [address] [place] [address] Myranda Rain PA [address] [place] [address] 06/19/2025 8:20 AM EST Office Visit [facility] [address] [place] [address] Nitza Ivory MD [address] [place] [address] 10/23/2025 8:00 AM EDT Office Visit [facility] [address] [place] [address] Annie Myers, OD [address] [place] [address] documented as of this encounter [...] documented as of this encounter Care Teams Ship'S Engineer Relationship Specialty Start Date End Date Nitza Ivory MD [address] [place] [address] PCP - General 12/06/20 documented as of this encounter
--- OUTSIDE RECORDS SUMMARY | 2025-03-16 07:40 | XMS_ITS | Encounter Summary ---
Author Organization Healthcare Address [address] [place] [address] Care Team Providers Care Pit And Auxiliaries Supervisor Name Role Phone Nitza Ivory MD Primary Care Provider [phone] Encounter Details Date Type Department Care Team (Late st Contact Info) Description 07/03/2024 Lab Requisition [facility] [address] [place] [address] Timothy Maldonado MD [address] [place] [address] Encounter for screening for malignant neoplasm of [...] place to sleep or slept in a jail (including now)? No 08/25/2023 PHQ-9 Answer Date [...] Description 04/13/2025 11:00 AM EDT Office Visit [facility] [address] [place] [address] Myranda Rain PA [address] [place] [id number] 06/19/2025 8:20 AM EST Office Visit [facility] [address] [place] [address] Nitza Ivory MD [address] [place] [address] 10/23/2025 8:00 AM EDT Office Visit [facility] [address] [place] [address] Annie Myers S, OD [address] [facility] [address] [place] [address] documented as of this encounter Procedures Procedure Name Priority Date/Time Associated Diagnosis Comments SURGICAL PATHOLOGY EXAM Routine 07/03/2024 Encounter for screening for malignant neoplasm of colon documented in this encounter Results * Surgical Pathology Exam (07/03/2024) Case Report Surgical Pathology Case: [id number] Authorizing Provider: Timothy Maldonado, Collected: 07/03/2024 Ordering Location: [facility] Lab Received: 07/03/2024 1119 Pathologist: Lindsey Jean MD Specimens: A) - Gastric, gastic biopsy B) - Gastric, GE Junction biopsy C) - Colon, random colon biopsy D) - Colon, transverse colon polyp 07/05/2024 9:40 AM [facility] Final Diagnosis A. STOMACH, BIOPSY: - REACTIVE GASTROPATHY. - NO H. PYLORI ORGANISMS IDENTIFIED ON H&E SLIDE. B. GASTROESOPHAGEAL JUNCTION, BIOPSY: - GE JUNCTION MUCOSA WITH MILD CHRONIC INFLAMMATION. - NEGATIVE FOR INTESTINAL METAPLASIA. C. LARGE INTESTINE, RANDOM COLON, BIOPSY: - NO PATHOLOGIC ABNORMALITIES. D. LARGE INTESTINE, TRANSVERSE COLON, POLYP, BIOPSY: - TUBULAR ADENOMA. 07/05/2024 9:40 AM [facility] at 0940 EST Clinical Information Encounter for screening for malignant neoplasm of colon Colon surveillance Hx of Rice's Diarrhea with incontinence Normal esophagus Diffuse mildly erythematous mucosa in the gastric antrum Normal duodenum 4 mm sessile polyp in the transverse colon 07/05/2024 9:40 AM EST [facility] Gross Description A. GASTIC BIOPSY [...] Manisha T Lockhart 07/05/2024 9:40 AM EST [facility] Note: A resident was involved in the service. I attest I examined the relevant preparations for the specimens and confirmed the diagnosis or interpretation. 07/05/2024 9:40 AM EST [facility] Tissue Colon structure / Unknown 07/03/2024 07/03/2024 11:19 AM EST Tissue specimen (specimen) Stomach structure / Unknown 07/03/2024 07/03/2024 11:19 AM EST Tissue specimen (specimen) Colon structure / Unknown 07/03/2024 07/03/2024 11:19 AM EST Tissue specimen (specimen) Colon structure / Unknown 07/03/2024 07/03/2024 11:19 AM EST Timothy Maldonado MD LAB PATHOLOGY ORDERABL ES Final Result [facility] [address] [place] [address] documented in this encounter Visit Diagnoses Diagnosis [...] documented as of this encounter Care Teams Pit And Auxiliaries Supervisor Relationship Specialty Start Date End Date Nitza Ivory MD [address] [place] [address] PCP - General 12/06/20 documented as of this encounter
--- OUTSIDE RECORDS SUMMARY | 2025-03-16 07:40 | XMS_ITS | Encounter Summary ---
Author Organization [facility] Address [address] [place] [address] Care Team Providers Care Fire Investigation Lieutenant Name Role Phone Nitza Ivory MD Primary Care Provider [phone] Encounter Details Date Type Department Care Team (Late st Contact Info) Description 07/29/2023 Outside Procedure External Location [address] [place] [address] Katie South, WATER MANGLE TENDER, DNP [address] [place] [address] Social History Tobacco Use Types [...] Visit [facility] Medicine Specialties [address] [place] [address] Myranda Rain, CITLALI [address] [place] [address] 06/19/2025 8:20 AM EST Office Visit [facility] [address] [place] [address] Nitza Ivory MD [address] [place] [address] 10/23/2025 8:00 AM EDT Office Visit [facility] [address] [place] [address] Annie Myers S, OD [address] [facility] [address] [place] [address] documented as of this encounter Procedures Procedure Name Priority Date/Time Associated Diagnosis Comments MR SHOULDER LEFT WO IV CONTRAST 07/29/2023 2:09 PM EST documented in this encounter Results * MR Shoulder Left wo IV Contrast (07/29/2023 2:09 PM EST) Anatomical Region Laterality Modality Upper Extremities Left Magnetic Reson ance 07/29/2023 2:09 PM EST Narrative 07/29/2023 4:40 PM EST [address] [address] Name: RODRIGUEZ HSU Exam Date: 07/29/2023 : 1970 Age 53 Gender: M Physician: Katie South Facility: [facility] Facility HSV: Outpatient Exam: MRI SHOULDER W/O [...] Thank you for referring RODRIGUEZ HSU to [facility]. Legally authenticated by PREETI Rueda III 2023-07-29 16:24:14 Procedure Note Provider, Generic [place] - 07/29/2023 [place] [address] Name: RODRIGUEZ HSU Exam Date: 07/29/2023 : 1970 Age 53 Gender: M Physician: Katie South Facility: [facility] Facility HSV: Outpatient Exam: MRI SHOULDER W/O [...] tear. Reviewed, Interpreted and Dictated by René Isebll III, MD Transcribed by Molly Mack Authenticated and EASTERN Dictated By: René Isbell III Transcribed By: Transcribed On: 07/29/2023 4:24 PM Electronically signed by: René Isbell III 07/29/2023 Thank you for referring RODRIGUEZ HSU to [facility]. Legally authenticated by PREETI Rueda III [...] as of this encounter Care Teams Fire Investigation Lieutenant Relationship Specialty Start Date End Date Nitza Ivory MD [address] [place] [address] PCP - General 12/06/20 documented as of this encounter
--- NOTE | 2025-03-16 08:00 | CA_ITS ---
APPROVED REPORT EXAM: Comprehensive 2D, Doppler, and color-flow Echocardiogram Biomedical Equipment Tech: Makayla Reich CRT Ht: 5 ft 10 in Wt: 180lbs BSA: 2.00 BP: 135/80 mmHg Indications: CP, ABN EKG, DM, AAA, HTN, HLD 2D Dimensions IVSd 1.01 cm LVEF (Visual) 56.20 % PWd 1.02 cm LVDd 5.27 cm LVDs 3.71 cm Left Atrium 3.73 cm M-Mode Dimensions RVDd 2.75 cm (0.9-2.6) LA Diam 4.52 cm (1.9-4.0) LVDd 5.21 cm (3.5-5.7) LVDs 3.63 cm (3.5-5.7) IVSd 0.96 cm (0.6-1.1) PWd 1.07 cm (0.6-1.1) EF (Teich) 57.90% EPSs 0.86 cm FS 30.70% EDV (Teich) 131.80 mL TAPSE 2.18 (<1.7) ESV (Teich) 55.50 mL LV Diastology MED A' 11.20 cm/s LAT A' 9.70 cm/s Aortic Valve AoV Peak Manuelito. 120.0 (50-130 cm/s) AO Peak GR. 5.80 mmHg AO Mean GR. 3.00 (<5 mmHg) AO VTI 28.3 (18-25 cm) TAYE (VTI) 2.90 (2.5-4.5 cm2) Tricuspid Valve TR P. Velocity 198.00 cm/s RAP Estimate 10.00 mmHg RVSP 25.70 mmHg Left Ventricle The left ventricle is normal size. Left ventricular systolic function is normal. The left ventricular ejection fraction is within the normal range. There is increased left ventricular wall thickness. There is normal LV segmental wall motion. The left ventricular diastolic function is normal. LVEF is 55% Right Ventricle The right ventricle is normal size. The right ventricular systolic function is normal. Atria The left atrium size is normal. The right atrium size is normal. There is no color Doppler evidence of interatrial shunt. Aortic Valve The aortic valve opens well. There is no hemodynamically significant aortic valvular stenosis. No aortic regurgitation is present. Mitral Valve The mitral valve is normal in structure. No evidence of mitral valve stenosis. Trace mitral regurgitation is present. Tricuspid Valve The tricuspid valve leaflets are thin and pliable. Trace tricuspid regurgitation. There is insufficient TR jet to estimate RVSP. Pulmonic Valve The pulmonary valve is grossly normal in structure. Trace pulmonic valve regurgitation is present. Great Vessels The aortic root is normal in size. IVC is normal in size and collapses >50% with inspiration. Pericardium There is no pericardial effusion. Other Information Study Quality: Fair Conclusion Normal biventricular systolic function. No significant valvular stenosis or regurgitation. Electronically signed by : Tamiko Rios MD 03/18/2025 14:15:30
[2025-03-16 08:41] VITALS: BMI 31.4
[2025-03-16 08:52] VITALS: BP 155/93; PULSE 58; RESP 18; O2SAT 98
[2025-03-16 09:46] VITALS: BP 167/96; PULSE 56; RESP 18; O2SAT 98
[2025-03-16 09:49] VITALS: BP 119/69; PULSE 54; RESP 18; O2SAT 98
[2025-03-16 09:52] VITALS: BP 126/70; PULSE 55; RESP 16; O2SAT 98
--- NOTE | 2025-03-16 10:00 | CT_ITS ---
APPROVED REPORT Lead Warehouse Associate: CLINICAL INDICATION Chest Pain TECHNIQUE Image Acquisition: A 128 slice MDCT scanner (Microstaqa View) was used for data acquisition. A noncontrast coronary calcium scan was performed. A CT attenuation threshold of 130 Hounsfield units (HU) was used for the detection of calcium in contiguous voxels of 1 sq mm in area to be counted as individual lesions. Bolus tracking in the ascending aorta with a threshold of 180 HU was performed. Immediately afterwards, ECG synchronized cardiac CT was then performed from the cardiac base to apex using retrospective gating with ECG tube current modulation. A total of 85 mL of Isovue 370 mg/mL contrast medium was administered at 5 mL/sec followed by a saline flush using a biphasic injection protocol. A tube voltage of 120 KVp was used. The patient received the following medications prior to the cardiac CT. 0.8 mg of sublingual nitroglycerin The average heart rate at the time of acquisition was 58 bpm and regular. Image Reconstruction Transaxial images were reconstructed at 0.67 mm slide thickness. Data was reviewed interactively on an advanced workstation capable of 2 and 3-dimensional displays in all conventional reconstruction formats, including multiplanar reformations, maximum intensity projections, curved multiplanar reformations, and volume rendered reconstructions. When applicable, selected routine images describing the relevant coronary anatomy and pathology were saved and sent to PACS. Complications None Technical Quality Overall image quality was good. Coronary artery opacification was adequate. Total DLP (Dose-Length Product) is 1855 mGy-cm. The reported value represents the total of one or more individual components during the CT acquisition of this date and at this time, and as such, the same value may appear in more than one CT report depending on the interpreting/reporting physicians. COMPARISON None FINDINGS CT Coronary Calcium Scoring LMA (Left Main Artery) = 0 LAD (Left Anterior Descending) = 0 LCX (Left Coronary Circumflex) = 0 RCA (Right Coronary Artery) = 0 Total Calcium Score = 0 using the AJ-130 method. The interpretation of the calcium heart score is based on the following continuum*: 0 = no calcified plaque detected (risk of coronary artery disease is very low ??? less than 5%) 1-10 = calcium detected in extremely minimal levels (risk of coronary diseases is still low ??? less than 10%) 11-100 = mild levels of plaque detected with certainty (mild or minimal narrowing of heart arteries is likely) 101-400 = definite,at least moderate levels of plaque detected (relatively high risk of a heart attack within 3-5 years) >401-999 = extensive levels of plaque detected (high risk of heart attack, high levels of vascular disease are present, high likelihood of at least one significant coronary narrowing) *The calcium heart score quantifies the burden of coronary calcification/plaque in the coronary arteries. The calcium heart score is not able to evaluate the presence or burden of non-calcified (i.e. soft) plaque. There is no identifiable calcification in the aortic valve, mitral annulus or mitral valve, pericardium, or myocardium. Coronary CT Angiography The coronary arterial system is right dominant. Quantitative Stenosis Grading: Left Main (LM): The left main originates normally from the left sinus of Valsalva. The LM bifurcates into the left anterior descending artery and left circumflex artery. The LM is patent with no evidence of atherosclerosis. Left Anterior Descending (LAD) and Diagonal Branches: The LAD gives off 3 diagonal branch(es). The LAD and its branches are patent with no evidence of atherosclerosis. There is no evidence of LAD-myocardial bridge. Left Circumflex (LCX) and Obtuse Marginals (OM): The LCX gives off 1 Obtuse Marginal (OM) branch(es). The LCX and its branches are patent with no evidence of atherosclerosis. Right Coronary Artery (RCA): The RCA originates normally from the right sinus of Valsalva. The RCA gives off a posterior descending artery (PDA) and posterolateral (PL) branches. The RCA and its branches are patent with no evidence of atherosclerosis. Non-Coronary Cardiac Findings: Analysis of the left ventricular (LV) structure and function was performed after 3-D reconstruction of the LV from axial images, with user-corrected automatic contouring for assessment of LV volumes and user-defined reconstruction from oblique planes for measurement of 3-D cardiac structure and function. -The left ventricle systolic function is normal. -There is no left atrial appendage filling defect. Two right pulmonary veins and two left pulmonary veins drain normally into the left atrium. -No pericardial thickening or calcification. -Central and branch pulmonary arteries in the [id number] are unremarkable. -Thoracic aorta within the visualized thoracic aortic-branches in the [id number] is unremarkable. Extracardiac Structures No significant extra-cardiac findings. Note, however, that this study is focused on the cardiac findings. IMPRESSION -Absence of coronary calcification with an Agatston score = 0 using the AJ-130 method. -No evidence of significant flow-limiting atherosclerosis of the coronary arteries. -CAD-RADS 0. Management recommendations per ACC/AHA guidelines*, as clinically appropriate. *Recommendations: CAD RADS 0: Reassurance. Consider non-atherosclerotic causes of chest pain. CAD RADS 1: Consider non-atherosclerotic causes of chest pain. Consider preventive therapy and risk factor modification. CAD RADS 2: Consider non-atherosclerotic causes of chest pain. Consider preventive therapy and risk factor modification, particularly for patients with nonobstructive plaque in multiple segments. CAD RADS 3: Consider further functional testing. Consider symptom-guided anti-ischemic and preventive pharmacotherapy as well as risk factor modification per published guideline statements. CAD RADS 4A: Consider further functional testing or invasive coronary angiography with revascularization per published guideline statements. Consider symptom-guided anti-ischemic and preventive pharmacotherapy as well as risk factor modification per published guideline statements. CAD RADS 4B: Invasive coronary angiography recommended with revascularization per published guideline statements. Consider symptom-guided anti-ischemic and preventive pharmacotherapy as well as risk factor modification per published guideline statements. CAD RADS 5: Consider invasive angiography and/or viability assessment with revascularization per published guideline statements. Consider symptom-guided anti-ischemic and preventive pharmacotherapy as well as risk factor modification per published guideline statements. CRITICAL RESULT None COMMUNICATION Per this written report The coronary and cardiac findings of this CCTA were reviewed, reported, and signed by Sushil Rios MD (Coding Consultant) Conclusion Electronically signed by : Tamiko Rios MD 03/16/2025 21:01:59
[2025-03-16] MEDS: SODIUM CHLORIDE 0.9% 10ML SYR (RAD ONLY) 10 ML IV (11:40)
[2025-03-16] MEDS: 0.9 % SODIUM CHLORIDE 50 ML VIAL IV (11:40)
[2025-03-16] MEDS: IOPAMIDOL-370 (76%);100ML BOTTLE 85 ML IV (11:41)
== END 2025-03-16 10:00 | disposition home or self-care (01) ==
LOC: RAD 07:36
PROVIDERS: PCP Surgery; Visit Provider Nurse Practitioner Family
DX: I71.21 Aneurysm of the ascending aorta, without rupture (principal); I71.40 Abdominal aortic aneurysm, without rupture, unspecified; I10 Essential (primary) hypertension; E11.9 Type 2 diabetes mellitus without complications; E78.5 Hyperlipidemia, unspecified; R94.31 Abnormal electrocardiogram [ECG] [EKG]; R07.9 Chest pain, unspecified; Z82.49 Family history of ischemic heart disease and other diseases of the circulatory system
CPT/HCPCS: 75574; 76706; 93306; Q9967

== ENCOUNTER 2025-06-27 07:19 | Outpatient (CLI) | payer MEDICAID, SELFPAY ==
--- OUTSIDE RECORDS SUMMARY | 2005-03-03 09:00 | XMS_ITS | Continuity of Care Document ---
Author Organization [facility] Address [address] [place] [address] Phone Care Team Providers Care Director Blood Bank Name Role Phone Kevin Cagle MD Unavailable Unavailable Advance Directives Directive Yes / No Effective Date File Name No Information Encounters Encounter Description Practice Location Reason(s) For Visit Diagnoses Date Provider Encounter Disposition [facility], [facility] [place], [place], [id number], tel:[phone] [facility] No Information 5 Tsering Brown. [address] [facility], [facility] [address], [address], [place]. tel:[phone] Family History Family Member Type Diagnosis Age At Onset No Information Payers Payer name Insurance type Identifiers Authorization(s) Com [facility] [employer] CI isabel ID: [id number] Name: Coverage Status Eligibility Check on: UnknownRelationship to Subscriber: selfPayer Address: [address] [address], [place], [place], [facility], [facility] Phone: [phone] Social History Type Description Quantity Date Captured Comments Sex Male Smoking Status No Information Current Gender Male (finding) Chief Complaint And Reason For Visit No Information History Of Present Illness Encounter Date Complaint History Of Prese nt Illness No Information Functional Status Date Description Comments No Information Instructions Date Instruction Additional Infor mation No Information Assessments Type Assessment Date No Information
--- OUTSIDE RECORDS SUMMARY | 2025-06-19 08:20 | XMS_ITS | Encounter Summary ---
Author Organization [facility] Address [address] [place] [address] Care Team Providers Care Stockholder Name Role Phone Nitza Ivory MD Primary Care Provider Reason for Referral * Imaging (Routine) - Authorized Specialty Diagnoses / Procedures Referred By Contac t Referred To Contact Diagnoses Aneurysm of ascending aorta without rupture (CMS/HCC) Procedures CT Chest wo IV Contrast [place] [address] Phone: tel: fax: Referral ID Status Reason Start Date Expiration Date V isits Requested Visits Authorized [id number] Authorized 06/19/2025 12/19/2026 1 1 Reason for Visit * Reason Comments Follow-up Hypertension Diabetes Encounter Details Date Type Department Care Team (Late st Contact Info) Description 06/19/2025 8:20 AM EST Office Visit [facility] [place] [address] Nitza Ivory MD [place] [address] Type 2 diabetes mellitus with hyperglycemia, without long-term current use of insulin (Primary Dx); CKD (chronic kidney disease) stage 2, GFR 60-89 ml/min; Other hyperlipidemia; Hypogonadism in male; Pituitary macroadenoma (CMS/HCC); Aneurysm of ascending aorta without rupture (CMS/HCC); Erectile dysfunction due to diseases classified elsewhere; Intermittent diarrhea; Low vitamin D level; Benign essential hypertension; Rice's esophagus without dysplasia; Diarrhea, unspecified type Social History Tobacco Use Types Packs/Day Years Used Date Smoking Tobacco: Never Passive Smoke Exposure: Never Smokeless Tobacco: Current Chew Tobacco Cessation:Ready to Q uit: Not Asked; Counseling Given: Not Answered Alcohol Use Standard Drinks/Week Comments No 0 (1 standard drink = 0.6 oz pur e alcohol) Alcoholic Drinks/day: Alcohol PHQ-2 Answer Date Recorded Patient Health Questionnaire-2 Score 0 04/13/2025 PHQ-9 Answer Date Recorded Patient Health Questionnaire-9 Score 0 04/13/2025 Humiliation, Afraid, Rape, and Kick questionnair e Answer Date Recorded Within the last year, have y ou been afraid of your partner or ex-partner? No 06/19/2025 Within the last year, have y ou been humiliated or emotionally abused in other ways by your partner or ex-partner? No Within the last year, have y ou been kicked, hit, slapped, or otherwise physically hurt by your partner or ex-partner? No 06/19/2025 Within the last year, have y ou been raped or forced to have any kind of sexual activity by your partner or ex-partner? No 06/19/2025 Hunger Vital Sign Answer Date Recorded Within the past 12 months, y ou worried that your food would run out before you got the money to buy more. Never true 06/19/20 Ran Out of Food in the Last Year Not on file 06/19/2025 PRAPARE - Transportation Answer Date Re corded In the past 12 months, has l ack of transportation kept you from medical appointments or from getting medications? No 05/27 In the past 12 months, has l ack of transportation kept you from meetings, work, or from getting things needed for daily living? No 06/19/2025 Housing Stability Vital Sign Answer Morales e Recorded In the last 12 months, was t here a time when you were not able to pay the mortgage or rent on time? No 06/19/2025 Number of Times Moved in the Last Year Not on fi le 06/19/2025 At any time in the past 12 m [facility], were you homeless or living in a detention (including now)? No 06/19/2025 [facility] Utilities Answer Date Recorded In the past 12 months has [facility] electric, gas, oil, or water company threatened to shut off services in your home? No 06/19/2025 Safety and Environment Answer Date Roger rded Do you worry that your child may have been physically abused? Patient unable to answer 06/19/2025 Do you worry that your child may have been sexually abused? Patient unable to answer 06/19/2025 Are there any guns kept in o r around your home or where your child spends time? Patient unable to answer 06/19/2025 Guns Unloaded or Locked Away Not on file PHQ-2A Answer Date Recorded Patient Health Questionnaire-2 Score 0 07/05/2023 Sex and Gender Information Value Date Recorded Sex Assigned at Male 08/07/2021 2:28 PM EST Legal Sex Male 7:36 PM EDT Gender Identity Male 08/07/2021 2:28 PM EST Sexual Orientation Straight 08/07/2021 2: 28 PM EST documented as of this encounter Last Filed Vital Signs Vital Sign Reading Time Taken Comments Blood Pressure 118/80 06/19/2025 8:12 AM EST Pulse 57 06/19/2025 8:12 AM EST Temperature 37 C (98.6 F) 06/19/2025 8:12 AM EST Respiratory Rate - - Oxygen Saturation 97% 06/19/2025 8:12 AM EST Inhaled Oxygen Concentration - - Weight 105 kg (231 lb 4.2 oz) 06/19/2025 8:12 AM EST Height 180.3 cm (5' 11 ) 06/19/2025 8:12 AM EST Body Mass Index 32.25 06/19/2025 8:12 AM EST documented in this encounter Functional Status * Calculated C-SSRS Risk Score (Lifetime/Recent) Answer Date of Assessment Author No Risk Indicated 06/19/2025 8:16 AM EST Katarzyna Reyna * Question Answer Date of Assessment Author 1. Wish to be (Past 1 Month) No 025 8:16 AM EST Katarzyna Reyna 2. Non-Specific Active Suici mario Thoughts (Past 1 Month) No 06/19/2025 8:16 AM EST Katarzyna Reyna 6. Suicidal Behavior (Lifetime) No 8:16 AM EST Katarzyna Reyna documented as of this encounter Miscellaneous Notes * Progress Notes - Nitza Ivory MD - 06/19/2025 8:20 AM EST Subjective Patient ID: Rodriguez Cerrato is a 55 y.o. male. Chief Complaint Patient presents with Follow-up Hypertension Diabetes Hypertension Diabetes DM: dx in september 2023 at 9.7 (had been on steroids and eating whatever I wanted. ) Last 6% and noneover 200 recently. Has been started on metformin 500mg XR daily, and tolerating ok (but not 1000mg). Reports readings in 100s recently. -Tried statin but seemed to have worse diarrhea and stopped it. Ascending aortic aneurysm seen on ER imaging of chest. 4cm. Has appt in Jun. Has hx of Rice's esophagus: repeat EGD due 2025?. Continue PPI. Diarrhea improved with Colestipol. HTN: Reports no CP or SOA, almost controlled today. Psoriasis: uses kenalog cream, needs refill CKD: stage 2/3a and stable on last labs. Hx of hemochromatosis: Dr. Jsoé/Lucía Cotton manages and hasn't needed intervention in a few years. 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 PSA due in May, CBC okin May. ZULY: recently dx and not good about wearing CPAP, struggle with getting used to it. HM: colonoscopy due Jun due to fair prep and one polyp. [...] hyperglycemia, without long-term current use of insulin - Hemoglobin A1c - metFORMIN XR (Glucophage-XR) 500 MG 24 hr tablet; Take 1 tablet by mouth 1 time each day with dinner. CKD (chronic kidney disease) stage 2, GFR 60-89 ml/min - Basic Metabolic Panel, Plasma Other hyperlipidemia Hypogonadism in male - Prostate Specific Antigen, Diagnostic, Serum - Testosterone (AndroGel Pump) 20.25 MG/ACT (1.62%) gel; Place 6 Pump on the skin daily. Pituitary macroadenoma (CMS/HCC) - Prolactin level Aneurysm of ascending aorta without rupture (CMS/HCC) - CT Chest wo IV Contrast; Future Erectile dysfunction due to diseases classified elsewhere - Testosterone (AndroGel Pump) 20.25 MG/ACT (1.62%) gel; Place 6 Pump on the skin daily. Intermittent diarrhea - colestipol (Colestid) 1 g tablet; Take 1 tablet by mouth 2 times a day after meals. Take at least1 hour after or 4 hours before other medications. Low vitamin D level - cholecalciferol (Vitamin D3) 25 MCG (1000 UT) capsule; TAKE 1 CAPSULE BY MOUTH ONCE DAILY, SEPARATE FROM HEARTBURN MEDS Benign essential hypertension - atenolol (Tenormin) 50 MG tablet; Take 1 tablet by mouth daily. Rice's esophagus without dysplasia - pantoprazole (Protonix) 40 MG EC tablet; Take 1 tablet by mouth daily before breakfast. Do not crush, chew, or split. Diarrhea, unspecified type - Allergen, Food, Alpha-Gal (gadtpyukc-omzfp-8,3-galatose) Panel (SO) DM labs today. Testing for alpha gal, red meat seems to make diarrhea a little worse. HTN controlled. CKD monitoring today Keep GI appt, needs scope/EGD end of year or early 2025. Send for AA monitoring, if stable from summer can go to yearly. Counseled on OTC vit D if insurance won't cover rx. Follow up in about 6 months (around 12/17/2025). Note to patient: The Century Cures Act [...] (Tenormin) 50 MG tablet, Take 1 tablet by mouth daily., Disp: 90 tablet, Rfl: 3 bromocriptine (Parlodel) 2.5 MG tablet, Take 1 tablet by mouth daily., Disp: 90 tablet, Rfl: 3 cetirizine (ZyrTEC) 10 MG tablet, Take 1 tablet by mouth nightly., Disp: 90 tablet, Rfl: 3 cholecalciferol (Vitamin D3) 25 MCG (1000 UT) capsule, TAKE 1 CAPSULE BY MOUTH ONCE DAILY, SEPARATEFROM HEARTBURN MEDS, Disp: 90 capsule, Rfl: 3 colestipol (Colestid) 1 g tablet, Take 1 tablet by mouth 2 times a day after meals. Take at least 1hour after or 4 hours before other medications., Disp: 60 tablet, Rfl: 4 dicyclomine (Bentyl) 10 MG capsule, Take 1 capsule by mouth 2 times a day as needed (abd pain)., Disp: 60 capsule, Rfl: 1 fluticasone (Flonase) 50 MCG/ACT nasal spray, Administer 2 sprays into each nostril daily. Shake gently. Before first use, prime pump. After use, clean tip and replace cap., Disp: 48 g, Rfl: 3 loperamide (Imodium A-D) 2 MG tablet, Take 1 tablet on days has diarrhea., Disp: 30 tablet, Rfl: 5 metFORMIN XR (Glucophage-XR) 500 MG 24 hr tablet, Take 1 tablet by mouth 1 time each day with dinner., Disp: 90 tablet, Rfl: 3 pantoprazole (Protonix) 40 MG EC tablet, Take 1 tablet by mouth daily before breakfast. Do not crush, chew, or split., Disp: 90 tablet, Rfl: 3 sildenafil (Viagra) 100 MG tablet, Take 1 tablet (100 mg) by mouth daily as needed for erectile dysfunction., Disp: 30 tablet, Rfl: 11 Testosterone (AndroGel Pump) 20.25 MG/ACT (1.62%) gel, Place 6 Pump on the skin daily., Disp: 225 g, Rfl: 5 documented in this encounter Plan of Treatment Upcoming Encounters Date Type Department Care Team (Late st Contact Info) Description 08/17/2025 1:40 PM EST Office Visit [facility] [address] [place] [address] Myranda Rain, PA [address] [place] [address] 10/23/2025 8:00 AM EDT Office Visit [facility] [address] [place] [address] Annie Myers S, OD [address] [place] [address] 12/21/2025 8:40 AM EDT Office Visit [facility] [address] [place] [address] Nitza Ivory MD [address] [place] [address] Scheduled Orders Name Type Priority Associated Diagnoses Orde r Schedule CT Chest wo IV Contrast Imaging Routine Aneurysm of ascending aorta without rupture (CMS/HCC) Expected: 06/19/2025 (Approximate), Expires: 12/21/2026 documented as of this encounter Procedures Procedure Name Priority Date/Time Associated Diagnosis Comments ALLERGEN, FOOD, ALPHA-GAL (SSEBDYYWE-YOCSW-9,3- GALATOSE) PANEL (SO) Routine 06/19/2025 8:59 AM EST Diarrhea, unspecified type ALLERGEN INTERPETATION Routine 06/19/2025 8:59 AM EST Diarrhea, unspecified type PROSTATE SPECIFIC ANTIGEN, DIAGNOSTIC, SERUM Routine 06/19/2025 8:59 AM EST Hypogonadism in male PROLACTIN, SERUM Routine 06/19/2025 8:59 AM EST Pituitary macroadenoma (CMS/HCC) HEMOGLOBIN A1C Routine 06/19/2025 8:59 AM EST Type 2 diabetes mellitus with hyperglycemia, without long-term current use of insulin BASIC METABOLIC PANEL, PLASMA Routine 06/19/2025 8:59 AM EST CKD (chronic kidney disease) stage 2, GFR 60-89 ml/min documented in this encounter Results * Allergen Interpretation (06/19/2025 8:59 AM EST) Immunocap Score IgE See Note 06/21/2025 7:27 AM EST [employer]) Blood Venous blood specimen / Unknown Venipuncture / Unknown 06/19/2025 8:59 AM EST 06/19/2025 8:59 AM EST [facility] [employer]) - 06/21/2025 7:27 AM EST REFERENCE INTERVAL: Allergen, Interpretation Less than 0.10 kU/L......Class 0.....No significant level detected 0.10-0.34 kU/L...........Class 0/1...Clinical relevance undetermined 0.35-0.70 kU/L...........Class 1.....Low 0.71-3.50 kU/L...........Class 2.....Moderate 3.51-17.50 kU/L..........Class 3.....High 17.51-50.00 kU/L.........Class 4.....Very High 50.01-100.00 kU/L........Class 5.....Very High Greater than 100.00kU/L..Class 6.....Very High Allergen results of 0.10-0.34 kU/L are intended for specialist use as the clinical relevance is undetermined. Even though increasing ranges are reflective of increasing concentrations of allergen-specific IgE, these concentrations may not correlate with the degree of clinical response or skin testing results when challenged with a specific allergen. The correlation of allergy laboratory results with clinical history and in vivo reactivity to specific allergens is essential. A negative test may not rule out clinical allergy or even anaphylaxis. Performed By: [facility] [address] [place] [address] Dock Superintendent: Gurinder Caballero MD, PhD CLIA Number: [id number] us Nitza Ivory MD LAB BLOOD ORDERABLES Final Res ult [facility] [employer] [facility]) [address] [place] [address] * (ABNORMAL) Allergen, Food, Alpha-Gal (kxitybtft-grkbe-0,3-galatose) Panel (SO) (06/19/2025 8:59 AM EST) Allergen, Food, Beef IgE 0.13 <=0.34 kU/L 06/21/2025 6:[address] [facility] Allergen, Food, White IgE <0.10 <=0.34 kU/L 06/21/2025 6:[address] [facility] ([employer]) Allergen, Food, Pork IgE <0.10 <=0.34 kU/L 06/21/2025 6:08 AM EST [facility] ([employer]) Allergen, Food, Alpha-Gal, IgE 0.43(H) <=0.09 kU/L 06/21/2025 6:[address] [facility] ([employer]) Blood Venous blood specimen / Unknown Venipuncture / Unknown 06/19/2025 8:59 AM EST 06/19/2025 8:59 AM EST [facility]) - 06/21/2025 6:08 AM EST INTERPRETIVE INFORMATION: Allergen, Food, Alpha-Gal, IgE Allergen results of 0.10-0.34 kU/L are intended for specialist use as the clinical relevance is undetermined. Even though increasing ranges are reflective of increasing concentrations of allergen-specific IgE, these concentrations may not correlate with the degree of clinical response or skin testing results when challenged with a specific allergen. The correlation of allergy laboratory results with clinical history and in vivo reactivity to specific allergens is essential. A negative test may not rule out clinical allergy or even anaphylaxis. Performed By: [facility] [address] [place] [address] Dock Superintendent: Gurinder Caballero MD, PhD CLIA Number: [id number] us Nitza Ivory MD LAB REF LAB BLOOD AND FLUID OR D Final Result Performing Organization Address City/[facility]/ZIP Co de Phone Number [facility] ([facility]) [address] [place] [address] * Prolactin level (06/19/2025 8:59 AM EST) Prolactin, Serum 10.5 3.4 - 15.2 ng/mL 06/19/2025 2:59 PM EST [facility] Blood Venous blood specimen / Unknown Venipuncture / Unknown 06/19/2025 8:59 AM EST 06/19/2025 8:59 AM EST Narrative [facility] - 06/19/2025 2:59 PM EST Performed by [employer] electrochemiluminescent immunoassay which is traceable to the Prolactin 3rd IRP (WHO 84/500). Results obtained with different test methods or kits cannot be used interchangeably. us Nitza Ivory MD LAB BLOOD ORDERABLES Final Res ult [facility] [address] [place] [address] * Prostate Specific Antigen, Diagnostic, Serum (06/19/2025 8:59 AM EST) PSA, Diagnostic, Serum 0.30 0.00 - 3.50 ng/mL 06/19/2025 2:59 PM EST [facility] Blood Venous blood specimen / Unknown Venipuncture / Unknown 06/19/2025 8:59 AM EST 06/19/2025 8:59 AM EST Narrative [facility] - 06/19/2025 2:59 PM EST Performed by [employer] electrochemiluminescent immunoassay which is standardized against the PSA Cumby Reference Standard (WHO 96/670). Results obtained with different test methods or kits cannot be used interchangeably. Nitza Ivory MD LAB BLOOD ORDERABLES Final Res ult Performing Organization Address [facility] Co de Phone Number [facility] [address] [place] [address] * (ABNORMAL) Hemoglobin A1c (06/19/2025 8:59 AM EST) Hemoglobin A1c 6.5(H) <5.7 % 06/19/2025 3:41 PM EST [facility] Blood Venous blood specimen / Unknown Venipuncture / Unknown 06/19/2025 8:59 AM EST 06/19/2025 8:59 AM EST Narrative [facility] - 06/19/2025 3:41 PM EST HA1C Interpretive Data: Diagnosis of Diabetes: Diabetic > or = 6.5% Pre-diabetic 5.7 to 6.4% Non-diabetic < or = 5.6% Glycemic Targets for Type I and Type II Diabetics: Non- Adults <7.0% Adults <6.0% Children and Adolescents <7.5% Source: [place] [employer]. Standards of medical care in diabetes,2017. Diabetes Care.2017:40 (suppl 1):S1-S135. us Nitza Ivory MD LAB BLOOD ORDERABLES Final Res ult Performing Organization Address City/[facility]/ZIP Co de Phone Number [facility] [address] [place] [address] * (ABNORMAL) Basic Metabolic Panel, Plasma (06/19/2025 8:59 AM EST) Glucose, Plasma 105(H) 74 - 99 mg/dL 06/19/2025 2:54 PM EST [facility] BUN, Plasma 18 7 - 21 mg/dL 06/19/2025 2:54 PM EST [facility] Creatinine, Plasma 1.32(H) 0.70 - 1.20 mg/dL 06/19/2025 2:54 PM EST [facility] BUN/Creatinine Ratio 14 06/19/2025 2:54 PM EST [facility] Sodium, Plasma 138 136 - 145 mmol/L 06/19/2025 2:54 PM EST [facility] Potassium, Plasma 4.4 3.6 - 4.9 mmol/L 06/19/2025 2:54 PM EST [facility] Chloride, Plasma 102 97 - 107 mmol/L 06/19/2025 2:54 PM EST [facility] CO2, Plasma 26 22 - 29 mmol/L 06/19/2025 2:54 PM EST [facility] Anion Gap 10 6 - 16 mmol/L 06/19/2025 2:54 PM EST [facility] Total Calcium, Plasma 9.4 8.9 - 10.2 mg/dL 06/19/2025 2:54 PM EST [facility] eGFRcr 63.3 mL/min/1.7 3m*2 06/19/2025 2:54 PM EST [facility] Comment:Reported eGFRcr in m L/min/1.73m2 is based the CKD-EPI 2020 equation that does not use a race coefficient. Blood Venous blood specimen / Unknown Venipuncture / Unknown 06/19/2025 8:59 AM EST 06/19/2025 8:59 AM EST us Nitza Ivory MD LAB BLOOD ORDERABLES Final Res ult [facility] [address] [place] [address] documented in this encounter Visit Diagnoses Diagnosis Type 2 diabetes mellitus with hyperglycemia, without long-term current use of insulin- Primary CKD (chronic kidney disease) stage 2, GFR 60-89 ml/min Chronic kidney disease, Stage II (mild) Other hyperlipidemia Hypogonadism in male Pituitary macroadenoma (CMS/HCC) Benign neoplasm of pituitary gland and craniopharyngeal duct (pouch) Aneurysm of ascending aorta without rupture (CMS/HCC) Erectile dysfunction due to diseases classified elsewhere Diarrhea, unspecified type Low vitamin D level Benign essential hypertension Essential hypertension, benign Rice's esophagus without dysplasia documented in this encounter Additional Health Concerns Assessment Noted Time PHQ-9 Depression Total Score: 0 04/13/20 11:00 AM EDT A fall risk assessment has been complete d for the patient 04/13/2025 11:00 AM EDT A Body Mass Index follow-up plan has been documented for the patient 06/19/2025 8:37 AM EST documented as of this encounter Care Teams Stockholder Relationship Specialty Start Date End Date Nitza Ivory MD [address] [place] [address] PCP - General 12/06/20 documented as of this encounter
--- OUTSIDE RECORDS SUMMARY | 2025-06-27 07:22 | XMS_ITS | Encounter Summary ---
Author Organization Healthcare Address [address] [place] [address] Care Team Providers Care Supervisor [employer] Name Role Phone Nitza Ivory MD Primary Care Provider [phone] Reason for Visit * Reason Comments Med Refill Encounter Details Date Type Department Care Team (Late st Contact Info) Description 08/23/2024 Refill [facility] [address] [place] [address] Nitza Ivory MD [address] [place] [address] Hypogonadism in male; Erectile dysfunction [...] place to sleep or slept in a skilled nursing (including now)? No 08/25/2023 PHQ-9 Answer Date [...] Description 08/17/2025 1:40 PM EST Office Visit [facility] [address] [place] [address] Myranda Rain PA [address] [place] [address] 10/23/2025 8:00 AM EDT Office Visit [facility] [address] [place] [address] Annie Myers S, OD [address] [place] [address] 12/21/2025 8:40 AM EDT Office Visit [facility] [address] [place] [address] Nitza Ivory MD [address] [place] [address] documented as of this encounter Visit Diagnoses [...] documented as of this encounter Care Teams Supervisor [employer] Relationship Specialty Start Date End Date Nitza Ivory MD [address] [place] [address] PCP - General 12/06/20 documented as of this encounter
--- OUTSIDE RECORDS SUMMARY | 2025-06-27 07:22 | XMS_ITS | Encounter Summary ---
Author Organization Healthcare Address [address] [place] [address] Care Team Providers Care Air Liaison And Special Staff Name Role Phone Nitza Ivory MD Primary Care Provider [phone] Reason for Visit * Reason Comments Med Refill Encounter Details Date Type Department Care Team (Late st Contact Info) Description 08/02/2021 Refill [facility] [address] [place] [address] Nitza Ivory MD [address] [place] [address] Erectile dysfunction due to diseases [...] Description 08/17/2025 1:40 PM EST Office Visit [facility] [address] [place] [address] Myranda Rain PA [address] [place] [address] 10/23/2025 8:00 AM EDT Office Visit [facility] [address] [place] [address] Annie Myers S, OD [address] [place] [address] 12/21/2025 8:40 AM EDT Office Visit [facility] [address] [place] [address] Nitza Ivory MD [address] [place] [address] documented as of this encounter Visit Diagnoses Diagnosis Erectile dysfunction due to diseases classified elsewhere Hypogonadism in male documented in this encounter Additional Health Concerns Infection Onset Date Last Indicated Resolved Time Gastrointestinal Rule-Out 02/18/2022 02/18/2022 5:23 AM EDT C. difficile Rule-Out 02/18/2022 02/18/20222021 5:23 AM EDT documented as of this encounter Care Teams Air Liaison And Special Staff Relationship Specialty Start Date End Date Nitza Ivory MD [address] [place] [address] PCP - General 12/06/20 documented as of this encounter
--- OUTSIDE RECORDS SUMMARY | 2025-06-27 07:22 | XMS_ITS | Encounter Summary ---
Author Organization [facility] Address [address] [place] [address] Care Team Providers Care Member Of Congress Name Role Phone Nitza Ivory MD Primary Care Provider [phone] Encounter Details Date Type Department Care Team (Late st Contact Info) Description 07/03/2024 Outside Procedure [facility] [address] [address] Provider, External Social History Tobacco [...] place to sleep or slept in a longterm (including now)? No 08/25/2023 PHQ-9 Answer Date [...] Description 08/17/2025 1:40 PM EST Office [facility] [address], 2[address] [place] [address] Myranda Rain PA [address] [place] [address] 10/23/2025 8:00 AM EDT Office Visit [facility] [address] [place] [address] Annie Myers S, OD [address] [place] [address] 12/21/2025 8:40 AM EDT Office Visit [facility] [address] [place] [address] Nitza Ivory MD [address] [place] [address] documented as of this encounter Procedures Procedure [...] documented as of this encounter Care Teams Member Of Congress Relationship Specialty Start Date End Date Nitza Ivory MD [address] [place] [address] PCP - General 12/06/20 documented as of this encounter
--- OUTSIDE RECORDS SUMMARY | 2025-06-27 07:22 | XMS_ITS | Encounter Summary ---
Author Organization Healthcare Address [address] 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 Social History Tobacco [...] Description 08/17/2025 1:40 PM EST Office Visit [facility]ties [address] [place] [address] Myranda Rain PA [address] [place] [address] 10/23/2025 8:00 AM EDT Office Visit [facility] [address] [place] [address] MyersAnnie S, OD [address] [place] [address] 12/21/2025 8:40 AM EDT Office Visit [facility] [address] [place] [address] Nitza Ivory MD [address] [place] [address] documented as of this encounter Procedures Procedure Name Priority Date/Time Associated Diagnosis Comments SURGICAL PATHOLOGY EXAM Routine 12/16/2021 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 - NO EVIDENCE OF DYPLASIA. 12/17/2021 10:36 AM EDT [facility] at 1036 EDT Clinical Information K22.70 [...] A1. Eveline Strong 12/17/2021 10:36 AM EDT [facility] Note: A resident was involved in the service. I attest I examined the relevant preparations for the specimens and confirmed the diagnosis or interpretation. 12/17/2021 10:36 AM EDT [facility] Tissue Esophageal structure / Unknown 12/16/2021 12/16/2021 12:50 PM EDT us Yodit Tavarez MD LAB PATHOLOGY ORDERABLES Final Result Performing Organization Address City/State/[facility] Co de Phone Number [facility] [address] [place] [address] documented in this encounter Visit Diagnoses Diagnosis [...] documented as of this encounter Care Teams Scale Technician Relationship Specialty Start Date End Date Nitza Ivory MD [address] [place] [address] PCP - General 12/06/20 documented as of this encounter
--- OUTSIDE RECORDS SUMMARY | 2025-06-27 07:22 | XMS_ITS | Encounter Summary ---
Author Organization Healthcare Address [address] [place] [address] Care Team Providers Care Supervisor Real Estate Office Name Role Phone Nitza Ivory MD Primary Care Provider [phone] Reason for Visit * Reason Comments Med Refill Encounter Details Date Type Department Care Team (Late st Contact Info) Description 04/05/2023 Refill [place] [facility] [address] [place] [address] Myranda Rain, PA [address] [place] [address] Low vitamin D level Social [...] 90 day supply with 1 refill(s[facility]. documented in this encounter Plan of Treatment Upcoming Encounters Date Type Department Care Team (Late st Contact Info) Description 08/17/2025 1:40 PM EST Office Visit [place] [facility] [address] [place] [address] Myranda Rain, PA [address] [place] [address] 10/23/2025 8:00 AM EDT Office Visit [facility] [address] [place] [address] MyersAnnie sarabia S, OD [address] [place] [address] 12/21/2025 8:40 AM EDT Office Visit [facility] [address] [place] [address] Nitza Ivory MD [address] [place] [address] documented as of this encounter Visit Diagnoses Diagnosis Low vitamin D level documented in this encounter Additional Health Concerns Assessment Noted Time A fall risk assessment has been complete d for the patient 10/13/2022 1:46 PM EDT A Body Mass Index follow-up plan has been documented for the patient 02/16/2023 9:37 AM EDT documented as of this encounter Care Teams Supervisor Real Estate Office Relationship Specialty Start Date End Date Nitza Ivory MD [address] [place] [address] PCP - General 12/06/20 documented as of this encounter
--- OUTSIDE RECORDS SUMMARY | 2025-06-27 07:22 | XMS_ITS | Encounter Summary ---
Author Organization Healthcare Address [address] [place] [address] Care Team Providers Care Mobile Home Mechanic Name Role Phone Nitza Ivory MD Primary Care Provider [phone] Encounter Details Date Type Department Care Team (Late st Contact Info) Description 12/16/2021 Outside Procedure [address] [address] Provider, External Social History Tobacco [...] Description 08/17/2025 1:40 PM EST Office Visit [place] [facility] [address] [place] [address] Myranda Rain, PA [address] [place] [address] 10/23/2025 8:00 AM EDT Office Visit [facility] [address] [place] [address] Annie Myers S, OD [address] [place] [address] 12/21/2025 8:40 AM EDT Office Visit [facility] [address] [place] [address] Nitza Ivory MD [address] [place] [address] documented as of this encounter [...] documented as of this encounter Care Teams Mobile Home Mechanic Relationship Specialty Start Date End Date Nitza Ivory MD [address] [place] [address] PCP - General 12/06/20 documented as of this encounter
--- OUTSIDE RECORDS SUMMARY | 2025-06-27 07:22 | XMS_ITS | Encounter Summary ---
Author Organization Healthcare Address [address] [place] [address] Care Team Providers Care Incident Manager Name Role Phone Nitza Ivory MD Primary Care Provider [phone] Reason for Visit * Reason Comments Med Refill Encounter Details Date Type Department Care Team (Late st Contact Info) Description 09/29/2023 Refill [place] [facility] [address], [address] [place] [address] Myranda Rain, CITLALI [address] [place] [address] Intermittent diarrhea Social History Tobacco [...] a group home (including now)? No 08/25/2023 Utilities Answer Date [...] things Not at all 10/01/2023 7:21 AM EST Susan Mina CNA Feeling down, depressed, or hopeless Not at all 10/01/2023 7:21 AM EST Susan Mina CNA Patient Health Questionnaire-2 Score 0 10/01/2023 [...] Description 08/17/2025 1:40 PM EST Office Visit [facility] Medicine Specialties [address] [place] [address] Myranda Rain PA [address] [place] [address] 10/23/2025 8:00 AM EDT Office Visit [facility] [address] [place] [address] Annie Myers S, OD [address] [place] [address] 12/21/2025 8:40 AM EDT Office Visit [facility] [address] [place] [address] Nitza Ivory MD [address] [place] [address] documented as of this encounter Visit Diagnoses Diagnosis Intermittent diarrhea documented in this encounter Additional Health Concerns Assessment Noted Time A fall risk assessment has been complete d for the patient 10/13/2022 1:46 PM EDT A Body Mass Index follow-up plan has been documented for the patient 08/25/2023 9:42 AM EST documented as of this encounter Care Teams Incident Manager Relationship Specialty Start Date End Date Nitza Ivory MD [address] [place] [address] PCP - General 12/06/20 documented as of this encounter
--- OUTSIDE RECORDS SUMMARY | 2025-06-27 07:22 | XMS_ITS | Encounter Summary ---
Author Organization Healthcare Address [address] [place] [address] Care Team Providers Care Mess Attendant Name Role Phone Nitza Ivory MD Primary Care Provider [phone] Reason for Visit * Reason Comments Med Refill Encounter Details Date Type Department Care Team (Late st Contact Info) Description 03/14/2023 Refill [place] [facility] [address] [place] [address] Myranda Rain, PA [address] [place] [address] Intermittent diarrhea Social History Tobacco [...] for 30 day supply with 5 refill(s) [facility]. documented in this encounter Plan of Treatment Upcoming Encounters Date Type Department Care Team (Late st Contact Info) Description 08/17/2025 1:40 PM EST Office Visit [place] [facility] [address] [place] [address] Myranda Rain, PA [address] [place] [address] 10/23/2025 8:00 AM EDT Office Visit [facility] [address] [place] [address] MyersAnnie sarabia S, OD [address] [place] [address] 12/21/2025 8:40 AM EDT Office Visit [facility] [address] [place] [address] Nitza Ivory MD [address] [place] [address] documented as of this encounter Visit Diagnoses Diagnosis Intermittent diarrhea documented in this encounter Additional Health Concerns Assessment Noted Time A fall risk assessment has been complete d for the patient 10/13/2022 1:46 PM EDT A Body Mass Index follow-up plan has been documented for the patient 02/16/2023 9:37 AM EDT documented as of this encounter Care Teams Mess Attendant Relationship Specialty Start Date End Date Nitza Ivory MD [address] [place] [address] PCP - General 12/06/20 documented as of this encounter
--- OUTSIDE RECORDS SUMMARY | 2025-06-27 07:22 | XMS_ITS | Clinical Summary ---
Author Organization [facility] Address [address] [place] [address] Care Team Providers Care Roll Forming Machine Set Up Mechanic Name Role Phone Nitza Ivory MD Primary Care Provider [phone] Allergies No known active allergies Medications sildenafil [...] (2 of 2 - PCV) 05/12/2018 05/12/2017 TDAP/TD VACCINES (1 - Tdap) 11/07/2019 11/06/2019 ANNUAL PHYSICAL 03/25/2023 HEPATITIS C SCREENING 03/25/2023 INFLUENZA VACCINE 02/23/2025 05/25/2023, , 06/16/2021, Additional history exists ZOSTER VACCINE Completed 03/10/2022, 08/21/2021 HEMOGLOBIN A1C Discontinued 10/14/2023, 09/24, 05/25/2023, Additional history exists Insurance [employer] Care Teams Roll Forming Machine Set Up Mechanic Relationship Specialty Start Date End Date Nitza Ivory MD [address] [place] [address] PCP - General Family Medicine 02/22/23
--- OUTSIDE RECORDS SUMMARY | 2025-06-27 07:22 | XMS_ITS | Encounter Summary ---
Author Organization [facility] Address [address] [employer] [place] [address] Care Team Providers Care Distribution Engineering Technologist Name Role Phone Nitza Ivory MD Primary Care Provider [phone] Reason for Visit * Reason Onset Date Comments HCN - Patient Message 06/25/2025 Encounter Details Date Type Department Care Team (Late st Contact Info) Description 06/25/2025 Telephone [facility] [address] [place] [address] Nitza Ivory MD [address] [place] [address] HCN - Patient Message Social History Tobacco Use Types Packs/Day Years [...] time in the past 12 m [facility], were you homeless or living in a fci (including now)? No 06/19/2025 [facility] Utilities Answer Date Recorded In the past [...] encounter Miscellaneous Notes * Telephone Encounter - Katarzyna Reyna - 06/25/2025 3:58 PM EST Pt is aware of lab results * Telephone Encounter - Darrick Torie Nimco - 06/25/2025 8:44 AM EST Clinical Concern/Question Reason for Call: He is returning a call. Please call again Best contact number: [phone] Optimal time of day to reach caller: Additional comments/information from caller: Note: Please do not reply to this message. Follow-up communication and further actions as a result of this message need to be communicated with the patient directly, if the patient is not active onMyChart. If the patient is active on MyChart, they will receive notification of the communication/outcome via [employer]. documented in this encounter Plan of Treatment Upcoming Encounters Date Type Department Care Team (Late st Contact Info) Description 08/17/2025 1:40 PM EST Office Visit [place] [facility] [address] 2nd [place] [address] Myranda Rain PA [address] [place] [address] 10/23/2025 8:00 AM EDT Office Visit [facility] [address] [place] [address] Annie Myers S, OD [address] [place] [address] 12/21/2025 8:40 AM EDT Office Visit [facility] [address] [place] [address] Nitza Ivory MD [address] [place] [address] documented as of this encounter Visit [...] documented as of this encounter Care Teams Distribution Engineering Technologist Relationship Specialty Start Date End Date Nitza Ivory MD [address] [place] [address] PCP - General 12/06/20 documented as of this encounter
--- OUTSIDE RECORDS SUMMARY | 2025-06-27 07:22 | XMS_ITS | Encounter Summary ---
Author Organization Healthcare Address [address] [place] [address] Care Team Providers Care Admitting Coordinator Name Role Phone Nitza Ivory MD Primary Care Provider [phone] Encounter Details Date Type Department Care Team ([facility] st Contact Info) Description 09/23/2021 Lab Requisition [facility] [address] [place] [address] Yodit Tavarez MD [address] [place] [address] Unspecified abdominal pain Social History Tobacco Use [...] Description 08/17/2025 1:40 PM EST Office Visit [facility] Medicine Specialties [address] [place] [address] Myranda Rain PA [address] [place] [address] 10/23/2025 8:00 AM EDT Office Visit [facility] [address] [place] [address] Annie Myers S, OD [address] [place] [address] 12/21/2025 8:40 AM EDT Office Visit [facility] [address] [place] [address] Nitza Ivory MD [address] [place] [address] documented as of this encounter Procedures Procedure Name Priority Date/Time Associated Diagnosis Comments SURGICAL PATHOLOGY EXAM Routine 09/22/2021 Unspecified abdominal pain documented in this encounter Results * Surgical Pathology Exam (09/22/2021) Case Report Surgical Pathology Case: [id number] Authorizing Provider: Yodit Tavarez MD Collected: 09/22/2021 Ordering Location: [facility] Lab Received: 09/23/2021 1244 Pathologist: Joce Mathews [...] - HYPERPLASTIC POLYP 09/24/2021 12:15 PM EST [facility] at 1215 EST Clinical Information Abdominal [...] entirely submitted in cassette C1. Martina B Rdoriguez D. DESCENDING COLON POLYP Received in formalin labeled descending colon polyp , consists of a bingham/brown soft tissue fragment (0.3 cm) entirely submitted in cassette D1. Martina B Rodriguez E. RECTAL POLYP Received in formalin labeled rectal polyp , consists of two bingham/brown soft tissue fragments (0.4 cm each) entirely submitted in cassette E1. Martina B Rodriguez 09/24/2021 12:15 PM EST [facility] Note: A resident was involved in the service. I attest I examined the relevant preparations for the specimens and confirmed the diagnosis or interpretation. 09/24/2021 12:15 PM EST [facility] Tissue Stomach structure / Unknown 09/22/2021 [...] PATHOLOGY ORDERABLES Final Result [facility] [address] [place] [address] documented in this encounter Visit Diagnoses Diagnosis [...] documented as of this encounter Care Teams Admitting Coordinator Relationship Specialty Start Date End Date Nitza Ivory MD [address] [place] [address] PCP - General 12/06/20 documented as of this encounter
--- OUTSIDE RECORDS SUMMARY | 2025-06-27 07:22 | XMS_ITS | Encounter Summary ---
Author Organization [facility] Address [address] [place] [address] Care Team Providers Care Performance Improvement Specialist Name Role Phone Nitza Ivory MD Primary Care Provider [phone] Encounter Details Date Type Department Care Team (Late st Contact Info) Description 06/20/2025 Results Follow-Up [facility] [address] [place] [address] Nitza Ivory MD [address] [place] [address] Social History Tobacco Use Types [...] any time in the past 12 m [facility], were you homeless or living in a intermediate (including now)? No 06/19/2025 [facility] Utilities Answer Date Recorded In the [...] encounter Miscellaneous Notes * Telephone Encounter - Allison Pang - 06/25/2025 2:34 PM EST Status Update Call #2 2nd call regarding the status of the initial request. Best contact number: [phone] (mobile) Optimal time of day to reach caller: ANYTIME Additional comments/information from caller: pt's returning a missed call from clinic Note: Please do not reply to this message. Follow-up communication and further actions as a result of this message need to be communicated with the patient directly, if the patient is not active onMyChart. If the patient is active on MyChart, they will receive notification of the communication/outcome via [employer]. documented in this encounter Plan of Treatment Upcoming Encounters Date Type Department Care Team (Late st Contact Info) Description 08/17/2025 1:40 PM EST Office Visit [facility] Medicine Specialties [address] [place] [address] Myranda Rain PA [address] [place] [address] 10/23/2025 8:00 AM EDT Office Visit [facility] [address] [place] [address] Annie Myers S, OD [address] [place] [address] 12/21/2025 8:40 AM EDT Office Visit [facility] [address] [place] [address] Nitza Ivory MD [address] [place] [address] documented as of this encounter [...] documented as of this encounter Care Teams Performance Improvement Specialist Relationship Specialty Start Date End Date Nitza Ivory MD [address] [place] [address] PCP - General 12/06/20 documented as of this encounter
--- OUTSIDE RECORDS SUMMARY | 2025-06-27 07:22 | XMS_ITS | Encounter Summary ---
Author Organization Healthcare Address [address] [place] [address] Care Team Providers Care Assembler Production Line Name Role Phone Nitza Ivory MD Primary Care Provider [phone] Encounter Details Date Type Department Care Team (Latest Contact Info) Description 06/19/2025 Travel Social History Tobacco Use Types Packs/Day [...] time in the past 12 m [facility], were you homeless or living in a retirement (including now)? No 06/19/2025 [facility] Utilities Answer Date Recorded In [...] Description 08/17/2025 1:40 PM EST Office Visit [facility] [address] [place] [address] Myranda Rain PA [address] [place] [address] 10/23/2025 8:00 AM EDT Office Visit [facility] [address] [place] [address] MyersAnnie sarabia S, OD [address] [place] [address] 12/21/2025 8:40 AM EDT Office Visit [facility] [address] [place] [address] Nitza Ivory MD [address] [place] [address] documented as of this encounter [...] documented as of this encounter Care Teams Assembler Production Line Relationship Specialty Start Date End Date Nitza Ivory MD [address] [place] [address] PCP - General 12/06/20 documented as of this encounter
--- OUTSIDE RECORDS SUMMARY | 2025-06-27 07:22 | XMS_ITS | Encounter Summary ---
Author Organization Healthcare Address [address] [place] [address] Care Team Providers Care Dispatcher Radioactive Waste Disposal Name Role Phone Nitza Ivory MD Primary Care Provider [phone] Encounter Details Date Type Department Care Team (Late st Contact Info) Description 04/18/2025 Results Follow-Up [facility] Medicine Specialties [address] [place] [address] Myranda Rain PA [address] [place] [address] Social History Tobacco Use Types Packs/Day Years [...] any time in the past 12 m [facility], were you homeless or living in a prison (including now)? No 06/19/2025 [facility] Utilities Answer Date Recorded In [...] Description 08/17/2025 1:40 PM EST Office Visit [facility] Medicine Specialties [address] [place] [address] Myranda Rain, CITLALI [address] [place] [address] 10/23/2025 8:00 AM EDT Office Visit [facility] [address] [place] [address] Annie Myers S, OD [address] [place] [address] 12/21/2025 8:40 AM EDT Office Visit [facility] [address] [place] [address] Nitza Ivory MD [address] [place] [address] documented as of this encounter Visit Diagnoses Not on filedocumented in this encounter Additional Health Concerns Assessment Noted Time PHQ-9 Depression Total Score: 0 04/13/20 25 11:00 AM EDT A fall risk assessment has been complete d for the patient 04/13/2025 11:00 AM EDT A Body Mass Index follow-up plan has been documented for the patient 04/17/2025 8:10 AM EDT documented as of this encounter Care Teams Dispatcher Radioactive Waste Disposal Relationship Specialty Start Date End Date Nitza Ivory MD [address] [place] [address] PCP - General 12/06/20 documented as of this encounter
--- OUTSIDE RECORDS SUMMARY | 2025-06-27 07:22 | XMS_ITS | Encounter Summary ---
Author Organization Healthcare Address [address] [place] [address] Care Team Providers Care Plant Maintenance Worker Name Role Phone Nitza Ivory MD Primary Care Provider [phone] Encounter Details Date Type Department Care Team (Late st Contact Info) Description 07/03/2024 Lab Requisition [facility] [address] [place] [address] Timothy Maldonado MD [address] [place] [address] Encounter for screening for malignant neoplasm of [...] Description 08/17/2025 1:40 PM EST Office Visit [facility] [address] [place] [address] Myranda Rain PA [address] [place] [address] 10/23/2025 8:00 AM EDT Office Visit [facility] [address] [place] [address] Myers Annie S, OD [address] [place] [address] 12/21/2025 8:40 AM EDT [facility] [address] [place] [address] Nitza Ivory MD [address] [place] [address] documented as of this encounter Procedures Procedure Name Priority Date/Time Associated Diagnosis Comments SURGICAL PATHOLOGY EXAM Routine 07/03/2024 Encounter for screening for malignant neoplasm of colon documented in this encounter Results * Surgical Pathology Exam (07/03/2024) Case Report Surgical Pathology Case: [id number] Authorizing Provider: Timothy Maldonado, Collected: 07/03/2024 Ordering Location: [facility] Lab Received: 07/03/2024 1119 Pathologist: Lindsey Jean MD Specimens: A) - Gastric, gastic biopsy B) - Gastric, GE Junction biopsy C) - Colon, random colon biopsy D) - Colon, transverse colon polyp 07/05/2024 9:40 AM EST [facility] Final Diagnosis A. STOMACH, BIOPSY: - REACTIVE GASTROPATHY. - NO H. PYLORI ORGANISMS IDENTIFIED ON H&E SLIDE. B. GASTROESOPHAGEAL JUNCTION, BIOPSY: - GE JUNCTION MUCOSA WITH MILD CHRONIC INFLAMMATION. - NEGATIVE FOR INTESTINAL METAPLASIA. C. LARGE INTESTINE, RANDOM COLON, BIOPSY: - NO PATHOLOGIC ABNORMALITIES. D. LARGE INTESTINE, TRANSVERSE COLON, POLYP, BIOPSY: - TUBULAR ADENOMA. 07/05/2024 9:40 AM EST [facility] at 0940 EST Clinical Information Encounter for screening for malignant neoplasm of colon Colon surveillance Hx of Rice's Diarrhea with incontinence Normal esophagus Diffuse mildly erythematous mucosa in the gastric antrum Normal duodenum 4 mm sessile polyp in the transverse colon 07/05/2024 9:40 AM EST [facility] Gross Description A. GASTIC BIOPSY [...] Manisha T Lockhart 07/05/2024 9:40 AM EST [facility] Note: A resident was involved in the service. I attest I examined the relevant preparations for the specimens and confirmed the diagnosis or interpretation. 07/05/2024 9:40 AM EST [facility] Tissue Colon structure / Unknown 07/03/2024 07/03/2024 11:19 AM EST Tissue specimen (specimen) Stomach structure / Unknown 07/03/2024 07/03/2024 11:19 AM EST Tissue specimen (specimen) Colon structure / Unknown 07/03/2024 07/03/2024 11:19 AM EST Tissue specimen (specimen) Colon structure / Unknown 07/03/2024 07/03/2024 11:19 AM EST Timothy Maldonado MD LAB PATHOLOGY ORDERABL ES Final Result [facility] [address] [place] [address] documented in this encounter Visit Diagnoses Diagnosis [...] documented as of this encounter Care Teams Plant Maintenance Worker Relationship Specialty Start Date End Date Nitza Ivory MD [address] [place] [phone] PCP - General 12/06/20 documented as of this encounter
--- OUTSIDE RECORDS SUMMARY | 2025-06-27 07:22 | XMS_ITS | Encounter Summary ---
Author Organization [facility] Address [address] [place] [address] Care Team Providers Care Cost Recorder Name Role Phone Nitza Ivory MD Primary Care Provider [phone] Encounter Details Date Type Department Care Team (Late st Contact Info) Description 07/03/2024 Outside Procedure [facility] [address] [address] Provider, External Social History Tobacco [...] Description 08/17/2025 1:40 PM EST [facility] [address] [place] [address] Myranda Rain PA [address] [place] [address] 10/23/2025 8:00 AM EDT Office Visit [facility] [address] [place] [address] Annie Myers S, OD [address] [place] [address] 12/21/2025 8:40 AM EDT Office Visit [facility] [address] [place] [address] Nitza Ivory MD [address] [place] [address] documented as of this encounter Procedures [...] documented as of this encounter Care Teams Cost Recorder Relationship Specialty Start Date End Date Nitza Ivory MD [address] [place] [address] PCP - General 12/06/20 documented as of this encounter
--- OUTSIDE RECORDS SUMMARY | 2025-06-27 07:22 | XMS_ITS | Clinical Summary ---
Author Organization [facility] Address [address] [place] [address] Care Team Providers Care Disease Intervention Specialist Name Role Phone Nitza Ivory MD Primary Care Provider [phone] Allergies Active Allergy Reactions Criticality Noted Date Comments Rosuvastatin Diarrhea Low 06/19/2025 Medications sildenafil (Viagra) 100 MG tabletIndications :Hypogonadism in male,Erectile dysfunction due to diseases classified elsewhere Take 1 tablet (100 mg) by mouth daily as needed for erectile dysfunction. 30 tablet 025 2025 Active fluticasone (Flonase) 50 MCG/ACT nasal sprayIndications: Allergic rhinitis, unspecified seasonality, unspecified trigger Administer 2 sprays into each nostril daily. Shake gently. Before first use, prime pump. After use, clean tip and replace cap. 48 g 025 Active bromocriptine (Parlodel) 2.5 MG tabletIndications :Pituitary macroadenoma (CMS/HCC) Take 1 tablet by mouth daily. 90 tablet 025 Active cetirizine (ZyrTEC) 10 MG tabletIndications :Allergic rhinitis, unspecified seasonality, unspecified trigger,Mild intermittent asthma without complication Take 1 tablet by mouth nightly. 90 tablet 025 Active dicyclomine (Bentyl) 10 MG capsuleIndication s:Lower abdominal pain Take 1 capsule by mouth 2 times a day as needed (abd pain). 60 capsule 1 09/19/2 025 Active loperamide (Imodium A-D) 2 MG tabletIndications :Intermittent diarrhea Take 1 tablet on days has diarrhea. 30 tablet 5 Active Testosterone (AndroGel Pump) 20.25 MG/ACT (1.62%) gelIndications:Hy pogonadism in male,Erectile dysfunction due to diseases classified elsewhere Place 6 Pump on the skin daily. 225 g 5 025 2024 Active colestipol (Colestid) 1 g tabletIndications :Intermittent diarrhea Take 1 tablet by mouth 2 times a day after meals. Take at least 1 hour after or 4 hours before other medications. 60 tablet 4 Active cholecalciferol (Vitamin D3) 25 MCG (1000 UT) capsuleIndication s:Low vitamin D level TAKE 1 CAPSULE BY MOUTH ONCE DAILY, SEPARATE FROM HEARTBURN MEDS 90 capsule 3 Active metFORMIN XR (Glucophage-XR) 500 MG 24 hr tabletIndications :Type 2 diabetes mellitus with hyperglycemia, without long-term current use of insulin Take 1 tablet by mouth 1 time each day with dinner. 90 tablet 3 Active atenolol (Tenormin) 50 MG tabletIndications :Benign essential hypertension Take 1 tablet by mouth daily. 90 tablet 3 Active pantoprazole (Protonix) 40 MG EC tabletIndications :Rice's esophagus without dysplasia Take 1 tablet by mouth daily before breakfast. Do not crush, chew, or split. 90 tablet 3 025 2025 Active atenolol (Tenormin) 50 MG tabletIndications :Benign essential hypertension Take 1 tablet (50 mg) by mouth 1 (one) time each day. 90 tablet 3 024 2024 Discontinued(R eorder) pantoprazole (Protonix) 40 MG EC tabletIndications :Rice's esophagus without dysplasia Take 1 tablet (40 mg) by mouth daily before breakfast. Do not crush, chew, or split. 90 tablet 3 025 2024 Discontinued(R eorder) rosuvastatin (Crestor) 20 MG tabletIndications :Other hyperlipidemia Take 1 tablet (20 mg) by mouth daily. 90 tablet 3 025 2024 Discontinued Testosterone (AndroGel Pump) 20.25 MG/ACT (1.62%) gelIndications:Hy pogonadism in male,Erectile dysfunction due to diseases classified elsewhere Place 6 Pump on the skin daily. 225 g 5 025 2024 Discontinued(R eorder) metFORMIN XR (Glucophage-XR) 500 MG 24 hr tabletIndications :Type 2 diabetes mellitus with hyperglycemia, without long-term current use of insulin Take 1 tablet by mouth 2 times a day. 180 tablet 1 025 2024 Discontinued(R eorder) colestipol (Colestid) 1 g tabletIndications :Intermittent diarrhea Take 1 tablet by mouth 2 times a day after meals. Take at least 1 hour after or 4 hours before other medications. 60 tablet 4 025 2024 Discontinued(R eorder) cholecalciferol (Vitamin D3) 25 MCG (1000 UT) capsuleIndication s:Low vitamin D level TAKE 1 CAPSULE BY MOUTH ONCE DAILY, SEPARATE FROM HEARTBURN MEDS 90 capsule 3 025 2024 Discontinued(R eorder) Active Problems Problem Noted Date Diagnosed Date Benign neoplasm of transverse colon 07/03/2024 Other hyperlipidemia 02/22/2024 Type 2 diabetes mellitus wit h hyperglycemia, without long-term current use of insulin 12/22/2023 Impingement syndrome of left shoulder 08/17/2023 Migraines [...] brain 202205/25/2023 ZULY (obstructive sleep apnea) 05/18/2023 Pituitary abnormality 05/18/2023 05/25/2023 Adverse effect of unspecifie d drugs, medicaments and biological substances, initial encounter 05/13/2023 Other hypersomnia 04/26/2023 Dyspnea, unspecified 04/08/2023 Disorder of the skin and subcutaneous tissue, un specified 02/16/2023 Exposure to other specified factors, subsequent encounter 02/16/2023 Strain of muscle, fascia and tendon of the posterior muscle group at thigh level, unspecified thigh, subsequent encounter 02/16/2023 Diverticulosis of large inte kristian without perforation or abscess without bleeding 01/27/2023 Severe obesity (BMI 35.0-39.9) with comorbidity 07/14/2022 Erectile dysfunction due to diseases classified elsewhere 07/14/2022 CKD (chronic kidney disease) stage 2, GFR 60-89 ml/min 04/14/2022 Rice's esophagus without dysplasia 03/13/2022 Overview (03/13/2022): -continue pantoprazole 40mg daily indefinitely. Repeat EGD in 3yr. due 11/2024 Assessment & Plan (04/13/2025 2:50 PM EDT): Orders: CBC and differential; Future Follow Up GI; Future Assessment & Plan (03/13/2022 10:34 AM EDT): -continue pantoprazole 40mg daily indefinitely. Repeat EGD in 3yr. 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 Hypogonadism in male 03/02/2019 [...] 01/17/2013 Benign essential hypertension 01/17/2013 Macroprolactinoma 11/03/2012 Resolved Problems Problem Noted Date Diagnosed Date Resolved Date Pain in left shoulder 08/25/20232024 Rash and other nonspecific skin eruption 08/25/2023 04/15/2025 Abnormal EKG 05/18/2023 05/25/2023 04/15/2025 Cardiomegaly 05/02/2023 04/15/2025 Chest pain, unspecified 05/02/202303/27 Other fatigue 02/16/2023 04/15/2025 Viral URI with cough 07/14/2022 025 Intermittent diarrhea 03/13/20222024 Assessment & Plan (04/13/2025 2:50 PM EDT): Orders: colestipol (Colestid) 1 g tablet; Take 1 tablet by mouth 2 times a day after meals. Take at least 1 hour after or 4 hours before other medications. loperamide (Imodium A-D) 2 MG tablet; Take 1 tablet on days has diarrhea. Follow Up GI; Future Habitual snoring 02/23/2020 04/15/2025 Encounters Date Type Department Care Team Description 06/25/2025 Telephone [facility] [address] [place] [address] Nitza Ivory MD HCN - Patient Message 06/20/2025 Results Follow-Up [facility] [address] [place] [address] Nitza Ivory MD 06/19/2025 8:20 AM EST Office Visit [facility] [address] [address] Nitza Ivory MD Type 2 diabetes mellitus [...] Rice's esophagus without dysplasia; Diarrhea, unspecified type 06/19/2025 Travel 04/19/2025 Refill [facility] [address] [place] [address] Myranda Rain PA Low vitamin D level 04/18/2025 Results Follow-Up [facility] [address] [place] [address], [address] [place] [phone] Myranda Rain PA 04/18/2025 Orders Only [facility] [address] [place] [address], [address] [place] [phone] Myranda Rain PA Low vitamin D level 04/17/2025 8:30 AM EDT Clinical Support [facility] [address] [place] [address] Rice's esophagus without dysplasia; Encounter for monitoring long-term proton pump inhibitor therapy; Low vitamin D level 04/17/2025 Travel 04/13/2025 11:00 AM EDT Office Visit [facility] [address] [place] [address], [address] [place] [phone] Myranda Rain PA Low vitamin D level (Primary Dx); Lower abdominal pain; Intermittent diarrhea; Rice's esophagus without dysplasia; Encounter for monitoring long-term proton pump inhibitor therapy; Tubular adenoma of colon 04/13/2025 Travel from Last 3 Months Immunizations Immunization [...] money to buy more. Never true 06/19/20 25 Ran Out of Food in the Last [...] time in the past 12 m [facility], were you homeless or living in a care home (including now)? No 06/19/2025 [facility] Utilities Answer Date Recorded In [...] F) 06/19/2025 8:12 AM EST Respiratory Rate 18 02/20/2025 2:00 PM EDT Oxygen Saturation 97% 06/19/2025 8:12 AM EST Inhaled Oxygen Concentration - - Weight 105 kg (231 lb 4.2 oz) 06/19/2025 8:12 AM EST Height 180.3 cm (5' 11 ) 06/19/2025 8:12 AM EST Body Mass Index 32.25 06/19/2025 8:12 AM EST Plan of Treatment Upcoming Encounters Date Type Department Care Team (Late st Contact Info) Description 08/17/2025 1:40 PM EST Office Visit [facility] [address] [place] [address] Myranda Rain, PA [address] [place] [address] 10/23/2025 8:00 AM EDT Office Visit [facility] [address] [place] [address] Annie Myers S, OD [address] [place] [address] 12/21/2025 8:40 AM EDT Office Visit [facility] [address] [place] [address] Nitza Ivory MD [address] [place] [address] Health Maintenance Due Date Last Done Comments Diabetes: Dental Exam 1979 [facility]-Hepatitis B Vaccines (1 of 3 - 19+ 3-dose series) 01/22/1988 CT Colonography 2014 FIT-DNA 2014 FIT 2014 FOBT 2014 Sigmoidoscopy 2014 [facility]-Pneumococcal Vaccine: 50+ Years (3 of 3 - PCV) 05/12/2018 05/12/2017, 05/12/2017 [id number] Vaccine (3 - Moderna risk series) 12/04/2020 11/06/2020, 10/09/2020 [facility]- SDOH Screenings 12/17/2025 [facility]-Adult SDOH Screenings 12/17/2025 06/19/2025 [facility]-Diabetes: Hemoglobin A1C 12/17/2025, 02/16/2025, 10/17/2024, Additional history exists [facility]-/Child/Adol SDOH Screenings 12/17/2025 06/19/2025 [facility]-Depression Screening 04/13/2026 04/13/2025, 03/26 Colonoscopy 07/03/2034 07/03/2024, 1203/2024, 09/22/2021 [facility]-Colorectal Cancer Screening 07/03/2034 [facility]-DTaP,Tdap,and Td Vaccines (2 - Td or Tdap) 12/10/2034 12/10/2024, 11/06/2019, 11/06/2019 [facility]-HIV Screening Completed 09/08/2021 [facility]-Hepatitis C Screening Completed 09/08/2021 [facility]-Zoster Vaccines Completed 03/10/2022, [facility]-Influenza Vaccine Completed 05/25/2025 , 05/25/2023, 03/10/2022, Additional history exists [facility]-Obesity Intervention Completed 025, 04/17/2025, 04/13/2025, Additional history exists HPV Vaccines Aged Out [...] Procedure Name Priority Date/Time Associated Diagnosis Comments ALLERGEN INTERPETATION Routine 8:59 AM EST Diarrhea, unspecified type ALLERGEN, FOOD, ALPHA-GAL (IPYGTMGDP-GUEPQ-4,3-GA LATOSE) PANEL (SO) Routine 06/19/2025 8:59 AM EST Diarrhea, unspecified type PROLACTIN, SERUM Routine 06/19/2025 8:59 AM EST Pituitary macroadenoma (CMS/HCC) PROSTATE SPECIFIC ANTIGEN, DIAGNOSTIC, SERUM Routine 06/19/2025 8:59 AM EST Hypogonadism in male HEMOGLOBIN A1C Routine 06/19/2025 8:59 AM EST Type 2 diabetes mellitus with hyperglycemia, without long-term current use of insulin BASIC METABOLIC PANEL, PLASMA Routine 06/19/2025 8:59 AM EST CKD (chronic kidney disease) stage 2, GFR 60-89 ml/min VITAMIN D 25 HYDROXY Routine 04/17/2025 8:09 AM EDT Low vitamin D level MAGNESIUM, PLASMA Routine 04/17/2025 8:0 9 AM EDT Encounter for monitoring long-term proton pump inhibitor therapy VITAMIN B12, SERUM Routine 04/17/2025 8: 09 AM EDT Encounter for monitoring long-term proton pump inhibitor therapy CBC WITH AUTO DIFFERENTIAL Routine 04/17/2025 8:09 AM EDT Rice's esophagus without dysplasia COLONOSCOPY 07/03/2024 9:05 AM EST HEPATITIS C ANTIBODY - ED W/REFLEX TO HCV QUANT PCR STAT 09/08/2021 8:09 PM EST HIV 1/2 ANTIBODY/ANTIGEN SCREEN WITH REFLEX TO HIV I/II DIFFERENTIATION STAT 09/08/2021 8:09 PM EST from Last 3 Months or Most Recently Relevant to Health Maintenance Results * (ABNORMAL) Allergen, Food, Alpha-Gal (axczlibqr-oncpg-0,3-galatose) Panel (SO) (06/19/2025 8:59 AM EST) Allergen, Food, Beef IgE 0.13 <=0.34 kU/L 06/21/2025 6:08 AM EST [facility] Allergen, Food, White IgE <0.10 <=0.34 kU/L 06/21/2025 6:08 AM EST [facility] ([facility]) Allergen, Food, Pork IgE <0.10 <=0.34 kU/L 06/21/2025 6:08 AM EST [facility] ([facility]) Allergen, Food, Alpha-Gal, IgE 0.43(H) <=0.09 kU/L 06/21/2025 6:08 AM EST [facility] ([facility]) Blood Venous blood specimen / Unknown Venipuncture / Unknown 06/19/2025 8:59 AM EST 06/19/2025 8:59 AM EST Narrative [facility] ([facility]) - 06/21/2025 6:08 AM EST INTERPRETIVE INFORMATION: [...] clinical allergy or even anaphylaxis. Performed By: [facility] [address] [place] [address] Cable Stretcher And Tester: Gurinder Caballero MD, PhD CLIA Number: [id number] Nitza Ivory MD LAB REF LAB BLOOD AND FLUID OR D Final Result [facility]) [address] [place] [address] * Allergen Interpretation (06/19/2025 8:59 AM EST) Immunocap Score IgE See Note 06/21/2025 7:27 AM EST [facility] ([facility]) Blood Venous blood specimen / Unknown Venipuncture / Unknown 06/19/2025 8:59 AM EST 06/19/2025 8:59 AM EST Narrative [facility]) - 06/21/2025 7:27 AM EST REFERENCE INTERVAL: [...] clinical allergy or even anaphylaxis. Performed By: [facility] [address] [place] [address] Cable Stretcher And Tester: Gurinder Caballero MD, PhD CLIA Number: [id number] us Nitza Ivory MD LAB BLOOD ORDERABLES Final Res ult [facility] ([facility]) [address] [place] [address] * Prostate Specific Antigen, Diagnostic, Serum (06/19/2025 8:59 AM EST) PSA, Diagnostic, Serum 0.30 0.00 - 3.50 ng/mL 06/19/2025 2:59 PM EST [facility] Blood Venous blood specimen / Unknown Venipuncture / Unknown 06/19/2025 8:59 AM EST 06/19/2025 8:59 AM EST Narrative [facility] - 06/19/2025 2:59 PM EST Performed by [employer] electrochemiluminescent immunoassay which is standardized against the PSA Mauri Reference Standard (WHO 96/670). Results obtained with different test methods or kits cannot be used interchangeably. Nitza Ivory MD LAB BLOOD ORDERABLES Final Res ult Performing Organization Address City/[facility] Co de Phone Number [facility] [address] [place] [address] * Prolactin level (06/19/2025 8:59 AM EST) Prolactin, Serum 10.5 3.4 - 15.2 ng/mL 06/19/2025 2:59 PM EST [facility] Blood Venous blood specimen / Unknown Venipuncture / Unknown 06/19/2025 8:59 AM EST 06/19/2025 8:59 AM EST Narrative [facility] - 06/19/2025 2:59 PM EST Performed by Abebe electrochemiluminescent immunoassay which is traceable to the Prolactin 3rd IRP (WHO 84/500). Results obtained with different test methods or kits cannot be used interchangeably. Nitza Ivory MD LAB BLOOD ORDERABLES Final Res ult Performing Organization Address [facility] [place] [address] * (ABNORMAL) Hemoglobin A1c (06/19/2025 8:59 AM EST) Hemoglobin A1c 6.5(H) <5.7 % 06/19/2025 3:41 PM EST [facility] Blood Venous blood specimen / Unknown Venipuncture / Unknown 06/19/2025 8:59 AM EST 06/19/2025 8:59 AM EST Narrative [facility] - 06/19/2025 3:41 PM EST HA1C Interpretive Data: Diagnosis of Diabetes: Diabetic > or = 6.5% Pre-diabetic 5.7 to 6.4% Non-diabetic < or = 5.6% Glycemic Targets for Type I and Type II Diabetics: Non- Adults <7.0% Adults <6.0% Children and Adolescents <7.5% Source: [place] Diabetes Association. Standards of medical care in diabetes,2017. Diabetes Care.2017:40 (suppl 1):S1-S135. us Nitza Ivory MD LAB BLOOD ORDERABLES Final Res ult [facility] [address] [place] [address] * (ABNORMAL) Basic Metabolic Panel, Plasma (06/19/2025 8:59 AM EST) Glucose, Plasma 105(H) 74 - 99 mg/dL 06/19/2025 2:54 PM EST [facility] BUN, Plasma 18 7 - 21 mg/dL 06/19/2025 2:54 PM EST [facility] Creatinine, Plasma 1.32(H) 0.70 - 1.20 mg/dL 06/19/2025 2:54 PM EST [facility] BUN/Creatinine Ratio 14 06/19/2025 2:54 PM EST [facility] Sodium, Plasma 138 136 - 145 mmol/L 06/19/2025 2:54 PM EST [facility] Potassium, Plasma 4.4 3.6 - 4.9 mmol/L 06/19/2025 2:54 PM EST [facility] Chloride, Plasma 102 97 - 107 mmol/L 06/19/2025 2:54 PM EST [facility] CO2, Plasma 26 22 - 29 mmol/L 06/19/2025 2:54 PM EST [facility] Anion Gap 10 6 - 16 mmol/L 06/19/2025 2:54 PM EST [facility] Total Calcium, Plasma 9.4 8.9 - 10.2 mg/dL 06/19/2025 2:54 PM EST [facility] eGFRcr 63.3 mL/min/1.7 3m*2 06/19/2025 2:54 PM EST [facility] Comment:Reported eGFRcr in m L/min/1.73m2 is based the CKD-EPI 2020 equation that does not use a race coefficient. Blood Venous blood specimen / Unknown Venipuncture / Unknown 06/19/2025 8:59 AM EST 06/19/2025 8:59 AM EST Nitza Ivory MD LAB BLOOD ORDERABLES Final Res ult Performing Organization Address [facility] Co de Phone Number [facility] [address] [place] [address] * (ABNORMAL) Vitamin D 25 Hydroxy (04/17/2025 8:09 AM EDT) Vitamin D 25 Hydroxy 18.8(L) 20.0 - 80.0 ng/mL 04/17/2025 3:22 PM EDT [facility] Blood Venous blood specimen / Unknown Venipuncture / Unknown 04/17/2025 8:09 AM EDT 04/17/2025 8:09 AM EDT Narrative [facility] - 04/17/2025 3:22 PM EDT Testing performed on [employer], standardized against NIST SRM 2972. When testing samples from patients whose predominant form of vitamin D is vitamin D2, such as patients receiving vitamin D2 supplementation, results that are subtherapeutic should be confirmed with another method, such as LC-MS/MS, before being used for patient management. Vitamin D, 25-Hydroxy reference range, age 18 years and up: Deficiency: <12 ng/mL Insufficiency: 12 to 19 ng/mL Sufficiency: 20 to 80 ng/mL Possible toxicity: >100 ng/mL us Myranda GODWIN LAB BLOOD ORDERABLES Final Resu lt Performing Organization Address [facility] Co de Phone Number [facility] [address] [place] [address] * (ABNORMAL) CBC and differential (04/17/2025 8:09 AM EDT) WBC Count 7.18 3.70 - 10.30 10*3/uL LAB HEMATOLOGY METHOD 04/17/2025 2:44 PM EDT [facility] RBC Count 4.65 4.60 - 6.10 10*6/uL LAB HEMATOLOGY METHOD 04/17/2025 2:44 PM EDT [facility] HGB 14.9 13.7 - 17.5 g/dL LAB HEMATOLOGY METHOD 04/17/2025 2:44 PM EDT [facility] HCT 44.4 40.0 - 51.0 % LAB HEMATOLOGY METHOD 04/17/2025 2:44 PM EDT [facility] Platelet Count 162 155 - 369 10*3/uL LAB HEMATOLOGY METHOD 04/17/2025 2:44 PM EDT [facility] MCV 96 79 - 98 fL LAB HEMATOLOGY METHOD 04/17/2025 2:44 PM EDT [facility] MCH 32.0 26.0 - 32.0 pg LAB HEMATOLOGY METHOD 04/17/2025 2:44 PM EDT [facility] MCHC 33.6 30.7 - 35.5 g/dL LAB HEMATOLOGY METHOD 04/17/2025 2:44 PM EDT [facility] RDW 12.1 11.5 - 14.5 % LAB HEMATOLOGY METHOD 04/17/2025 2:44 PM EDT [facility] MPV 10.8 8.8 - 12.5 fL LAB HEMATOLOGY METHOD 04/17/2025 2:44 PM EDT [facility] nRBC 0.0 <=0.0 per 100 WBCs LAB HEMATOLOGY METHOD 04/17/2025 2:44 PM EDT [facility] Differential Type Automated LAB HEMATOLOGY METHOD 04/17/2025 2:44 PM EDT [facility] Neutrophils % 56 % LAB HEMATOLOGY METHOD 04/17/2025 2:44 PM EDT [facility] Lymphocytes % 26 % LAB HEMATOLOGY METHOD 04/17/2025 2:44 PM EDT [facility] Monocytes % 10 % LAB HEMATOLOGY METHOD 04/17/2025 2:44 PM EDT [facility] Eosinophils % 8 % LAB HEMATOLOGY METHOD 04/17/2025 2:44 PM EDT [facility] Basophils % 0 % LAB HEMATOLOGY METHOD 04/17/2025 2:44 PM EDT [facility] Immature Granulocytes % 0 % LAB HEMATOLOGY METHOD 04/17/2025 2:44 PM EDT [facility] Neutrophils Absolute 3.97 1.60 - 6.10 10*3/uL LAB HEMATOLOGY METHOD 04/17/2025 2:44 PM EDT [facility] Lymphocytes Absolute 1.84 1.20 - 3.90 10*3/uL LAB HEMATOLOGY METHOD 04/17/2025 2:44 PM EDT [facility] Monocytes Absolute 0.72 0.30 - 0.90 10*3/uL LAB HEMATOLOGY METHOD 04/17/2025 2:44 PM EDT [facility] Eosinophils Absolute 0.60(H) 0.00 - 0.50 10*3/uL LAB HEMATOLOGY METHOD 04/17/2025 2:44 PM EDT [facility] Basophils Absolute 0.03 0.00 - 0.10 10*3/uL LAB HEMATOLOGY METHOD 04/17/2025 2:44 PM EDT [facility] Immature Granulocytes Absolute 0.02 0.00 - 0.06 10*3/uL LAB HEMATOLOGY METHOD 04/17/2025 2:44 PM EDT [facility] Blood Venous blood specimen / Unknown Venipuncture / Unknown 04/17/2025 8:09 AM EDT 04/17/2025 8:09 AM EDT Narrative [facility] - 04/17/2025 2:44 PM EDT Therapeutic decision making should be based on absolute values, rather than percentages. Myranda GODWIN LAB BLOOD ORDERABLES Final Resu lt Performing Organization Address [facility]/ZIP Co de Phone Number [facility] [address] [place] [address] * Magnesium (04/17/2025 8:09 AM EDT) Magnesium, Plasma 1.9 1.9 - 2.4 mg/dL 04/17/2025 2:37 PM EDT [facility] Blood Venous blood specimen / Unknown Venipuncture / Unknown 04/17/2025 8:09 AM EDT 04/17/2025 8:09 AM EDT us Myranda GODWIN LAB BLOOD ORDERABLES Final Resu lt [facility] [address] [place] [address] * Vitamin B12 (04/17/2025 8:09 AM EDT) Vitamin B12, Serum 458 210 - 1,033 pg/mL 04/17/2025 3:02 PM EDT [facility] Blood Venous blood specimen / Unknown Venipuncture / Unknown 04/17/2025 8:09 AM EDT 04/17/2025 8:09 AM EDT us Myranda GODWIN LAB BLOOD ORDERABLES Final Resu lt [facility] [address] [place] [address] * Colonoscopy (07/03/2024 9:05 AM EST) Anatomical [...] 2 Antibody/Antigen Screen (09/08/2021 8:09 PM EST) Pathologist [facility] HIV 1 & 2 Antibody/Anti gen Screen Nonreactive Nonreactive 09/08/2021 9:35 PM EST [facility] Blood Venous blood specimen / Unknown Venipuncture / Unknown 09/08/2021 8:09 PM EST 09/08/2021 8:27 PM EST us Michael Joiner MD LAB BLOOD ORDERABLES Final Result [facility] [address] [place] [address] * [place] Hepatitis C Antibody (09/08/2021 8:09 PM EST) Hepatitis C Antibody Negative Negative 09/08/2021 9:35 PM EST [facility] Blood Venous blood specimen / Unknown Venipuncture / Unknown 09/08/2021 8:09 PM EST 09/08/2021 8:27 PM EST Michael Joiner MD LAB BLOOD ORDERABLES Final Result [facility] [address] [place] [address] from Last 3 Months or Most Recently Relevant to Health Maintenance Insurance [employer] [place] [facility] MEDICAID REPLACEMENT Care Teams Disease Intervention Specialist Relationship Specialty Start Date End Date Nitza Ivory MD [address] [place] [address] PCP - General 12/06/20
--- OUTSIDE RECORDS SUMMARY | 2025-06-27 07:22 | XMS_ITS | Encounter Summary ---
Author Organization Healthcare Address [address] [place] [address] Care Team Providers Care Hands And Dial Inspector Name Role Phone Nitza Ivory MD Primary Care Provider [phone] Encounter Details Date Type Department Care Team ([facility] st Contact Info) Description 07/05/2023 Outside Procedure External Location [address] [place] [address] Katie South, MANAGER OF SUSTAINABILITY, DNP [address] [place] [address] Social History Tobacco Use Types [...] things Not at all 07/05/2023 11:08 AM EST DonnOctober Feeling down, depressed, or hopeless Not at all 06/25 11:08 AM EST DonnOctober Patient Health Questionnaire-2 Score 0 06/25 11:08 AM EST DonnOctober documented as of this encounter Plan of Treatment Upcoming Encounters Date Type Department Care Team (Late st Contact Info) Description 08/17/2025 1:40 PM EST Office Visit [facility] Medicine Specialties [address] [place] [address] Myranda Rain PA [address] [place] [address] 10/23/2025 8:00 AM EDT Office Visit [facility] [address] [place] [address] Annie Myers S, OD [address] [place] [address] 12/21/2025 8:40 AM EDT Office Visit [facility] [address] [place] [address] Nitza Ivory MD [address] [place] [address] documented as of this encounter Procedures Procedure Name Priority Date/Time Associated Diagnosis Comments XR SHOULDER LEFT 2+ VIEWS 07/05/2023 11:59 AM EST documented in this encounter Results * XR Shoulder Left 2+ Views (07/05/2023 11:59 AM EST) Anatomical Region Laterality Modality Upper Extremities, Shoulder Left Digi samantha Radiography 07/05/2023 11:5 9 AM EST Narrative 07/05/2023 1:26 PM EST [address] [place] [address] Name: RODRIGUEZ HSU Exam Date: 07/05/2023 : 1970 Age 53 Gender: M Physician: Katie South Facility: [facility] Facility HSV: Outpatient Exam: SHOULDER COMP [...] Thank you for referring RODRIGUEZ HSU to [facility]. Legally authenticated by TAI MOE 2023-07-05 13:10:40 Procedure Note Provider, Generic Barrett - 07/05/2023 [place] [address] Name: RODRIGUEZ HSU Exam Date: 07/05/2023 : 1970 Age 53 Gender: M Physician: Katie South Facility: [facility] Facility HSV: Outpatient Exam: SHOULDER COMP [...] Thank you for referring RODRIGUEZ HSU to [facility]. Legally authenticated by TAI MOE 2023-07-05 13:10:40 us Katie South APRN, DNP IMG XR PROCEDURES Fin al Result documented in this encounter Visit Diagnoses Not on filedocumented in this encounter Additional Health Concerns Assessment Noted Time A fall risk assessment has been complete d for the patient 10/13/2022 1:46 PM EDT A Body Mass Index follow-up plan has been documented for the patient 07/05/2023 11:52 AM EST documented as of this encounter Care Teams Hands And Dial Inspector Relationship Specialty Start Date End Date Nitza Ivory MD [address] [place] [id number] PCP - General 12/06/20 documented as of this encounter
--- OUTSIDE RECORDS SUMMARY | 2025-06-27 07:22 | XMS_ITS | Encounter Summary ---
Author Organization Healthcare Address [address] [place] [address] Care Team Providers Care Body Shop Floorperson Name Role Phone Nitza Ivory MD Primary Care Provider [phone] Reason for Visit * Reason Comments Med Refill Encounter Details Date Type Department Care Team (Late st Contact Info) Description 07/17/2022 Refill [facility] [address] [place] [address] Nitza Ivory MD [address] [place] [address] Social History Tobacco Use Types [...] Description 08/17/2025 1:40 PM EST Office Visit [facility] Medicine Specialties [address] [place] [address] Myranda Rain PA [address] [place] [address] 10/23/2025 8:00 AM EDT Office Visit [facility] [address] [place] [address] Annie Myers S, OD [address] [place] [address] 12/21/2025 8:40 AM EDT Office Visit [facility] [address] [place] [address] Nitza Ivory MD [address] [place] [address] documented as of this encounter Visit Diagnoses Not on filedocumented in this encounter Additional Health Concerns Assessment Noted Time A fall risk assessment has been complete d for the patient 07/07/2022 3:10 PM EST documented as of this encounter Care Teams Body Shop Floorperson Relationship Specialty Start Date End Date Nitza Ivory MD [address] [place] [address] PCP - General 12/06/20 documented as of this encounter
--- OUTSIDE RECORDS SUMMARY | 2025-06-27 07:23 | XMS_ITS | Encounter Summary ---
Author Organization Healthcare Address [address] [place] [address] Care Team Providers Care Groover And Striper Operator Name Role Phone Nitza Ivory MD Primary Care Provider [phone] Encounter Details Date Type Department Care Team (Late st Contact Info) Description 07/29/2023 Outside Procedure External Location [address] [place] [address] Katie South, HOME VISITOR, DNP [address] [place] [address] Social History Tobacco Use Types [...] Description 08/17/2025 1:40 PM EST Office Visit [place] [facility] Medicine Specialties [address] [place] [address] Myranda Rain PA [address] [place] [address] 10/23/2025 8:00 AM EDT Office Visit [facility] [address] [place] [address] MyersAnnie S, OD [address] [place] [address] 12/21/2025 8:40 AM EDT Office Visit [facility] [address] [place] [address] Nitza Ivory MD [address] [place] [address] documented as of this encounter Procedures Procedure Name Priority Date/Time Associated Diagnosis Comments MR SHOULDER LEFT WO IV CONTRAST 07/29/2023 2:09 PM EST documented in this encounter Results * MR Shoulder Left wo IV Contrast (07/29/2023 2:09 PM EST) Anatomical Region Laterality Modality Upper Extremities Left Magnetic Reson ance 07/29/2023 2:09 PM EST Narrative 07/29/2023 4:40 PM EST [address] [place] [address] Name: RODRIGUEZ HSU Exam Date: 07/29/2023 : 1970 Age 53 Gender: M Physician: Katie South Facility: [facility] Facility HSV: Outpatient Exam: MRI SHOULDER W/O [...] Thank you for referring RODRIGUEZ HSU to [facility]. Legally authenticated by PREETI Rueda III 2023-07-29 16:24:14 Procedure Note Provider, Generic Drasco - 07/29/2023 [place] [address] Name: RODRIGUEZ HSU Exam Date: 07/29/2023 : 1970 Age 53 Gender: M Physician: Katie South Facility: [facility] Facility HSV: Outpatient Exam: MRI SHOULDER W/O [...] Thank you for referring RODRIGUEZ HSU to [facility]. Legally authenticated by PREETI Rueda III 2023-07-29 16:24:14 us Katie South HOME VISITOR, DNP IMG MRI PROCEDURES Fi nal Result documented in this encounter Visit Diagnoses Not on filedocumented in this encounter Additional Health Concerns Assessment Noted Time A fall risk assessment has been complete d for the patient 10/13/2022 1:46 PM EDT A Body Mass Index follow-up plan has been documented for the patient 07/05/2023 11:52 AM EST documented as of this encounter Care Teams Groover And Striper Operator Relationship Specialty Start Date End Date Nitza Ivory MD [address] [place] [address] PCP - General 12/06/20 documented as of this encounter
--- NOTE | 2025-06-27 07:27 | CT_ITS ---
FINAL REPORT TECHNIQUE: Axial images were obtained through the chest without contrast. Multiplanar reconstructions in the sagittal and coronal planes were subsequently performed. CLINICAL HISTORY: ANEURYSM ASCENDING AORTA W/O RUPTURE COMPARISON: CTA of the chest 02/16/2025 FINDINGS: There is a 41 mm in diameter ascending aortic aneurysm, which measured 40 mm on the prior CTA of the chest dated 02/16/2025. No mediastinal or axillary adenopathy is identified. There are calcified suprahilar lymph nodes present. Limited images of the upper abdomen are unremarkable. A calcified granuloma is present in the left lower lobe. No suspicious infiltrate or nodule identified. IMPRESSION: Ascending aortic aneurysm, 41 mm in diameter, not significantly changed since the prior CTA of the chest dated 02/16/2025. Reviewed, Interpreted and Dictated by Neftaly Goldman MD Transcribed by Molly Mcak Authenticated and [facility]
== END 2025-06-27 23:59 | disposition home or self-care (01) ==
LOC: RAD 07:19
PROVIDERS: PCP Surgery; Visit Provider Family Medicine
DX: I71.21 Aneurysm of the ascending aorta, without rupture (principal)
CPT/HCPCS: 71250